=== PATIENT | female | born 1950 | race Caucasian/White ===

== ENCOUNTER 2019-01-08 18:51 | Inpatient (IN) | payer MEDICARE ==
[~2019-01-08] VITALS: Ht 170.2 cm; Wt 95.9 kg
--- NOTE | 2019-01-08 19:40 | NUR ---
800 ML OF CLEAR, YELLOW URINE DRAINED FROM WHITE CATH BAG
[2019-01-08 20:14] LABS: BASOPHILS 0.9 % (0-2); HEMATOCRIT 25.2 % (36.0-48.0); IMMATURE GRANULOCYTES 0.3 % (0-5); MCHC 31.7 g/dL (31.0-37.0); MCV 91.3 fL (80.0-100.0); MEAN PLATELET VOLUME 11.7 fL (7.4-10.4); MONOCYTES 7.9 % (2-11); NEUTROPHILS 63.9 % (40-80); PLATELET COUNT 187 10x3/uL (130-400); RBC 2.76 10x6/uL (4.00-5.40); RDW 15.2 % (11.5-14.5); WBC 7.7 10x3/uL (4.8-10.8)
[2019-01-08 20:35] LABS: ANION GAP 19.6 mmol/L (8-16); CALCIUM 7.3 mg/dL (8.5-10.1); CARBON DIOXIDE 18.1 mmol/L (21.0-32.0); POTASSIUM - SERUM 4.7 mmol/L (3.5-5.1)
[2019-01-08 20:41] LABS: ALBUMIN 2.9 g/dL (3.4-5.0); BILIRUBIN - TOTAL 0.25 mg/dL (0.2-1.3)
--- NOTE | 2019-01-08 21:00 | NUR ---
RECEIVED PT TO ROOM VIA STRETCHER. SPO2 89% ON RA. PT NOW ON 2L NC. NO FAMILY PRESENT AT THIS TIME. PT ANSWERS MOST QUESTIONS, HOWEVER, CHANGES HER STORY REGARDING HOME MEDICATION FOR PAIN. FALL PRECAUTIONS IN PLACE. SRX2, EDUCATED USE OF CALL LIGHT FOR ASSISTANCE. WILL MONITOR.
[2019-01-08] MEDS ORDERED: NEURONTIN 300300 MG PO (23:05)
[2019-01-08] MEDS ORDERED: NORVASC10 MG PO (23:06)
[2019-01-08] MEDS ORDERED: IBUPROFEN800 MG PO (23:06)
[2019-01-08] MEDS ORDERED: LEVOTHYROXINE50 MCG PO (23:06)
[2019-01-08] MEDS ORDERED: SHINGRIX (23:07)
[2019-01-08] MEDS ORDERED: INFLUENZA VACCINE (23:07)
[2019-01-08] MEDS ORDERED: DETROL LA4 MG PO (23:07)
[2019-01-08] MEDS ORDERED: [UNRECOGNIZED DRUG - OTHER] (23:07)
[2019-01-08] MEDS ORDERED: CATAPRES0.2 MG PO (23:07)
[2019-01-08] MEDS ORDERED: [UNRECOGNIZED DRUG - SUPPLY] (23:07)
[2019-01-08] MEDS ORDERED: FUROSEMIDE20 MG PO (23:08)
[2019-01-08] MEDS ORDERED: ZOLOFT100 MG PO (23:11)
[2019-01-09] VITALS (7 sets, daily range): BP systolic 122–225; BP diastolic 62–80; BMI 34.5; BMI 34.4
--- NOTE | 2019-01-09 03:03 | NUR ---
PT CALLS FOR ASSISTANCE TO USE THE RESTROOM. VERY CONFUSED AT THIS TIME AND DOES NOT REMEMBER TRANSFERRING TO THIS HOSPITAL. STATES "WHEN ARE THEY GOING TO TRANSFER ME" ATTEMPTED TO REDIRECT HER. X1 ASST TO BEDSIDE COMMODE. C/O BEING DIZZY WHEN STANDING. FALL PRECAUTIONS REMAIN IN PLACE. WILL CTM.
[2019-01-09 06:06] LABS: BASOPHILS 0.9 % (0-2); EOSINOPHILS 4.6 % (0-7); HEMATOCRIT 24.2 % (36.0-48.0); HEMOGLOBIN 7.7 g/dL (12-16); IMMATURE GRANULOCYTES 0.2 % (0-5); LYMPHOCYTES 16.5 % (15-50); MCH 28.8 pg (26.0-34.0); MCHC 31.8 g/dL (31.0-37.0); MCV 90.6 fL (80.0-100.0); MEAN PLATELET VOLUME 11.5 fL (7.4-10.4); MONOCYTES 9.6 % (2-11); NEUTROPHILS 68.2 % (40-80); PLATELET COUNT 189 10x3/uL (130-400); RBC 2.67 10x6/uL (4.00-5.40); RDW 15.3 % (11.5-14.5); WBC 8.5 10x3/uL (4.8-10.8)
[2019-01-09 06:32] LABS: ALBUMIN 2.7 g/dL (3.4-5.0); ANION GAP 20.4 mmol/L (8-16); BILIRUBIN - TOTAL 0.24 mg/dL (0.2-1.3); CALCIUM 7.3 mg/dL (8.5-10.1); CARBON DIOXIDE 16.2 mmol/L (21.0-32.0); CREATININE - SERUM 6.1 mg/dL (0.6-1.3); MAGNESIUM - SERUM 1.8 mg/dL (1.8-2.4); PHOSPHOROUS 7.3 mg/dL (2.5-4.9); POTASSIUM - SERUM 4.6 mmol/L (3.5-5.1); PROTEIN - SERUM 6.7 g/dL (6.4-8.2); THYROID STIMULATING HORMONE 4.53 uIU/mL (0.36-3.74)
--- NOTE | 2019-01-09 06:55 | NUR ---
REPORT RECEIVED. SHE HAS SOME CONFUSION IN SAYING I AM GOING HOME FOR A LITTLE WHILE TODAY AND THEN COMING BACK. REORIENT. BED IN LOWEST POSITION AND LOCKED AJLEN BED ALARM IS ON. RESP EVEN WITHOUT LABOR ORIENT ON HOW TO USE CL AGAIN AND SHE IS ENCOURAGED TO USE IT. RIGHT A/C WITH SALINE LOCK INTACT. F/C INTACT.
--- NOTE | 2019-01-09 09:30 | NUR ---
SPOKE WITH JUAN C DEAN ABOUT HER B/P RESULT OF AND REVIEW OF B/P HOME MEDS, ORDER TO RESTART NORVASC AND CLONIDINE
--- NOTE | 2019-01-09 10:57 | NUR ---
SHE GOT UP OUT OF CHAIR AND HAD SOME BOWEL MOVEMENT TO THE BSC. PERICARE WAS PROVIDED. SHE REMAINS CONFUSED THINKING SHE IS IN THE WRONG ROOM REORIENT OFTEN IS HERE AT THIS TIME AND STATES SHE HAS BEEN CONFUSED SINCE YESTERDAY LIKE THIS BUT IT IS NOT HER NORMAL
[2019-01-09 13:44] LABS: APTT 31.8 SECONDS (22.8-39.4); INR 1.23 (0.85-1.17)
[2019-01-09 14:01] LABS: % SATURATION 8 % (15-55); IRON 19 ug/dl (35-150); TOTAL IRON BIND CAPACITY 221 ug/dl (260-445); UNSAT IRON BIND CAPACITY 202 ug/dl (150-375)
[2019-01-09 16:23] LABS: COMPLEMENT C4 51.1 mg/dL (17.4-52.2)
--- NOTE | 2019-01-09 16:53 | MORECARE ---
CASE MANAGEMENT DISCHARGE SUMMARY PATIENT: JAMIE CORBIN UNIT: [id number] ADM DATE: 01/08/19 AGE: 68 : 50 SEX: F ROOM/BED: D.2311 AUTHOR: SCOUT,DOC PHYSICIAN: REFERRING PHYSICIAN: JAMISON TURPIN MD DATE OF SERVICE: 01/09/19 Discharge Plan Patient Name: JAMIE CORBIN Facility: [facility]:[place] : 1950 Planned Disposition: Home Anticipated Discharge Date: Discharge Date: Expected LOS: Initial Reviewer: [email or web address] Initial Review Date: 01/09/2019 Generated: 01/09/19 5:52 pm Comments DCP- Discharge Planning Updated by [email or web address]: Joseph Sanders on 01/09/19 3:[address] Patient Name: JAMIE CORBIN Admission Status: ER Accout number: [id number] Admission Date: 01-08-2019 : 1950 Admission Diagnosis: Attending: JAMISON TURPIN Current LOS: 1 Anticipated DC Date: Planned Disposition: Home Primary Insurance: [employer] CHOICE PPO MCR ADVANT Discharge Planning Comments: CM MET WITH PT IN ROOM TO DISCUSS DISCHARGE PLANNING AND NEEDS. PT REPORTS LIVING AT HOME INDEPENDENTLY AND ALONE. PT HAS A WALKER WITH NO MEDICAL EQUIPMENT PROVIDER PREFERENCE. PT HAS NO OUTSIDE SERVICES ASSISTING IN THE HOME. CM DISCUSSED AVAILABILITY OF HOME HEALTH, REHAB SERVICES AND MEDICAL EQUIPMENT. PT DENIES DISCHARGE NEEDS, REPORTS HER SPOUSE WILL PICK HER UP FOR DISCHARGE HOME. PT PLANS TO DISCHARGE HOME ALONE, SEPERATED SPOUSE TO ASSIST PT AT HOME IF NECESSARY. SEPERATED SPOUSE TO TRANSPORT HOME AT DISCHARGE. PT HAS NO ANTICIPATED DISCHARGE NEEDS AT THIS TIME. CM TO CONTINUE TO FOLLOW AND ASSIST NEEDED. Head Waiter: Joseph Sanders DCPIA - Discharge Planning Initial Assessment Updated by [email or web address]: Joseph Sanders on 01/09/19 4:49 pm * Is the patient Alert and Oriented? Yes * How many steps to enter\exit or inside your home? * PCP DR. BATRES IN [place] * Pharmacy [facility] IN [place] * Preadmission Environment Home with Family * ADLs Independent * Equipment Walker * Other Equipment NO MEDICAL EQUIPMENT PROVIDER PREFERENCE * List name and contact numbers for known caregivers / representatives who currently or will assist patient after discharge: SHAWN CORBIN, SEPERATED SPOUSE, * Verbal permission to speak to the caregivers and representatives has been obtained from the patient. Yes * Community resources currently utilized None * Please name any agencies selected above. NONE * Additional services required to return to the preadmission environment? No * Can the patient safely return to the preadmission environment? Yes * Has this patient been hospitalized within the prior 30 days at any hospital? No Patient Name: JAMIE CORBIN Page [id number] at 1653 All edits/amendments must be made on the electronic document DICTATION DATE: 01/09/191652 COLLECTIONS REP: ANIBAL 01/09/191652 RPT#: [id number] CT DATE: STATUS: ADM IN [facility] [address] [place] [address] END OF REPORT
[2019-01-09 17:18] LABS: ERYTHROCYTE SEDIMENTATION RATE 126 mm/hr (0-30)
--- NOTE | 2019-01-09 17:24 | NUR ---
IV SITE TO RIGHT A/C LEAKING, NEW ONE STARTED IN RIGHT HAND WITH 22 GUAGE X1 STICK
--- NOTE | 2019-01-09 19:07 | NUR ---
PT HAS PULLED OUT 2 IV'S THIS EVENING. SHE HAS PULLED ON HER F/C LINE ON AND OFF. SHE CONTINUES TO BE CONFUSED AND OFTEN WILL CALL OUT I NEED TO PEE, I KEEP REMINDING HER SHE HAS A F/C. NO CHANGE IN MENTAL STATUS TODAY. SHE IS UP IN HER CHAIR IN HER ROOM WITH ALARM ON
--- NOTE | 2019-01-09 19:27 | NUR ---
URINE SPECIMEN COLLECTED FROM F/C PORT AFTER CLEANING AND TOOK TO LAB
[2019-01-09 20:09] LABS: CREATININE - URINE 68.6 mg/dL (30-125)
[2019-01-09 20:14] LABS: PRO/CRE RATIO URINE 13.9 mg/g; PROTEIN - URINE 955.5 mg/dL (0.0-11.9)
[2019-01-09 20:33] LABS: APPEARANCE CLEAR (CLEAR); BILIRUBIN NEGATIVE (NEGATIVE); COLOR YELLOW (YELLOW); GLUCOSE 100 mg/dL (NEGATIVE); KETONE NEGATIVE (NEGATIVE); NITRITE NEGATIVE (NEGATIVE); PROTEIN 2+ mg/dL (NEGATIVE); SPECIFIC GRAVITY 1.015 (1.005-1.020); UROBILINOGEN NORMAL (NORMAL)
[2019-01-09 20:34] LABS: EPITHELIAL CELLS 0-5 /hpf (0-5); RED CELLS - URINE 0-5 /hpf (0-5)
[2019-01-09 20:35] LABS: BACTERIA FEW /hpf (NEGATIVE)
--- NOTE | 2019-01-09 22:10 | NUR ---
DR. SEQUEIRA CALLED AND ASKED ME TO GIVE PATIENT ABX ORDER. PLACED ORDER FOR HIM AND WILL FOLLOW HIS ORDER.
--- NOTE | 2019-01-09 23:39 | NUR ---
REPORT RECIEVED AND ROUNDING COMPLETE. SINGH SITTING UP IN HER CHAIR. PATIENT IS ON THE PHONE. DAY NURSE REPORTS SHE HAS NO PIV AT THIS TIME, REPORTS TO CORRINA HUTCHISON. PATIENT HAS NASAL CANULA ON WIHT 02 AT 2L. PATIENT HAS A WHITE WITH CLEAR YELLOW URINE IN WHITE BAG. PATIENT HAS NO NEEDS AT THIS TIME, PATIENT SHOWING NO S/SX OF DISTRESS AT THIS TIME. CALL LIGHT WITHIN REACH AND BED IN LOWEST LOCKED POSITION.
[2019-01-10 00:46] VITALS: BP 169/67
--- NOTE | 2019-01-10 02:57 | NUR ---
I have reviewed this patient and I concur with the Shift Assessment completed by the Licensed Practical Nurse today this shift.
[2019-01-10 04:23] VITALS: BP 185/74
[2019-01-10 06:12] LABS: INR 1.33 (0.85-1.17); PROTIME 15.9 SECONDS (11.6-15.0)
[2019-01-10 06:30] LABS: ALBUMIN 2.5 g/dL (3.4-5.0); ANION GAP 18.8 mmol/L (8-16); BILIRUBIN - TOTAL 0.27 mg/dL (0.2-1.3); CALCIUM 7.6 mg/dL (8.5-10.1); CARBON DIOXIDE 18.4 mmol/L (21.0-32.0); MAGNESIUM - SERUM 1.7 mg/dL (1.8-2.4); POTASSIUM - SERUM 4.2 mmol/L (3.5-5.1)
--- NOTE | 2019-01-10 06:58 | NUR ---
REPORT RECEIVED. SHE IS RESTING WITH EASE RESP EVEN WITHOUT LABOR. BED IN LOWEST POSITION AND LOCKED. CAREPLAN REVIEW DONE WITH SAFETY PRECAUTIONS IN PLACE. JALEN BED ALARM ON. O2 ON AT 2 L/M PER N/C. F/C PATENT WITH YELLOW URINE DRAINING. CL IN REACH
[2019-01-10 07:46] VITALS: BP 106/76
[2019-01-10 11:23] VITALS: BP 194/72
[2019-01-10 15:26] VITALS: BP 108/60
[2019-01-10 20:00] VITALS: BP 139/73
[2019-01-11] VITALS (7 sets, daily range): BP systolic 138–186; BP diastolic 55–77
[2019-01-11 05:17] LABS: ALBUMIN 2.1 g/dL (3.4-5.0); ANION GAP 17.4 mmol/L (8-16); BILIRUBIN - TOTAL 0.22 mg/dL (0.2-1.3); CALCIUM 7.2 mg/dL (8.5-10.1); CARBON DIOXIDE 19.2 mmol/L (21.0-32.0); MAGNESIUM - SERUM 1.6 mg/dL (1.8-2.4); POTASSIUM - SERUM 4.6 mmol/L (3.5-5.1); PROTEIN - SERUM 5.8 g/dL (6.4-8.2)
--- NOTE | 2019-01-11 06:58 | NUR ---
REPORT RECEIVED. SHE IS RESTING WITH EASE RESP EVEN WITHOUT LABOR. F/C PATENT WITH YELLOW URINE NOTED. CL IN REACH JALEN BED ALARM IS ON. BED IN LOWEST POSITION AND LOCKED. CAREPLAN REVIEW DONE WITH SAFETY PRECAUTIONS IN PLACE
[2019-01-11 07:24] LABS: INR 1.26 (0.85-1.17); PROTIME 15.3 SECONDS (11.6-15.0)
--- NOTE | 2019-01-11 08:13 | NUR ---
SHE LEFT FOR KIDNEY BIOPSY WITH IR AT THIS TIME. NO CHANGE IN CONDITION NOTED SHE IS AWAKE
--- NOTE | 2019-01-11 08:59 | NUR ---
RETURN FROM IR, THEY WERE UNABLE TO DO KIDNEY BIOPSY DUE TO BLOOD PRESSURE WAS TO HIGH, IT IS 177/76 CURRENTLY AND SHE HAS HAD HER AM MEDS. HR 68, RESP 20 O2 SAT ON R/A IS 98%. BED ALARM IS BACK ON AND CL IN REACH. SHE WILL REMAIN NPO UNTIL THEY CALL BACK IF THEY ARE ABLE TO FIT HER IN TODAY OR NOT.
[2019-01-11 10:10] LABS: ANA REFLEX - DIRECT Negative (Negative)
--- NOTE | 2019-01-11 11:17 | NUR ---
FSBS IS 152 BUT SHE IS NPO AT THIS TIME SO NO INSULIN IS GIVEN
--- NOTE | 2019-01-11 11:17 | EC ---
PATIENT:JAMIE CORBIN DATE OF SERVICE: 01/08/19 SEX: F MEDICAL RECORD: [id number] DATE OF : [birth year] LOCATION:D.M2 D.211 AGE OF PATIENT: 68 ADMISSION DATE: 01/08/19 REFERRING PHYSICIAN: INTERPRETING PHYSICIAN: RAMSEY VILLAVICENCIO MD ECHOCARDIOGRAM REPORT ECHO CHARGES 4 ECHO COMPLETE Date: 01/09/19 CLINICAL DIAGNOSIS: DYSPNEA ECHOCARDIOGRAPHIC MEASUREMENTS (adult normal given) AC root (d.<3.7cm) 2.8 cm LV Septum d (<1.2 cm> 1.2 cm Valve Excursion 1.7 cm LV Septum (systole) 1.8 cm Left Atria (s.<4.0cm> 4.2 cm LVPW d(<1.2cm) 1.4 cm RV (d.<2.3cm) 3.2 cm LVPW (sytole) 1.5 cm LV diastole(<5.6CM) 5.6 cm MV E-F(>70mm/sec) cm LV systole 4.0 cm LVOT Diameter 2.0 cm MV exc.(>10mm) cm Est.ejection fraction (50-75%) % DOPPLER: LVIT cm/sec A 110 cm/sec E 37.0 cm/sec LA cm/sec RVSP 50.5 mmHg LVOT 179 cm/sec AOP1/2T m/s Asc. Ao 235 cm/sec RVOT 109 cm/sec RA cm/sec PA 144 cm/sec AV Gradient Peak 22.1 mmHg AV Mean 12.8 mmHg AV Area 2.5 cm MV Gradient Peak 10.2 mmHg MV Mean 5.5 mmHg MV Area cm COMMENTS: Electronic Equipment Repairmen: Giss[facility] Force Dispatcher: 1 Dr. Villavicencio TAPE# PACS Pericardial Effusion N DATE OF SERVICE: FINDINGS: 1. Left ventricular chamber size is within normal limits. Left ventricular systolic function is normal. Overall ejection fraction estimated at 55% to 60%. 2. Left atrium is enlarged at 4.2 cm. Right atrium and right ventricular chamber sizes are as well mildly dilated. 3. Valvular structures have normal structure and motion. 4. Doppler interrogation reveals mild mitral regurgitation, mild tricuspid regurgitation, no other valvular insufficiency or stenosis. Pulmonary systolic ECHOCARDIOGRAM REPORT [id number] JAMIE CORBIN pressure is estimated at 50 mmHg. 5. No evidence of pericardial effusion or left ventricular thrombus. TRANSINT:[id number] Voice Confirmation ID: [id number] DOCUMENT ID: [id number] RAMSEY VILLAVICENCIO MD at 1117 CC: [id number] DICTATION DATE: 01/10/19 155 CANINE ENFORCEMENT OFFICER: 01/10/19 1855 ADM IN [facility] [address] [place] [address]
--- NOTE | 2019-01-11 11:30 | NUR ---
HER IS HERE FOR VISIT, I SPOKE WITH THEM CONCERNING A CENTRAL LINE FOR IV ACCESS AND THEY ARE REFUSING THAT AT THIS TIME BECAUSE SHE DOES HAVE SALINE LOCK.
--- NOTE | 2019-01-11 11:37 | NUR ---
B\P 177 SYSTOLIC. CALLED JUNE HARRY AND TOLD HER WILL DO WEDNESDAY B\P TOO HIGH.
--- NOTE | 2019-01-11 11:45 | NUR ---
BIOPSY OF KIDNEY WAS CANCELLED BY DR ALLRED DUE TO BLOOD PRESSURE IS TO HIGH, IT WAS 170/60 AT 10:30. THEY WILL TRY AGAIN ON WEDNESDAY IF BLOOD PRESSURE IS BETTER. STATED TO GO AHEAD AND FEED HER LUNCH.
--- NOTE | 2019-01-11 13:43 | NUR ---
Nutrition Follow-up: NPO this AM for renal biopsy, although they were unable to complete 2/2 BP. Otherwise, eating well. Diet: Renal ADA, Dental Soft PO intake: 50-100% Wt: 238# (220.02# on 01/09) Labs noted: Glu 124, GFR 7, Mg 1.6, Ca 7.2, Alb 2.1 Meds noted: MagOx, Humalog, Pepcid, KDur -Continue current diet as tolerated. -RD following.
--- NOTE | 2019-01-11 13:55 | NUR ---
24 HOUR URINE COLLECTION TOOK TO LAB AT THIS TIME AND THEY WERE NOTIFIED.
[2019-01-11 15:15] LABS: CREATININE - URINE 99.7 mg/dL (30-125)
[2019-01-11 15:28] LABS: PROTEIN - URINE 843.6 mg/dL (0.0-11.9)
--- NOTE | 2019-01-11 19:20 | NUR ---
PT SITTING UP IN BED RESTING. EYES CLOSED. RESP EVEN AND UNLABORED. NO DISTRESS NOTED. CL IN REACH. BED IN LOW SIDE RAILS X2. BED ALARM ON. WILL CONTINUE TO MONITOR.
[2019-01-11 20:07] LABS: SPE - A/G RATIO 0.9 (0.7-1.7); SPE - ALBUMIN 2.7 g/dL (2.9-4.4); SPE - ALBUMIN 2.8 g/dL (2.9-4.4); SPE - ALPHA-1 GLOBULIN 0.3 g/dL (0.0-0.4); SPE - ALPHA-2 GLOBULIN 1.2 g/dL (0.4-1.0); SPE - BETA GLOBULIN 0.8 g/dL (0.7-1.3); SPE - GAMMA GLOBULIN 0.6 g/dL (0.4-1.8); SPE - GAMMA GLOBULIN 0.7 g/dL (0.4-1.8); SPE - M-SPIKE Not Observed g/dL (Not Observed); SPE - TOTAL PROTEIN 5.6 g/dL (6.0-8.5); SPE - TOTAL PROTEIN 5.7 g/dL (6.0-8.5)
[2019-01-11 20:07] LABS: UPE RAND - ALBUMIN 59.9 % (()); UPE RAND - ALPHA 1 GLOBULIN 9.7 % (()); UPE RAND - ALPHA 2 GLOBULIN 7.6 % (()); UPE RAND - BETA GLOBULIN 12.7 % (())
[2019-01-12] VITALS (7 sets, daily range): BP systolic 123–190; BP diastolic 56–105
--- NOTE | 2019-01-12 02:17 | NUR ---
I have reviewed this patient and I concur with the Shift Assessment completed by the Licensed Practical Nurse today this shift.
[2019-01-12 05:37] LABS: ALBUMIN 2.2 g/dL (3.4-5.0); ANION GAP 16.5 mmol/L (8-16); BILIRUBIN - TOTAL 0.19 mg/dL (0.2-1.3); CALCIUM 7.5 mg/dL (8.5-10.1); CARBON DIOXIDE 20.7 mmol/L (21.0-32.0); CREATININE - SERUM 6.5 mg/dL (0.6-1.3); MAGNESIUM - SERUM 1.7 mg/dL (1.8-2.4); POTASSIUM - SERUM 5.2 mmol/L (3.5-5.1); PROTEIN - SERUM 6.2 g/dL (6.4-8.2)
--- NOTE | 2019-01-12 07:36 | NUR ---
PATIENT IS AWAKE AND ALERT AT THIS TIME. WHEN ASKED WHERE SHE IS SHE SAYS THAT SHE ,"IS IN [facility]." REORIENTS QUICKLY, SHE IS ABLE TO TALK ABOUT HER PETS AND FAMILY. SHE UNDERSTANDS THAT SHE HAS BEEN CONFUSED. RESTING QUIETLY AT THIS TIME, DENIES ANY NEEDS.
[2019-01-12 09:09] LABS: ANTI-GLOMERULAR BASMENT MEMBRN 2 units (0-20)
[2019-01-12 11:22] LABS: EOSINOPHILS 7.1 % (0-7); HEMATOCRIT 21.9 % (36.0-48.0); IMMATURE GRANULOCYTES 0.1 % (0-5); LYMPHOCYTES 28.8 % (15-50); MCH 28.4 pg (26.0-34.0); MCHC 30.6 g/dL (31.0-37.0); MCV 92.8 fL (80.0-100.0); MEAN PLATELET VOLUME 11.3 fL (7.4-10.4); MONOCYTES 8.9 % (2-11); NEUTROPHILS 54.1 % (40-80); PLATELET COUNT 202 10x3/uL (130-400); RBC 2.36 10x6/uL (4.00-5.40); RDW 15.1 % (11.5-14.5); WBC 7.1 10x3/uL (4.8-10.8)
[2019-01-12 11:28] LABS: HEMOGLOBIN 6.7 g/dL (12-16)
--- NOTE | 2019-01-12 11:48 | NUR ---
REPORTED CRITICAL LOW HEMAGLOBIN TO JUAN C KHALIL AND ORDERED ANOTHER CBC STAT.
--- NOTE | 2019-01-12 11:49 | NUR ---
REMOVED WHITE CATHETER. REMOVED 10ML STERILE WATER FROM THE BALLOON FIRST AND REMOVED THE WHITE. PATIENT TOLERATED. 200 ML CLEAR YELLOW URINE EMPTIED FROM THE WHITE AFTER REMOVAL.
[2019-01-12 12:20] LABS: BASOPHILS 1.5 % (0-2); EOSINOPHILS 6.4 % (0-7); HEMATOCRIT 23.3 % (36.0-48.0); IMMATURE GRANULOCYTES 0.5 % (0-5); LYMPHOCYTES 23.4 % (15-50); MCH 28.9 pg (26.0-34.0); MCHC 31.8 g/dL (31.0-37.0); MEAN PLATELET VOLUME 11.7 fL (7.4-10.4); MONOCYTES 7.4 % (2-11); NEUTROPHILS 60.8 % (40-80); RBC 2.56 10x6/uL (4.00-5.40); WBC 8.1 10x3/uL (4.8-10.8)
[2019-01-12 12:27] LABS: HEMOGLOBIN 7.4 g/dL (12-16); PLATELET COUNT 251 10x3/uL (130-400)
--- NOTE | 2019-01-12 16:44 | NUR ---
TRANSFUSING FIRST UNIT OF PRBC'S NOW.
--- NOTE | 2019-01-12 19:22 | NUR ---
RECEIVED REPORT, WILL ASSUME CARE OF PT, SULLY HARRY STARTING 2ND UNIT OF PRBC, PT DENIES ANY NEEDS AT THIS TIME, BED IS LOW, SRX2, CALL LIGHT IN REACH, WILL CONTINUE PLAN OF CARE
--- NOTE | 2019-01-12 19:27 | NUR ---
NEW IV START IN LEFT FOREFINGER, 22G. SECOND UNIT OF PRBC'S STARTED NOW. REMOVED IV FROM LEFT THUMB BECAUSE IT HAD BEEN DISLODGED. THE PATIENT IS STILL CONFUSED. SHE IS NOT ORIENTED TO TIME, PLACE OR SITUATION. SHE IS RESTING AT THIS TIME. LASIX IV GIVEN AFTER FINISHING THE FIRST UNIT OF PRBC'S ORDERED. CONTINUEING TO MONITOR CLOSELY.
[2019-01-13] VITALS (7 sets, daily range): BP systolic 146–185; BP diastolic 58–76; Ht 170.2 cm; Wt 95.9 kg
--- NOTE | 2019-01-13 02:43 | NUR ---
I have reviewed this patient and I concur with the Shift Assessment completed by the Licensed Practical Nurse today this shift.
[2019-01-13 04:30] LABS: HEMATOCRIT 27.5 % (36.0-48.0); HEMOGLOBIN 8.8 g/dL (12-16); IMMATURE GRANULOCYTES 0.3 % (0-5); LYMPHOCYTES 33.2 % (15-50); MCH 29.1 pg (26.0-34.0); MCV 91.1 fL (80.0-100.0); MEAN PLATELET VOLUME 11.2 fL (7.4-10.4); MONOCYTES 7.6 % (2-11); NEUTROPHILS 50.9 % (40-80); PLATELET COUNT 210 10x3/uL (130-400); RBC 3.02 10x6/uL (4.00-5.40); RDW 15.2 % (11.5-14.5); WBC 7.3 10x3/uL (4.8-10.8)
[2019-01-13 04:40] LABS: INR 1.19 (0.85-1.17); PROTIME 14.6 SECONDS (11.6-15.0)
[2019-01-13 04:45] LABS: ALBUMIN 2.5 g/dL (3.4-5.0); ANION GAP 15.9 mmol/L (8-16); BILIRUBIN - TOTAL 0.28 mg/dL (0.2-1.3); CALCIUM 7.8 mg/dL (8.5-10.1); CARBON DIOXIDE 22.2 mmol/L (21.0-32.0); CREATININE - SERUM 6.6 mg/dL (0.6-1.3); MAGNESIUM - SERUM 1.8 mg/dL (1.8-2.4); POTASSIUM - SERUM 5.1 mmol/L (3.5-5.1); PROTEIN - SERUM 6.7 g/dL (6.4-8.2)
--- NOTE | 2019-01-13 09:30 | NUR ---
DR. SEQUEIRA HERE AND ORDER RECEIVED FOR VASOTEC 2.5 MG IVP FOR B/P OF 181/75 ANG GIVEN AT 0945 BY Abimbola RAO RN.
--- NOTE | 2019-01-13 10:00 | NUR ---
B/P READING NOW 176/96. SHIRLEY NOTIFIED AND ORDERS RECEIVED FOR APRESOLINE 5 MG IVPAND GIVEN AT 1008 BY JIA HARRY.
--- NOTE | 2019-01-13 10:35 | NUR ---
B/P NOW 195/69 PULSE RATE 58. SHIRLEY NOTIFIED AND ORDERS RECEIVED FOR VASOTEC 5 MG IVP AND GIVEN BY JIA HARRY AT 1104.
--- NOTE | 2019-01-13 11:25 | NUR ---
DR. RIVERA HERE AND INSERTED TRIALYSIS CATH TO LEFT IJ. PT TOLERATED PROCEDURE WELL.
--- NOTE | 2019-01-13 12:04 | NUR ---
B/P NOW 185/73. SHIRLEY NOTIFIED AND ORDERS RECEIVED TO POSTPONE RENAL BX UNTIL WEDNESDAY. PT MAY HAVE DIET AND GIVE ALL B/P MEDS. ALL MEDS GIVEN AND PT TOLERATED WELL.
[2019-01-13 17:08] LABS: ANCA - ANTIMYELOPEROXIDASE <9.0 U/mL (0.0-9.0); ANCA - ANTIPROTEINASE 3 <3.5 U/mL (0.0-3.5); ANCA - ATYPICAL <1:20 titer (Neg:<1:20); ANCA - CYTOPLASMIC <1:20 titer (Neg:<1:20); ANCA - PERINUCLEAR <1:20 titer (Neg:<1:20)
--- NOTE | 2019-01-13 17:20 | NUR ---
B/P NOW 161/72. RESTING QUIETLY IN BED WATCHING TV. TRIALYISIS IJ PATENT.
--- NOTE | 2019-01-13 17:23 | NUR ---
I have reviewed this patient and I concur with the Shift Assessment completed by the Licensed Practical Nurse today this shift.
--- NOTE | 2019-01-13 19:33 | NUR ---
RECEIVED BEDSIDE REPORT. PATIENT IS RESTING COMFORTABLY IN BED. RESPIRATIONS ARE EVEN AND UNLABORED. NO S/S OF DISTRESS. NO C/O PAIN. CALL LIGHT WITHIN REACH. WILL CPOC.
[2019-01-14] VITALS: BP 169/64
--- NOTE | 2019-01-14 00:19 | NUR ---
PATIENT RESTING COMFORTABLY IN BED. RESPIRATIONS ARE EVEN AND UNLABORED. NO S/S OF DISTRESS. NO C/O PAIN. CALL LIGHT WITHIN REACH. WILL CPOC.
[2019-01-14 05:06] LABS: BASOPHILS 1.1 % (0-2); EOSINOPHILS 7.2 % (0-7); HEMATOCRIT 28.7 % (36.0-48.0); HEMOGLOBIN 9.1 g/dL (12-16); IMMATURE GRANULOCYTES 0.6 % (0-5); LYMPHOCYTES 19.1 % (15-50); MCHC 31.7 g/dL (31.0-37.0); MCV 91.4 fL (80.0-100.0); MEAN PLATELET VOLUME 10.8 fL (7.4-10.4); MONOCYTES 9.7 % (2-11); NEUTROPHILS 62.3 % (40-80); PLATELET COUNT 236 10x3/uL (130-400); RBC 3.14 10x6/uL (4.00-5.40); RDW 15.7 % (11.5-14.5); WBC 8.7 10x3/uL (4.8-10.8)
[2019-01-14 05:27] LABS: ALBUMIN 2.4 g/dL (3.4-5.0); ANION GAP 19.6 mmol/L (8-16); BILIRUBIN - TOTAL 0.17 mg/dL (0.2-1.3); CALCIUM 7.6 mg/dL (8.5-10.1); CARBON DIOXIDE 17.8 mmol/L (21.0-32.0); CREATININE - SERUM 6.8 mg/dL (0.6-1.3); POTASSIUM - SERUM 5.4 mmol/L (3.5-5.1); PROTEIN - SERUM 6.4 g/dL (6.4-8.2)
[2019-01-14 09:23] VITALS: BP 198/73
--- NOTE | 2019-01-14 15:12 | NUR ---
DRESSING TO LEFT IJ CHANGED. PT TOLERATED WELL WITH NO COMPLAINTS. WHEN I TOLD HER I HAD SOME PILLS FOR HER, SHE TOLD ME THAT JARED HAD JUST GIVEN THEM TO HER. WHEN I ASKED IF SHE KNEW WHERE SHE IS AT, SHE SAID NO SHE DIDN'T. WHEN I TOLD HER [facility], SHE ASKED WELL WHEN DID WE COME BACK HERE?
[2019-01-14 16:26] VITALS: BP 160/59
--- NOTE | 2019-01-14 19:15 | NUR ---
RECEIVED REPORT, WILL ASSUME CARE OF PT, SLEEPING, NO DISTRESS NOTICED AT THIS TIME, BED IS LOW, SRX3, CALL LIGHT IN REACH, WILL CONTINUE PLAN OF CARE, BED ALARM IS ON
[2019-01-14 20:00] VITALS: BP 180/64
[2019-01-14 22:00] VITALS: BP 114/72; BP 145/55
[2019-01-15 04:00] VITALS: BP 179/72
--- NOTE | 2019-01-15 04:28 | NUR ---
PT WOKE UP, VERY CONFUSED, THINKS SHE IN A DIFFERENT ROOM, EXPLAIN THIS IS THE ROOM SHE HAS BEEN IN
[2019-01-15 04:32] LABS: BASOPHILS 1.1 % (0-2); EOSINOPHILS 5.5 % (0-7); HEMATOCRIT 28.9 % (36.0-48.0); HEMOGLOBIN 9.1 g/dL (12-16); IMMATURE GRANULOCYTES 0.6 % (0-5); LYMPHOCYTES 18.5 % (15-50); MCHC 31.5 g/dL (31.0-37.0); MEAN PLATELET VOLUME 10.8 fL (7.4-10.4); NEUTROPHILS 67.3 % (40-80); PLATELET COUNT 254 10x3/uL (130-400); RBC 3.14 10x6/uL (4.00-5.40); RDW 15.7 % (11.5-14.5); WBC 8.9 10x3/uL (4.8-10.8)
[2019-01-15 05:13] LABS: ALBUMIN 2.5 g/dL (3.4-5.0); ANION GAP 18.7 mmol/L (8-16); BILIRUBIN - TOTAL 0.26 mg/dL (0.2-1.3); CALCIUM 7.9 mg/dL (8.5-10.1); CARBON DIOXIDE 17.4 mmol/L (21.0-32.0); CREATININE - SERUM 6.4 mg/dL (0.6-1.3); POTASSIUM - SERUM 5.1 mmol/L (3.5-5.1); PROTEIN - SERUM 6.6 g/dL (6.4-8.2)
--- NOTE | 2019-01-15 07:20 | NUR ---
RECIEVE REPORT. RESTING IN BED WITH EYES CLOSED. RESPIRATIONS NONLABORED. CONTINUE PLAN OF CARE AND SAFETY PRECAUTIONS.
[2019-01-15 08:29] VITALS: BP 189/72
[2019-01-15 12:07] VITALS: BP 163/69
[2019-01-15 16:21] VITALS: BP 184/75
--- NOTE | 2019-01-15 17:46 | NUR ---
RESTING IN BED WITH EYES CLOSED. RESPIRTATIONS EVEN AND REGULAR. OXYGEN AT 2L NC. REFUSE TO EAT DINNER. CONSENTS UNSIGNED ON CHART DUE TO REPEAT ORDERS AND NO PROCEDURE COMPLETE YET. CONTINUE PLAN OF CARE AND SAFETY PRECAUTIONS.
--- NOTE | 2019-01-15 19:34 | NUR ---
RECEIVED REPORT, WILL ASSUME CARE OF PT, SLEEPING, NO DISTRESS NOTICED AT THIS TIME, BED IS LOW, SRX3, BED ALARM IS ON, CALL IGHT IN REACH, WILL CONTINUE PLAN OF CARE
[2019-01-15 20:00] VITALS: BP 145/65
[2019-01-15 21:41] VITALS: BP 145/65
[2019-01-16] VITALS (13 sets, daily range): BP systolic 119–176; BP diastolic 47–67
--- NOTE | 2019-01-16 03:35 | NUR ---
I have reviewed this patient and I concur with the Shift Assessment completed by the Licensed Practical Nurse today this shift.
[2019-01-16 05:13] LABS: EOSINOPHILS 7.4 % (0-7); HEMATOCRIT 31.1 % (36.0-48.0); HEMOGLOBIN 9.7 g/dL (12-16); IMMATURE GRANULOCYTES 0.7 % (0-5); LYMPHOCYTES 20.7 % (15-50); MCH 29.3 pg (26.0-34.0); MCHC 31.2 g/dL (31.0-37.0); MEAN PLATELET VOLUME 11.3 fL (7.4-10.4); MONOCYTES 8.4 % (2-11); NEUTROPHILS 61.8 % (40-80); PLATELET COUNT 299 10x3/uL (130-400); RBC 3.31 10x6/uL (4.00-5.40); RDW 16.5 % (11.5-14.5); WBC 9.7 10x3/uL (4.8-10.8)
[2019-01-16 05:18] LABS: INR 1.22 (0.85-1.17); PROTIME 14.9 SECONDS (11.6-15.0)
[2019-01-16 05:19] LABS: APTT 49.9 SECONDS (22.8-39.4)
[2019-01-16 05:25] LABS: ALBUMIN 2.6 g/dL (3.4-5.0); ANION GAP 17.5 mmol/L (8-16); BILIRUBIN - TOTAL 0.24 mg/dL (0.2-1.3); CALCIUM 8.2 mg/dL (8.5-10.1); CARBON DIOXIDE 19.2 mmol/L (21.0-32.0); CREATININE - SERUM 6.6 mg/dL (0.6-1.3); POTASSIUM - SERUM 4.7 mmol/L (3.5-5.1); PROTEIN - SERUM 6.9 g/dL (6.4-8.2)
--- NOTE | 2019-01-16 07:20 | NUR ---
RECIEVE REPORT. RESTING IN BED WITH EYES CLOSED. NO SIGNS OF DISTRESS. CONTINUE PLAN OF CARE AND SAFETY PRECAUTIONS.
--- NOTE | 2019-01-16 10:24 | NUR ---
CONFUSED. LETHARGIC. AROUSES TO STIMULI. SPOUSE AT BEDSIDE. REASSESS BP. BP-130/47. NOTIFY KAMRYN SAMUEL WITH IR. CONSENTS FOR RENAL BIOPSY SIGNED ON CHART BY PATIENT AND SPOUSE. TAKEN TO IR VIA BED. CONTINUE PLAN OF CARE AND SAFETY PRECAUTIONS.
--- NOTE | 2019-01-16 11:14 | NUR ---
RETURN TO ROOM VIA BED FROM IR. SEDATED. AROUSES TO STIMULI. BP-121/50, HR-56. SPOUSE AT BEDSIDE. FREE FROM BLEEDING. CONTINUE PLAN OF CARE AND SAFETY PRECAUTIONS.
--- NOTE | 2019-01-16 18:06 | NUR ---
RESTING IN BED WITH EYES CLOSED. O2 @ 2L NC. NO SIGNS OF DISTRESS. CONTINUE PLAN OF CARE AND SAFETY PRECAUTIONS.
--- NOTE | 2019-01-16 19:31 | NUR ---
REPORT RECIEVED AND ROUNDING COMPLETE. PATIENT LAYING IN BED IN HIGH FOWLERS. PATIENT LETHARGIC BUT WAKES WITH LOUD TALKING. PATIENT STATES SHE IS JUST REALLY TIRED AT THIS TIME. PATIENT HAS NASAL CANNULA WIHT O2 AT 2L. PATIENT SHOWING NO S/SX OF DISTRESS AT THIS TIME. CALL LIGHT WITHIN REACH AND BED IN LOWEST LOCKED POSITION. PATIENT STATES NO NEEDS AT THIS TIME.
[2019-01-17] VITALS: BP 126/53
[2019-01-17 04:00] VITALS: BP 142/49
[2019-01-17 06:30] LABS: ALBUMIN 2.7 g/dL (3.4-5.0); ANION GAP 18.8 mmol/L (8-16); BILIRUBIN - TOTAL 0.25 mg/dL (0.2-1.3); CALCIUM 8.3 mg/dL (8.5-10.1); CARBON DIOXIDE 19.1 mmol/L (21.0-32.0); CREATININE - SERUM 6.9 mg/dL (0.6-1.3); POTASSIUM - SERUM 4.9 mmol/L (3.5-5.1)
[2019-01-17 07:10] LABS: BASOPHILS 1.1 % (0-2); EOSINOPHILS 4.8 % (0-7); HEMATOCRIT 32.4 % (36.0-48.0); HEMOGLOBIN 10.1 g/dL (12-16); IMMATURE GRANULOCYTES 0.5 % (0-5); LYMPHOCYTES 14.6 % (15-50); MCH 29.4 pg (26.0-34.0); MCHC 31.2 g/dL (31.0-37.0); MCV 94.2 fL (80.0-100.0); MEAN PLATELET VOLUME 11.4 fL (7.4-10.4); MONOCYTES 8.7 % (2-11); NEUTROPHILS 70.3 % (40-80); PLATELET COUNT 328 10x3/uL (130-400); RBC 3.44 10x6/uL (4.00-5.40); RDW 16.9 % (11.5-14.5); WBC 10.3 10x3/uL (4.8-10.8)
--- NOTE | 2019-01-17 07:20 | NUR ---
RECIEVE REPORT. CONFUSED X3. RESTING IN BED WATCHING TV. ATTEMPT REORIENT UNSUCCESSFUL. PLAN TO START DIALYSIS TODAY. CONTINUE PLAN OF CARE AND SAFETY PRECAUTIONS.
[2019-01-17 08:13] VITALS: BP 156/50
--- NOTE | 2019-01-17 10:15 | NUR ---
TAKEN TO DIALYSIS VIA BED.
[2019-01-17 12:09] LABS: HEPATITIS C ANTIBODY <0.1 S/CO RAT (0.0-0.9)
--- NOTE | 2019-01-17 13:23 | NUR ---
Nutrition Follow-up: Eating well; 100% of breakfast eaten this AM. Noted plans for dialysis today. Diet: Renal ADA PO intake: 50-100% Wt: 251# (238# on 01/11) Last BM: 01/12 per chart Labs noted: K+ 4.9, GFR 6, Glu 176, Ca 8.3, Alb 2.7, PTH 428 Meds reviewed -Continue current diet as tolerated. -RD following.
[2019-01-17 15:06] VITALS: BP 218/80
--- NOTE | 2019-01-17 18:32 | NUR ---
CONFUSED. LAYING IN BED WATCHING TV. SPOUSE LEAVES ROOM. BED ALARM ON. DENIES ANY NEEDS. NO SIGNS OF DISTRESS. CONTINUE PLAN OF CARE AND SAFETY PRECAUTIONS.
--- NOTE | 2019-01-17 19:45 | NUR ---
PT SITTING UP IN BED ALERT BUT CONFUSED X3. PT RR EVEN AND UNLABORED WITH 2L O2 NC. PT BED ALARM IN PLACE ATHIS TIME. NO S/S OF DISTRESS. VITALS STABLE . BED LOW CALL LIGHT WITHIN REACH. WILL CONTINUE TO MONITOR.
[2019-01-17 20:00] VITALS: BP 184/69
[2019-01-17 21:49] VITALS: BP 184/69
[2019-01-18] VITALS (8 sets, daily range): BP systolic 120–208; BP diastolic 57–81
--- NOTE | 2019-01-18 04:18 | NUR ---
PT RESTING IN BED WITH EYES CLOSED. RR EVEN AND UNLABORED. NO S/S OF DISTRESS AT THIS TIME. BED LOW JALEN ALARM IN PLACE CALL LIGHT WITHIN REACH. WILL CONTINUE TO MONITOR.
--- NOTE | 2019-01-18 04:40 | NUR ---
PRN HYDROLOZINE GIVEN FOR 177/ BP. WILL CONTINUE TO MONITOR.
[2019-01-18 05:57] LABS: ALBUMIN 2.4 g/dL (3.4-5.0); ANION GAP 14.1 mmol/L (8-16); BILIRUBIN - TOTAL 0.35 mg/dL (0.2-1.3); POTASSIUM - SERUM 4.2 mmol/L (3.5-5.1); PROTEIN - SERUM 6.4 g/dL (6.4-8.2)
[2019-01-18 05:58] LABS: BASOPHILS 1.1 % (0-2); EOSINOPHILS 6.5 % (0-7); HEMATOCRIT 30.4 % (36.0-48.0); HEMOGLOBIN 9.5 g/dL (12-16); IMMATURE GRANULOCYTES 0.3 % (0-5); LYMPHOCYTES 20.8 % (15-50); MCH 29.1 pg (26.0-34.0); MCHC 31.3 g/dL (31.0-37.0); MEAN PLATELET VOLUME 10.8 fL (7.4-10.4); MONOCYTES 11.5 % (2-11); NEUTROPHILS 59.8 % (40-80); RBC 3.27 10x6/uL (4.00-5.40); RDW 16.2 % (11.5-14.5); WBC 8.8 10x3/uL (4.8-10.8)
[2019-01-18 06:15] LABS: CARBON DIOXIDE 24.1 mmol/L (21.0-32.0)
[2019-01-18 06:42] LABS: PLATELET COUNT 243 10x3/uL (130-400)
--- NOTE | 2019-01-18 07:56 | NUR ---
PT RECEIVED LAYING IN BED FIXING TO EAT BREAKFAST. IV LASIX GIVEN. PT WITH STUDENT THIS MORNING.
--- NOTE | 2019-01-18 17:25 | MORECARE ---
CASE MANAGEMENT DISCHARGE SUMMARY PATIENT: JAMIE CORBIN UNIT: [id number] ADM DATE: 01/08/19 AGE: 68 : 50 SEX: F ROOM/BED: D.3166 AUTHOR: SCOUT,DOC PHYSICIAN: REFERRING PHYSICIAN: JAMISON TURPIN MD DATE OF SERVICE: 01/18/19 Discharge Plan Patient Name: JAMIE CORBIN [facility] [facility] 1950 Planned Disposition: Inpatient Rehab Anticipated Discharge Date: Discharge Date: Expected LOS: Initial Reviewer: [email or web address] Initial Review Date: 01/09/2019 Generated: 01/18/19 6:24 pm Comments DCP- Discharge Planning Updated by [email or web address]: Joseph Sanders on 01/18/19 4:[address] Patient Name: JAMIE CORBIN Encounter No: [id number] : 1950 Primary Insurance: [employer] CHOICE PPO MCR ADVANT Anticipated DC Date: Planned Disposition: Inpatient Rehab External Planned Provider: [facility] INPATIENT REHAB DCP follow-up note: CM MET WITH PT IN ROOM TO DISCUSS DISCHARGE NEEDS AND PLANNING. CM DISCUSSED AVAILABILITY OF HOME HEALTH, REHAB SERVICES AND MEDICAL EQUIPMENT. PT REPORTS SHE IS WEAK AND SHOULD PROBABLY GO TO REHAB. CM DISCUSSED REHAB OPTIONS, LOCATIONS AND PROVIDERS. PT WILL CONSIDER REHAB AT [place], PT WOULD LIKE CM TO SPEAK TO HER SPOUSE TO VERIFY THIS IS A PLAN HE WOULD AGREE WITH. CM CALLED SHAWN CORBIN, , THE LINE WAS BUSY, CM CALLED THREE TIMES. PT REPORTS SHE PLANS TO DRIVE HERSELF TO THE [facility] AND IF SHE NEEDS HELP WITH TRANSPORT, HER SPOUSE, SHAWN, WILL ASSIST. PT REPORTS SHAWN, HER SPOUSE, WILL PICK HER UP FOR DISCHARGE HOME. IMPORTANT MESSAGE FROM MEDICARE PROVIDED AND EXPLAINED. CM TO FOLLOW AND ASSIST NEEDED. PT WILL CONSIDER REHAB AT [facility]. CM TO CONTINUE TO ATTEMPT TO CONTACT PT'S SPOUSE, SHAWN, , TO DISCUSS DISCHARGE PLAN. CM TO ASK PHYSICIAN FOR INPATIENT REHAB PRESCREENING ORDER PT'S INSURANCE WILL REQUIRE PRIOR AUTHORIZATION. SHAHBAZ Odell DCP- Discharge Planning Updated by [id number]: Joseph Sanders on 01/09/19 3:[address] Patient Name: JAMIE CORBIN Admission Status: ER Accout number: [id number] Admission Date: 01-08-2019 : 1950 Admission Diagnosis: Attending: JAMISON TURPIN Current LOS: 1 Anticipated DC Date: Planned Disposition: Home Primary Insurance: [employer] CHOICE PPO MCR ADVANT Discharge Planning Comments: CM MET WITH PT IN ROOM TO DISCUSS DISCHARGE PLANNING AND NEEDS. PT REPORTS LIVING AT HOME INDEPENDENTLY AND ALONE. PT HAS A WALKER WITH NO MEDICAL EQUIPMENT PROVIDER PREFERENCE. PT HAS NO OUTSIDE SERVICES ASSISTING IN THE HOME. CM DISCUSSED AVAILABILITY OF HOME HEALTH, REHAB SERVICES AND MEDICAL EQUIPMENT. PT DENIES DISCHARGE NEEDS, REPORTS HER SPOUSE WILL PICK HER UP FOR DISCHARGE HOME. PT PLANS TO DISCHARGE HOME ALONE, SEPERATED SPOUSE TO ASSIST PT AT HOME IF NECESSARY. SEPERATED SPOUSE TO TRANSPORT HOME AT DISCHARGE. PT HAS NO ANTICIPATED DISCHARGE NEEDS AT THIS TIME. CM TO CONTINUE TO FOLLOW AND ASSIST NEEDED. Tiger Machine Operator: Joseph Sanders DCPIA - Discharge Planning Initial Assessment Updated by [id number]: Joseph Sanders on 01/09/19 4:49 pm * Is the patient Alert and Oriented? Yes * How many steps to enter\exit or inside your home? * PCP DR. BATRES IN [place] * Pharmacy [facility] IN [place] * Preadmission Environment Home with Family * ADLs Independent * Equipment Walker * Other Equipment NO MEDICAL EQUIPMENT PROVIDER PREFERENCE * List name and contact numbers for known caregivers / representatives who currently or will assist patient after discharge: SHAWN CORBIN, SEPERATED SPOUSE, * Verbal permission to speak to the caregivers and representatives has been obtained from the patient. Yes * Community resources currently utilized None * Please name any agencies selected above. NONE * Additional services required to return to the preadmission environment? No * Can the patient safely return to the preadmission environment? Yes * Has this patient been hospitalized within the prior 30 days at any hospital? No Coverage Notice Reviewer: [id number] - Joseph Sanders Notice Issued Date-Time: 01/18/2019 17:10 Notice Type: IM Discharge Notice Notice Delivered To: Patient Relationship to Patient: Electronic Die Maker Name: Delivery Method: HAND - Hand Delivered Ximena Days: Prior Verbal Notification: Recipient Understood Notice: Yes Recipient Signature: Yes Med Rec Note Co-signed by Attending: Coverage Notice Comment: Last DP export: 01/09/19 3:53 Patient Name: JAMIE CORBIN Page [id number] at 1725 All edits/amendments must be made on the electronic document DICTATION DATE: 01/18/191723 TEACHER EDUCATION DIRECTOR: ANIBAL 01/18/191723 RPT#: [id number] DC DATE: STATUS: ADM IN [facility] [address] [place] [address] END OF REPORT
--- NOTE | 2019-01-18 18:00 | NUR ---
PT WITH +HEP A PER INFECTION CONTROL, STATES SINCE SHE IS NOT HAVING DIARRHEA NO NEED FOR ISOLATION.
--- NOTE | 2019-01-18 19:10 | NUR ---
BEDSIDE REPORT RECEIVED FROM DAY SHIFT, PT CARE ASSUMED. INTRODUCED SELF AND WROTE NAME ON BOARD. PT SITTING UP IN BED, WATCHING TV, AAOX4. DENIES ANY NEEDS AT THIS TIME. BED IN LOWEST POSITION, SR X3, CALL LIGHT WITHIN REACH. WILL CONTINUE TO MONITOR.
[2019-01-19] VITALS: BP 141/52
[2019-01-19 04:00] VITALS: BP 171/71
[2019-01-19 06:21] LABS: ALBUMIN 2.5 g/dL (3.4-5.0); ANION GAP 14.1 mmol/L (8-16); BILIRUBIN - TOTAL 0.3 mg/dL (0.2-1.3); CALCIUM 7.7 mg/dL (8.5-10.1); CARBON DIOXIDE 25.1 mmol/L (21.0-32.0); CREATININE - SERUM 5.4 mg/dL (0.6-1.3); POTASSIUM - SERUM 4.2 mmol/L (3.5-5.1); PROTEIN - SERUM 6.2 g/dL (6.4-8.2)
[2019-01-19 06:35] LABS: HEMATOCRIT 28.5 % (36.0-48.0); HEMOGLOBIN 9.5 g/dL (12-16); LYMPHOCYTES 23.2 % (15-50); MCH 30.7 pg (26.0-34.0); MCHC 33.3 g/dL (31.0-37.0); MCV 92.2 fL (80.0-100.0); MEAN PLATELET VOLUME 10.2 fL (7.4-10.4); NEUTROPHILS 62.7 % (40-80); PLATELET COUNT 199 10x3/uL (130-400); RBC 3.09 10x6/uL (4.00-5.40); RDW 16.2 % (11.5-14.5); WBC 8.7 10x3/uL (4.8-10.8)
--- NOTE | 2019-01-19 07:26 | NUR ---
REPORT RECEIVED. WILL CONTINUE WITH POC. PT CURRENTLY LYING SUPINE. CALL LIGHT W/I REACH. PT IS ASLEEP WITH EYES CLOSED AT THIS TIME. RR EVEN AND UNLABORED ON 2L 02. L.IJ TRIALYSIS IS SALINE LOCKED. NO S/S OF DISTRESS NOTED. PT DENIES ANY NEEDS. WILL CTM.
[2019-01-19 09:49] VITALS: BP 180/98
--- NOTE | 2019-01-19 11:53 | NUR ---
Rehab Note- Acute Inpatient Rehab prescreen order received. The patient has [employer] insurance and will require a PreAuth. THe patient has a pending OT Eval at this time. Will need for the PreAuth process. Will follow at this time & begin the PreAuth process. Thank you for this referral! Darlin Frost RN Clinical Liaison, [facility] Rehab
--- NOTE | 2019-01-19 13:21 | NUR ---
ADMINISTERED ORDERED DOSE OF HYDRALIZINE IV FOR SYS BP OF 194. WILL RECHECK IN 30 MINUTES AND CONTINUE TO MONITOR. WILL CTM.
[2019-01-19 13:37] VITALS: BP 194/67
--- NOTE | 2019-01-19 14:45 | NUR ---
OT NOTE: PT COMPLETED HYGIENE TASKS WITH MIN A. PT COMPLETED BED MOB WITH SBA. THANK YOU, LORRAINE FONTANA
--- NOTE | 2019-01-19 16:54 | MORECARE ---
CASE MANAGEMENT DISCHARGE SUMMARY PATIENT: JAMIE CORBIN UNIT: [id number] ADM DATE: 01/08/19 AGE: 68 : 50 SEX: F ROOM/BED: D.6762 AUTHOR: SCOUTDOC PHYSICIAN: REFERRING PHYSICIAN: JAMISON TURPIN MD DATE OF SERVICE: 01/19/19 Discharge Plan Patient Name: JAMIE CORBIN [facility] : 1950 Planned Disposition: Inpatient Rehab Anticipated Discharge Date: 01/20/19 Discharge Date: Expected LOS: 12 Initial Reviewer: CURT Initial Review Date: 01/09/2019 Generated: 01/19/19 5:54 pm DCP- Discharge Planning Updated by [id number]: Joseph Sanders on 01/18/19 4:[address] Patient Name: JAMIE CORBIN Encounter No: [id number] : 1950 Primary Insurance: [employer] CHOICE PPO MCR ADVANT Anticipated DC Date: Planned Disposition: Inpatient Rehab External Planned Provider: INPATIENT REHAB DCP follow-up note: CM MET WITH PT IN ROOM TO DISCUSS DISCHARGE NEEDS AND PLANNING. CM DISCUSSED AVAILABILITY OF HOME HEALTH, REHAB SERVICES AND MEDICAL EQUIPMENT. PT REPORTS SHE IS WEAK AND SHOULD PROBABLY GO TO REHAB. CM DISCUSSED REHAB OPTIONS, LOCATIONS AND PROVIDERS. PT WILL CONSIDER REHAB AT [place], PT WOULD LIKE CM TO SPEAK TO HER SPOUSE TO VERIFY THIS IS A PLAN HE WOULD AGREE WITH. CM CALLED SHAWN CORBIN, , THE LINE WAS BUSY, CM CALLED THREE TIMES. PT REPORTS SHE PLANS TO DRIVE HERSELF TO THE [facility] AND IF SHE NEEDS HELP WITH TRANSPORT, HER SPOUSE, SHAWN, WILL ASSIST. PT REPORTS SHAWN, HER SPOUSE, WILL PICK HER UP FOR DISCHARGE HOME. IMPORTANT MESSAGE FROM MEDICARE PROVIDED AND EXPLAINED. CM TO FOLLOW AND ASSIST NEEDED. PT WILL CONSIDER REHAB AT . CM TO CONTINUE TO ATTEMPT TO CONTACT PT'S SPOUSE, SHAWN, , TO DISCUSS DISCHARGE PLAN. CM TO ASK PHYSICIAN FOR INPATIENT REHAB PRESCREENING ORDER PT'S INSURANCE WILL REQUIRE PRIOR AUTHORIZATION. SHAHBAZ Odell DCP- Discharge Planning Updated by [id number]: Joseph Sanders on 01/09/19 3:[address] Patient Name: JAMIE CORBIN Admission Status: ER Accout number: [id number] Admission Date: 01-08-2019 : 1950 Admission Diagnosis: Attending: JAMISON TURPIN Current LOS: 1 Anticipated DC Date: Planned Disposition: Home Primary Insurance: [employer] CHOICE PPO MCR ADVANT Discharge Planning Comments: CM MET WITH PT IN ROOM TO DISCUSS DISCHARGE PLANNING AND NEEDS. PT REPORTS LIVING AT HOME INDEPENDENTLY AND ALONE. PT HAS A WALKER WITH NO MEDICAL EQUIPMENT PROVIDER PREFERENCE. PT HAS NO OUTSIDE SERVICES ASSISTING IN THE HOME. CM DISCUSSED AVAILABILITY OF HOME HEALTH, REHAB SERVICES AND MEDICAL EQUIPMENT. PT DENIES DISCHARGE NEEDS, REPORTS HER SPOUSE WILL PICK HER UP FOR DISCHARGE HOME. PT PLANS TO DISCHARGE HOME ALONE, SEPERATED SPOUSE TO ASSIST PT AT HOME IF NECESSARY. SEPERATED SPOUSE TO TRANSPORT HOME AT DISCHARGE. PT HAS NO ANTICIPATED DISCHARGE NEEDS AT THIS TIME. CM TO CONTINUE TO FOLLOW AND ASSIST NEEDED. Composition Board Press Operator: Joseph Sanders DCPIA - Discharge Planning Initial Assessment Updated by [id number]: Joseph Sanders on 01/09/19 4:49 pm * Is the patient Alert and Oriented? Yes * How many steps to enter\exit or inside your home? * PCP DR. BATRES IN [place] * Pharm[facility] IN [place] * Preadmission Environment Home with Family * ADLs Independent * Equipment Walker * Other Equipment NO MEDICAL EQUIPMENT PROVIDER PREFERENCE * List name and contact numbers for known caregivers / representatives who currently or will assist patient after discharge: SHAWN CORBIN, SEPERATED SPOUSE, * Verbal permission to speak to the caregivers and representatives has been obtained from the patient. Yes * Community resources currently utilized None * Please name any agencies selected above. NONE * Additional services required to return to the preadmission environment? No * Can the patient safely return to the preadmission environment? Yes * Has this patient been hospitalized within the prior 30 days at any hospital? No Coverage Notice Reviewer: [id number] - Joseph Sanders Notice Issued Date-Time: 01/18/2019 17:10 Notice Type: IM Discharge Notice Notice Delivered To: Patient Relationship to Patient: Golf Cart Attendant Name: Delivery Method: HAND - Hand Delivered Ximena Days: Prior Verbal Notification: Recipient Understood Notice: Yes Recipient Signature: Yes Med Rec Note Co-signed by Attending: Coverage Notice Comment: Last DP export: 01/18/19 4:25 p Patient Name: JAMIE CORBIN Page 20800 at 1654 All edits/amendments must be made on the electronic document DICTATION DATE: 01/19/191652 RANGER AIDE: ANIBAL 01/19/191652 RPT#: [id number] DC DATE: STATUS: ADM [place] [address] [place] [address] END OF REPORT
--- NOTE | 2019-01-19 17:11 | MORECARE ---
CASE MANAGEMENT DISCHARGE SUMMARY PATIENT: JAMIE CORBIN UNIT: [id number] ADM DATE: 01/08/19 AGE: 68 : 50 SEX: F ROOM/BED: D.2612 AUTHOR: SCOUT,DOC PHYSICIAN: REFERRING PHYSICIAN: JAMISON TURPIN MD DATE OF SERVICE: 01/19/19 Discharge Plan Patient Name: JAMIE CORBIN Facility: [facility]:[place] : 1950 Planned Disposition: Inpatient Rehab Anticipated Discharge Date: 01/20/19 Discharge Date: Expected LOS: 12 Initial Reviewer: CURT Initial Review Date: 01/09/2019 Generated: 01/19/19 6:10 pm Comments DCP- Discharge Planning Updated by [id number]: Joseph Sanders on 01/19/19 4:[address] Patient Name: JAMIE CORBIN Encounter No: [id number] : 1950 Primary Insurance: [employer] CHOICE PPO MCR ADVANT Anticipated DC Date: 01-20-2019 Planned Disposition: Inpatient Rehab External Planned Provider: [facility] INPATIENT REHAB DCP follow-up note: CM SPOKE TO RN ANA M FRANZ WHO ADVISED CM THAT SEX WORKER OR ESCORT INFORMED HER THAT PT IS LONGTERM FACILITY APPROPRIATE AND NOT TO WASTE CM'S TIME SUBMITTING FOR INPATIENT REHAB. CM SPOKE TO PT AND SPOUSE IN ROOM. PT AND SPOUSE BOTH WOULD LIKE REHAB AT [place] IF POSSIBLE. CM DISCUSSED LONGTERM FACILITY FOR REHAB. THEY WANTED TO DISCUSS THIS WITHOUT CM THERE. CM LEFT. CM RETURNED IN ABOUT ONE HOUR. PT AND SPOUSE REPORT IF PT CANNOT GET INTO INPATIENT REHAB, THEY WOULD GO TO A LONGTERM FACILTY THAT COULD TRANSPORT PT TO AND FROM OUTPATIENT DIALYSIS IN [place]. [facility]. CM NOTIFIED NANO OF INPATIENT REHAB. CM NOTIFIED DR. TURPIN. CM REVIEWED CHART, OCCUPATIONAL THERAPY EVALUATION DOCUMENTED. CM WAITING INSURANCE AUTHORIZATION FROM PT'S INSURANCE COMPANY FOR INPATIENT REHAB AT [place]. SHAHBAZ Odell DCP- Discharge Planning Updated by [id number]: Joseph Sanders on 01/18/19 4:[address] Patient Name: JAMIE CORBIN Encounter No: [id number] : 1950 Primary Insurance: HUMANA CHOICE PPO [facility] ADVANT Anticipated DC Date: Planned Disposition: Inpatient Rehab External Planned Provider: [facility] INPATIENT REHAB DCP follow-up note: CM MET WITH PT IN ROOM TO DISCUSS DISCHARGE NEEDS AND PLANNING. CM DISCUSSED AVAILABILITY OF HOME HEALTH, REHAB SERVICES AND MEDICAL EQUIPMENT. PT REPORTS SHE IS WEAK AND SHOULD PROBABLY GO TO REHAB. CM DISCUSSED REHAB OPTIONS, LOCATIONS AND PROVIDERS. PT WILL CONSIDER REHAB AT [place], PT WOULD LIKE CM TO SPEAK TO HER SPOUSE TO VERIFY THIS IS A PLAN HE WOULD AGREE WITH. CM CALLED SHAWN CORBIN, , THE LINE WAS BUSY, CM CALLED THREE TIMES. PT REPORTS SHE PLANS TO DRIVE HERSELF TO THE [facility] AND IF SHE NEEDS HELP WITH TRANSPORT, HER SPOUSE, SHAWN, WILL ASSIST. PT REPORTS SHAWN, HER SPOUSE, WILL PICK HER UP FOR DISCHARGE HOME. IMPORTANT MESSAGE FROM MEDICARE PROVIDED AND EXPLAINED. CM TO FOLLOW AND ASSIST NEEDED. PT WILL CONSIDER REHAB AT [facility]. CM TO CONTINUE TO ATTEMPT TO CONTACT PT'S SPOUSE, SHAWN, , TO DISCUSS DISCHARGE PLAN. CM TO ASK PHYSICIAN FOR INPATIENT REHAB PRESCREENING ORDER PT'S INSURANCE WILL REQUIRE PRIOR AUTHORIZATION. Joseph Sanders, CASE MANAGEMENT DCP- Discharge Planning Updated by [id number]: Joseph Sanders on 01/09/19 3:[address] Patient Name: JAMIE CORBIN Admission Status: ER Accout number: [id number] Admission Date: 01-08-2019 : 1950 Admission Diagnosis: Attending: JAMISON TURPIN Current LOS: 1 Anticipated DC Date: Planned Disposition: Home Primary Insurance: [employer] CHOICE PPO MCR ADVANT Discharge Planning Comments: CM MET WITH PT IN ROOM TO DISCUSS DISCHARGE PLANNING AND NEEDS. PT REPORTS LIVING AT HOME INDEPENDENTLY AND ALONE. PT HAS A WALKER WITH NO MEDICAL EQUIPMENT PROVIDER PREFERENCE. PT HAS NO OUTSIDE SERVICES ASSISTING IN THE HOME. CM DISCUSSED AVAILABILITY OF HOME HEALTH, REHAB SERVICES AND MEDICAL EQUIPMENT. PT DENIES DISCHARGE NEEDS, REPORTS HER SPOUSE WILL PICK HER UP FOR DISCHARGE HOME. PT PLANS TO DISCHARGE HOME ALONE, SEPERATED SPOUSE TO ASSIST PT AT HOME IF NECESSARY. SEPERATED SPOUSE TO TRANSPORT HOME AT DISCHARGE. PT HAS NO ANTICIPATED DISCHARGE NEEDS AT THIS TIME. CM TO CONTINUE TO FOLLOW AND ASSIST NEEDED. Pharmacy Services Representative: Joseph Sanders DCPIA - Discharge Planning Initial Assessment Updated by [id number]: Joseph Sanders on 01/09/19 4:49 pm * Is the patient Alert and Oriented? Yes * How many steps to enter\exit or inside your home? * PCP DR. BATRES IN [place] * Pharmacy [facility] IN [place] * Preadmission Environment Home with Family * ADLs Independent * Equipment Walker * Other Equipment NO MEDICAL EQUIPMENT PROVIDER PREFERENCE * List name and contact numbers for known caregivers / representatives who currently or will assist patient after discharge: SHAWN CORBIN, SEPERATED SPOUSE, * Verbal permission to speak to the caregivers and representatives has been obtained from the patient. Yes * Community resources currently utilized None * Please name any agencies selected above. NONE * Additional services required to return to the preadmission environment? No * Can the patient safely return to the preadmission environment? Yes * Has this patient been hospitalized within the prior 30 days at any hospital? No Coverage Notice Reviewer: [id number] Darion Sanders Notice Issued Date-Time: 01/18/2019 17:10 Notice Type: IM Discharge Notice Notice Delivered To: Patient Relationship to Patient: Nursing Secretary Name: Delivery Method: HAND - Hand Delivered Ximena Days: Prior Verbal Notification: Recipient Understood Notice: Yes Recipient Signature: Yes Med Rec Note Co-signed by Attending: Coverage Notice Comment: Reviewer: [id number] Sanders Notice Issued Date-Time: 01/19/2019 15:04 Notice Type: Patient Choice Letter Notice Delivered To: Patient Relationship to Patient: Nursing Secretary Name: Delivery Method: HAND - Hand Delivered Ximena Days: Prior Verbal Notification: Recipient Understood Notice: Yes Recipient Signature: Yes Med Rec Note Co-signed by Attending: Coverage Notice Comment: [facility]. Last DP export: 01/19/19 3:54 p Patient Name: JAMIE CORBIN Page 12029 at 1711 All edits/amendments must be made on the electronic document DICTATION DATE: 01/19/191709 ROUGE PRESSER: ANIBAL 01/19/191709 RPT#: [id number] DC DATE: STATUS: ADM IN [facility] [address] [place] [address] END OF REPORT
[2019-01-19 17:16] VITALS: BP 179/91
--- NOTE | 2019-01-19 19:30 | NUR ---
RECIEVED UP IN BED WITH EYES OPEN. ALERT AND ORIETNTING. DIALYA=SIS HERE TO TAKE PT TO DIALYSIS.
[2019-01-20] VITALS: BP 197/79
--- NOTE | 2019-01-20 00:07 | NUR ---
RECEIVED REPORT FROM VIC HARRY IN DIALYSIS. REMOVED 1 1/2 LITERS. B/P 185/84,62,98.3, RESP. 16. STATED B/P HIGHER WHEN RECIEVED. AND NO ADVERSE EFFECTS OBSERVED FROM DIALYSIS. RECIEVED BACK TO ROOM AT 2252. ALERT AND ORIENTED. 2100 MEDICATIONS GIVEN AT THAT TIME. DENIES ANY NEEDS.
[2019-01-20 06:35] LABS: EOSINOPHILS 5.1 % (0-7); HEMATOCRIT 30.4 % (36.0-48.0); HEMOGLOBIN 9.4 g/dL (12-16); IMMATURE GRANULOCYTES 0.5 % (0-5); LYMPHOCYTES 20.8 % (15-50); MCH 29.1 pg (26.0-34.0); MCHC 30.9 g/dL (31.0-37.0); MCV 94.1 fL (80.0-100.0); MEAN PLATELET VOLUME 10.5 fL (7.4-10.4); MONOCYTES 8.7 % (2-11); NEUTROPHILS 63.9 % (40-80); PLATELET COUNT 211 10x3/uL (130-400); RBC 3.23 10x6/uL (4.00-5.40); RDW 16.6 % (11.5-14.5); WBC 8.8 10x3/uL (4.8-10.8)
[2019-01-20 06:47] LABS: ANION GAP 10.9 mmol/L (8-16); CARBON DIOXIDE 27.2 mmol/L (21.0-32.0); CREATININE - SERUM 4.5 mg/dL (0.6-1.3); PHOSPHOROUS 5.6 mg/dL (2.5-4.9); POTASSIUM - SERUM 4.1 mmol/L (3.5-5.1)
[2019-01-20 09:27] VITALS: BP 156/74
[2019-01-20 12:36] VITALS: BP 197/118
--- NOTE | 2019-01-20 13:11 | MORECARE ---
CASE MANAGEMENT DISCHARGE SUMMARY PATIENT: JAMIE CORBIN UNIT: [id number] ADM DATE: 01/08/19 AGE: 68 : 50 SEX: F ROOM/BED: D.3088 AUTHOR: SCOUT,DOC PHYSICIAN: REFERRING PHYSICIAN: JAMISON TURPIN MD DATE OF SERVICE: 01/20/19 Discharge Plan Patient Name: JAMIE CORBIN Facility: [facility]:[place] : 1950 Planned Disposition: Inpatient Rehab Anticipated Discharge Date: 01/20/19 Discharge Date: Expected LOS: 12 Initial Reviewer: [id number] Initial Review Date: 01/09/2019 Generated: 01/20/19 2:11 pm Comments DCP- Discharge Planning Updated by [id number]: Joseph Sanders on 01/20/19 12:[address] Patient Name: JAMIE CORBIN Encounter No: [id number] : 1950 Primary Insurance: [employer] CHOICE PPO MCR ADVANT Anticipated DC Date: 01-20-2019 Planned Disposition: Inpatient Rehab External Planned Provider: [facility] INPATIENT REHAB DCP follow-up note: CM RECEIVED CALL FROM MAICOL OF [facility], SHE HAS CHECKED AT [facility], THE ONLY DAYS THEY HAVE AVAILABLE FOR DIALYSIS ARE TTS, MIDSHIFT (10-1100 AM.) MAICOL IS NOT GOING FURTHER WITH PLACEMENT PROCESS UNTIL IT IS DETERMINED IF PT IS GOING TO INPATIENT REHAB OR HALF-WAY FACILITY. CM WAITING INSURANCE AUTHORIZATION FROM PT'S INSURANCE COMPANY FOR INPATIENT REHAB AT [facility]. SHAHBAZ Odell DCP- Discharge Planning Updated by [id number]: Joseph Sanders on 01/19/19 4:[address] Patient Name: JAMIE CORBIN Encounter No: [id number] : 1950 Primary Insurance: [employer] CHOICE PPO MCR ADVANT Anticipated DC Date: 01-20-2019 Planned Disposition: Inpatient Rehab External Planned Provider: [facility] INPATIENT REHAB DCP follow-up note: CM SPOKE TO KAMRYN FRANZ WHO ADVISED CM THAT MUSSEL FARMER INFORMED HER THAT PT IS HALF-WAY FACILITY APPROPRIATE AND NOT TO WASTE CM'S TIME SUBMITTING FOR INPATIENT REHAB. CM SPOKE TO PT AND SPOUSE IN ROOM. PT AND SPOUSE BOTH WOULD LIKE REHAB AT [facility] IF POSSIBLE. CM DISCUSSED HALF-WAY FACILITY FOR REHAB. THEY WANTED TO DISCUSS THIS WITHOUT CM THERE. CM LEFT. CM RETURNED IN ABOUT ONE HOUR. PT AND SPOUSE REPORT IF PT CANNOT GET INTO INPATIENT REHAB, THEY WOULD GO TO A HALF-WAY FACILTY THAT COULD TRANSPORT PT TO AND FROM OUTPATIENT DIALYSIS IN [place]. CHOICE SIGNED FOR [facility]. CM NOTIFIED [facility] AND [facility] OF INPATIENT REHAB. CM NOTIFIED DR. TURPIN. CM REVIEWED CHART, OCCUPATIONAL THERAPY EVALUATION DOCUMENTED. CM WAITING INSURANCE AUTHORIZATION FROM PT'S INSURANCE COMPANY FOR INPATIENT REHAB AT [facility]. SHAHBAZ Odell DCP- Discharge Planning Updated by [id number]: Joseph Sanders on 01/18/19 4:[address] Patient Name: JAMIE CORBIN Encounter No: [id number] : 1950 Primary Insurance: [employer] PPO MCR ADVANT Anticipated DC Date: Planned Disposition: Inpatient Rehab External Planned Provider: [facility] INPATIENT REHAB DCP follow-up note: CM MET WITH PT IN ROOM TO DISCUSS DISCHARGE NEEDS AND PLANNING. CM DISCUSSED AVAILABILITY OF HOME HEALTH, REHAB SERVICES AND MEDICAL EQUIPMENT. PT REPORTS SHE IS WEAK AND SHOULD PROBABLY GO TO REHAB. CM DISCUSSED REHAB OPTIONS, LOCATIONS AND PROVIDERS. PT WILL CONSIDER REHAB AT [facility], PT WOULD LIKE CM TO SPEAK TO HER SPOUSE TO VERIFY THIS IS A PLAN HE WOULD AGREE WITH. CM CALLED SHAWN CORBIN, , THE LINE WAS BUSY, CM CALLED THREE TIMES. PT REPORTS SHE PLANS TO DRIVE HERSELF TO THE [facility] AND IF SHE NEEDS HELP WITH TRANSPORT, HER SPOUSE, SHAWN, WILL ASSIST. PT REPORTS SHAWN, HER SPOUSE, WILL PICK HER UP FOR DISCHARGE HOME. IMPORTANT MESSAGE FROM MEDICARE PROVIDED AND EXPLAINED. CM TO FOLLOW AND ASSIST NEEDED. PT WILL CONSIDER REHAB AT [facility]. CM TO CONTINUE TO ATTEMPT TO CONTACT PT'S SPOUSE, SHAWN, , TO DISCUSS DISCHARGE PLAN. CM TO ASK PHYSICIAN FOR INPATIENT REHAB PRESCREENING ORDER PT'S INSURANCE WILL REQUIRE PRIOR AUTHORIZATION. SHAHBAZ Odell DCP- Discharge Planning Updated by [id number]: Joseph Sanders on 01/09/19 3:[address] Patient Name: JAMIE CORBIN Admission Status: ER Accout number: [id number] Admission Date: 01-08-2019 : 1950 Admission Diagnosis: Attending: JAMISON TURPIN Current LOS: 1 Anticipated DC Date: Planned Disposition: Home Primary Insurance: [employer] CHOICE PPO MCR ADVANT Discharge Planning Comments: CM MET WITH PT IN ROOM TO DISCUSS DISCHARGE PLANNING AND NEEDS. PT REPORTS LIVING AT HOME INDEPENDENTLY AND ALONE. PT HAS A WALKER WITH NO MEDICAL EQUIPMENT PROVIDER PREFERENCE. PT HAS NO OUTSIDE SERVICES ASSISTING IN THE HOME. CM DISCUSSED AVAILABILITY OF HOME HEALTH, REHAB SERVICES AND MEDICAL EQUIPMENT. PT DENIES DISCHARGE NEEDS, REPORTS HER SPOUSE WILL PICK HER UP FOR DISCHARGE HOME. PT PLANS TO DISCHARGE HOME ALONE, SEPERATED SPOUSE TO ASSIST PT AT HOME IF NECESSARY. SEPERATED SPOUSE TO TRANSPORT HOME AT DISCHARGE. PT HAS NO ANTICIPATED DISCHARGE NEEDS AT THIS TIME. CM TO CONTINUE TO FOLLOW AND ASSIST NEEDED. Career And Technology Education Teacher: Joseph Sandres DCPIA - Discharge Planning Initial Assessment Updated by [id number]: Joseph Sanders on 01/09/19 4:49 pm * Is the patient Alert and Oriented? Yes * How many steps to enter\exit or inside your home? * PCP DR. BATRES IN [place] * Pharmacy [facility] IN [place] * Preadmission Environment Home with Family * ADLs Independent * Equipment Walker * Other Equipment NO MEDICAL EQUIPMENT PROVIDER PREFERENCE * List name and contact numbers for known caregivers / representatives who currently or will assist patient after discharge: SHAWN CORBIN, SEPERATED SPOUSE, * Verbal permission to speak to the caregivers and representatives has been obtained from the patient. Yes * Community resources currently utilized None * Please name any agencies selected above. NONE * Additional services required to return to the preadmission environment? No * Can the patient safely return to the preadmission environment? Yes * Has this patient been hospitalized within the prior 30 days at any hospital? No Coverage Notice Reviewer: [id number] Darion Sanders Notice Issued Date-Time: 01/18/2019 17:10 Notice Type: IM Discharge Notice Notice Delivered To: Patient Relationship to Patient: Rn Lactation Consultant Name: Delivery Method: HAND - Hand Delivered Ximena Days: Prior Verbal Notification: Recipient Understood Notice: Yes Recipient Signature: Yes Med Rec Note Co-signed by Attending: Coverage Notice Comment: Reviewer: [id number] Sanders Notice Issued Date-Time: 01/19/2019 15:04 Notice Type: Patient Choice Letter Notice Delivered To: Patient Relationship to Patient: Rn Lactation Consultant Name: Delivery Method: HAND - Hand Delivered Ximena Days: Prior Verbal Notification: Recipient Understood Notice: Yes Recipient Signature: Yes Med Rec Note Co-signed by Attending: Coverage Notice Comment: [facility]. Last DP export: 01/19/19 4:11 p Patient Name: JAMIE CORBIN Page 85518 at 1311 All edits/amendments must be made on the electronic document DICTATION DATE: 01/20/19 1311 COAL EQUIPMENT OPERATOR: ANIBAL 01/20/19 1311 RPT#: [id number] DC DATE: STATUS: ADM IN [facility] [address] [place] [address] END OF REPORT
--- NOTE | 2019-01-20 13:34 | NUR ---
Nutrition Follow-up: NPO for hemosplit placement, as well as AVF vs AVG. Wt: 239.2# Last BM: 01/17 per chart Labs noted: K+ 4.1, Glu 184, PO4 5.6, Ca 8.0 Meds noted: Opal Uribe -Rec resume renal ADA following surgery as medically feasible. -MD may consider PO4 binder upon diet resumption 2/2 hyperphosphatemia. -RD following.
--- NOTE | 2019-01-20 15:24 | NUR ---
OT NOTE: PT COMPLETED SUPINE TO SIT WITH SPV. PT COMPLETED SIT TO STAND WITH CGA. PT COMPLETED ADL MOB WITH CGA. PT COMPLETED UB HYGIENE TASKS WITH LIVIER Aleman THANK YOU,LORRAINE FONTANA
--- NOTE | 2019-01-20 19:10 | NUR ---
REPORT RECEIVED. PT UP IN BED WATCHING TV. RR EVEN AND UNLABORED ON 2L NC. NO S/Sx OF DISTRESS NOTED AT THIS TIME. PT DENIES NEEDS. SRX2, CALL LIGHT IN REACH. WILL CTM.
[2019-01-20 20:00] VITALS: BP 169/77
[2019-01-21] VITALS: BP 203/73
[2019-01-21 04:00] VITALS: BP 198/77
[2019-01-21 05:50] LABS: BASOPHILS 1.6 % (0-2); EOSINOPHILS 5.8 % (0-7); HEMATOCRIT 29.3 % (36.0-48.0); HEMOGLOBIN 9.1 g/dL (12-16); IMMATURE GRANULOCYTES 0.3 % (0-5); LYMPHOCYTES 21.7 % (15-50); MCH 29.2 pg (26.0-34.0); MCHC 31.1 g/dL (31.0-37.0); MCV 93.9 fL (80.0-100.0); MEAN PLATELET VOLUME 10.3 fL (7.4-10.4); MONOCYTES 10.4 % (2-11); NEUTROPHILS 60.2 % (40-80); PLATELET COUNT 188 10x3/uL (130-400); RBC 3.12 10x6/uL (4.00-5.40); RDW 16.8 % (11.5-14.5)
[2019-01-21 06:04] LABS: ANION GAP 13.2 mmol/L (8-16); CALCIUM 7.9 mg/dL (8.5-10.1); CREATININE - SERUM 4.7 mg/dL (0.6-1.3); POTASSIUM - SERUM 4.2 mmol/L (3.5-5.1)
--- NOTE | 2019-01-21 07:00 | NUR ---
RECEIVED REPORT. ASSUMED CARE OF PATIENT. CALL LIGHT WITHIN REACH. PATIENT RESTING IN BED WITH EYES OPEN. DENIES NEEDS. PATIENT REPORTS SHE IS TO GET DIALYSIS TODAY. NO DISTRESS.
--- NOTE | 2019-01-21 12:17 | NUR ---
FSBS 242. 4 UNITS INSULIN ADMINISTERED PER SLIDING SCALE.
[2019-01-21 13:16] VITALS: BP 213/76
--- NOTE | 2019-01-21 14:15 | NUR ---
PATIENT LEFT UNIT VIA BED FOR DIALYSIS IN STABLE CONDITION. NO DISTRESS.
--- NOTE | 2019-01-21 15:54 | NUR ---
PATIENT REMAINS OFF UNIT IN DIALYSIS AT THIS TIME.
--- NOTE | 2019-01-21 18:02 | NUR ---
PATIENT STILL AT DIALYSIS AT THIS TIME. NO DISTRESS. FSBS 161, NO INSULIN ADMINISTERED SHE IS NPO WHILE STILL AT DIALYSIS
--- NOTE | 2019-01-21 19:20 | NUR ---
BED LOW AND LOCKED SWITCHED O2 TO WALL UNIT AND ASSISTED TO BATHROOM BED LOW AND LOCKED CALL LIGHTR IS WITH PT
[2019-01-21 20:00] VITALS: BP 161/62
[2019-01-22] VITALS: BP 141/72
--- NOTE | 2019-01-22 01:05 | NUR ---
I have reviewed this patient and I concur with the Shift Assessment completed by the Licensed Practical Nurse today this shift.
[2019-01-22 04:00] VITALS: BP 218/71
[2019-01-22 05:20] LABS: BASOPHILS 1.5 % (0-2); EOSINOPHILS 5.3 % (0-7); HEMATOCRIT 31.2 % (36.0-48.0); HEMOGLOBIN 9.9 g/dL (12-16); IMMATURE GRANULOCYTES 1.1 % (0-5); LYMPHOCYTES 19.5 % (15-50); MCH 29.6 pg (26.0-34.0); MCHC 31.7 g/dL (31.0-37.0); MCV 93.1 fL (80.0-100.0); MEAN PLATELET VOLUME 11.2 fL (7.4-10.4); MONOCYTES 10.2 % (2-11); NEUTROPHILS 62.4 % (40-80); PLATELET COUNT 185 10x3/uL (130-400); RBC 3.35 10x6/uL (4.00-5.40); RDW 16.9 % (11.5-14.5); WBC 7.2 10x3/uL (4.8-10.8)
[2019-01-22 05:21] LABS: ANION GAP 13.1 mmol/L (8-16); CALCIUM 7.9 mg/dL (8.5-10.1); CREATININE - SERUM 3.7 mg/dL (0.6-1.3); POTASSIUM - SERUM 4.1 mmol/L (3.5-5.1)
--- NOTE | 2019-01-22 07:20 | NUR ---
RECIEVE REPORT. SITTING UP IN BED. ALERT AND ORIENTED X4. NO SIGNS OF DISTRESS. DENIES ANY NEEDS AT THIS TIME. CONTINUE PLAN OF CARE AND SAFETY PRECAUTIONS.
[2019-01-22 08:55] VITALS: BP 150/99
[2019-01-22 11:51] VITALS: BP 150/89
--- NOTE | 2019-01-22 17:08 | NUR ---
ALERT AND ORIENTED X4. SITTING UP ON SIDE OF BED EATING. CONSENTS FOR PROCEDURE SIGNED ON CHART. DENIES ANY NEEDS. CONTINUE PLAN OF CARE AND SAFETY PRECAUTIONS.
--- NOTE | 2019-01-22 19:10 | NUR ---
RESTING WITH EYES CLOSED BED LOW AND LOCKED CALL LIGHT WITH PT
--- NOTE | 2019-01-22 19:26 | NUR ---
MD VISIT AT BEDSIDE AND HE REPORTED TO ME THAT PT IS CONFUSED
[2019-01-22 20:00] VITALS: BP 193/76
[2019-01-23 00:28] VITALS: BP 166/67
--- NOTE | 2019-01-23 03:29 | NUR ---
I have reviewed this patient and I concur with the Shift Assessment completed by the Licensed Practical Nurse today this shift.
[2019-01-23 04:27] LABS: ANION GAP 10.5 mmol/L (8-16); CALCIUM 8.4 mg/dL (8.5-10.1); CARBON DIOXIDE 28.3 mmol/L (21.0-32.0); CREATININE - SERUM 4.2 mg/dL (0.6-1.3); POTASSIUM - SERUM 3.8 mmol/L (3.5-5.1)
[2019-01-23 04:30] VITALS: BP 181/54
[2019-01-23 04:41] LABS: INR 1.17 (0.85-1.17); PROTIME 14.4 SECONDS (11.6-15.0)
[2019-01-23 04:52] LABS: BASOPHILS 1.6 % (0-2); EOSINOPHILS 6.6 % (0-7); HEMATOCRIT 30.1 % (36.0-48.0); HEMOGLOBIN 9.3 g/dL (12-16); IMMATURE GRANULOCYTES 0.3 % (0-5); MCH 28.7 pg (26.0-34.0); MCHC 30.9 g/dL (31.0-37.0); MCV 92.9 fL (80.0-100.0); MONOCYTES 11.3 % (2-11); NEUTROPHILS 58.2 % (40-80); PLATELET COUNT 179 10x3/uL (130-400); RBC 3.24 10x6/uL (4.00-5.40); WBC 6.4 10x3/uL (4.8-10.8)
--- NOTE | 2019-01-23 06:56 | NUR ---
BP 162/89 AT THIS TIME
--- NOTE | 2019-01-23 07:20 | NUR ---
RECIEVE REPORT. ALERT AND ORIENTED X4. PRE-OP COMPLETE. TAKEN TO PROCEDURE VIA BED. CONTINUE PLAN OF CARE AND SAFETY PRECAUTIONS.
--- NOTE | 2019-01-23 12:08 | NUR ---
HOB UP TO [address] PICHARDO
[2019-01-23 12:41] VITALS: BP 163/66
--- NOTE | 2019-01-23 12:50 | NUR ---
ARRIVE BACK TO ROOM VIA BED FROM PROCEDURE. SEDATED, AROUSES TO STIMULI. BP-168/66, HR-62, O2-97% WITH 2L NC. BRUIT AND THRILL RT ARM FISTULA PRESENT. RT CHEST HEMOSPLIT FREE FROM BLEEDING. LT IJ TRIALYSIS OUT SUTURES INTACT. CONTINUE PLAN OF CARE AND SAFETY PRECAUTIONS.
[2019-01-23 13:10] VITALS: BP 163/66
[2019-01-23 17:00] VITALS: BP 161/71
--- NOTE | 2019-01-23 19:25 | NUR ---
PT CO OF PAIN SHE STATES CARRIE WILL NOT DO I WILL NOTIFY BED LOW AND LOCKED DRSG DRY AND INTACT CALL LIGHT IS WITH PT
[2019-01-23 20:00] VITALS: BP 112/55
[2019-01-24] VITALS: BP 161/59
--- NOTE | 2019-01-24 02:08 | NUR ---
I have reviewed this patient and I concur with the Shift Assessment completed by the Licensed Practical Nurse today this shift.
[2019-01-24 04:00] VITALS: BP 180/53
--- NOTE | 2019-01-24 04:33 | NUR ---
STAARTED 22 GAUGE SALINE LOCK TO LEFT FOREARM TO HAVE ACCESS FOR PAIN MED
--- NOTE | 2019-01-24 04:35 | NUR ---
SOME BLEED THROUGH STARTING TP OCCUR ON THE RIGHT FA BANDAGE
[2019-01-24 06:32] LABS: BASOPHILS 0.4 % (0-2); EOSINOPHILS 1.3 % (0-7); HEMATOCRIT 30.2 % (36.0-48.0); HEMOGLOBIN 9.2 g/dL (12-16); IMMATURE GRANULOCYTES 0.1 % (0-5); LYMPHOCYTES 17.8 % (15-50); MCHC 30.5 g/dL (31.0-37.0); MEAN PLATELET VOLUME 10.8 fL (7.4-10.4); MONOCYTES 9.8 % (2-11); NEUTROPHILS 70.6 % (40-80); PLATELET COUNT 193 10x3/uL (130-400); RBC 3.17 10x6/uL (4.00-5.40); RDW 17.1 % (11.5-14.5); WBC 6.9 10x3/uL (4.8-10.8)
[2019-01-24 06:35] LABS: ANION GAP 13.4 mmol/L (8-16); CALCIUM 7.8 mg/dL (8.5-10.1); CARBON DIOXIDE 27.1 mmol/L (21.0-32.0)
[2019-01-24 06:36] LABS: CREATININE - SERUM 5.8 mg/dL (0.6-1.3); POTASSIUM - SERUM 4.5 mmol/L (3.5-5.1)
[2019-01-24 06:49] LABS: MCV 95.3 fL (80.0-100.0)
--- NOTE | 2019-01-24 07:20 | NUR ---
RECIEVE REPORT. RESTING IN BED BED WITH EYES CLOSED. RT ARM ELEVATED ON PILLOW. SCANT BLOOD ON DRESSING. RESPIRATIONS REGULAR. CONTINUE PLAN OF CARE AND SAFETY PRECAUTIONS.
--- NOTE | 2019-01-24 10:03 | NUR ---
Nutrition Follow-up: S/p AVG and hemosplit placement 01/23. Diet: Renal ADA PO intake: 75-100% Wt: 229# Last recorded BM: 01/17 Labs noted: K+ 4.5, Ca 7.8 Meds noted: Bumex, Humalog -Continue current diet as tolerated. -Rec may consider stool softener. -RD following.
[2019-01-24 10:57] VITALS: BP 160/62
[2019-01-24 12:00] VITALS: BP 144/45
--- NOTE | 2019-01-24 13:11 | MORECARE ---
CASE MANAGEMENT DISCHARGE SUMMARY PATIENT: JAMIE CORBIN UNIT: [id number] ADM DATE: 01/08/19 AGE: 68 : 50 SEX: F ROOM/BED: D.5397 AUTHOR: SCOUT,DOC PHYSICIAN: REFERRING PHYSICIAN: JAMISON UTRPIN MD DATE OF SERVICE: 01/24/19 Discharge Plan Patient Name: JAMIE CORBIN Facility: [facility]:[place] : 1950 Planned Disposition: Inpatient Rehab Anticipated Discharge Date: 01/20/19 Discharge Date: Expected LOS: 12 Initial Reviewer: [id number] Initial Review Date: 01/09/2019 Generated: 01/24/19 2:11 pm Comments DCP- Discharge Planning Updated by [id number]: Joseph Sanders on 01/20/19 12:[address] Patient Name: JAMIE CORBIN Encounter No: [id number] : 1950 Primary Insurance: [employer] CHOICE PPO MCR ADVANT Anticipated DC Date: 01-20-2019 Planned Disposition: Inpatient Rehab External Planned Provider: [facility] INPATIENT REHAB DCP follow-up note: CM RECEIVED CALL FROM MAICOL OF [facility], SHE HAS CHECKED AT [facility], THE ONLY DAYS THEY HAVE AVAILABLE FOR DIALYSIS ARE TTS, MIDSHIFT (10-1100 AM.) MAICOL IS NOT GOING FURTHER WITH PLACEMENT PROCESS UNTIL IT IS DETERMINED IF PT IS GOING TO INPATIENT REHAB OR [facility]. CM WAITING INSURANCE AUTHORIZATION FROM PT'S INSURANCE COMPANY FOR INPATIENT REHAB AT [place]. SHAHBAZ Odell DCP- Discharge Planning Updated by [id number]: Joseph Sanders on 01/19/19 4:[address] Patient Name: JAMIE CORBIN Encounter No: [id number] : 1950 Primary Insurance: [employer] CHOICE PPO MCR ADVANT Anticipated DC Date: 01-20-2019 Planned Disposition: Inpatient Rehab External Planned Provider: [facility] INPATIENT [facility] DCP follow-up note: CM SPOKE TO KAMRYN FRANZ WHO ADVISED CM THAT FRUIT GRADER OPERATOR INFORMED HER THAT PT IS [facility] FACILITY APPROPRIATE AND NOT TO WASTE CM'S TIME SUBMITTING FOR INPATIENT REHAB. CM SPOKE TO PT AND SPOUSE IN ROOM. PT AND SPOUSE BOTH WOULD LIKE REHAB AT [facility] IF POSSIBLE. CM DISCUSSED [facility] FOR REHAB. THEY WANTED TO DISCUSS THIS WITHOUT CM THERE. CM LEFT. CM RETURNED IN ABOUT ONE HOUR. PT AND SPOUSE REPORT IF PT CANNOT GET INTO INPATIENT REHAB, THEY WOULD GO TO A [facility] FACILTY THAT COULD TRANSPORT PT TO AND FROM OUTPATIENT DIALYSIS IN [place]. CHOICE SIGNED FOR [facility]. CM NOTIFIED [facility] AND [facility] OF INPATIENT REHAB. CM NOTIFIED DR. TURPIN. CM REVIEWED CHART, OCCUPATIONAL THERAPY EVALUATION DOCUMENTED. CM WAITING INSURANCE AUTHORIZATION FROM PT'S INSURANCE COMPANY FOR INPATIENT REHAB AT [facility] [place]. SHAHBAZ Odell DCP- Discharge Planning Updated by [id number]: Joseph Sanedrs on 01/18/19 4:[address] Patient Name: JAMIE CORBIN Encounter No: [id number] : 1950 Primary Insurance: [employer] PPO MCR ADVANT Anticipated DC Date: Planned Disposition: Inpatient Rehab External Planned Provider: [facility] INPATIENT [facility] DCP follow-up note: CM MET WITH PT IN ROOM TO DISCUSS DISCHARGE NEEDS AND PLANNING. CM DISCUSSED AVAILABILITY OF HOME HEALTH, REHAB SERVICES AND MEDICAL EQUIPMENT. PT REPORTS SHE IS WEAK AND SHOULD PROBABLY GO TO REHAB. CM DISCUSSED REHAB OPTIONS, LOCATIONS AND PROVIDERS. PT WILL CONSIDER REHAB AT [place] [facility], PT WOULD LIKE CM TO SPEAK TO HER SPOUSE TO VERIFY THIS IS A PLAN HE WOULD AGREE WITH. CM CALLED SHAWN CORBIN, , THE LINE WAS BUSY, CM CALLED THREE TIMES. PT REPORTS SHE PLANS TO DRIVE HERSELF TO THE [facility] AND IF SHE NEEDS HELP WITH TRANSPORT, HER SPOUSE, SHAWN, WILL ASSIST. PT REPORTS SHAWN, HER SPOUSE, WILL PICK HER UP FOR DISCHARGE HOME. IMPORTANT MESSAGE FROM MEDICARE PROVIDED AND EXPLAINED. CM TO FOLLOW AND ASSIST NEEDED. PT WILL CONSIDER REHAB AT [facility]. CM TO CONTINUE TO ATTEMPT TO CONTACT PT'S SPOUSE, SHAWN, , TO DISCUSS DISCHARGE PLAN. CM TO ASK PHYSICIAN FOR INPATIENT REHAB PRESCREENING ORDER PT'S INSURANCE WILL REQUIRE PRIOR AUTHORIZATION. SHAHBAZ Odell DCP- Discharge Planning Updated by [id number]: Joseph Sanders on 01/09/19 3:[address] Patient Name: JAMIE CORBIN Admission Status: ER Accout number: [id number] Admission Date: 01-08-2019 : 1950 Admission Diagnosis: Attending: JAMISON TURPIN Current LOS: 1 Anticipated DC Date: Planned Disposition: Home Primary Insurance: [employer] CHOICE PPO MCR ADVANT Discharge Planning Comments: CM MET WITH PT IN ROOM TO DISCUSS DISCHARGE PLANNING AND NEEDS. PT REPORTS LIVING AT HOME INDEPENDENTLY AND ALONE. PT HAS A WALKER WITH NO MEDICAL EQUIPMENT PROVIDER PREFERENCE. PT HAS NO OUTSIDE SERVICES ASSISTING IN THE HOME. CM DISCUSSED AVAILABILITY OF HOME HEALTH, REHAB SERVICES AND MEDICAL EQUIPMENT. PT DENIES DISCHARGE NEEDS, REPORTS HER SPOUSE WILL PICK HER UP FOR DISCHARGE HOME. PT PLANS TO DISCHARGE HOME ALONE, SEPERATED SPOUSE TO ASSIST PT AT HOME IF NECESSARY. SEPERATED SPOUSE TO TRANSPORT HOME AT DISCHARGE. PT HAS NO ANTICIPATED DISCHARGE NEEDS AT THIS TIME. CM TO CONTINUE TO FOLLOW AND ASSIST NEEDED. Assistant Therapy Aide: Joseph Sanders DCPIA - Discharge Planning Initial Assessment Updated by [id number]: Joseph Sanders on 01/09/19 4:49 pm * Is the patient Alert and Oriented? Yes * How many steps to enter\exit or inside your home? * PCP DR. BATRES IN [place] * [facility]acy [facility] IN [place] * Preadmission Environment Home with Family * ADLs Independent * Equipment Walker * Other Equipment NO MEDICAL EQUIPMENT PROVIDER PREFERENCE * List name and contact numbers for known caregivers / representatives who currently or will assist patient after discharge: SHAWN CORBIN, SEPERATED SPOUSE, * Verbal permission to speak to the caregivers and representatives has been obtained from the patient. Yes * Community resources currently utilized None * Please name any agencies selected above. NONE * Additional services required to return to the preadmission environment? No * Can the patient safely return to the preadmission environment? Yes * Has this patient been hospitalized within the prior 30 days at any hospital? No External Providers External Provider: [facility] Next Contact Date: 01/24/2019 Service Request Date: Service Type: Resolution: Reviewer: Comments: Coverage Notice Reviewer: [id number] - Joseph Sanders Notice Issued Date-Time: 01/18/2019 17:10 Notice Type: IM Discharge Notice Notice Delivered To: Patient Relationship to Patient: Lead Instructor/Flight Attendant Name: Delivery Method: HAND - Hand Delivered Ximena Days: Prior Verbal Notification: Recipient Understood Notice: Yes Recipient Signature: Yes Med Rec Note Co-signed by Attending: Coverage Notice Comment: Reviewer: [id number] - Joseph Sanders Notice Issued Date-Time: 01/19/2019 15:04 Notice Type: Patient Choice Letter Notice Delivered To: Patient Relationship to Patient: Lead Instructor/Flight Attendant Name: Delivery Method: HAND - Hand Delivered Ximena Days: Prior Verbal Notification: Recipient Understood Notice: Yes Recipient Signature: Yes Med Rec Note Co-signed by Attending: Coverage Notice Comment: [facility]. Last DP export: 01/20/19 12:11 p Patient Name: JAMIE CORBIN Page [phone] at 1311 All edits/amendments must be made on the electronic document DICTATION DATE: 01/24/19 1311 WARHEAD MAINTENANCE SPECIALIST: ANIBAL 01/24/19 1311 RPT#: [id number] DC DATE: STATUS: ADM IN [facility] [address] [place] [address] END OF REPORT
--- NOTE | 2019-01-24 13:29 | NUR ---
OT NOTE: PT REPORTING THAT SHE FEELS DIZZY. UP TO EOB WITH MIN ASSIST; SIMPLE GROOMING WITH SET UP; ABLE TO [place] GOWN WITH SET UP; ABLE TO AMB WITH WALKER X 150 FT WITH MIN ASSIST; REPORTED SIGNIFICANT FATIGUE UPON RETURN TO ROOM. SINK HYGIENE WITH MIN ASSIST. ALEIDA CABRERA, OTR/L
--- NOTE | 2019-01-24 14:36 | MORECARE ---
CASE MANAGEMENT DISCHARGE SUMMARY PATIENT: JAMIE CORBIN UNIT: [id number] ADM DATE: 01/08/19 AGE: 68 : 50 SEX: F ROOM/BED: D.1754 AUTHOR: SCOUT,DOC PHYSICIAN: REFERRING PHYSICIAN: JAMISON TURPIN MD DATE OF SERVICE: 01/24/19 Discharge Plan Patient Name: JAMIE CORBIN Facility: [facility]:[place] : 1950 Planned Disposition: Inpatient Rehab Anticipated Discharge Date: 01/20/19 Discharge Date: Expected LOS: 12 Initial Reviewer: CURT Initial Review Date: 01/09/2019 Generated: 01/24/19 3:35 pm Comments DCP- Discharge Planning Updated by [id number]: Joseph Sanders on 01/24/19 1:[address] Patient Name: JAMIE CORBIN Encounter No: [id number] : 1950 Primary Insurance: [employer] CHOICE PPO MCR ADVANT Anticipated DC Date: 01-20-2019 Planned Disposition: Inpatient Rehab External Planned Provider: [facility] INPATIENT REHAB DCP follow-up note: CM SPOKE TO PT REGARDING DISCHARGE PLANNING, INFORMED PT OF LIKELY DENIAL FROM HER INSURANCE FOR INPATIENT REHAB. PT WOULD LIKE REFERRAL TO [facility] FOR REHAB PREVIOUSLY DISCUSSED (CHOICE PREVIOUSLY SIGNED FOR [facility], [facility] AND [facility]). CM CALLED KATHY OF [facility], , INFORMED OF REFERRAL AND THAT DIALYSIS DAYS [facility] HAS AVAILABLE FOR DIALYSIS ARE TTS, MIDSHIFT (10-1100 AM. ) CM FAXED REFERRAL FOR REHAB SERVICES TO [facility] SAT [phone]. CM WAITING INSURANCE AUTHORIZATION FROM PT'S INSURANCE COMPANY FOR INPATIENT REHAB AT [place]. CM WAITING ADMISSION DETERMINATION FROM [facility] HALF-WAY FACILITY. SHAHBAZ Odell MANAGEMENT DCP- Discharge Planning Updated by [id number]: Joseph Sanders on 01/20/19 12:[address] Patient Name: JAMIE CORBIN Encounter No: [id number] : 1950 Primary Insurance: [employer] CHOICE PPO MCR ADVANT Anticipated DC Date: 01-20-2019 Planned Disposition: Inpatient Rehab External Planned Provider: [facility] INPAT[facility] REH[facility] DCP follow-up note: CM RECEIVED CALL FROM MAICOL OF [facility], SHE HAS CHECKED AT [facility], THE ONLY DAYS THEY HAVE AVAILABLE FOR DIALYSIS ARE TTS, MIDSHIFT (10-1100 AM.) MAICOL IS NOT GOING FURTHER WITH PLACEMENT PROCESS UNTIL IT IS DETERMINED IF PT IS GOING TO INPATIENT REHAB OR HALF-WAY FACILITY. CM WAITING INSURANCE AUTHORIZATION FROM PT'S INSURANCE COMPANY FOR INPATIENT REHAB AT [place]. SHAHBAZ Odell DCP- Discharge Planning Updated by [id number]: Joseph Sanders on 01/19/19 4:[address] Patient Name: JAMIE CORBIN Encounter No: [id number] : 1950 Primary Insurance: [employer] CHOICE PPO MCR ADVANT Anticipated DC Date: 01-20-2019 Planned Disposition: Inpatient Rehab External Planned Provider: [facility] INPATIENT [facility] DCP follow-up note: CM SPOKE TO KAMRYN FRANZ WHO ADVISED CM THAT NAPPING MACHINE OPERATOR INFORMED HER THAT PT IS HALF-WAY FACILITY APPROPRIATE AND NOT TO WASTE CM'S TIME SUBMITTING FOR INPATIENT REHAB. CM SPOKE TO PT AND SPOUSE IN ROOM. PT AND SPOUSE BOTH WOULD LIKE REHAB AT [place] IF POSSIBLE. CM DISCUSSED [facility]-WAY FACILITY FOR REHAB. THEY WANTED TO DISCUSS THIS WITHOUT CM THERE. CM LEFT. CM RETURNED IN ABOUT ONE HOUR. PT AND SPOUSE REPORT IF PT CANNOT GET INTO INPATIENT REHAB, THEY WOULD GO TO A [facility]F-WAY FACILTY THAT COULD TRANSPORT PT TO AND FROM OUTPATIENT DIALYSIS IN [place]. CHOICE SIGNED FOR [facility]. CM NOTIFIED NAN[facility] OF INPATIENT REHAB. CM NOTIFIED DR. TURPIN. CM REVIEWED CHART, OCCUPATIONAL THERAPY EVALUATION DOCUMENTED. CM WAITING INSURANCE AUTHORIZATION FROM PT'S INSURANCE COMPANY FOR INPATIENT REHAB AT [place]. SHAHBAZ Odell DCP- Discharge Planning Updated by [id number]: Joseph Sanders on 01/18/19 4:[address] Patient Name: JAMIE CORBIN Encounter No: [id number] : 1950 Primary Insurance: [employer] CHOICE PPO MCR ADVANT Anticipated DC Date: Planned Disposition: Inpatient Rehab External Planned Provider: [facility] INPAT[facility] DCP follow-up note: CM MET WITH PT IN ROOM TO DISCUSS DISCHARGE NEEDS AND PLANNING. CM DISCUSSED AVAILABILITY OF HOME HEALTH, REHAB SERVICES AND MEDICAL EQUIPMENT. PT REPORTS SHE IS WEAK AND SHOULD PROBABLY GO TO REHAB. CM DISCUSSED REHAB OPTIONS, LOCATIONS AND PROVIDERS. PT WILL CONSIDER REHAB AT [place], PT WOULD LIKE CM TO SPEAK TO HER SPOUSE TO VERIFY THIS IS A PLAN HE WOULD AGREE WITH. CM CALLED SHAWN CORBIN, , THE LINE WAS BUSY, CM CALLED THREE TIMES. PT REPORTS SHE PLANS TO DRIVE HERSELF TO [facility] AND IF SHE NEEDS HELP WITH TRANSPORT, HER SPOUSE, SHAWN, WILL ASSIST. PT REPORTS SHAWN, HER SPOUSE, WILL PICK HER UP FOR DISCHARGE HOME. IMPORTANT MESSAGE FROM MEDICARE PROVIDED AND EXPLAINED. CM TO FOLLOW AND ASSIST NEEDED. PT WILL CONSIDER REHAB AT [facility]. CM TO CONTINUE TO ATTEMPT TO CONTACT PT'S SPOUSE, SHAWN, , TO DISCUSS DISCHARGE PLAN. CM TO ASK PHYSICIAN FOR INPATIENT REHAB PRESCREENING ORDER PT'S INSURANCE WILL REQUIRE PRIOR AUTHORIZATION. Joseph Sanders, CASE MANAGEMENT DCP- Discharge Planning Updated by [id number]: Joseph Sanders on 01/09/19 3:[address] Patient Name: JAMIE CORBIN Admission Status: ER Accout number: [id number] Admission Date: 01-08-2019 : 1950 Admission Diagnosis: Attending: JAMISON TURPIN Current LOS: 1 Anticipated DC Date: Planned Disposition: Home Primary Insurance: [employer] CHOICE PPO MCR ADVANT Discharge Planning Comments: CM MET WITH PT IN ROOM TO DISCUSS DISCHARGE PLANNING AND NEEDS. PT REPORTS LIVING AT HOME INDEPENDENTLY AND ALONE. PT HAS A WALKER WITH NO MEDICAL EQUIPMENT PROVIDER PREFERENCE. PT HAS NO OUTSIDE SERVICES ASSISTING IN THE HOME. CM DISCUSSED AVAILABILITY OF HOME HEALTH, REHAB SERVICES AND MEDICAL EQUIPMENT. PT DENIES DISCHARGE NEEDS, REPORTS HER SPOUSE WILL PICK HER UP FOR DISCHARGE HOME. PT PLANS TO DISCHARGE HOME ALONE, SEPERATED SPOUSE TO ASSIST PT AT HOME IF NECESSARY. SEPERATED SPOUSE TO TRANSPORT HOME AT DISCHARGE. PT HAS NO ANTICIPATED DISCHARGE NEEDS AT THIS TIME. CM TO CONTINUE TO FOLLOW AND ASSIST NEEDED. Coal Sampler: Joseph Sanders DCPIA - Discharge Planning Initial Assessment Updated by [id number]: Joseph Sanders on 01/09/19 4:49 pm * Is the patient Alert and Oriented? Yes * How many steps to enter\exit or inside your home? * PCP DR. BATRES IN [place] * Pharmacy [facility] IN [place] * Preadmission Environment Home with Family * ADLs Independent * Equipment Walker * Other Equipment NO MEDICAL EQUIPMENT PROVIDER PREFERENCE * List name and contact numbers for known caregivers / representatives who currently or will assist patient after discharge: SHAWN CORBIN, SEPERATED SPOUSE, * Verbal permission to speak to the caregivers and representatives has been obtained from the patient. Yes * Community resources currently utilized None * Please name any agencies selected above. NONE * Additional services required to return to the preadmission environment? No * Can the patient safely return to the preadmission environment? Yes * Has this patient been hospitalized within the prior 30 days at any hospital? No Coverage Notice Reviewer: [id number] Sanders Notice Issued Date-Time: 01/18/2019 17:10 Notice Type: IM Discharge Notice Notice Delivered To: Patient Relationship to Patient: County Commissioner Name: Delivery Method: HAND - Hand Delivered Ximena Days: Prior Verbal Notification: Recipient Understood Notice: Yes Recipient Signature: Yes Med Rec Note Co-signed by Attending: Coverage Notice Comment: Reviewer: CURT Sanders Notice Issued Date-Time: 01/19/2019 15:04 Notice Type: Patient Choice Letter Notice Delivered To: Patient Relationship to Patient: County Commissioner Name: Delivery Method: HAND - Hand Delivered Ximena Days: Prior Verbal Notification: Recipient Understood Notice: Yes Recipient Signature: Yes Med Rec Note Co-signed by Attending: Coverage Notice Comment: [facility]. Last DP export: 01/24/19 12:11 Patient Name: JAMIE CORBIN Page [id number] at 1436 All edits/amendments must be made on the electronic document DICTATION DATE: 01/24/19 1435 SALVAGE WORKER: ANIBAL 01/24/19 1435 RPT#: [id number] DC DATE: STATUS: ADM IN [facility] [address] [place] [address] END OF REPORT
--- NOTE | 2019-01-24 15:14 | NUR ---
OT NOTE: PT COMPLETED BED MOB TASKS WITH MIN A. PT COMPLETED SIT TO STAND WITH MIN A. PT COMPLETED UB HYGIENE TASKS WITH WITH MIN A. THANK YOU,LORRAINE FONTANA
--- NOTE | 2019-01-24 19:20 | NUR ---
PT IS CONFUSEDE AT THIS TIME PT IS CONVINCED SHE IS GOING HOME AT THIS TIME AND THAT SHE IS THE ONLY PT IN OUR [facility] BED LOW AND SRX3 AND CALL LIGHT IS IN REACH I SPOKE WITH PT AND I BELIEVE SHE UNDERSTAND SITUATION NOW
[2019-01-24 20:00] VITALS: BP 183/65
--- NOTE | 2019-01-24 22:08 | NUR ---
PT REMAINS CONFUSED TO NIGHT SHE IS AWARE OF SITUATION NAME TIME AND PLACE BUT EXAMPLE WAS ASKING ME "TO NAME HER HEMOSPLIT SITE SO WHEN THE NEWS CALLS SHE CAN LOCTE IT FOR THEM" I REDRESSED SITE OF HEMSPLIT AT THIS TIME PT HAD REMOVED DRESSING I CLEANED ARE AND USED PROPER STERILE TECHNIQUE TO REPLACE DRSG PT SKIN WARM AND DRY AND LUNGS CLEAR DENIES NEEDS AT THIS TIME STATES NAUSEA HAS PACED
[2019-01-25 00:27] VITALS: BP 151/61
--- NOTE | 2019-01-25 04:19 | NUR ---
I have reviewed this patient and I concur with the Shift Assessment completed by the Licensed Practical Nurse today this shift.
[2019-01-25 04:30] VITALS: BP 139/50
[2019-01-25 05:31] LABS: BASOPHILS 0.9 % (0-2); EOSINOPHILS 5.2 % (0-7); HEMATOCRIT 32.3 % (36.0-48.0); HEMOGLOBIN 9.6 g/dL (12-16); IMMATURE GRANULOCYTES 0.2 % (0-5); LYMPHOCYTES 25.5 % (15-50); MCH 28.9 pg (26.0-34.0); MCHC 29.7 g/dL (31.0-37.0); MEAN PLATELET VOLUME 10.9 fL (7.4-10.4); MONOCYTES 10.6 % (2-11); NEUTROPHILS 57.6 % (40-80); PLATELET COUNT 183 10x3/uL (130-400); RBC 3.32 10x6/uL (4.00-5.40); RDW 17.2 % (11.5-14.5); WBC 5.7 10x3/uL (4.8-10.8)
[2019-01-25 06:17] LABS: ALBUMIN 2.7 g/dL (3.4-5.0); ANION GAP 10.9 mmol/L (8-16); BILIRUBIN - TOTAL 0.28 mg/dL (0.2-1.3); CALCIUM 7.8 mg/dL (8.5-10.1); CARBON DIOXIDE 30.9 mmol/L (21.0-32.0); PROTEIN - SERUM 6.3 g/dL (6.4-8.2)
[2019-01-25 06:21] LABS: CREATININE - SERUM 4.2 mg/dL (0.6-1.3)
[2019-01-25 06:22] LABS: POTASSIUM - SERUM 3.8 mmol/L (3.5-5.1)
[2019-01-25 06:27] LABS: MCV 97.3 fL (80.0-100.0)
--- NOTE | 2019-01-25 07:20 | NUR ---
PT LYING IN BED. EYES CLOSED. CHEST RISING AND FALLING. BED LOW. CL IN REACH.
[2019-01-25 08:32] VITALS: BP 170/49
--- NOTE | 2019-01-25 09:55 | MORECARE ---
CASE MANAGEMENT DISCHARGE SUMMARY PATIENT: JAMIE CORBIN UNIT: [id number] ADM DATE: 01/08/19 AGE: 68 : 50 SEX: F ROOM/BED: D.0504 AUTHOR: SCOUT,DOC PHYSICIAN: REFERRING PHYSICIAN: JAMISON TURPIN MD DATE OF SERVICE: 01/25/19 Discharge Plan Patient Name: JAMIE CORBIN Facility: [facility]:[place] : 1950 Planned Disposition: Inpatient Rehab Anticipated Discharge Date: 01/20/19 Discharge Date: Expected LOS: 12 Initial Reviewer: [id number] Initial Review Date: 01/09/2019 Generated: 01/25/19 10:54 am Comments DCP- Discharge Planning Updated by [email or web address]: Joseph Sanders on 01/25/19 8:[address] Patient Name: JAMIE CORBIN Encounter No: [id number] : 1950 Primary Insurance: [employer] CHOICE PPO MCR ADVANT Anticipated DC Date: 01-20-2019 Planned Disposition: Inpatient Rehab External Planned Provider: [facility] INPATIENT REHAB DCP follow-up note: CM SPOKE TO PT REGARDING DISCHARGE PLANNING, INFORMED OF REFERRAL PENDING AT [facility] FOR REHAB. PT AND SPOUSE IN AGREEMENT WITH PLAN IF DENIED INPATIENT REHAB BY INSURANCE. IMPORTANT MESSAGE FROM MEDICARE PROVIDED AND EXPLAINED. CM CALLED KATHY OF [facility], , VERIFIED HER RECEIPT OF REFERRAL AND THAT DIALYSIS DAYS [facility] HAS AVAILABLE FOR DIALYSIS ARE TTS, MIDSHIFT (10-1100 AM.) CM WAITING INSURANCE AUTHORIZATION FROM PT'S INSURANCE COMPANY FOR INPATIENT REHAB AT [place]. CM WAITING ADMISSION DETERMINATION FROM [facility] SENIOR CARE FACILITY. Joseph Sanders, CASE MANAGEMENT DCP- Discharge Planning Updated by [id number]: Joseph Sanders on 01/24/19 1:[address] Patient Name: JAMIE CORBIN Encounter No: [id number] : 1950 Primary Insurance: HU[employer] CHOICE PPO MCR ADVANT Anticipated DC Date: 01-20-2019 Planned Disposition: Inpatient Rehab External Planned Provider: [facility] INPATIENT REHAB DCP follow-up note: CM SPOKE TO PT REGARDING DISCHARGE PLANNING, INFORMED PT OF LIKELY DENIAL FROM HER INSURANCE FOR INPATIENT REHAB. PT WOULD LIKE REFERRAL TO [facility] FOR REHAB PREVIOUSLY DISCUSSED (CHOICE PREVIOUSLY SIGNED FOR [facility], [facility]). CM CALLED KATHY OF [facility], , INFORMED OF REFERRAL AND THAT DIALYSIS DAYS [facility] HAS AVAILABLE FOR DIALYSIS ARE TTS, MIDSHIFT (10-1100 AM. ) CM FAXED REFERRAL FOR REHAB SERVICES TO [facility] [phone]. CM WAITING INSURANCE AUTHORIZATION FROM PT'S INSURANCE COMPANY FOR INPATIENT REHAB AT [place]. CM WAITING ADMISSION DETERMINATION FROM [facility] SENIOR CARE FACILITY. Joseph Sanders CASE MANAGEMENT DCP- Discharge Planning Updated by [id number]: Joseph Sanders on 01/20/19 12:[address] Patient Name: JAMIE CORBIN Encounter No: [id number] : 1950 Primary Insurance: [employer] CHOICE PPO MCR ADVANT Anticipated DC Date: 01-20-2019 Planned Disposition: Inpatient Rehab External Planned Provider: [facility] INPATIENT REH[facility] DCP follow-up note: CM RECEIVED CALL FROM MAICOL OF [facility], SHE HAS CHECKED AT [facility], THE ONLY DAYS THEY HAVE AVAILABLE FOR DIALYSIS ARE TTS, MIDSHIFT (10-1100 AM.) MAICOL IS NOT GOING FURTHER WITH PLACEMENT PROCESS UNTIL IT IS DETERMINED IF PT IS GOING TO INPATIENT REHAB OR SENIOR CARE FACILITY. CM WAITING INSURANCE AUTHORIZATION FROM PT'S INSURANCE COMPANY FOR INPATIENT REHAB AT [place]. SHAHBAZ Odell DCP- Discharge Planning Updated by [id number]: Joseph Sanders on 01/19/19 4:[address] Patient Name: JAMIE CORBIN Encounter No: [id number] : 1950 Primary Insurance: [employer] CHOICE PPO MCR ADVANT Anticipated DC Date: 01-20-2019 Planned Disposition: Inpatient Rehab External Planned Provider: [facility] INPATIENT REHAB DCP follow-up note: CM SPOKE TO KAMRYN FRANZ WHO ADVISED CM THAT DESIZING MACHINE OFFBEARER INFORMED HER THAT PT IS SENIOR CARE FACILITY APPROPRIATE AND NOT TO WASTE CM'S TIME SUBMITTING FOR INPATIENT REHAB. CM SPOKE TO PT AND SPOUSE IN ROOM. PT AND SPOUSE BOTH WOULD LIKE REHAB AT [place] IF POSSIBLE. CM DISCUSSED SENIOR CARE FACILITY FOR REHAB. THEY WANTED TO DISCUSS THIS WITHOUT CM THERE. CM LEFT. CM RETURNED IN ABOUT ONE HOUR. PT AND SPOUSE REPORT IF PT CANNOT GET INTO INPATIENT REHAB, THEY WOULD GO TO A SENIOR CARE FACILTY THAT COULD TRANSPORT PT TO AND FROM OUTPATIENT DIALYSIS IN [place]. [email or web address]. CM NOTIFIED [facility] OF INPATIENT REHAB. CM NOTIFIED DR. TURPIN. CM REVIEWED CHART, OCCUPATIONAL THERAPY EVALUATION DOCUMENTED. CM WAITING INSURANCE AUTHORIZATION FROM PT'S INSURANCE COMPANY FOR INPATIENT REHAB AT [place]. SHAHBAZ Odell DCP- Discharge Planning Updated by [id number]: Joseph Sanders on 01/18/19 4:[address] Patient Name: JAMIE CORBIN Encounter No: [id number] : 1950 Primary Insurance: [employer] PPO MCR ADVANT Anticipated DC Date: Planned Disposition: Inpatient Rehab External Planned Provider: [facility] INPATIENT REHAB DCP follow-up note: CM MET WITH PT IN ROOM TO DISCUSS DISCHARGE NEEDS AND PLANNING. CM DISCUSSED AVAILABILITY OF HOME HEALTH, REHAB SERVICES AND MEDICAL EQUIPMENT. PT REPORTS SHE IS WEAK AND SHOULD PROBABLY GO TO REHAB. CM DISCUSSED REHAB OPTIONS, LOCATIONS AND PROVIDERS. PT WILL CONSIDER REHAB AT [place], PT WOULD LIKE CM TO SPEAK TO HER SPOUSE TO VERIFY THIS IS A PLAN HE WOULD AGREE WITH. CM CALLED SHAWN CORBIN, , THE LINE WAS BUSY, CM CALLED THREE TIMES. PT REPORTS SHE PLANS TO DRIVE HERSELF TO THE [place] [facility] AND IF SHE NEEDS HELP WITH TRANSPORT, HER SPOUSE, SHAWN, WILL ASSIST. PT REPORTS SHAWN, HER SPOUSE, WILL PICK HER UP FOR DISCHARGE HOME. IMPORTANT MESSAGE FROM MEDICARE PROVIDED AND EXPLAINED. CM TO FOLLOW AND ASSIST NEEDED. PT WILL CONSIDER REHAB AT [facility]. CM TO CONTINUE TO ATTEMPT TO CONTACT PT'S SPOUSE, SHAWN, , TO DISCUSS DISCHARGE PLAN. CM TO ASK PHYSICIAN FOR INPATIENT REHAB PRESCREENING ORDER PT'S INSURANCE WILL REQUIRE PRIOR AUTHORIZATION. SHAHBAZ Odell DCP- Discharge Planning Updated by [id number]: Joseph Sanders on 01/09/19 3:[address] Patient Name: JAMIE CORBIN Admission Status: ER Accout number: [id number] Admission Date: 01-08-2019 : 1950 Admission Diagnosis: Attending: JAMISON TURPIN Current LOS: 1 Anticipated DC Date: Planned Disposition: Home Primary Insurance: HU[employer] CHOICE PPO MCR ADVANT Discharge Planning Comments: CM MET WITH PT IN ROOM TO DISCUSS DISCHARGE PLANNING AND NEEDS. PT REPORTS LIVING AT HOME INDEPENDENTLY AND ALONE. PT HAS A WALKER WITH NO MEDICAL EQUIPMENT PROVIDER PREFERENCE. PT HAS NO OUTSIDE SERVICES ASSISTING IN THE HOME. CM DISCUSSED AVAILABILITY OF HOME HEALTH, REHAB SERVICES AND MEDICAL EQUIPMENT. PT DENIES DISCHARGE NEEDS, REPORTS HER SPOUSE WILL PICK HER UP FOR DISCHARGE HOME. PT PLANS TO DISCHARGE HOME ALONE, SEPERATED SPOUSE TO ASSIST PT AT HOME IF NECESSARY. SEPERATED SPOUSE TO TRANSPORT HOME AT DISCHARGE. PT HAS NO ANTICIPATED DISCHARGE NEEDS AT THIS TIME. CM TO CONTINUE TO FOLLOW AND ASSIST NEEDED. Photography Instructor: Joseph Sanders DCPIA - Discharge Planning Initial Assessment Updated by [id number]: Joseph Sanders on 01/09/19 4:49 pm * Is the patient Alert and Oriented? Yes * How many steps to enter\exit or inside your home? * PCP DR. BATRES IN [place] * Pharmacy [facility] IN [place] * Preadmission Environment Home with Family * ADLs Independent * Equipment Walker * Other Equipment NO MEDICAL EQUIPMENT PROVIDER PREFERENCE * List name and contact numbers for known caregivers / representatives who currently or will assist patient after discharge: SHAWN CORBIN, SEPERATED SPOUSE, * Verbal permission to speak to the caregivers and representatives has been obtained from the patient. Yes * Community resources currently utilized None * Please name any agencies selected above. NONE * Additional services required to return to the preadmission environment? No * Can the patient safely return to the preadmission environment? Yes * Has this patient been hospitalized within the prior 30 days at any hospital? No Coverage Notice Reviewer: [id number] Darion Sanders Notice Issued Date-Time: 01/18/2019 17:10 Notice Type: IM Discharge Notice Notice Delivered To: Patient Relationship to Patient: Marine Photographer Name: Delivery Method: HAND - Hand Delivered Ximena Days: Prior Verbal Notification: Recipient Understood Notice: Yes Recipient Signature: Yes Med Rec Note Co-signed by Attending: Coverage Notice Comment: Reviewer: [id number] Sanders Notice Issued Date-Time: 01/19/2019 15:04 Notice Type: Patient Choice Letter Notice Delivered To: Patient Relationship to Patient: Marine Photographer Name: Delivery Method: HAND - Hand Delivered Ximena Days: Prior Verbal Notification: Recipient Understood Notice: Yes Recipient Signature: Yes Med Rec Note Co-signed by Attending: Coverage Notice Comment: [facility]. Reviewer: [id number] - Joseph Sanders Notice Issued Date-Time: 01/25/2019 9:25 Notice Type: IM Discharge Notice Notice Delivered To: Patient Relationship to Patient: Marine Photographer Name: Delivery Method: HAND - Hand Delivered Ximena Days: Prior Verbal Notification: Recipient Understood Notice: Yes Recipient Signature: Yes Med Rec Note Co-signed by Attending: Coverage Notice Comment: Last DP export: 01/24/19 1:36 Patient Name: JAMIE CORBIN Page [id number] at 0955 All edits/amendments must be made on the electronic document DICTATION DATE: 01/25/19953 NURSING HOME AIDE: ANIBAL 01/25/19953 RPT#: [id number] DC DATE: STATUS: ADM IN [facility] [address] [place] [address] END OF REPORT
--- NOTE | 2019-01-25 11:48 | MORECARE ---
CASE MANAGEMENT DISCHARGE SUMMARY PATIENT: JAMIE CORBIN UNIT: [id number] ADM DATE: 01/08/19 AGE: 68 : 50 SEX: F ROOM/BED: D.0864 AUTHOR: SCOUT,DOC PHYSICIAN: REFERRING PHYSICIAN: JAMISON TURPIN MD DATE OF SERVICE: 01/25/19 Discharge Plan Patient Name: JAMIE CORBIN Facility: [facility]:[place] : 1950 Planned Disposition: Group Home Facility Anticipated Discharge Date: 01/26/19 Discharge Date: Expected LOS: 18 Initial Reviewer: [id number] Initial Review Date: 01/09/2019 Generated: 01/25/19 12:47 pm DCP- Discharge Planning Updated by [id number]: Joseph Sanders on 01/25/19 8:[address] Patient Name: JAMIE CORBIN Encounter No: [id number] : 1950 Primary Insurance: [employer] CHOICE PPO MCR ADVANT Anticipated DC Date: 01-20-2019 Planned Disposition: Inpatient Rehab External Planned Provider: [facility] INPATIENT REH[facility] DCP follow-up note: CM SPOKE TO PT REGARDING DISCHARGE PLANNING, INFORMED OF REFERRAL PENDING AT [facility] FOR REH[facility]. PT AND SPOUSE IN AGREEMENT WITH PLAN IF DENIED INPATIENT REHAB BY INSURANCE. IMPORTANT MESSAGE FROM MEDICARE PROVIDED AND EXPLAINED. CM CALLED KATHY OF [facility], , VERIFIED HER RECEIPT OF REFERRAL AND THAT DIALYSIS DAYS [facility] HAS AVAILABLE FOR DIALYSIS ARE TTS, MIDSHIFT (10-1100 AM.) CM WAITING INSURANCE AUTHORIZATION FROM PT'S INSURANCE COMPANY FOR INPATIENT REHAB AT [place]. CM WAITING ADMISSION DETERMINATION FROM [facility]. Joseph Sanders, CASE KEELEY DCP- Discharge Planning Updated by [id number]: Joseph Sanders on 01/24/19 1:[address] Patient Name: JAMIE CORBIN Encounter No: [id number] : 1950 Primary Insurance: [employer] CHOICE PPO MCR ADVANT Anticipated DC Date: 01-20-2019 Planned Disposition: Inpatient Rehab External Planned Provider: [facility] DCP follow-up note: CM SPOKE TO PT REGARDING DISCHARGE PLANNING, INFORMED PT OF LIKELY DENIAL FROM HER INSURANCE FOR INPATIENT REHAB. PT WOULD LIKE REFERRAL TO [facility] FOR REHAB PREVIOUSLY DISCUSSED (CHOICE PREVIOUSLY SIGNED FOR [facility], [facility]). CM CALLED KATHY OF [facility], , INFORMED OF REFERRAL AND THAT DIALYSIS DAYS [facility] HAS AVAILABLE FOR DIALYSIS ARE TTS, MIDSHIFT (10-1100 AM. ) CM FAXED REFERRAL FOR REHAB SERVICES TO [facility] [phone]. CM WAITING INSURANCE AUTHORIZATION FROM PT'S INSURANCE COMPANY FOR INPATIENT REHAB AT [place]. CM WAITING ADMISSION DETERMINATION FROM [facility] LONG TERM FACILITY. Joseph Sanders CASE MANAGEMENT DCP- Discharge Planning Updated by [id number]: Joseph Sanders on 01/20/19 12:[address] Patient Name: JAMIE CORBIN Encounter No: [id number] : 1950 Primary Insurance: [employer] CHOICE PPO MCR ADVANT Anticipated DC Date: 01-20-2019 Planned Disposition: Inpatient Rehab External Planned Provider: [facility] DCP follow-up note: CM RECEIVED CALL FROM MAICOL OF [facility], SHE HAS CHECKED AT [facility], THE ONLY DAYS THEY HAVE AVAILABLE FOR DIALYSIS ARE TTS, MIDSHIFT (10-1100 AM.) MAICOL IS NOT GOING FURTHER WITH PLACEMENT PROCESS UNTIL IT IS DETERMINED IF PT IS GOING TO INPATIENT REHAB OR LONG TERM FACILITY. CM WAITING INSURANCE AUTHORIZATION FROM PT'S INSURANCE COMPANY FOR INPATIENT REHAB AT [place]. SHAHBAZ Odell DCP- Discharge Planning Updated by [id number]: Joseph Sanders on 01/19/19 4:[address] Patient Name: JAMIE CORBIN Encounter No: [id number] : 1950 Primary Insurance: [employer] CHOICE PPO MCR ADVANT Anticipated DC Date: 01-20-2019 Planned Disposition: Inpatient Rehab External Planned Provider: [facility] DCP follow-up note: CM SPOKE TO RN ANA M FRANZ WHO ADVISED CM THAT ORCHID TRANSPLANTER INFORMED HER THAT PT IS LONG TERM FACILITY APPROPRIATE AND NOT TO WASTE CM'S TIME SUBMITTING FOR INPATIENT REHAB. CM SPOKE TO PT AND SPOUSE IN ROOM. PT AND SPOUSE BOTH WOULD LIKE REHAB AT [place] IF POSSIBLE. CM DISCUSSED LONG TERM FACILITY FOR REHAB. THEY WANTED TO DISCUSS THIS WITHOUT CM THERE. CM LEFT. CM RETURNED IN ABOUT ONE HOUR. PT AND SPOUSE REPORT IF PT CANNOT GET INTO INPATIENT REHAB, THEY WOULD GO TO A LONG TERM FACILTY THAT COULD TRANSPORT PT TO AND FROM OUTPATIENT DIALYSIS IN [place]. [facility]. CM NOTIFIED [facility] OF INPATIENT REHAB. CM NOTIFIED DR. TURPIN. CM REVIEWED CHART, OCCUPATIONAL THERAPY EVALUATION DOCUMENTED. CM WAITING INSURANCE AUTHORIZATION FROM PT'S INSURANCE COMPANY FOR INPATIENT REHAB AT [place]. SHAHBAZ Odell DCP- Discharge Planning Updated by [id number]: Joseph Sanders on 01/18/19 4:[address] Patient Name: JAMIE CORBIN Encounter No: [id number] : 1950 Primary Insurance: [employer] [place] PPO MCR ADVANT Anticipated DC Date: Planned Disposition: Inpatient Rehab External Planned Provider: [facility] DCP follow-up note: CM MET WITH PT IN ROOM TO DISCUSS DISCHARGE NEEDS AND PLANNING. CM DISCUSSED AVAILABILITY OF HOME HEALTH, REHAB SERVICES AND MEDICAL EQUIPMENT. PT REPORTS SHE IS WEAK AND SHOULD PROBABLY GO TO REHAB. CM DISCUSSED REHAB OPTIONS, LOCATIONS AND PROVIDERS. PT WILL CONSIDER REHAB AT [place], PT WOULD LIKE CM TO SPEAK TO HER SPOUSE TO VERIFY THIS IS A PLAN HE WOULD AGREE WITH. CM CALLED SHAWN CORBIN, , THE LINE WAS BUSY, CM CALLED THREE TIMES. PT REPORTS SHE PLANS TO DRIVE HERSELF TO THE [place] [facility] AND IF SHE NEEDS HELP WITH TRANSPORT, HER SPOUSE, SHAWN, WILL ASSIST. PT REPORTS SHAWN, HER SPOUSE, WILL PICK HER UP FOR DISCHARGE HOME. IMPORTANT MESSAGE FROM MEDICARE PROVIDED AND EXPLAINED. CM TO FOLLOW AND ASSIST NEEDED. PT WILL CONSIDER REHAB AT [facility]. CM TO CONTINUE TO ATTEMPT TO CONTACT PT'S SPOUSE, SHAWN, , TO DISCUSS DISCHARGE PLAN. CM TO ASK PHYSICIAN FOR INPATIENT REHAB PRESCREENING ORDER PT'S INSURANCE WILL REQUIRE PRIOR AUTHORIZATION. SHAHBAZ Odell DCP- Discharge Planning Updated by [id number]: Joseph Sanders on 01/09/19 3:[address] Patient Name: JAMIE CORBIN Admission Status: ER Accout number: [id number] Admission Date: 01-08-2019 : 06-18-1951 Admission Diagnosis: Attending: JAMISON TURPIN Current LOS: 1 Anticipated DC Date: Planned Disposition: Home Primary Insurance: [employer] CHOICE PPO MCR ADVANT Discharge Planning Comments: CM MET WITH PT IN ROOM TO DISCUSS DISCHARGE PLANNING AND NEEDS. PT REPORTS LIVING AT HOME INDEPENDENTLY AND ALONE. PT HAS A WALKER WITH NO MEDICAL EQUIPMENT PROVIDER PREFERENCE. PT HAS NO OUTSIDE SERVICES ASSISTING IN THE HOME. CM DISCUSSED AVAILABILITY OF HOME HEALTH, REHAB SERVICES AND MEDICAL EQUIPMENT. PT DENIES DISCHARGE NEEDS, REPORTS HER SPOUSE WILL PICK HER UP FOR DISCHARGE HOME. PT PLANS TO DISCHARGE HOME ALONE, SEPERATED SPOUSE TO ASSIST PT AT HOME IF NECESSARY. SEPERATED SPOUSE TO TRANSPORT HOME AT DISCHARGE. PT HAS NO ANTICIPATED DISCHARGE NEEDS AT THIS TIME. CM TO CONTINUE TO FOLLOW AND ASSIST NEEDED. Flight Engineer Instructor: Joseph Sanders DCPIA - Discharge Planning Initial Assessment Updated by [id number]: Joseph Sanders on 01/09/19 4:49 pm * Is the patient Alert and Oriented? Yes * How many steps to enter\exit or inside your home? * PCP DR. BATRES IN [place] * Pharmacy [facility] IN [place] * Preadmission Environment Home with Family * ADLs Independent * Equipment Walker * Other Equipment NO MEDICAL EQUIPMENT PROVIDER PREFERENCE * List name and contact numbers for known caregivers / representatives who currently or will assist patient after discharge: SHAWN CORBIN, SEPERATED SPOUSE, * Verbal permission to speak to the caregivers and representatives has been obtained from the patient. Yes * Community resources currently utilized None * Please name any agencies selected above. NONE * Additional services required to return to the preadmission environment? No * Can the patient safely return to the preadmission environment? Yes * Has this patient been hospitalized within the prior 30 days at any hospital? No Coverage Notice Reviewer: [id number] Darion Sanders Notice Issued Date-Time: 01/18/2019 17:10 Notice Type: IM Discharge Notice Notice Delivered To: Patient Relationship to Patient: Rigging Up Worker Name: Delivery Method: HAND - Hand Delivered Ximena Days: Prior Verbal Notification: Recipient Understood Notice: Yes Recipient Signature: Yes Med Rec Note Co-signed by Attending: Coverage Notice Comment: Reviewer: [id number] Darion Sanders Notice Issued Date-Time: 01/19/2019 15:04 Notice Type: Patient Choice Letter Notice Delivered To: Patient Relationship to Patient: Rigging Up Worker Name: Delivery Method: HAND - Hand Delivered Ximena Days: Prior Verbal Notification: Recipient Understood Notice: Yes Recipient Signature: Yes Med Rec Note Co-signed by Attending: Coverage Notice Comment: [facility]. Reviewer: [id number] - Joseph Sanders Notice Issued Date-Time: 01/25/2019 9:25 Notice Type: IM Discharge Notice Notice Delivered To: Patient Relationship to Patient: Rigging Up Worker Name: Delivery Method: HAND - Hand Delivered Ximena Days: Prior Verbal Notification: Recipient Understood Notice: Yes Recipient Signature: Yes Med Rec Note Co-signed by Attending: Coverage Notice Comment: Last DP export: 01/25/19 8:55 Patient Name: JAMIE CORBIN Page [id number] at 1148 All edits/amendments must be made on the electronic document DICTATION DATE: 01/25/191146 INFORMATION ASSISTANT: ANIBAL 01/25/19 114 RPT#: [id number] DC DATE: STATUS: ADM IN [facility] [address] [place] [address] END OF REPORT
[2019-01-25 11:51] VITALS: BP 135/46
--- NOTE | 2019-01-25 12:05 | MORECARE ---
CASE MANAGEMENT DISCHARGE SUMMARY PATIENT: JAMIE CORBIN UNIT: [id number] ADM DATE: 01/08/19 AGE: 68 : 50 SEX: F ROOM/BED: D.2115 AUTHOR: SCOUT,DOC PHYSICIAN: REFERRING PHYSICIAN: JAMISON TURPIN MD DATE OF SERVICE: 01/25/19 Discharge Plan Patient Name: JAMIE CORBIN Facility: [facility]:[place] : 1950 Planned Disposition: Jail Facility Anticipated Discharge Date: 01/26/19 Discharge Date: Expected LOS: 18 Initial Reviewer: [id number] Initial Review Date: 01/09/2019 Generated: 01/25/19 1:04 pm DCP- Discharge Planning Updated by [id number]: Joseph Sanders on 01/25/19 8:[address] Patient Name: JAMIE CORBIN Encounter No: [id number] : 1950 Primary Insurance: HUMANA CHOICE PPO MCR ADVANT Anticipated DC Date: 01-20-2019 Planned Disposition: Inpatient Rehab External Planned Provider: [facility] INPATIENT [facility] DCP follow-up note: CM SPOKE TO PT REGARDING DISCHARGE PLANNING, INFORMED OF REFERRAL PENDING AT [facility] FOR REHAB. PT AND SPOUSE IN AGREEMENT WITH PLAN IF DENIED INPATIENT REHAB BY INSURANCE. IMPORTANT MESSAGE FROM MEDICARE PROVIDED AND EXPLAINED. CM CALLED KATHY OF [facility], , VERIFIED HER RECEIPT OF REFERRAL AND THAT DIALYSIS DAYS [facility] HAS AVAILABLE FOR DIALYSIS ARE TTS, MIDSHIFT (10-1100 AM.) CM WAITING INSURANCE AUTHORIZATION FROM PT'S INSURANCE COMPANY FOR INPATIENT REHAB AT [place]. CM WAITING ADMISSION DETERMINATION FROM [facility]. Joseph Sanders, CASE KEELEY DCP- Discharge Planning Updated by [id number]: Joseph Sanders on 01/24/19 1:[address] Patient Name: JAMIE CORBIN Encounter No: [id number] : 1950 Primary Insurance: HUMANA CHOICE PPO MCR ADVANT Anticipated DC Date: 01-20-2019 Planned Disposition: Inpatient Rehab External Planned Provider: [facility] INPATIENT [facility] DCP follow-up note: CM SPOKE TO PT REGARDING DISCHARGE PLANNING, INFORMED PT OF LIKELY DENIAL FROM HER INSURANCE FOR INPATIENT REHAB. PT WOULD LIKE REFERRAL TO [facility] FOR REHAB PREVIOUSLY DISCUSSED (CHOICE PREVIOUSLY SIGNED FOR [facility], [facility]). CM CALLED KATHY OF [facility], , INFORMED OF REFERRAL AND THAT DIALYSIS DAYS [facility] HAS AVAILABLE FOR DIALYSIS ARE TTS, MIDSHIFT (10-1100 AM. ) CM FAXED REFERRAL FOR REHAB SERVICES TO [facility] SAT [phone]. CM WAITING INSURANCE AUTHORIZATION FROM PT'S INSURANCE COMPANY FOR INPATIENT REHAB AT [place]. CM WAITING ADMISSION DETERMINATION FROM [facility]. Joseph Sanders CASE MANAGEMENT DCP- Discharge Planning Updated by [id number]: Joseph Sanders on 01/20/19 12:[address] Patient Name: JAMIE CORBIN Encounter No: [id number] : 1950 Primary Insurance: HUMANA CHOICE PPO MCR ADVANT Anticipated DC Date: 01-20-2019 Planned Disposition: Inpatient Rehab External Planned Provider: [facility] INPATIENT REH[facility] DCP follow-up note: CM RECEIVED CALL FROM MAICOL OF [facility], SHE HAS CHECKED AT [facility], THE ONLY DAYS THEY HAVE AVAILABLE FOR DIALYSIS ARE TTS, MIDSHIFT (10-1100 AM.) MAICOL IS NOT GOING FURTHER WITH PLACEMENT PROCESS UNTIL IT IS DETERMINED IF PT IS GOING TO INPATIENT REHAB OR [facility]. CM WAITING INSURANCE AUTHORIZATION FROM PT'S INSURANCE COMPANY FOR INPATIENT REHAB AT [place]. SHAHBAZ Odell DCP- Discharge Planning Updated by [id number]: Joseph Sanders on 01/19/19 4:[address] Patient Name: JAMIE CORBIN Encounter No: [id number] : 1950 Primary Insurance: HUMANA CHOICE PPO MCR ADVANT Anticipated DC Date: 01-20-2019 Planned Disposition: Inpatient Rehab External Planned Provider: [facility] INPAT[facility] DCP follow-up note: CM SPOKE TO RN ANA M FRANZ WHO ADVISED CM THAT HYPERION DEVELOPER INFORMED HER THAT PT IS [facility]ILITY APPROPRIATE AND NOT TO WASTE CM'S TIME SUBMITTING FOR INPATIENT REHAB. CM SPOKE TO PT AND SPOUSE IN ROOM. PT AND SPOUSE BOTH WOULD LIKE REHAB AT [facility] IF POSSIBLE. CM DISCUSSED [facility] FOR REH[facility]. THEY WANTED TO DISCUSS THIS WITHOUT CM THERE. CM LEFT. CM RETURNED IN ABOUT ONE HOUR. PT AND SPOUSE REPORT IF PT CANNOT GET INTO INPATIENT REHAB, THEY WOULD GO TO A [facility] FACILTY THAT COULD TRANSPORT PT TO AND FROM OUTPATIENT DIALYSIS IN [place]. CHOICE SIGNED [facility]. CM NOTIFIED KOURTNEY AND [facility] OF INPATIENT REHAB. CM NOTIFIED DR. TURPIN. CM REVIEWED CHART, OCCUPATIONAL THERAPY EVALUATION DOCUMENTED. CM WAITING INSURANCE AUTHORIZATION FROM PT'S INSURANCE COMPANY FOR INPATIENT REHAB AT [place]. SHAHBAZ Odell DCP- Discharge Planning Updated by [id number]: Joseph Sanders on 01/18/19 4:[address] Patient Name: JAMIE CORBIN Encounter No: [id number] : 1950 Primary Insurance: HUMANA Finjan PPO MCR ADVANT Anticipated DC Date: Planned Disposition: Inpatient Rehab External Planned Provider: [facility] INPATIENT REH[facility] DCP follow-up note: CM MET WITH PT IN ROOM TO DISCUSS DISCHARGE NEEDS AND PLANNING. CM DISCUSSED AVAILABILITY OF HOME HEALTH, REHAB SERVICES AND MEDICAL EQUIPMENT. PT REPORTS SHE IS WEAK AND SHOULD PROBABLY GO TO REHAB. CM DISCUSSED REHAB OPTIONS, LOCATIONS AND PROVIDERS. PT WILL CONSIDER REHAB AT [facility], PT WOULD LIKE CM TO SPEAK TO HER SPOUSE TO VERIFY THIS IS A PLAN HE WOULD AGREE WITH. CM CALLED SHAWN CORBIN, , THE LINE WAS BUSY, CM CALLED THREE TIMES. PT REPORTS SHE PLANS TO DRIVE HERSELF TO THE [facility] AND IF SHE NEEDS HELP WITH TRANSPORT, HER SPOUSE, SHAWN, WILL ASSIST. PT REPORTS SHAWN, HER SPOUSE, WILL PICK HER UP FOR DISCHARGE HOME. IMPORTANT MESSAGE FROM MEDICARE PROVIDED AND EXPLAINED. CM TO FOLLOW AND ASSIST NEEDED. PT WILL CONSIDER REHAB AT [facility]. CM TO CONTINUE TO ATTEMPT TO CONTACT PT'S SPOUSE, SHAWN, , TO DISCUSS DISCHARGE PLAN. CM TO ASK PHYSICIAN FOR INPATIENT REHAB PRESCREENING ORDER PT'S INSURANCE WILL REQUIRE PRIOR AUTHORIZATION. SHAHBAZ Odell DCP- Discharge Planning Updated by [id number]: Joseph Sanders on 01/09/19 3:[address] Patient Name: JAMIE CORBIN Admission Status: ER Accout number: [id number] Admission Date: 01-08-2019 : 06-18-1951 Admission Diagnosis: Attending: JAMISON TURPIN Current LOS: 1 Anticipated DC Date: Planned Disposition: Home Primary Insurance: HUMANA CHOICE PPO MCR ADVANT Discharge Planning Comments: CM MET WITH PT IN ROOM TO DISCUSS DISCHARGE PLANNING AND NEEDS. PT REPORTS LIVING AT HOME INDEPENDENTLY AND ALONE. PT HAS A WALKER WITH NO MEDICAL EQUIPMENT PROVIDER PREFERENCE. PT HAS NO OUTSIDE SERVICES ASSISTING IN THE HOME. CM DISCUSSED AVAILABILITY OF HOME HEALTH, REHAB SERVICES AND MEDICAL EQUIPMENT. PT DENIES DISCHARGE NEEDS, REPORTS HER SPOUSE WILL PICK HER UP FOR DISCHARGE HOME. PT PLANS TO DISCHARGE HOME ALONE, SEPERATED SPOUSE TO ASSIST PT AT HOME IF NECESSARY. SEPERATED SPOUSE TO TRANSPORT HOME AT DISCHARGE. PT HAS NO ANTICIPATED DISCHARGE NEEDS AT THIS TIME. CM TO CONTINUE TO FOLLOW AND ASSIST NEEDED. Speech Therapy Teacher: Joseph Sanders DCPIA - Discharge Planning Initial Assessment Updated by [id number]: Joseph Sanders on 01/09/19 4:49 pm * Is the patient Alert and Oriented? Yes * How many steps to enter\exit or inside your home? * PCP DR. BATRES IN [place] * Pharmacy [facility] IN [place] * Preadmission Environment Home with Family * ADLs Independent * Equipment Walker * Other Equipment NO MEDICAL EQUIPMENT PROVIDER PREFERENCE * List name and contact numbers for known caregivers / representatives who currently or will assist patient after discharge: SHAWN CORBIN, SEPERATED SPOUSE, * Verbal permission to speak to the caregivers and representatives has been obtained from the patient. Yes * Community resources currently utilized None * Please name any agencies selected above. NONE * Additional services required to return to the preadmission environment? No * Can the patient safely return to the preadmission environment? Yes * Has this patient been hospitalized within the prior 30 days at any hospital? No External Providers External Provider: [facility] Next Contact Date: 01/24/2019 Service Request Date: Service Type: Resolution: Reviewer: Comments: Coverage Notice Reviewer: [id number] Darion Sanders Notice Issued Date-Time: 01/25/2019 9:25 Notice Type: IM Discharge Notice Notice Delivered To: Patient Relationship to Patient: [employer] Name: Delivery Method: HAND - Hand Delivered Ximena Days: Prior Verbal Notification: Recipient Understood Notice: Yes Recipient Signature: Yes Med Rec Note Co-signed by Attending: Coverage Notice Comment: Reviewer: [id number] Darion Sanders Notice Issued Date-Time: 01/18/2019 17:10 Notice Type: IM Discharge Notice Notice Delivered To: Patient Relationship to Patient: [employer] Name: Delivery Method: HAND - Hand Delivered Ximena Days: Prior Verbal Notification: Recipient Understood Notice: Yes Recipient Signature: Yes Med Rec Note Co-signed by Attending: Coverage Notice Comment: Reviewer: [id number] Darion Sanders Notice Issued Date-Time: 01/19/2019 15:04 Notice Type: Patient Choice Letter Notice Delivered To: Patient Relationship to Patient: [employer] Name: Delivery Method: HAND - Hand Delivered Ximena Days: Prior Verbal Notification: Recipient Understood Notice: Yes Recipient Signature: Yes Med Rec Note Co-signed by Attending: Coverage Notice Comment: [facility], [facility], [facility]. Last DP export: 01/25/19 10:48 Patient Name: JAMIE CORBIN Page [phone] at 1205 All edits/amendments must be made on the electronic document DICTATION DATE: 01/25/19 120 JOINT FINISHER: ANIBAL 01/25/19 1204 RPT#: [id number] DC DATE: STATUS: ADM IN [facility] [address] [place] [address] END OF REPORT
--- NOTE | 2019-01-25 12:43 | NUR ---
OT NOTE: PT DOING WELL TODAY; AMB WITH MIN/CGA DOWN HALLWAY FOE ENDURANCE TRAINING. ABLE TO STAND AT SINK AND WASH FACE, HANDS, UPPER BODY, AND ISADORA CLEAN GOWN WITH CGA FOR BALANCE. MIN ASSIST TO ISADORA SOCKS. FUNCTIONAL TRANSFERS WITH MIN/CGA. ALEIDA CABRERA, OTR/L
[2019-01-25 16:10] VITALS: BP 110/53
--- NOTE | 2019-01-25 16:27 | NUR ---
I have reviewed this patient and I concur with the Shift Assessment completed by the Licensed Practical Nurse today this shift.
--- NOTE | 2019-01-25 16:40 | NUR ---
OT NOTE: PT COMPLETED BED MOB TASKS WITH CGA. PT COMPLETED SIT TO STAND WITH CGA/SBA. PT COMPLETED ADL MOB WITH CGA. PT COMPLETED SIMPLE GROOMING TASKS WITH SET UP. THANK YOU,LORRAINE FONTANA
--- NOTE | 2019-01-25 17:20 | NUR ---
RT CHEST HEMSPLIT DRESSING CHANGED USING STERILE TECHNIQUE. PT TOLERATED WELL.
--- NOTE | 2019-01-25 17:22 | NUR ---
PT'S PAIN LEVEL NOT BEING CONTROLLED BY BUPRENEX AND TYLENOL. CALLED AND LEFT MESSAGE FOR [place] DEAN.
--- NOTE | 2019-01-25 17:29 | NUR ---
SPOKE WITH [place] DEAN ABOUT PT'S PAIN NOT RELIEVED BY BUPRENEX AND TYLENOL. SHE STATES TO ORDER TRAMADOL 50MG Q6HP AND IF THAT DOES NOT HELP RELIEVE PAIN IN AN HOUR OR SO DC TRAMADOL AND ORDER NORCO 5 Q6HP. I REPEATED ORDERS BACK AND SHE AGREED THAT WAS RIGHT.
--- NOTE | 2019-01-25 18:47 | NUR ---
PT STATES HER PAIN LEVEL IS NOW 3 OUT OF 10 AND THE TRAMADOL IS WORKING FOR PAIN CONTROL.
[2019-01-25 20:00] VITALS: BP 136/53
--- NOTE | 2019-01-25 21:00 | NUR ---
NIGHTIME MEDS GIVEN TO PT. BUPRENEX GIVEN ORDERED FOR PAIN. SHE DENIES NEEDS AT THIS TIME. WILL CONTINUE TO MONITOR. HER BED IS LOW AND CALL LIGHT IS WITHIN REACH.
[2019-01-26] VITALS: BP 128/50
[2019-01-26 05:53] LABS: HEMATOCRIT 30.6 % (36.0-48.0); HEMOGLOBIN 9.2 g/dL (12-16); IMMATURE GRANULOCYTES 0.2 % (0-5); LYMPHOCYTES 30.8 % (15-50); MCH 28.9 pg (26.0-34.0); MCHC 30.1 g/dL (31.0-37.0); MCV 96.2 fL (80.0-100.0); MEAN PLATELET VOLUME 11.1 fL (7.4-10.4); MONOCYTES 12.5 % (2-11); NEUTROPHILS 49.5 % (40-80); PLATELET COUNT 178 10x3/uL (130-400); RBC 3.18 10x6/uL (4.00-5.40); RDW 16.8 % (11.5-14.5)
[2019-01-26 06:27] LABS: ALBUMIN 2.6 g/dL (3.4-5.0); BILIRUBIN - TOTAL 0.27 mg/dL (0.2-1.3); CALCIUM 7.6 mg/dL (8.5-10.1); CARBON DIOXIDE 27.9 mmol/L (21.0-32.0); POTASSIUM - SERUM 3.9 mmol/L (3.5-5.1); PROTEIN - SERUM 6.1 g/dL (6.4-8.2)
[2019-01-26 06:28] LABS: CREATININE - SERUM 5.7 mg/dL (0.6-1.3)
--- NOTE | 2019-01-26 07:20 | NUR ---
RECIEVE REPORT. ALERT AND ORIENTED X 4. SITTING UP IN BED WATCHING TV. DENIES SOB. DENIES ANY NEEDS AT THIS TIME. CONTINUE PLAN OF CARE AND SAFETY PRECAUTIONS.
[2019-01-26 08:19] VITALS: BP 117/32
--- NOTE | 2019-01-26 09:57 | MORECARE ---
CASE MANAGEMENT DISCHARGE SUMMARY PATIENT: JAMIE CORBIN UNIT: [id number] ADM DATE: 01/08/19 AGE: 68 : 50 SEX: F ROOM/BED: D.1554 AUTHOR: SCOUT,DOC PHYSICIAN: REFERRING PHYSICIAN: JAMISON TURPIN MD DATE OF SERVICE: 01/26/19 Discharge Plan Patient Name: JAMIE CORBIN Facility: [facility]:[place] : 1950 Planned Disposition: Snf Facility Anticipated Discharge Date: 01/26/19 Discharge Date: Expected LOS: 18 Initial Reviewer: [id number] Initial Review Date: 01/09/2019 Generated: 01/26/19 10:56 am Comments DCP- Discharge Planning Updated by [id number]: Joseph Sanders on 01/25/19 11:[address] Patient Name: JAMIE CORBIN Encounter No: [id number] : 1950 Primary Insurance: HUMANA CHOICE PPO MCR ADVANT Anticipated DC Date: 01-26-2019 Planned Disposition: Snf Facility External Planned Provider: [facility], MEDICARE REHAB BED DCP follow-up note: ANA M SPOKE TO MAC OF INPATIENT REHAB AT [facility] TEAM MEETING WHO ADVISED THAT SHE CALLED PT'S INSURANCE COMPANY AND WAS ADVISED REHAB WAS DECLINED BY INSURANCE AND PEER TO PEER INFORMATION WAS SENT TO LULÚ OF CASE MANAGEMENT YESTERDAY. SIMRAN IRIZARRY ASKED THAT RENAL NURSE PRACTITIONER BE ASKED IF SHE WILL DO THE PEER TO PEER. ANA M SPOKE TO RISHABH OF RENAL WHO ADVISED THAT PEER TO PEER WILL NOT BE DONE, PT CAN GO TO LONG-TERM REHAB. CM NOTIFIED PT IN ROOM. CM RECEIVED MESSAGE FROM KATHY OF [facility] WHO ADVISED THAT THEY WILL ACCEPT PENDING INSURANCE AUTHORATION. CM FAXED UPDATE TO [facility] AT [phone]. CM NOTIFIED CLARA OF [facility] FOR WELCOME LETTER DELIVERY TO PT FOR OUTPATIENT DIALYSIS CLINIC. CM NOTIFIED PT WHO IS IN AGREEMENT WITH DISCHARGE PLAN. ANA M WAITING INSURANCE DETERMINATION FOR REHAB AT [facility]. SHAHBAZ Odell DCP- Discharge Planning Updated by [id number]: Joseph Sanders on 01/25/19 8:[address] Patient Name: JAMIE CORBIN Encounter No: [id number] : 1950 Primary Insurance: HUMANA CHOICE PPO MCR ADVANT Anticipated DC Date: 01-20-2019 Planned Disposition: Inpatient Rehab External Planned Provider: [facility] INPATIENT REH[facility] DCP follow-up note: CM SPOKE TO PT REGARDING DISCHARGE PLANNING, INFORMED OF REFERRAL PENDING AT [facility] FOR REHAB. PT AND SPOUSE IN AGREEMENT WITH PLAN IF DENIED INPATIENT REHAB BY INSURANCE. IMPORTANT MESSAGE FROM MEDICARE PROVIDED AND EXPLAINED. CM CALLED KATHY BRITO [facility], , VERIFIED HER RECEIPT OF REFERRAL AND THAT DIALYSIS DAYS [facility] HAS AVAILABLE FOR DIALYSIS ARE TTS, MIDSHIFT (10-1100 AM.) CM WAITING INSURANCE AUTHORIZATION FROM PT'S INSURANCE COMPANY FOR INPATIENT REHAB AT [place]. CM WAITING ADMISSION DETERMINATION FROM [facility] LONG-TERM [facility]. SHAHBAZ Odell DCP- Discharge Planning Updated by [id number]: Joseph Sanders on 01/24/19 1:[address] Patient Name: JAMIE CORBIN Encounter No: [id number] : 1950 Primary Insurance: HUMANA CHOICE PPO MCR ADVANT Anticipated DC Date: 01-20-2019 Planned Disposition: Inpatient Rehab External Planned Provider: [facility] INPATIENT [facility] DCP follow-up note: CM SPOKE TO PT REGARDING DISCHARGE PLANNING, INFORMED PT OF LIKELY DENIAL FROM HER INSURANCE FOR INPATIENT REHAB. PT WOULD LIKE REFERRAL TO [facility] FOR REHAB PREVIOUSLY DISCUSSED (CHOICE PREVIOUSLY SIGNED FOR [facility], [facility]). CM CALLED KATHY BRITO [facility], , INFORMED OF REFERRAL AND THAT DIALYSIS DAYS [facility] HAS AVAILABLE FOR DIALYSIS ARE TTS, MIDSHIFT (10-1100 AM. ) CM FAXED REFERRAL FOR REHAB SERVICES TO [facility] [phone]. CM WAITING INSURANCE AUTHORIZATION FROM PT'S INSURANCE COMPANY FOR INPATIENT REHAB AT [place]. CM WAITING ADMISSION DETERMINATION FROM [facility] LONG-TERM [facility]. SHAHBAZ Odell MANAGEMENT DCP- Discharge Planning Updated by [id number]: Joseph Sanders on 01/20/19 12:[address] Patient Name: JAMIE CORBIN Encounter No: [id number] : 1950 Primary Insurance: HUMANA CHOICE PPO MCR ADVANT Anticipated DC Date: 01-20-2019 Planned Disposition: Inpatient Rehab External Planned Provider: [facility] INPATIENT [facility] DCP follow-up note: CM RECEIVED CALL FROM MAICOL OF [facility], SHE HAS CHECKED AT [facility], THE ONLY DAYS THEY HAVE AVAILABLE FOR DIALYSIS ARE TTS, MIDSHIFT (10-1100 AM.) MAICOL IS NOT GOING FURTHER WITH PLACEMENT PROCESS UNTIL IT IS DETERMINED IF PT IS GOING TO INPATIENT REHAB OR LONG-TERM FACILITY. CM WAITING INSURANCE AUTHORIZATION FROM PT'S INSURANCE COMPANY FOR INPATIENT REHAB AT [place]. SHAHBAZ Odell MANAGEMENT DCP- Discharge Planning Updated by [id number]: Joseph Sanders on 01/19/19 4:[address] Patient Name: JAMIE CORBIN Encounter No: [id number] : 1950 Primary Insurance: HUMANA CHOICE PPO MCR ADVANT Anticipated DC Date: 01-20-2019 Planned Disposition: Inpatient Rehab External Planned Provider: [facility] INPATIENT [facility] DCP follow-up note: CM SPOKE TO RN ANA M FRANZ WHO ADVISED CM THAT WINDOW COVERING SALES CONSULTANT INFORMED HER THAT PT IS LONG-TERM FACILITY APPROPRIATE AND NOT TO WASTE CM'S TIME SUBMITTING FOR INPATIENT REHAB. CM SPOKE TO PT AND SPOUSE IN ROOM. PT AND SPOUSE BOTH WOULD LIKE REHAB AT [facility] IF POSSIBLE. CM DISCUSSED LONG-TERM FACILITY FOR REHAB. THEY WANTED TO DISCUSS THIS WITHOUT CM THERE. CM LEFT. CM RETURNED IN ABOUT ONE HOUR. PT AND SPOUSE REPORT IF PT CANNOT GET INTO INPATIENT REHAB, THEY WOULD GO TO A LONG-TERM FACILTY THAT COULD TRANSPORT PT TO AND FROM OUTPATIENT DIALYSIS IN [place]. CHOICE SIGNED FOR [facility]. CM NOTIFIED NANO OF INPATIENT REHAB. CM NOTIFIED DR. TURPIN. CM REVIEWED CHART, OCCUPATIONAL THERAPY EVALUATION DOCUMENTED. CM WAITING INSURANCE AUTHORIZATION FROM PT'S INSURANCE COMPANY FOR INPATIENT REHAB AT [place]. SHAHBAZ Odell DCP- Discharge Planning Updated by [id number]: Joseph Sanders on 01/18/19 4:[address] Patient Name: JAMIE CORBIN Encounter No: [id number] : 1950 Primary Insurance: HUMANA CHOICE PPO MCR ADVANT Anticipated DC Date: Planned Disposition: Inpatient Rehab External Planned Provider: [facility] INPATIENT REHAB DCP follow-up note: CM MET WITH PT IN ROOM TO DISCUSS DISCHARGE NEEDS AND PLANNING. CM DISCUSSED AVAILABILITY OF HOME HEALTH, REHAB SERVICES AND MEDICAL EQUIPMENT. PT REPORTS SHE IS WEAK AND SHOULD PROBABLY GO TO REHAB. CM DISCUSSED REHAB OPTIONS, LOCATIONS AND PROVIDERS. PT WILL CONSIDER REHAB AT [facility], PT WOULD LIKE CM TO SPEAK TO HER SPOUSE TO VERIFY THIS IS A PLAN HE WOULD AGREE WITH. CM CALLED SHAWN CORBIN, , THE LINE WAS BUSY, CM CALLED THREE TIMES. PT REPORTS SHE PLANS TO DRIVE HERSELF TO THE [facility] AND IF SHE NEEDS HELP WITH TRANSPORT, HER SPOUSE, SHAWN, WILL ASSIST. PT REPORTS SHAWN, HER SPOUSE, WILL PICK HER UP FOR DISCHARGE HOME. IMPORTANT MESSAGE FROM MEDICARE PROVIDED AND EXPLAINED. CM TO FOLLOW AND ASSIST NEEDED. PT WILL CONSIDER REHAB AT [facility]. CM TO CONTINUE TO ATTEMPT TO CONTACT PT'S SPOUSE, SHAWN, , TO DISCUSS DISCHARGE PLAN. CM TO ASK PHYSICIAN FOR INPATIENT REHAB PRESCREENING ORDER PT'S INSURANCE WILL REQUIRE PRIOR AUTHORIZATION. Joseph Sanders, CASE MANAGEMENT DCP- Discharge Planning Updated by [id number]: Joseph Sanders on 01/09/19 3:[address] Patient Name: JAMIE CORBIN Admission Status: ER Accout number: [id number] Admission Date: 01-08-2019 : 1950 Admission Diagnosis: Attending: JAMISON TURPIN Current LOS: 1 Anticipated DC Date: Planned Disposition: Home Primary Insurance: HUMANA CHOICE PPO MCR ADVANT Discharge Planning Comments: CM MET WITH PT IN ROOM TO DISCUSS DISCHARGE PLANNING AND NEEDS. PT REPORTS LIVING AT HOME INDEPENDENTLY AND ALONE. PT HAS A WALKER WITH NO MEDICAL EQUIPMENT PROVIDER PREFERENCE. PT HAS NO OUTSIDE SERVICES ASSISTING IN THE HOME. CM DISCUSSED AVAILABILITY OF HOME HEALTH, REHAB SERVICES AND MEDICAL EQUIPMENT. PT DENIES DISCHARGE NEEDS, REPORTS HER SPOUSE WILL PICK HER UP FOR DISCHARGE HOME. PT PLANS TO DISCHARGE HOME ALONE, SEPERATED SPOUSE TO ASSIST PT AT HOME IF NECESSARY. SEPERATED SPOUSE TO TRANSPORT HOME AT DISCHARGE. PT HAS NO ANTICIPATED DISCHARGE NEEDS AT THIS TIME. CM TO CONTINUE TO FOLLOW AND ASSIST NEEDED. Embedded Nurse: Joseph Sanders DCPIA - Discharge Planning Initial Assessment Updated by [id number]: Joseph Sanders on 01/09/19 4:49 pm * Is the patient Alert and Oriented? Yes * How many steps to enter\exit or inside your home? * PCP DR. BATRES IN [place] * Pharmacy [facility] IN [place] * Preadmission Environment Home with Family * ADLs Independent * Equipment Walker * Other Equipment NO MEDICAL EQUIPMENT PROVIDER PREFERENCE * List name and contact numbers for known caregivers / representatives who currently or will assist patient after discharge: SHAWN CORBIN, GUZMAN SPOUSE, * Verbal permission to speak to the caregivers and representatives has been obtained from the patient. Yes * Community resources currently utilized None * Please name any agencies selected above. NONE * Additional services required to return to the preadmission environment? No * Can the patient safely return to the preadmission environment? Yes * Has this patient been hospitalized within the prior 30 days at any hospital? No External Providers External Provider: [facility] Next Contact Date: 01/24/2019 Service Request Date: Service Type: Resolution: Reviewer: Comments: Coverage Notice Reviewer: [id number] Sanders Notice Issued Date-Time: 01/18/2019 17:10 Notice Type: IM Discharge Notice Notice Delivered To: Patient Relationship to Patient: Research And Development Tester Name: Delivery Method: HAND - Hand Delivered Ximena Days: Prior Verbal Notification: Recipient Understood Notice: Yes Recipient Signature: Yes Med Rec Note Co-signed by Attending: Coverage Notice Comment: Reviewer: CURT Sanders Notice Issued Date-Time: 01/19/2019 15:04 Notice Type: Patient Choice Letter Notice Delivered To: Patient Relationship to Patient: Research And Development Tester Name: Delivery Method: HAND - Hand Delivered Ximena Days: Prior Verbal Notification: Recipient Understood Notice: Yes Recipient Signature: Yes Med Rec Note Co-signed by Attending: Coverage Notice Comment: [facility]. Reviewer: [id number] Sanders Notice Issued Date-Time: 01/25/2019 9:25 Notice Type: IM Discharge Notice Notice Delivered To: Patient Relationship to Patient: Research And Development Tester Name: Delivery Method: HAND - Hand Delivered Ximena Days: Prior Verbal Notification: Recipient Understood Notice: Yes Recipient Signature: Yes Med Rec Note Co-signed by Attending: Coverage Notice Comment: Last DP export: 01/25/19 11:05 Patient Name: JAMIE CORBIN Page [id number] at 0957 All edits/amendments must be made on the electronic document DICTATION DATE: 01/26/19955 LOG BUYER: ANIBAL 01/26/19955 RPT#: [id number] DC DATE: STATUS: ADM IN [facility] [address] [place] [address] END OF REPORT
--- NOTE | 2019-01-26 10:04 | MORECARE ---
CASE MANAGEMENT DISCHARGE SUMMARY PATIENT: JAMIE CORBIN UNIT: [id number] ADM DATE: 01/08/19 AGE: 68 : 50 SEX: F ROOM/BED: D. AUTHOR: SCOUT,DOC PHYSICIAN: REFERRING PHYSICIAN: JAMISON TURPIN MD DATE OF SERVICE: 01/26/19 Discharge Plan Patient Name: JAMIE CORBIN Facility: [facility]:[place] : 1950 Planned Disposition: Correction Facility Anticipated Discharge Date: 01/26/19 Discharge Date: Expected LOS: 18 Initial Reviewer: [id number] Initial Review Date: 01/09/2019 Generated: 01/26/19 11:04 am Comments DCP- Discharge Planning Updated by [id number]: Joseph Sanders on 01/26/19 8:[address] Patient Name: JAMIE CORBIN Encounter No: [id number] : 1950 Primary Insurance: [employer] CHOICE PPO MCR ADVANT Anticipated DC Date: 01-26-2019 Planned Disposition: Correction Facility External Planned Provider: [facility], MEDICARE REHAB BED DCP follow-up note: ANA M SPOKE TO [facility] WHO MET WITH PT IN ROOM YESTERDAY, THEY WILL ACCEPT PENDING INSURANCE AUTHORATION. CM FAXED UPDATE TO [facility] AT [phone]. ANA M WAITING INSURANCE DETERMINATION FOR REHAB AT [facility]. SHAHBAZ Odell DCP- Discharge Planning Updated by [id number]: Joseph Sanders on 01/25/19 11:[address] Patient Name: JAMIE CORBIN Encounter No: [id number] : 1950 Primary Insurance: HU[employer] CHOICE PPO MCR ADVANT Anticipated DC Date: 01-26-2019 Planned Disposition: Correction Facility External Planned Provider: [facility], MEDICARE REHAB BED DCP follow-up note: ANA M SPOKE TO MAC OF INPATIENT REHAB AT [facility] TEAM MEETING WHO ADVISED THAT SHE CALLED PT'S INSURANCE COMPANY AND WAS ADVISED REHAB WAS DECLINED BY INSURANCE AND PEER TO PEER INFORMATION WAS SENT TO LULÚ OF CASE MANAGEMENT YESTERDAY. SIMRAN IRIZARRY ASKED THAT RENAL NURSE PRACTITIONER BE ASKED IF SHE WILL DO THE PEER TO PEER. CM SPOKE TO RISHABH BRITO RENAL WHO ADVISED THAT PEER TO PEER WILL NOT BE DONE, PT CAN GO TO PRISON REHAB. CM NOTIFIED PT IN ROOM. CM RECEIVED MESSAGE FROM [facility] WHO ADVISED THAT THEY WILL ACCEPT PENDING INSURANCE AUTHORATION. CM FAXED UPDATE TO [facility] AT [phone]. CM NOTIFIED CLARA OF [facility] FOR WELCOME LETTER DELIVERY TO PT FOR OUTPATIENT DIALYSIS CLINIC. CM NOTIFIED PT WHO IS IN AGREEMENT WITH DISCHARGE PLAN. CM WAITING INSURANCE DETERMINATION FOR REHAB AT [facility]. Joseph Sanders CASE MANAGEMENT DCP- Discharge Planning Updated by [id number]: Joseph Sanders on 01/25/19 8:[address] Patient Name: JAMIE CORBIN Encounter No: [id number] : 1950 Primary Insurance: [employer] CHOICE PPO MCR ADVANT Anticipated DC Date: 01-20-2019 Planned Disposition: Inpatient Rehab External Planned Provider: [facility] INPATIENT REHAB DCP follow-up note: CM SPOKE TO PT REGARDING DISCHARGE PLANNING, INFORMED OF REFERRAL PENDING AT [facility] FOR REHAB. PT AND SPOUSE IN AGREEMENT WITH PLAN IF DENIED INPATIENT REHAB BY INSURANCE. IMPORTANT MESSAGE FROM MEDICARE PROVIDED AND EXPLAINED. CM CALLED KATHY BRITO [facility], , VERIFIED HER RECEIPT OF REFERRAL AND THAT DIALYSIS DAYS [facility] HAS AVAILABLE FOR DIALYSIS ARE TTS, MIDSHIFT (10-1100 AM.) CM WAITING INSURANCE AUTHORIZATION FROM PT'S INSURANCE COMPANY FOR INPATIENT REHAB AT [facility]. CM WAITING ADMISSION DETERMINATION FROM [facility]. SHAHBAZ Odell DCP- Discharge Planning Updated by [id number]: Joseph Sanders on 01/24/19 1:[address] Patient Name: JAMIE CORBIN Encounter No: [id number] : 1950 Primary Insurance: [employer] CHOICE PPO MCR ADVANT Anticipated DC Date: 01-20-2019 Planned Disposition: Inpatient Rehab External Planned Provider: [facility] INPATIENT REHAB DCP follow-up note: CM SPOKE TO PT REGARDING DISCHARGE PLANNING, INFORMED PT OF LIKELY DENIAL FROM HER INSURANCE FOR INPATIENT REHAB. PT WOULD LIKE REFERRAL TO [facility] FOR REHAB PREVIOUSLY DISCUSSED (CHOICE PREVIOUSLY SIGNED FOR [facility]). CM CALLED KATHY BRITO [facility], , INFORMED OF REFERRAL AND THAT DIALYSIS DAYS [facility] HAS AVAILABLE FOR DIALYSIS ARE TTS, MIDSHIFT (10-1100 AM. ) CM FAXED REFERRAL FOR REHAB SERVICES TO [facility] [phone]. CM WAITING INSURANCE AUTHORIZATION FROM PT'S INSURANCE COMPANY FOR INPATIENT REHAB AT [facility]. CM WAITING ADMISSION DETERMINATION FROM [facility]ISON [facility]. Joseph Sanders CASE MANAGEMENT DCP- Discharge Planning Updated by [id number]: Joseph Sanders on 01/20/19 12:[address] Patient Name: JMAIE CORBIN Encounter No: [id number] : 1950 Primary Insurance: [employer] CHOICE PPO MCR ADVANT Anticipated DC Date: 01-20-2019 Planned Disposition: Inpatient Rehab External Planned Provider: [facility] INPATIENT REHAB DCP follow-up note: CM RECEIVED CALL FROM MAICOL OF [facility], SHE HAS CHECKED AT [facility], THE ONLY DAYS THEY HAVE AVAILABLE FOR DIALYSIS ARE TTS, MIDSHIFT (10-1100 AM.) MAICOL IS NOT GOING FURTHER WITH PLACEMENT PROCESS UNTIL IT IS DETERMINED IF PT IS GOING TO INPATIENT REHAB OR PRISON FACILITY. CM WAITING INSURANCE AUTHORIZATION FROM PT'S INSURANCE COMPANY FOR INPATIENT REHAB AT [facility]. Joseph Sanders CASE KEELEY DCP- Discharge Planning Updated by [id number]: Joseph Sanders on 01/19/19 4:[address] Patient Name: JAMIE CORBIN Encounter No: [id number] : 1950 Primary Insurance: [employer] CHOICE PPO MCR ADVANT Anticipated DC Date: 01-20-2019 Planned Disposition: Inpatient Rehab External Planned Provider: [facility] INPATIENT REHAB DCP follow-up note: CM SPOKE TO RN ANA M FRANZ WHO ADVISED CM THAT NEW GRAD RN INFORMED HER THAT PT IS PRISON FACILITY APPROPRIATE AND NOT TO WASTE CM'S TIME SUBMITTING FOR INPATIENT REHAB. CM SPOKE TO PT AND SPOUSE IN ROOM. PT AND SPOUSE BOTH WOULD LIKE REHAB AT [facility] IF POSSIBLE. CM DISCUSSED PRISON FACILITY FOR REHAB. THEY WANTED TO DISCUSS THIS WITHOUT CM THERE. CM LEFT. CM RETURNED IN ABOUT ONE HOUR. PT AND SPOUSE REPORT IF PT CANNOT GET INTO INPATIENT REHAB, THEY WOULD GO TO A PRISON FACILTY THAT COULD TRANSPORT PT TO AND FROM OUTPATIENT DIALYSIS IN [place]. CHOICE SIGNED FOR [facility]. CM NOTIFIED [facility] AND [facility] OF INPATIENT REHAB. CM NOTIFIED DR. TURPIN. CM REVIEWED CHART, OCCUPATIONAL THERAPY EVALUATION DOCUMENTED. CM WAITING INSURANCE AUTHORIZATION FROM PT'S INSURANCE COMPANY FOR INPATIENT REHAB AT [facility]. SHAHBAZ Odell DCP- Discharge Planning Updated by [id number]: Joseph Sanders on 01/18/19 4:[address] Patient Name: JAMIE CORBIN Encounter No: [id number] : 1950 Primary Insurance: HU[employer] CHOICE PPO MCR ADVANT Anticipated DC Date: Planned Disposition: Inpatient Rehab External Planned Provider: [facility] INPATIENT REHAB DCP follow-up note: CM MET WITH PT IN ROOM TO DISCUSS DISCHARGE NEEDS AND PLANNING. CM DISCUSSED AVAILABILITY OF HOME HEALTH, REHAB SERVICES AND MEDICAL EQUIPMENT. PT REPORTS SHE IS WEAK AND SHOULD PROBABLY GO TO REHAB. CM DISCUSSED REHAB OPTIONS, LOCATIONS AND PROVIDERS. PT WILL CONSIDER REHAB AT [facility], PT WOULD LIKE CM TO SPEAK TO HER SPOUSE TO VERIFY THIS IS A PLAN HE WOULD AGREE WITH. CM CALLED SHAWN CORBIN, , THE LINE WAS BUSY, CM CALLED THREE TIMES. PT REPORTS SHE PLANS TO DRIVE HERSELF TO THE [facility] AND IF SHE NEEDS HELP WITH TRANSPORT, HER SPOUSE, SHAWN, WILL ASSIST. PT REPORTS SHAWN, HER SPOUSE, WILL PICK HER UP FOR DISCHARGE HOME. IMPORTANT MESSAGE FROM MEDICARE PROVIDED AND EXPLAINED. CM TO FOLLOW AND ASSIST NEEDED. PT WILL CONSIDER REHAB AT [facility]. CM TO CONTINUE TO ATTEMPT TO CONTACT PT'S SPOUSE, SHAWN, , TO DISCUSS DISCHARGE PLAN. CM TO ASK PHYSICIAN FOR INPATIENT REHAB PRESCREENING ORDER PT'S INSURANCE WILL REQUIRE PRIOR AUTHORIZATION. SHAHBAZ Odell DCP- Discharge Planning Updated by [id number]: Joseph Sanders on 01/09/19 3:[address] Patient Name: JAMIE CORBIN Admission Status: ER Accout number: [id number] Admission Date: 01-08-2019 : 1950 Admission Diagnosis: Attending: JAMISON TURPIN Current LOS: 1 Anticipated DC Date: Planned Disposition: Home Primary Insurance: HU[employer] CHOICE PPO MCR ADVANT Discharge Planning Comments: CM MET WITH PT IN ROOM TO DISCUSS DISCHARGE PLANNING AND NEEDS. PT REPORTS LIVING AT HOME INDEPENDENTLY AND ALONE. PT HAS A WALKER WITH NO MEDICAL EQUIPMENT PROVIDER PREFERENCE. PT HAS NO OUTSIDE SERVICES ASSISTING IN THE HOME. CM DISCUSSED AVAILABILITY OF HOME HEALTH, REHAB SERVICES AND MEDICAL EQUIPMENT. PT DENIES DISCHARGE NEEDS, REPORTS HER SPOUSE WILL PICK HER UP FOR DISCHARGE HOME. PT PLANS TO DISCHARGE HOME ALONE, SEPERATED SPOUSE TO ASSIST PT AT HOME IF NECESSARY. SEPERATED SPOUSE TO TRANSPORT HOME AT DISCHARGE. PT HAS NO ANTICIPATED DISCHARGE NEEDS AT THIS TIME. CM TO CONTINUE TO FOLLOW AND ASSIST NEEDED. Mortgage Or Loan Underwriter: Joseph Sanders DCPIA - Discharge Planning Initial Assessment Updated by [id number]: Joseph Sandres on 01/09/19 4:49 pm * Is the patient Alert and Oriented? Yes * How many steps to enter\exit or inside your home? * PCP DR. BATRES IN [place] * Pharmacy [facility] IN [place] * Preadmission Environment Home with Family * ADLs Independent * Equipment Walker * Other Equipment NO MEDICAL EQUIPMENT PROVIDER PREFERENCE * List name and contact numbers for known caregivers / representatives who currently or will assist patient after discharge: SHAWN CORBIN, SEPERATED SPOUSE, * Verbal permission to speak to the caregivers and representatives has been obtained from the patient. Yes * Community resources currently utilized None * Please name any agencies selected above. NONE * Additional services required to return to the preadmission environment? No * Can the patient safely return to the preadmission environment? Yes * Has this patient been hospitalized within the prior 30 days at any hospital? No Coverage Notice Reviewer: [id number] Sanders Notice Issued Date-Time: 01/25/2019 9:25 Notice Type: IM Discharge Notice Notice Delivered To: Patient Relationship to Patient: Milker Machine Name: Delivery Method: HAND - Hand Delivered Ximena Days: Prior Verbal Notification: Recipient Understood Notice: Yes Recipient Signature: Yes Med Rec Note Co-signed by Attending: Coverage Notice Comment: Reviewer: [id number] Sanders Notice Issued Date-Time: 01/18/2019 17:10 Notice Type: IM Discharge Notice Notice Delivered To: Patient Relationship to Patient: Milker Machine Name: Delivery Method: HAND - Hand Delivered Ximena Days: Prior Verbal Notification: Recipient Understood Notice: Yes Recipient Signature: Yes Med Rec Note Co-signed by Attending: Coverage Notice Comment: Reviewer: [id number] Sanders Notice Issued Date-Time: 01/19/2019 15:04 Notice Type: Patient Choice Letter Notice Delivered To: Patient Relationship to Patient: Milker Machine Name: Delivery Method: HAND - Hand Delivered Ximena Days: Prior Verbal Notification: Recipient Understood Notice: Yes Recipient Signature: Yes Med Rec Note Co-signed by Attending: Coverage Notice Comment: EVA LOZADA, ELLIE [facility]. Last DP export: 01/26/19 8:57 Patient Name: JAMIE CORBIN Page [phone] at 1004 All edits/amendments must be made on the electronic document DICTATION DATE: 01/26/19 1004 [facility] OFFICIAL: ANIBAL 01/26/19 1004 RPT#: [id number] DC DATE: STATUS: ADM IN [facility] [address] [place] [address] END OF REPORT
--- NOTE | 2019-01-26 12:27 | NUR ---
TAKEN TO DIALYSIS VIA WHEELCHAIR. REMAINS FREE FROM INJURY.
[2019-01-26 12:30] VITALS: BP 123/80
--- NOTE | 2019-01-26 13:47 | NUR ---
OT NOTE: PT PERFORMED WELL TODAY. PERFORMED GROOMING AND SINK HYGIENE WITH CGA FOR BALANCE; MIN ASSIST TO ISADORA SOCKS TODAY; MIN ASSIST FOR GOWN. AMB WITH WALKER AND MIN ASSIST; BALANCE DURING AMB WAS WORSE TODAY. VERY UNSTEADY MAZIN WITH MANEUVERING WALKER IN THE ROOM. ALEIDA CABRERA, OTR/L
--- NOTE | 2019-01-26 15:30 | NUR ---
ASSUMED CARE OF THIS PT FROM PREVIOUS RN. PT IS NOT ON UNIT. STABLE IN DIALYSIS. NO CURRENT NEEDS.
--- NOTE | 2019-01-26 16:55 | NUR ---
PT BACK FROM DIALYSIS AND SITTING UP IN BEDSIDE CHAIR RESTING QUIETLY. PT C/O THROBBING SHARP ARM PAIN. PROVIDED PT WITH PRN PAIN MEDICATION. PT VOICED THANKS. FSBS 157 PT REFUSED HER INSULIN AND STATES SHE ONLY TREATS HER SUGAR IF ABOVE 200, WILL OBEY HER RIGHT TO REFUSE. DINNER NOW HERE ASSISTED PT WITH SETUP. NO FURTHER NEEDS AT THIS TIME. WILL CTM.
[2019-01-26 20:00] VITALS: BP 160/54
--- NOTE | 2019-01-26 21:00 | NUR ---
PT ALERT, ORIENTED TO SELF AND SITUATION,. REORIENTED TO PLACE AND TIME. PT REPORTS PAIN OF 5/10 TO RIGHT ARM. BRUISING AND SWELLING NOTED. WILL CONTINUE TO MONITOR.
[2019-01-26 23:00] VITALS: BP 177/70
[2019-01-27] VITALS (7 sets, daily range): BP systolic 125–197; BP diastolic 48–84
--- NOTE | 2019-01-27 02:36 | NUR ---
I have reviewed this patient and I concur with the Shift Assessment completed by the Licensed Practical Nurse today this shift.
[2019-01-27 05:08] LABS: BASOPHILS 1.1 % (0-2); EOSINOPHILS 6.3 % (0-7); HEMATOCRIT 33.6 % (36.0-48.0); HEMOGLOBIN 10.4 g/dL (12-16); IMMATURE GRANULOCYTES 0.3 % (0-5); LYMPHOCYTES 22.4 % (15-50); MCH 29.1 pg (26.0-34.0); MEAN PLATELET VOLUME 11.1 fL (7.4-10.4); NEUTROPHILS 56.9 % (40-80); PLATELET COUNT 199 10x3/uL (130-400); RBC 3.57 10x6/uL (4.00-5.40); RDW 16.6 % (11.5-14.5); WBC 7.1 10x3/uL (4.8-10.8)
[2019-01-27 05:17] LABS: MCV 94.1 fL (80.0-100.0)
[2019-01-27 05:40] LABS: ANION GAP 12.3 mmol/L (8-16); CALCIUM 8.3 mg/dL (8.5-10.1); CARBON DIOXIDE 29.8 mmol/L (21.0-32.0); MAGNESIUM - SERUM 1.9 mg/dL (1.8-2.4); POTASSIUM - SERUM 4.1 mmol/L (3.5-5.1)
[2019-01-27 05:42] LABS: CREATININE - SERUM 4.2 mg/dL (0.6-1.3)
--- NOTE | 2019-01-27 13:10 | NUR ---
Nutrition Follow-up: Eating well. Reports last BM was at the end of last week. Awaiting placement. Diet: Renal ADA PO intake: 75-100% Wt: 150# (wt on 01/22 was 229; need reweigh) Labs noted: K+ 4.1, Glu 160, Ca 8.3 Meds noted: Bumex, Humalog -Continue current diet as tolerated. -Need reweigh. -RD following.
--- NOTE | 2019-01-27 13:27 | MORECARE ---
CASE MANAGEMENT DISCHARGE SUMMARY PATIENT: JAMIE CORBIN UNIT: [id number] ADM DATE: 01/08/19 AGE: 68 : 50 SEX: F ROOM/BED: D. AUTHOR: SCOUT,DOC PHYSICIAN: REFERRING PHYSICIAN: JAMISON TURPIN MD DATE OF SERVICE: 01/27/19 Discharge Plan Patient Name: JAMIE CORBIN Facility: [facility]:[place] : 1950 Planned Disposition: Alf Facility Anticipated Discharge Date: 01/27/19 Discharge Date: Expected LOS: 19 Initial Reviewer: [id number] Initial Review Date: 01/09/2019 Generated: 01/27/19 2:26 pm Comments DCP- Discharge Planning Updated by [id number]: Joseph Sanders on 01/26/19 8:[address] Patient Name: JAMIE CORBIN Encounter No: [id number] : 1950 Primary Insurance: [employer] CHOICE PPO MCR ADVANT Anticipated DC Date: 01-26-2019 Planned Disposition: Alf Facility External Planned Provider: [facility], MEDICARE REHAB BED DCP follow-up note: ANA M SPOKE TO [facility] WHO MET WITH PT IN ROOM YESTERDAY, THEY WILL ACCEPT PENDING INSURANCE AUTHORATION. CM FAXED UPDATE TO [facility] AT [phone]. ANA M WAITING INSURANCE DETERMINATION FOR REHAB AT [facility]. SHAHBAZ Odell DCP- Discharge Planning Updated by [id number]: Joseph Sanders on 01/25/19 11:[address] Patient Name: JAMIE CORBIN Encounter No: [id number] : 1950 Primary Insurance: [employer] CHOICE PPO MCR ADVANT Anticipated DC Date: 01-26-2019 Planned Disposition: Alf Facility External Planned Provider: [facility], MEDICARE REHAB BED DCP follow-up note: ANA M SPOKE TO MAC OF INPATIENT REHAB AT [facility] TEAM MEETING WHO ADVISED THAT SHE CALLED PT'S INSURANCE COMPANY AND WAS ADVISED REHAB WAS DECLINED BY INSURANCE AND PEER TO PEER INFORMATION WAS SENT TO LULÚ OF CASE MANAGEMENT YESTERDAY. SIMRAN IRIZARRY ASKED THAT RENAL NURSE PRACTITIONER BE ASKED IF SHE WILL DO THE PEER TO PEER. CM SPOKE TO RISHABH BRITO RENAL WHO ADVISED THAT PEER TO PEER WILL NOT BE DONE, PT CAN GO TO [facility]. CM NOTIFIED PT IN ROOM. CM RECEIVED MESSAGE FROM [facility] WHO ADVISED THAT THEY WILL ACCEPT PENDING INSURANCE AUTHORATION. CM FAXED UPDATE TO [facility] AT [phone]. CM NOTIFIED CLARA OF [facility] FOR WELCOME LETTER DELIVERY TO PT FOR OUTPATIENT DIALYSIS CLINIC. CM NOTIFIED PT WHO IS IN AGREEMENT WITH DISCHARGE PLAN. CM WAITING INSURANCE DETERMINATION FOR REHAB AT [facility]. Joseph Sanders CASE MANAGEMENT DCP- Discharge Planning Updated by [id number]: Joseph Sanders on 01/25/19 8:[address] Patient Name: JAMIE CORBIN Encounter No: [id number] : 1950 Primary Insurance: [employer] CHOICE PPO MCR ADVANT Anticipated DC Date: 01-20-2019 Planned Disposition: Inpatient Rehab External Planned Provider: [facility] INPATIENT [facility] DCP follow-up note: CM SPOKE TO PT REGARDING DISCHARGE PLANNING, INFORMED OF REFERRAL PENDING AT [facility] FOR REHAB. PT AND SPOUSE IN AGREEMENT WITH PLAN IF DENIED INPATIENT REHAB BY INSURANCE. IMPORTANT MESSAGE FROM MEDICARE PROVIDED AND EXPLAINED. CM CALLED KATHY BRITO [facility], , VERIFIED HER RECEIPT OF REFERRAL AND THAT DIALYSIS DAYS [facility] HAS AVAILABLE FOR DIALYSIS ARE TTS, MIDSHIFT (10-1100 AM.) CM WAITING INSURANCE AUTHORIZATION FROM PT'S INSURANCE COMPANY FOR INPATIENT REHAB AT [facility]. CM WAITING ADMISSION DETERMINATION FROM [facility]. SHAHBAZ Odell DCP- Discharge Planning Updated by [id number]: Joseph Sanders on 01/24/19 1:[address] Patient Name: JAMIE CORBIN Encounter No: [id number] : 1950 Primary Insurance: [employer] CHOICE PPO MCR ADVANT Anticipated DC Date: 01-20-2019 Planned Disposition: Inpatient Rehab External Planned Provider: [facility] DCP follow-up note: CM SPOKE TO PT REGARDING DISCHARGE PLANNING, INFORMED PT OF LIKELY DENIAL FROM HER INSURANCE FOR INPATIENT REHAB. PT WOULD LIKE REFERRAL TO [facility] FOR REHAB PREVIOUSLY DISCUSSED (CHOICE PREVIOUSLY SIGNED FOR [facility]). CM CALLED KATHY BRITO [facility], , INFORMED OF REFERRAL AND THAT DIALYSIS DAYS [facility] HAS AVAILABLE FOR DIALYSIS ARE TTS, MIDSHIFT (10-1100 AM. ) CM FAXED REFERRAL FOR REHAB SERVICES TO [facility] [phone]. CM WAITING INSURANCE AUTHORIZATION FROM PT'S INSURANCE COMPANY FOR INPATIENT REHAB AT [facility]. CM WAITING ADMISSION DETERMINATION FROM [facility]. Joseph Sanders CASE MANAGEMENT DCP- Discharge Planning Updated by [id number]: Joseph Sanders on 01/20/19 12:[address] Patient Name: JAMIE CORBIN Encounter No: [id number] : 1950 Primary Insurance: [employer] CHOICE PPO MCR ADVANT Anticipated DC Date: 01-20-2019 Planned Disposition: Inpatient Rehab External Planned Provider: [facility] DCP follow-up note: CM RECEIVED CALL FROM MAICOL OF [facility], SHE HAS CHECKED AT [facility], THE ONLY DAYS THEY HAVE AVAILABLE FOR DIALYSIS ARE TTS, MIDSHIFT (10-1100 AM.) MAICOL IS NOT GOING FURTHER WITH PLACEMENT PROCESS UNTIL IT IS DETERMINED IF PT IS GOING TO INPATIENT REHAB OR [facility]. CM WAITING INSURANCE AUTHORIZATION FROM PT'S INSURANCE COMPANY FOR INPATIENT REHAB AT [facility]. Joseph Sanders CASE KEELEY DCP- Discharge Planning Updated by [id number]: Joseph Sanders on 01/19/19 4:[address] Patient Name: JAMIE CORBIN Encounter No: [id number] : 1950 Primary Insurance: [employer] CHOICE PPO MCR ADVANT Anticipated DC Date: 01-20-2019 Planned Disposition: Inpatient Rehab External Planned Provider: [facility] DCP follow-up note: CM SPOKE TO RN ANA M FRANZ WHO ADVISED CM THAT SHOE REPAIR COBBLER INFORMED HER THAT PT IS [facility] APPROPRIATE AND NOT TO WASTE CM'S TIME SUBMITTING FOR INPATIENT REHAB. CM SPOKE TO PT AND SPOUSE IN ROOM. PT AND SPOUSE BOTH WOULD LIKE REHAB AT [facility] IF POSSIBLE. CM DISCUSSED [facility] FOR [facility]. THEY WANTED TO DISCUSS THIS WITHOUT CM THERE. CM LEFT. CM RETURNED IN ABOUT ONE HOUR. PT AND SPOUSE REPORT IF PT CANNOT GET INTO INPATIENT REHAB, THEY WOULD GO TO A [facility]TY THAT COULD TRANSPORT PT TO AND FROM OUTPATIENT DIALYSIS IN [place]. CHOICE SIGNED FOR [facility]. CM NOTIFIED KOURTNEY AND [facility] OF INPATIENT REHAB. CM NOTIFIED DR. TURPIN. CM REVIEWED CHART, OCCUPATIONAL THERAPY EVALUATION DOCUMENTED. CM WAITING INSURANCE AUTHORIZATION FROM PT'S INSURANCE COMPANY FOR INPATIENT REHAB AT [facility]. SHAHBAZ Odell DCP- Discharge Planning Updated by [id number]: Joseph Sanders on 01/18/19 4:[address] Patient Name: JAMIE CORBIN Encounter No: [id number] : 1950 Primary Insurance: [employer] CHOICE PPO MCR ADVANT Anticipated DC Date: Planned Disposition: Inpatient Rehab External Planned Provider: [facility] DCP follow-up note: CM MET WITH PT IN ROOM TO DISCUSS DISCHARGE NEEDS AND PLANNING. CM DISCUSSED AVAILABILITY OF HOME HEALTH, REHAB SERVICES AND MEDICAL EQUIPMENT. PT REPORTS SHE IS WEAK AND SHOULD PROBABLY GO TO REHAB. CM DISCUSSED REHAB OPTIONS, LOCATIONS AND PROVIDERS. PT WILL CONSIDER REHAB AT [facility], PT WOULD LIKE CM TO SPEAK TO HER SPOUSE TO VERIFY THIS IS A PLAN HE WOULD AGREE WITH. CM CALLED SHAWN CORBIN, , THE LINE WAS BUSY, CM CALLED THREE TIMES. PT REPORTS SHE PLANS TO DRIVE HERSELF TO THE [facility] AND IF SHE NEEDS HELP WITH TRANSPORT, HER SPOUSE, SHAWN, WILL ASSIST. PT REPORTS SHAWN, HER SPOUSE, WILL PICK HER UP FOR DISCHARGE HOME. IMPORTANT MESSAGE FROM MEDICARE PROVIDED AND EXPLAINED. CM TO FOLLOW AND ASSIST NEEDED. PT WILL CONSIDER REHAB AT [facility]. CM TO CONTINUE TO ATTEMPT TO CONTACT PT'S SPOUSE, SHAWN, , TO DISCUSS DISCHARGE PLAN. CM TO ASK PHYSICIAN FOR INPATIENT REHAB PRESCREENING ORDER PT'S INSURANCE WILL REQUIRE PRIOR AUTHORIZATION. SHAHBAZ Odell DCP- Discharge Planning Updated by [id number]: Joseph Sanders on 01/09/19 3:[address] Patient Name: JAMIE CORBIN Admission Status: ER Accout number: [id number] Admission Date: 01-08-2019 : 1950 Admission Diagnosis: Attending: JAMISON TURPIN Current LOS: 1 Anticipated DC Date: Planned Disposition: Home Primary Insurance: [employer] CHOICE PPO MCR ADVANT Discharge Planning Comments: CM MET WITH PT IN ROOM TO DISCUSS DISCHARGE PLANNING AND NEEDS. PT REPORTS LIVING AT HOME INDEPENDENTLY AND ALONE. PT HAS A WALKER WITH NO MEDICAL EQUIPMENT PROVIDER PREFERENCE. PT HAS NO OUTSIDE SERVICES ASSISTING IN THE HOME. CM DISCUSSED AVAILABILITY OF HOME HEALTH, REHAB SERVICES AND MEDICAL EQUIPMENT. PT DENIES DISCHARGE NEEDS, REPORTS HER SPOUSE WILL PICK HER UP FOR DISCHARGE HOME. PT PLANS TO DISCHARGE HOME ALONE, SEPERATED SPOUSE TO ASSIST PT AT HOME IF NECESSARY. SEPERATED SPOUSE TO TRANSPORT HOME AT DISCHARGE. PT HAS NO ANTICIPATED DISCHARGE NEEDS AT THIS TIME. CM TO CONTINUE TO FOLLOW AND ASSIST NEEDED. Technical Artist: Joseph Sanders DCPIA - Discharge Planning Initial Assessment Updated by [id number]: Joseph Sanders on 01/09/19 4:49 pm * Is the patient Alert and Oriented? Yes * How many steps to enter\exit or inside your home? * PCP DR. BATRES IN [place] * [facility] IN [place] * Preadmission Environment Home with Family * ADLs Independent * Equipment Walker * Other Equipment NO MEDICAL EQUIPMENT PROVIDER PREFERENCE * List name and contact numbers for known caregivers / representatives who currently or will assist patient after discharge: SHAWN CORBIN, SEPERATED SPOUSE, * Verbal permission to speak to the caregivers and representatives has been obtained from the patient. Yes * Community resources currently utilized None * Please name any agencies selected above. NONE * Additional services required to return to the preadmission environment? No * Can the patient safely return to the preadmission environment? Yes * Has this patient been hospitalized within the prior 30 days at any hospital? No Coverage Notice Reviewer: CURT Sanders Notice Issued Date-Time: 01/18/2019 17:10 Notice Type: IM Discharge Notice Notice Delivered To: Patient Relationship to Patient: Contact Lens Manufacturer Name: Delivery Method: HAND - Hand Delivered Ximena Days: Prior Verbal Notification: Recipient Understood Notice: Yes Recipient Signature: Yes Med Rec Note Co-signed by Attending: Coverage Notice Comment: Reviewer: CURT Sanders Notice Issued Date-Time: 01/19/2019 15:04 Notice Type: Patient Choice Letter Notice Delivered To: Patient Relationship to Patient: Contact Lens Manufacturer Name: Delivery Method: HAND - Hand Delivered Ximena Days: Prior Verbal Notification: Recipient Understood Notice: Yes Recipient Signature: Yes Med Rec Note Co-signed by Attending: Coverage Notice Comment: [facility], [place], [facility]. Reviewer: CURT Sanders Notice Issued Date-Time: 01/25/2019 9:25 Notice Type: IM Discharge Notice Notice Delivered To: Patient Relationship to Patient: Contact Lens Manufacturer Name: Delivery Method: HAND - Hand Delivered Ximena Days: Prior Verbal Notification: Recipient Understood Notice: Yes Recipient Signature: Yes Med Rec Note Co-signed by Attending: Coverage Notice Comment: Last DP export: 01/26/19 9:04 Patient Name: JAMIE CORBIN Page [phone] at 1327 All edits/amendments must be made on the electronic document DICTATION DATE: 01/27/19 1326 ELECTRICAL ENGINEERING TECHNICIAN: ANIBAL 01/27/19 1326 RPT#: [id number] DC DATE: STATUS: ADM IN [facility] [address] [place] [address] END OF REPORT
--- NOTE | 2019-01-27 14:02 | MORECARE ---
CASE MANAGEMENT DISCHARGE SUMMARY PATIENT: JAMIE CORBIN UNIT: [id number] ADM DATE: 01/08/19 AGE: 68 : 50 SEX: F ROOM/BED: D.6403 AUTHOR: SCOUT,DOC PHYSICIAN: REFERRING PHYSICIAN: JAMISON TURPIN MD DATE OF SERVICE: 01/27/19 Discharge Plan Patient Name: JAMIE CORBIN Facility: [facility]:[place] : 1950 Planned Disposition: Senior Care Facility Anticipated Discharge Date: 01/27/19 Discharge Date: Expected LOS: 19 Initial Reviewer: [id number] Initial Review Date: 01/09/2019 Generated: 01/27/19 3:02 pm Comments DCP- Discharge Planning Updated by [id number]: Joseph Sanders on 01/27/19 12:[address] Patient Name: JAMIE CORBIN Admission Status: ER Accout number: [id number] Admission Date: 01-08-2019 : 1950 Admission Diagnosis: Attending: JAMISON TURPIN Current LOS: 19 Anticipated DC Date: 01-27-2019 Planned Disposition: Senior Care Facility Primary Insurance: HUMANA CHOICE PPO MCR ADVANT PLANNED EXTERAL PROVIDER: EVA LOZADA MEDICARE REHAB BED DCP follow-up note: CM SPOKE TO ERICKSON OF [employer], THEY HAVE NOT YET RECEIVED INSURANCE AUTHORIZATION, [facility] DOES NOT THINK THEY WILL HAVE STAFF TO DO WEEKEND ADMISSION. IF THEY RECEIVE AUTH OVER WEEKEND, IT WILL BE WEDNESDAY TO ACCEPT TO REHAB. WILL ACCEPT PENDING INSURANCE AUTHORATION. CM FAXED UPDATE TO [employer] AT [phone]. CM RECEIVED CALL FROM ERICKSON OF [employer], SHE INFORMED CM THAT PT'S INSURANCE CALLED AND INFORMED HER THAT PT HAS HMO, NOT PPO, [employer] NOT IN NETWORK. THE INSURANCE COMPANY WOULD NOT PROVIDE LIST OF IN NETWORK FACILITIES AND REPORTED IT TO BE ON LINE IF NEEDED. ANA M CALLED [employer] , SPOKE TO RAÚL WHO INFORMED CM THAT DIALYSIS ON TTS IS NOT A PROBLEM AND SHE WILL CHECK TO SEE IF IN NETWORK; SHE WILL SCREEN FOR ADMISSION. CM NOTIFIED PT WHO IS IN AGREEMENT WITH PLAN. [facility] AT [phone]. CM WAITING ADMISSION DETERMINATION FROM [facility] IN [place] FOR REHAB WELL INSURANCE AUTHORIZATION FROM PT'S INSURANCE COMPANY. SHAHBAZ Odell MANAGEMENT DCP- Discharge Planning Updated by [id number]: Joseph Sanders on 01/26/19 8:[address] Patient Name: JAMIE CORBIN Encounter No: [id number] : 1950 Primary Insurance: HUMANA CHOICE PPO MCR ADVANT Anticipated DC Date: 01-26-2019 Planned Disposition: Senior Care Facility External Planned Provider[facility] B[facility] DCP follow-up note: CM SPOKE TO [facility] WHO MET WITH PT IN ROOM YESTERDAY, THEY WILL ACCEPT PENDING INSURANCE AUTHORATION. CM FAXED UPDATE TO [facility] AT [phone]. CM WAITING INSURANCE DETERMINATION FOR REHAB AT [facility]. SHAHBAZ Odell DCP- Discharge Planning Updated by [id number]: Joseph Sanders on 01/25/19 11:[address] Patient Name: JAMIE CORBIN Encounter No: [id number] : 1950 Primary Insurance: HUMANA CHOICE PPO MCR ADVANT Anticipated DC Date: 01-26-2019 Planned Disposition: Senior Care Facility External Planned Provider: [facility], [facility] REHAB BED DCP follow-up note: ANA M SPOKE TO MAC OF [facility]PATIENT REHAB [facility] TEAM MEETING WHO ADVISED THAT SHE CALLED PT'S INSURANCE COMPANY AND WAS ADVISED REHAB WAS DECLINED BY INSURANCE AND PEER TO PEER INFORMATION WAS SENT TO LULÚ OF CASE MANAGEMENT YESTERDAY. SIMRAN IRIZARRY ASKED THAT RENAL NURSE PRACTITIONER BE ASKED IF SHE WILL DO THE PEER TO PEER. ANA M SPOKE TO RISHABH BRITO RENAL WHO ADVISED THAT PEER TO PEER WILL NOT BE DONE, PT CAN GO TO [facility]. CM NOTIFIED PT IN ROOM. CM RECEIVED MESSAGE FROM KATHY BRITO [facility] WHO ADVISED THAT THEY WILL ACCEPT PENDING INSURANCE AUTHORATION. CM FAXED UPDATE TO [facility] AT [phone]. CM NOTIFIED CLAAR OF [facility] FOR WELCOME LETTER DELIVERY TO PT FOR OUTPATIENT DIALYSIS CLINIC. CM NOTIFIED PT WHO IS IN AGREEMENT WITH DISCHARGE PLAN. CM WAITING INSURANCE DETERMINATION FOR REHAB AT [facility]. Joseph Tommy, CASE MANAGEMENT DCP- Discharge Planning Updated by [id number]: Joseph Sanders on 01/25/19 8:[address] Patient Name: JAMIE CORBIN Encounter No: [id number] : 1950 Primary Insurance: HUMANA CHOICE PPO MCR ADVANT Anticipated DC Date: 01-20-2019 Planned Disposition: Inpatient Rehab External Planned Provider: [facility] INPATIENT REHAB DCP follow-up note: CM SPOKE TO PT REGARDING DISCHARGE PLANNING, INFORMED OF REFERRAL PENDING AT [facility] FOR REHAB. PT AND SPOUSE IN AGREEMENT WITH PLAN IF DENIED INPATIENT REHAB BY INSURANCE. IMPORTANT MESSAGE FROM MEDICARE PROVIDED AND EXPLAINED. CM CALLED KATHY BRITO [employer], , VERIFIED HER RECEIPT OF REFERRAL AND THAT DIALYSIS DAYS [facility] HAS AVAILABLE FOR DIALYSIS ARE TTS, MIDSHIFT (10-1100 AM.) CM WAITING INSURANCE AUTHORIZATION FROM PT'S INSURANCE COMPANY FOR INPATIENT REHAB AT [place]. CM WAITING ADMISSION DETERMINATION FROM [facility]. SHAHBAZ Odell DCP- Discharge Planning Updated by [id number]: Joseph Sanders on 01/24/19 1:[address] Patient Name: JAMIE CORBIN Encounter No: [id number] : 1950 Primary Insurance: HUMANA CHOICE PPO MCR ADVANT Anticipated DC Date: 01-20-2019 Planned Disposition: Inpatient Rehab External Planned Provider: [facility] INPATIENT REHAB DCP follow-up note: CM SPOKE TO PT REGARDING DISCHARGE PLANNING, INFORMED PT OF LIKELY DENIAL FROM HER INSURANCE FOR INPATIENT REHAB. PT WOULD LIKE REFERRAL TO [facility] FOR REHAB PREVIOUSLY DISCUSSED (CHOICE PREVIOUSLY SIGNED FOR [facility], [facility]). CM CALLED KATHY BRITO [facility], , INFORMED OF REFERRAL AND THAT DIALYSIS DAYS [facility] HAS AVAILABLE FOR DIALYSIS ARE TTS, MIDSHIFT (10-1100 AM. ) CM FAXED REFERRAL FOR REHAB SERVICES TO [facility] [phone]. CM WAITING INSURANCE AUTHORIZATION FROM PT'S INSURANCE COMPANY FOR INPATIENT REHAB AT [place]. CM WAITING ADMISSION DETERMINATION FROM [facility]. Joseph Sanders CASE MANAGEMENT DCP- Discharge Planning Updated by [id number]: Joseph Sanders on 01/20/19 12:[address] Patient Name: JAMIE CORBIN Encounter No: [id number] : 1950 Primary Insurance: HUMANA CHOICE PPO MCR ADVANT Anticipated DC Date: 01-20-2019 Planned Disposition: Inpatient Rehab External Planned Provider: [facility] INPATIENT RE[facility] DCP follow-up note: CM RECEIVED CALL FROM MAICOL OF [facility], SHE HAS CHECKED AT [facility], THE ONLY DAYS THEY HAVE AVAILABLE FOR DIALYSIS ARE TTS, MIDSHIFT (10-1100 AM.) MAICOL IS NOT GOING FURTHER WITH PLACEMENT PROCESS UNTIL IT IS DETERMINED IF PT IS GOING TO INPATIENT REHAB OR [facility]. CM WAITING INSURANCE AUTHORIZATION FROM PT'S INSURANCE COMPANY FOR INPATIENT REHAB AT [place]. Joseph Sanders, CASE MANAGEMENT DCP- Discharge Planning Updated by [id number]: Joseph Sanders on 01/19/19 4:[address] Patient Name: JAMIE CORBIN Encounter No: [id number] : 1950 Primary Insurance: HUMANA CHOICE PPO MCR ADVANT Anticipated DC Date: 01-20-2019 Planned Disposition: Inpatient Rehab External Planned Provider: [facility] INPATIENT REH[facility] DCP follow-up note: CM SPOKE TO RN ANA M FRANZ WHO ADVISED CM THAT CONSTRUCTION FRAMER INFORMED HER THAT PT IS [facility] APPROPRIATE AND NOT TO WASTE CM'S TIME SUBMITTING FOR INPATIENT REHAB. CM SPOKE TO PT AND SPOUSE IN ROOM. PT AND SPOUSE BOTH WOULD LIKE REHAB AT [place] IF POSSIBLE. CM DISCUSSED [facility] FOR REHAB. THEY WANTED TO DISCUSS THIS WITHOUT CM THERE. CM LEFT. CM RETURNED IN ABOUT ONE HOUR. PT AND SPOUSE REPORT IF PT CANNOT GET INTO INPATIENT REHAB, THEY WOULD GO TO A [facility]ACILTY THAT COULD TRANSPORT PT TO AND FROM OUTPATIENT DIALYSIS IN [place]. CHOICE SIGNED FOR [facility]. CM NOTIFIED NANO OF INPATIENT REHAB. CM NOTIFIED DR. TURPIN. CM REVIEWED CHART, OCCUPATIONAL THERAPY EVALUATION DOCUMENTED. CM WAITING INSURANCE AUTHORIZATION FROM PT'S INSURANCE COMPANY FOR INPATIENT REHAB AT [place]. Joseph Sanders, CASE MANAGEMENT DCP- Discharge Planning Updated by [id number]: Joseph Sanders on 01/18/19 4:[address] Patient Name: JAMIE CORBIN Encounter No: [id number] : 1950 Primary Insurance: HUMANA CHOICE PPO MCR ADVANT Anticipated DC Date: Planned Disposition: Inpatient Rehab External Planned Provider: [facility] INPATIENT REH[facility] DCP follow-up note: CM MET WITH PT IN ROOM TO DISCUSS DISCHARGE NEEDS AND PLANNING. CM DISCUSSED AVAILABILITY OF HOME HEALTH, REHAB SERVICES AND MEDICAL EQUIPMENT. PT REPORTS SHE IS WEAK AND SHOULD PROBABLY GO TO REHAB. CM DISCUSSED REHAB OPTIONS, LOCATIONS AND PROVIDERS. PT WILL CONSIDER REHAB AT [place], PT WOULD LIKE CM TO SPEAK TO HER SPOUSE TO VERIFY THIS IS A PLAN HE WOULD AGREE WITH. CM CALLED SHAWN CORBIN, , THE LINE WAS BUSY, CM CALLED THREE TIMES. PT REPORTS SHE PLANS TO DRIVE HERSELF TO [facility] AND IF SHE NEEDS HELP WITH TRANSPORT, HER SPOUSE, SHAWN, WILL ASSIST. PT REPORTS SHAWN, HER SPOUSE, WILL PICK HER UP FOR DISCHARGE HOME. IMPORTANT MESSAGE FROM MEDICARE PROVIDED AND EXPLAINED. CM TO FOLLOW AND ASSIST NEEDED. PT WILL CONSIDER REHAB AT [facility]. CM TO CONTINUE TO ATTEMPT TO CONTACT PT'S SPOUSE, SHAWN, , TO DISCUSS DISCHARGE PLAN. CM TO ASK PHYSICIAN FOR INPATIENT REHAB PRESCREENING ORDER PT'S INSURANCE WILL REQUIRE PRIOR AUTHORIZATION. Joseph Sanders, CASE MANAGEMENT DCP- Discharge Planning Updated by [id number]: Joseph Sanders on 01/09/19 3:[address] Patient Name: JAMIE CORBIN Admission Status: ER Accout number: [id number] Admission Date: 01-08-2019 : 1950 Admission Diagnosis: Attending: JAMISON TURPIN Current LOS: 1 Anticipated DC Date: Planned Disposition: Home Primary Insurance: HUMANA Arthena PPO [facility] ADVANT Discharge Planning Comments: CM MET WITH PT IN ROOM TO DISCUSS DISCHARGE PLANNING AND NEEDS. PT REPORTS LIVING AT HOME INDEPENDENTLY AND ALONE. PT HAS A WALKER WITH NO MEDICAL EQUIPMENT PROVIDER PREFERENCE. PT HAS NO OUTSIDE SERVICES ASSISTING IN THE HOME. CM DISCUSSED AVAILABILITY OF HOME HEALTH, REHAB SERVICES AND MEDICAL EQUIPMENT. PT DENIES DISCHARGE NEEDS, REPORTS HER SPOUSE WILL PICK HER UP FOR DISCHARGE HOME. PT PLANS TO DISCHARGE HOME ALONE, SEPERATED SPOUSE TO ASSIST PT AT HOME IF NECESSARY. SEPERATED SPOUSE TO TRANSPORT HOME AT DISCHARGE. PT HAS NO ANTICIPATED DISCHARGE NEEDS AT THIS TIME. CM TO CONTINUE TO FOLLOW AND ASSIST NEEDED. Prosthetic Assistant: Joseph Sanders DCPIA - Discharge Planning Initial Assessment Updated by [id number]: Joseph Sanders on 01/09/19 4:49 pm * Is the patient Alert and Oriented? Yes * How many steps to enter\exit or inside your home? * PCP DR. BATRES IN [place] * Pharmacy [facility] IN [place] * Preadmission Environment Home with Family * ADLs Independent * Equipment Walker * Other Equipment NO MEDICAL EQUIPMENT PROVIDER PREFERENCE * List name and contact numbers for known caregivers / representatives who currently or will assist patient after discharge: SHAWN CORBIN, SEPERATED SPOUSE, * Verbal permission to speak to the caregivers and representatives has been obtained from the patient. Yes * Community resources currently utilized None * Please name any agencies selected above. NONE * Additional services required to return to the preadmission environment? No * Can the patient safely return to the preadmission environment? Yes * Has this patient been hospitalized within the prior 30 days at any hospital? No External Providers External Provider: [facility] and [facility] Next Contact Date: 01/27/2019 Service Request Date: Service Type: Resolution: Reviewer: Comments: Coverage Notice Reviewer: [id number] Darion Sanders Notice Issued Date-Time: 01/18/2019 17:10 Notice Type: IM Discharge Notice Notice Delivered To: Patient Relationship to Patient: Mold Breaker Name: Delivery Method: HAND - Hand Delivered Ximena Days: Prior Verbal Notification: Recipient Understood Notice: Yes Recipient Signature: Yes Med Rec Note Co-signed by Attending: Coverage Notice Comment: Reviewer: CURT Sanders Notice Issued Date-Time: 01/19/2019 15:04 Notice Type: Patient Choice Letter Notice Delivered To: Patient Relationship to Patient: Mold Breaker Name: Delivery Method: HAND - Hand Delivered Ximena Days: Prior Verbal Notification: Recipient Understood Notice: Yes Recipient Signature: Yes Med Rec Note Co-signed by Attending: Coverage Notice Comment: [facility]. Reviewer: [email or web address] Darion Sanders Notice Issued Date-Time: 01/25/2019 9:25 Notice Type: IM Discharge Notice Notice Delivered To: Patient Relationship to Patient: Mold Breaker Name: Delivery Method: HAND - Hand Delivered Ximena Days: Prior Verbal Notification: Recipient Understood Notice: Yes Recipient Signature: Yes Med Rec Note Co-signed by Attending: Coverage Notice Comment: Last DP export: 01/27/19 12:26 Patient Name: JAMIE CORBIN Page [id number] at 1402 All edits/amendments must be made on the electronic document DICTATION DATE: 01/27/191401 SUPERVISOR HY[employer]CH[employer] AREA: ANIBAL 01/27/191401 RPT#: [id number] DC DATE: STATUS: ADM IN [facility] [address] [place] [address] END OF REPORT
--- NOTE | 2019-01-27 19:14 | NUR ---
OT NOTE: PT COMPLETED ADL MOB WITH CGA. PT COMPLETED STANDING BALANCE WITH CGA. PT COMPLETED TOILETING AND HYGIENE TASKS WITH SBA. THANK YOU,LORRAINE FONTANA
--- NOTE | 2019-01-27 19:23 | NUR ---
UP IN BED WITH FAMILY AT BEDSIDE. COMPLAINS OF PAIN TO RIGHT ARM, ULTRAM GIVEN PER ORDERS. BED ALARM ENGAGED. SHOWS NO S/SX OF ANY ACUTE DISTRESS.
[2019-01-28 00:30] VITALS: BP 140/56
--- NOTE | 2019-01-28 04:10 | NUR ---
I have reviewed this patient and I concur with the Shift Assessment completed by the Licensed Practical Nurse today this shift.
--- NOTE | 2019-01-28 04:10 | NUR ---
DURING 2100 MED PASS, BP WAS 132/60, KELLY WAS NOTIFIED WITH VERBAL INSTRUCTION TO HOLD CATAPRES 0.3 ONLY. MIDNIGHT BP WAS 140/56. WILL NOTE ANY CHANGE.
[2019-01-28 04:16] LABS: BASOPHILS 1.4 % (0-2); EOSINOPHILS 6.2 % (0-7); HEMATOCRIT 30.6 % (36.0-48.0); HEMOGLOBIN 9.3 g/dL (12-16); IMMATURE GRANULOCYTES 0.2 % (0-5); MCH 28.4 pg (26.0-34.0); MCHC 30.4 g/dL (31.0-37.0); MCV 93.6 fL (80.0-100.0); MEAN PLATELET VOLUME 10.8 fL (7.4-10.4); MONOCYTES 12.9 % (2-11); NEUTROPHILS 44.3 % (40-80); PLATELET COUNT 197 10x3/uL (130-400); RBC 3.27 10x6/uL (4.00-5.40); RDW 16.2 % (11.5-14.5); WBC 5.7 10x3/uL (4.8-10.8)
[2019-01-28 04:31] LABS: ANION GAP 13.3 mmol/L (8-16); CALCIUM 8.1 mg/dL (8.5-10.1); CARBON DIOXIDE 26.5 mmol/L (21.0-32.0); CREATININE - SERUM 5.2 mg/dL (0.6-1.3); MAGNESIUM - SERUM 1.9 mg/dL (1.8-2.4); POTASSIUM - SERUM 3.8 mmol/L (3.5-5.1)
--- NOTE | 2019-01-28 07:45 | NUR ---
RECIEVED REPORT. PATIENT IS RESTING QUIETLY AT THIS TIME. RIGHT ARM WAS STILL BOTHERING HER LAST NIGHT. SHE DENIES ANY NEEDS AT THIS TIME. WILL CONTINUE TO MONITOR CLOSELY.
[2019-01-28 09:02] VITALS: BP 166/55
--- NOTE | 2019-01-28 12:32 | NUR ---
IV FROM LEFT FOREARM REMOVED BECAUSE IT WAS DISLODGED. NEW 22 G PIV PLACED IN LEFT HAND , ONE STICK. THE IV THAT WAS REMOVED HAD CATHETER INTACT. PATIENT TOLERATED. VANC INFUSING ORDERED.
[2019-01-28 13:17] VITALS: BP 149/49
--- NOTE | 2019-01-28 17:43 | NUR ---
PATIENT RETURNED FROM DIALYSIS. SHE IS ALERT AND AWAKE. DENIES ANY NEEDS NOW. FAMILY AT BEDSIDE.
--- NOTE | 2019-01-28 19:41 | NUR ---
REPORT FROM ONCOMING SHIFT AND BEDSIDE ROUNDS COMPLETED. PT RESTING WITH NO DISTRESS.
[2019-01-28 20:00] VITALS: BP 157/48
[2019-01-28 23:30] VITALS: BP 176/72
--- NOTE | 2019-01-29 01:58 | NUR ---
RESTING IN BED. AWAKE, CROCHETING. DRESSING TO RIGHT CHEST WALL HEMISPLIT CHANGED. NO DISTRESS. MONITOR AND CPOC. CALL LIGHT IN REACH.
[2019-01-29 04:00] VITALS: BP 122/66
[2019-01-29 05:54] LABS: BASOPHILS 1.3 % (0-2); EOSINOPHILS 6.2 % (0-7); HEMATOCRIT 31.7 % (36.0-48.0); HEMOGLOBIN 9.8 g/dL (12-16); IMMATURE GRANULOCYTES 0.2 % (0-5); LYMPHOCYTES 31.5 % (15-50); MCH 28.8 pg (26.0-34.0); MCHC 30.9 g/dL (31.0-37.0); MCV 93.2 fL (80.0-100.0); MEAN PLATELET VOLUME 10.9 fL (7.4-10.4); MONOCYTES 12.8 % (2-11); PLATELET COUNT 212 10x3/uL (130-400); RDW 16.1 % (11.5-14.5); WBC 4.7 10x3/uL (4.8-10.8)
[2019-01-29 06:10] LABS: ANION GAP 11.7 mmol/L (8-16); CALCIUM 8.3 mg/dL (8.5-10.1); CARBON DIOXIDE 29.1 mmol/L (21.0-32.0); CREATININE - SERUM 4.4 mg/dL (0.6-1.3); MAGNESIUM - SERUM 1.9 mg/dL (1.8-2.4); POTASSIUM - SERUM 3.8 mmol/L (3.5-5.1); VANCOMYCIN - RANDOM 7.1 ug/mL (10.0-20.0)
--- NOTE | 2019-01-29 07:39 | NUR ---
RECIEVED REPORT. PATIENT IS RESTING QUIETLY AT THIS TIME. DENIES ANY NEEDS AT THIS TIME.
[2019-01-29 09:00] VITALS: BP 155/67
--- NOTE | 2019-01-29 12:01 | NUR ---
DRESSING CHANGED ON RIGHT CHEST HEMOSPLIT. PATIENT TOLERATED.
[2019-01-29 13:04] VITALS: BP 129/48
--- NOTE | 2019-01-29 17:20 | NUR ---
PATIENT IS SITTING UP IN BED WATCHING TV AND EATTING DINNER. SHE DENIES ANY NEEDS AT THIS TIME. SHE DID GET UP WITH ASSISTANCE AND USE THE BEDSIDE COMMODE. SHE HAD A LARGE B/M AND URINATED ONE TIME. BLOOD PRESSURE IS STABLE AND HER MEDICATIONS GIVEN ORDERED.
[2019-01-29 17:42] VITALS: BP 146/50
--- NOTE | 2019-01-29 19:30 | NUR ---
REPORT COMPLETED. INITIAL ROUNDS COMPLETED. PT RESTING IN BED. NO DISTRESS. CALL LIGHT IN REACH.
[2019-01-29 20:46] VITALS: BP 144/62
--- NOTE | 2019-01-29 22:20 | NUR ---
BEDTIME MEDS GIVEN. FSBS 224, SLIDING SCALE INSULIN GIVEN. PT ALERT WITH SOME FORGETFULNESS. CALL LIGHT IN REACH. CPOC.
--- NOTE | 2019-01-30 00:51 | NUR ---
EYES CLOSED. RESPS EVEN/NONLABORED. NO DISTRESS. CPOC.
--- NOTE | 2019-01-30 04:17 | NUR ---
AWAKE FOR V/S. C/O GENERALIZED DISCOMFORT. TRAMMADOL GIVEN. PT NOW BACK TO RESTING.
[2019-01-30 04:30] VITALS: BP 156/58
[2019-01-30 05:30] LABS: BASOPHILS 0.8 % (0-2); EOSINOPHILS 5.8 % (0-7); HEMATOCRIT 32.3 % (36.0-48.0); HEMOGLOBIN 10.1 g/dL (12-16); IMMATURE GRANULOCYTES 0.2 % (0-5); LYMPHOCYTES 22.1 % (15-50); MCHC 31.3 g/dL (31.0-37.0); MCV 92.8 fL (80.0-100.0); MEAN PLATELET VOLUME 10.3 fL (7.4-10.4); MONOCYTES 12.1 % (2-11); PLATELET COUNT 212 10x3/uL (130-400); RBC 3.48 10x6/uL (4.00-5.40)
[2019-01-30 05:34] LABS: WBC 6.4 10x3/uL (4.8-10.8)
[2019-01-30 05:57] LABS: ANION GAP 14.2 mmol/L (8-16); CALCIUM 8.3 mg/dL (8.5-10.1); CARBON DIOXIDE 26.7 mmol/L (21.0-32.0); CREATININE - SERUM 5.2 mg/dL (0.6-1.3); MAGNESIUM - SERUM 1.8 mg/dL (1.8-2.4); POTASSIUM - SERUM 3.9 mmol/L (3.5-5.1); VANCOMYCIN - RANDOM 16.8 ug/mL (10.0-20.0)
[2019-01-30 08:02] VITALS: BP 166/70
--- NOTE | 2019-01-30 08:37 | MORECARE ---
CASE MANAGEMENT DISCHARGE SUMMARY PATIENT: JAMIE CORBIN UNIT: [id number] ADM DATE: 01/08/19 AGE: 68 : 50 SEX: F ROOM/BED: D.8338 AUTHOR: SCOUT,DOC PHYSICIAN: REFERRING PHYSICIAN: JAMISON TURPIN MD DATE OF SERVICE: 01/30/19 Discharge Plan Patient Name: JAMIE CORBIN Facility: [facility]:[place] : 1950 Planned Disposition: Assisted Facility Anticipated Discharge Date: 01/27/19 Discharge Date: Expected LOS: 19 Initial Reviewer: [id number] Initial Review Date: 01/09/2019 Generated: 01/30/19 9:37 am DCP- Discharge Planning Updated by [id number]: Joseph Sanders on 01/27/19 12:[address] Patient Name: JAMIE CORBIN Admission Status: ER Accout number: [id number] Admission Date: 01-08-2019 : 1950 Admission Diagnosis: Attending: JAMISON TURPIN Current LOS: 19 Anticipated DC Date: 01-27-2019 Planned Disposition: Assisted Facility Primary Insurance: HUMANA CHOICE PPO MCR ADVANT PLANNED EXTERAL PROVIDER: EVA [facility] MEDICARE REHAB BED DCP follow-up note: ANA M SPOKE TO ERICKSON OF [employer], THEY HAVE NOT YET RECEIVED INSURANCE AUTHORIZATION, [facility] DOES NOT THINK THEY WILL HAVE STAFF TO DO WEEKEND ADMISSION. IF THEY RECEIVE AUTH OVER WEEKEND, IT WILL BE WEDNESDAY TO ACCEPT TO REHAB. WILL ACCEPT PENDING INSURANCE AUTHORATION. ANA M FAXED UPDATE TO [employer] AT [phone]. CM RECEIVED CALL FROM ERICKSON OF [employer], SHE INFORMED CM THAT PT'S INSURANCE CALLED AND INFORMED HER THAT PT HAS HMO, NOT PPO, [facility] NOT IN NETWORK. THE INSURANCE COMPANY WOULD NOT PROVIDE LIST OF IN NETWORK FACILITIES AND REPORTED IT TO BE ON LINE IF NEEDED. ANA M CALLED [employer] , SPOKE TO RAÚL WHO INFORMED CM THAT DIALYSIS ON TTS IS NOT A PROBLEM AND SHE WILL CHECK TO SEE IF IN NETWORK; SHE WILL SCREEN FOR ADMISSION. CM NOTIFIED PT WHO IS IN AGREEMENT WITH PLAN. [facility] [phone]. CM WAITING ADMISSION DETERMINATION FROM [facility] IN [place] FOR REHAB WELL INSURANCE AUTHORIZATION FROM PT'S INSURANCE COMPANY. Joseph Sanders CASE MANAGEMENT DCP- Discharge Planning Updated by [id number]: Joseph Sanders on 01/26/19 8:[address] Patient Name: JAMIE CORBIN Encounter No: [id number] : 1950 Primary Insurance: HUMANA CHOICE PPO MCR ADVANT Anticipated DC Date: 01-26-2019 Planned Disposition: Assisted Facility External Planned Provider[facility] DCP follow-up note: CM SPOKE TO KATHY [facility] WHO MET WITH PT IN ROOM YESTERDAY, THEY WILL ACCEPT PENDING INSURANCE AUTHORATION. ANA M FAXED UPDATE TO [facility] AT [phone]. CM WAITING INSURANCE DETERMINATION FOR REHAB AT [facility]. SHAHBAZ Odell DCP- Discharge Planning Updated by [id number]: Joseph Sanders on 01/25/19 11:[address] Patient Name: JAMIE CORBIN Encounter No: [id number] : 1950 Primary Insurance: HUMANA CHOICE PPO MCR ADVANT Anticipated DC Date: 01-26-2019 Planned Disposition: Assisted Facility External Planned Provider: [facility] BED DCP follow-up note: ANA M SPOKE TO MAC OF [facility]PATIENT REHAB [facility] TEAM MEETING WHO ADVISED THAT SHE CALLED PT'S INSURANCE COMPANY AND WAS ADVISED REHAB WAS DECLINED BY INSURANCE AND PEER TO PEER INFORMATION WAS SENT TO LULÚ OF CASE MANAGEMENT YESTERDAY. SIMRAN IRIZARRY ASKED THAT RENAL NURSE PRACTITIONER BE ASKED IF SHE WILL DO THE PEER TO PEER. ANA M SPOKE TO RISHABH BRITO RENAL WHO ADVISED THAT PEER TO PEER WILL NOT BE DONE, PT CAN GO TO [facility]. CM NOTIFIED PT IN ROOM. CM RECEIVED MESSAGE FROM KATHY BRITO [facility] WHO ADVISED THAT THEY WILL ACCEPT PENDING INSURANCE AUTHORATION. CM FAXED UPDATE TO [facility] AT [phone]. CM NOTIFIED CLARA OF [facility] FOR WELCOME LETTER DELIVERY TO PT FOR OUTPATIENT DIALYSIS CLINIC. CM NOTIFIED PT WHO IS IN AGREEMENT WITH DISCHARGE PLAN. CM WAITING INSURANCE DETERMINATION FOR REHAB AT [facility]. Joseph Pilgrim, CASE MANAGEMENT DCP- Discharge Planning Updated by [id number]: Joseph Sanders on 01/25/19 8:[address] Patient Name: JAMIE CORBIN Encounter No: [id number] : 1950 Primary Insurance: HUMANA CHOICE PPO MCR ADVANT Anticipated DC Date: 01-20-2019 Planned Disposition: Inpatient Rehab External Planned Provider: [facility] INPATIENT REHAB DCP follow-up note: CM SPOKE TO PT REGARDING DISCHARGE PLANNING, INFORMED OF REFERRAL PENDING AT [facility] FOR REHAB. PT AND SPOUSE IN AGREEMENT WITH PLAN IF DENIED INPATIENT REHAB BY INSURANCE. IMPORTANT MESSAGE FROM MEDICARE PROVIDED AND EXPLAINED. CM CALLED KATHY BRITO [facility], , VERIFIED HER RECEIPT OF REFERRAL AND THAT DIALYSIS DAYS [facility] HAS AVAILABLE FOR DIALYSIS ARE TTS, MIDSHIFT (10-1100 AM.) CM WAITING INSURANCE AUTHORIZATION FROM PT'S INSURANCE COMPANY FOR INPATIENT REHAB AT [place]. CM WAITING ADMISSION DETERMINATION FROM [facility]. Joseph Sanders CASE KEELEY DCP- Discharge Planning Updated by [id number]: Joseph Sanders on 01/24/19 1:[address] Patient Name: JAMIE CORBIN Encounter No: [id number] : 1950 Primary Insurance: HUMANA CHOICE PPO MCR ADVANT Anticipated DC Date: 01-20-2019 Planned Disposition: Inpatient Rehab External Planned Provider: [facility] INPATIENT REHAB DCP follow-up note: CM SPOKE TO PT REGARDING DISCHARGE PLANNING, INFORMED PT OF LIKELY DENIAL FROM HER INSURANCE FOR INPATIENT REHAB. PT WOULD LIKE REFERRAL TO [facility] FOR REHAB PREVIOUSLY DISCUSSED (CHOICE PREVIOUSLY SIGNED FOR [facility], [facility]). CM CALLED KATHY BRITO [facility] [employer], , INFORMED OF REFERRAL AND THAT DIALYSIS DAYS [facility] HAS AVAILABLE FOR DIALYSIS ARE TTS, MIDSHIFT (10-1100 AM. ) CM FAXED REFERRAL FOR REHAB SERVICES TO [facility] [phone]. CM WAITING INSURANCE AUTHORIZATION FROM PT'S INSURANCE COMPANY FOR INPATIENT REHAB AT [facility]. CM WAITING ADMISSION DETERMINATION FROM [facility]. Joseph Sanders CASE MANAGEMENT DCP- Discharge Planning Updated by [id number]: Joseph Sanders on 01/20/19 12:[address] Patient Name: JAMIE CORBIN Encounter No: [id number] : 1950 Primary Insurance: HUMANA CHOICE PPO MCR ADVANT Anticipated DC Date: 01-20-2019 Planned Disposition: Inpatient Rehab External Planned Provider: [facility] INPATIENT REHAB DCP follow-up note: CM RECEIVED CALL FROM MAICOL OF [facility], SHE HAS CHECKED AT [facility], THE ONLY DAYS THEY HAVE AVAILABLE FOR DIALYSIS ARE TTS, MIDSHIFT (10-1100 AM.) MAICOL IS NOT GOING FURTHER WITH PLACEMENT PROCESS UNTIL IT IS DETERMINED IF PT IS GOING TO INPATIENT REHAB OR [facility]. CM WAITING INSURANCE AUTHORIZATION FROM PT'S INSURANCE COMPANY FOR INPATIENT REHAB AT [facility]. Joseph Sanders, CASE MANAGEMENT DCP- Discharge Planning Updated by [id number]: Joseph Sanders on 01/19/19 4:[address] Patient Name: JAMIE CORBIN Encounter No: [id number] : 1950 Primary Insurance: HUMANA CHOICE PPO MCR ADVANT Anticipated DC Date: 01-20-2019 Planned Disposition: Inpatient Rehab External Planned Provider: [facility] INPATIENT REH[facility] DCP follow-up note: CM SPOKE TO RN ANA M FRANZ WHO ADVISED CM THAT FARM LABORER INFORMED HER THAT PT IS [facility] APPROPRIATE AND NOT TO WASTE CM'S TIME SUBMITTING FOR INPATIENT REHAB. CM SPOKE TO PT AND SPOUSE IN ROOM. PT AND SPOUSE BOTH WOULD LIKE REHAB AT [facility] IF POSSIBLE. CM DISCUSSED [facility] FOR REHAB. THEY WANTED TO DISCUSS THIS WITHOUT CM THERE. CM LEFT. CM RETURNED IN ABOUT ONE HOUR. PT AND SPOUSE REPORT IF PT CANNOT GET INTO INPATIENT REHAB, THEY WOULD GO TO A [facility] FACILTY THAT COULD TRANSPORT PT TO AND FROM OUTPATIENT DIALYSIS IN [place]. CHOICE SIGNED FOR [facility]. CM NOTIFIED NANO OF INPATIENT REHAB. CM NOTIFIED DR. TURPIN. CM REVIEWED CHART, OCCUPATIONAL THERAPY EVALUATION DOCUMENTED. CM WAITING INSURANCE AUTHORIZATION FROM PT'S INSURANCE COMPANY FOR INPATIENT REHAB AT [facility]. Joseph Sanders, CASE MANAGEMENT DCP- Discharge Planning Updated by [id number]: Joseph Sanders on 01/18/19 4:[address] Patient Name: JAMIE CORBIN Encounter No: [id number] : 1950 Primary Insurance: HUMANA CHOICE PPO MCR ADVANT Anticipated DC Date: Planned Disposition: Inpatient Rehab External Planned Provider: [facility] INPATIENT REHAB DCP follow-up note: CM MET WITH PT IN ROOM TO DISCUSS DISCHARGE NEEDS AND PLANNING. CM DISCUSSED AVAILABILITY OF HOME HEALTH, REHAB SERVICES AND MEDICAL EQUIPMENT. PT REPORTS SHE IS WEAK AND SHOULD PROBABLY GO TO REHAB. CM DISCUSSED REHAB OPTIONS, LOCATIONS AND PROVIDERS. PT WILL CONSIDER REHAB AT [facility], PT WOULD LIKE CM TO SPEAK TO HER SPOUSE TO VERIFY THIS IS A PLAN HE WOULD AGREE WITH. CM CALLED SHAWN CORBIN, , THE LINE WAS BUSY, CM CALLED THREE TIMES. PT REPORTS SHE PLANS TO DRIVE HERSELF TO THE [facility] AND IF SHE NEEDS HELP WITH TRANSPORT, HER SPOUSE, SHAWN, WILL ASSIST. PT REPORTS SHAWN, HER SPOUSE, WILL PICK HER UP FOR DISCHARGE HOME. IMPORTANT MESSAGE FROM MEDICARE PROVIDED AND EXPLAINED. CM TO FOLLOW AND ASSIST NEEDED. PT WILL CONSIDER REHAB AT [facility]. CM TO CONTINUE TO ATTEMPT TO CONTACT PT'S SPOUSE, SHAWN [phone], TO DISCUSS DISCHARGE PLAN. CM TO ASK PHYSICIAN FOR INPATIENT REHAB PRESCREENING ORDER PT'S INSURANCE WILL REQUIRE PRIOR AUTHORIZATION. Joseph Sanders, CASE MANAGEMENT DCP- Discharge Planning Updated by [id number]: Joseph Sanders on 01/09/19 3:[address] Patient Name: JAMIE CORBIN Admission Status: ER Accout number: [id number] Admission Date: 01-08-2019 : 1950 Admission Diagnosis: Attending: JAMISON TURPIN Current LOS: 1 Anticipated DC Date: Planned Disposition: Home Primary Insurance: HUMANA CHOICE PPO MCR ADVANT Discharge Planning Comments: CM MET WITH PT IN ROOM TO DISCUSS DISCHARGE PLANNING AND NEEDS. PT REPORTS LIVING AT HOME INDEPENDENTLY AND ALONE. PT HAS A WALKER WITH NO MEDICAL EQUIPMENT PROVIDER PREFERENCE. PT HAS NO OUTSIDE SERVICES ASSISTING IN THE HOME. CM DISCUSSED AVAILABILITY OF HOME HEALTH, REHAB SERVICES AND MEDICAL EQUIPMENT. PT DENIES DISCHARGE NEEDS, REPORTS HER SPOUSE WILL PICK HER UP FOR DISCHARGE HOME. PT PLANS TO DISCHARGE HOME ALONE, SEPERATED SPOUSE TO ASSIST PT AT HOME IF NECESSARY. SEPERATED SPOUSE TO TRANSPORT HOME AT DISCHARGE. PT HAS NO ANTICIPATED DISCHARGE NEEDS AT THIS TIME. CM TO CONTINUE TO FOLLOW AND ASSIST NEEDED. Returned Goods Inspector: Joseph Sanders DCPIA - Discharge Planning Initial Assessment Updated by [id number]: Joseph Sanders on 01/09/19 4:49 pm * Is the patient Alert and Oriented? Yes * How many steps to enter\exit or inside your home? * PCP DR. BATRES IN [place] * [facility]acy [facility] IN [place] * Preadmission Environment Home with Family * ADLs Independent * Equipment Walker * Other Equipment NO MEDICAL EQUIPMENT PROVIDER PREFERENCE * List name and contact numbers for known caregivers / representatives who currently or will assist patient after discharge: SHAWN CORBIN, SEPERATED SPOUSE, * Verbal permission to speak to the caregivers and representatives has been obtained from the patient. Yes * Community resources currently utilized None * Please name any agencies selected above. NONE * Additional services required to return to the preadmission environment? No * Can the patient safely return to the preadmission environment? Yes * Has this patient been hospitalized within the prior 30 days at any hospital? No External Providers External Provider: [facility] and [facility] Next Contact Date: 01/30/2019 Service Request Date: Service Type: Resolution: Reviewer: Comments: Coverage Notice Reviewer: [id number] Sanders Notice Issued Date-Time: 01/18/2019 17:10 Notice Type: IM Discharge Notice Notice Delivered To: Patient Relationship to Patient: Behavior Management Specialist Name: Delivery Method: HAND - Hand Delivered Ximena Days: Prior Verbal Notification: Recipient Understood Notice: Yes Recipient Signature: Yes Med Rec Note Co-signed by Attending: Coverage Notice Comment: Reviewer: CURT Sanders Notice Issued Date-Time: 01/19/2019 15:04 Notice Type: Patient Choice Letter Notice Delivered To: Patient Relationship to Patient: Behavior Management Specialist Name: Delivery Method: HAND - Hand Delivered Ximena Days: Prior Verbal Notification: Recipient Understood Notice: Yes Recipient Signature: Yes Med Rec Note Co-signed by Attending: Coverage Notice Comment: [facility]. Reviewer: [id number] Darion Sanders Notice Issued Date-Time: 01/25/2019 9:25 Notice Type: IM Discharge Notice Notice Delivered To: Patient Relationship to Patient: Behavior Management Specialist Name: Delivery Method: HAND - Hand Delivered Ximena Days: Prior Verbal Notification: Recipient Understood Notice: Yes Recipient Signature: Yes Med Rec Note Co-signed by Attending: Coverage Notice Comment: Last DP export: 01/27/19 1:02 Patient Name: JAMIE CORBIN Page [id number] at 0837 All edits/amendments must be made on the electronic document DICTATION DATE: 01/30/19836 WATER MAINTENANCE SUPERVISOR: ANIBAL 01/30/19836 RPT#: [id number] DC DATE: STATUS: ADM IN [facility] [address] [place] [address] END OF REPORT
--- NOTE | 2019-01-30 08:38 | NUR ---
AM MEDS GIVEN AT THIS TIME. PT IN BED, EATING BREAKFAST. A/OX 4 RESP EVEN AND NONLABORED ON RA. LT HAND IV SL. PT DENIES ANY NEEDS AT THIS TIME, CALL LIGHT IN REACH, NAD NOTED, WILL CONTINUE TO MONITOR.
--- NOTE | 2019-01-30 08:44 | MORECARE ---
CASE MANAGEMENT DISCHARGE SUMMARY PATIENT: JAMIE CORBIN UNIT: [id number] ADM DATE: 01/08/19 AGE: 68 : 50 SEX: F ROOM/BED: D.2111 AUTHOR: SCOUTDOC PHYSICIAN: REFERRING PHYSICIAN: JAMISON TURPIN MD DATE OF SERVICE: 01/30/19 Discharge Plan Patient Name: JAMIE CORBIN Facility: [facility]:[place] : 1950 Planned Disposition: Long-Term Facility Anticipated Discharge Date: 01/27/19 Discharge Date: Expected LOS: 19 Initial Reviewer: [id number] Initial Review Date: 01/09/2019 Generated: 01/30/19 9:44 am Comments DCP- Discharge Planning Updated by [id number]: Joseph Sanders on 01/30/19 7:[address] Patient Name: JAMIE CORBIN Encounter No: [id number] : 1950 Primary Insurance: HUMANA CHOICE PPO MCR ADVANT Anticipated DC Date: 01-27-2019 Planned Disposition: Long-Term Facility External Planned Provider: ELLIE ANTHONY, MEDICARE REHAB BED DCP follow-up note: CM FAXED REFERRAL UPDATE TO [facility] AT [phone]. CM [facility] AT [phone], CHOICE PREVIOUSLY SIGNED BY PT. CM WAITING ADMISSION DETERMINATION FROM [facility] IN [place] FOR REHAB, ADMISSION DETERMINATION FROM [facility] AND [facility] IN [place] FOR REHAB WELL INSURANCE AUTHORIZATION FROM PT'S INSURANCE COMPANY. Joseph Sanders, CASE MANAGEMENT DCP- Discharge Planning Updated by [id number]: Joseph Sanders on 01/27/19 12:[address] Patient Name: JAMIE CORBIN Admission Status: ER Accout number: [id number] Admission Date: 01-08-2019 : 1950 Admission Diagnosis: Attending: JAMISON TURPIN Current LOS: 19 Anticipated DC Date: 01-27-2019 Planned Disposition: Long-Term Facility Primary Insurance: HUMANA CHOICE PPO MCR ADVANT PLANNED EXTERAL PROVIDER: [employer], MEDICARE REHAB BED DCP follow-up note: CM SPOKE TO [facility], THEY HAVE NOT YET RECEIVED INSURANCE AUTHORIZATION, [facility] DOES NOT THINK THEY WILL HAVE STAFF TO DO WEEKEND ADMISSION. IF THEY RECEIVE AUTH OVER WEEKEND, IT WILL BE WEDNESDAY TO ACCEPT TO REHAB. WILL ACCEPT PENDING INSURANCE AUTHORATION. CM FAXED UPDATE TO [facility] AT [phone]. CM RECEIVED CALL FROM [facility], SHE INFORMED CM THAT PT'S INSURANCE CALLED AND INFORMED HER THAT PT HAS HMO, NOT PPO, [facility] NOT IN NETWORK. THE INSURANCE COMPANY WOULD NOT PROVIDE LIST OF IN NETWORK FACILITIES AND REPORTED IT TO BE ON LINE IF NEEDED. CM CALLED [facility]., , SPOKE TO RAÚL WHO INFORMED CM THAT DIALYSIS ON TTS IS NOT A PROBLEM AND SHE WILL CHECK TO SEE IF IN NETWORK; SHE WILL SCREEN FOR ADMISSION. CM NOTIFIED PT WHO IS IN AGREEMENT WITH PLAN. CM FAXED REFERRAL TO [facility] AT [phone]. CM WAITING ADMISSION DETERMINATION FROM [facility] IN [place] FOR REHAB WELL INSURANCE AUTHORIZATION FROM PT'S INSURANCE COMPANY. Joseph Sanders, CASE MANAGEMENT DCP- Discharge Planning Updated by [id number]: Joseph Sanders on 01/26/19 8:[address] Patient Name: JAMIE CORBIN Encounter No: [id number] : 1950 Primary Insurance: HUMANA CHOICE PPO MCR ADVANT Anticipated DC Date: 01-26-2019 Planned Disposition: Long-Term Facility External Planned Provider: [facility], MEDICARE REHAB BED DCP follow-up note: CM SPOKE TO [facility] WHO MET WITH PT IN ROOM YESTERDAY, THEY WILL ACCEPT PENDING INSURANCE AUTHORATION. CM FAXED UPDATE TO [facility] AT [phone]. CM WAITING INSURANCE DETERMINATION FOR REHAB AT [facility] FACILITY. Joseph Sanders CASE MANAGEMENT DCP- Discharge Planning Updated by [id number]: Joseph Sanders on 01/25/19 11:[address] Patient Name: JAMIE CORBIN Encounter No: [id number] : 1950 Primary Insurance: HUMANA CHOICE PPO MCR ADVANT Anticipated DC Date: 01-26-2019 Planned Disposition: Long-Term Facility External Planned Provider: [facility], MEDICARE REHAB BED DCP follow-up note: CM SPOKE TO MAC OF INPATIENT REHAB AT [facility] TEAM MEETING WHO ADVISED THAT SHE CALLED PT'S INSURANCE COMPANY AND WAS ADVISED REHAB WAS DECLINED BY INSURANCE AND PEER TO PEER INFORMATION WAS SENT TO LULÚ OF CASE MANAGEMENT YESTERDAY. SIMRAN IRIZARRY ASKED THAT RENAL NURSE PRACTITIONER BE ASKED IF SHE WILL DO THE PEER TO PEER. CM SPOKE TO RISHABH OF RENAL WHO ADVISED THAT PEER TO PEER WILL NOT BE DONE, PT CAN GO TO [facility] REHAB. CM NOTIFIED PT IN ROOM. CM RECEIVED MESSAGE FROM KATHY OF [facility] WHO ADVISED THAT THEY WILL ACCEPT PENDING INSURANCE AUTHORATION. CM FAXED UPDATE TO [facility] AT [phone]. CM NOTIFIED CLARA OF [facility] FOR WELCOME LETTER DELIVERY TO PT FOR OUTPATIENT DIALYSIS CLINIC. CM NOTIFIED PT WHO IS IN AGREEMENT WITH DISCHARGE PLAN. CM WAITING INSURANCE DETERMINATION FOR REHAB AT [facility]. SHAHBAZ Odell DCP- Discharge Planning Updated by [id number]: Joseph Sanders on 01/25/19 8:[address] Patient Name: JAMIE CORBIN Encounter No: [id number] : 1950 Primary Insurance: HUMANA CHOICE PPO MCR ADVANT Anticipated DC Date: 01-20-2019 Planned Disposition: Inpatient Rehab External Planned Provider: [facility] INPATIENT REH[facility] DCP follow-up note: CM SPOKE TO PT REGARDING DISCHARGE PLANNING, INFORMED OF REFERRAL PENDING AT [facility] FOR REHAB. PT AND SPOUSE IN AGREEMENT WITH PLAN IF DENIED INPATIENT REHAB BY INSURANCE. IMPORTANT MESSAGE FROM MEDICARE PROVIDED AND EXPLAINED. CM CALLED KATHY OF [facility], , VERIFIED HER RECEIPT OF REFERRAL AND THAT DIALYSIS DAYS [facility] HAS AVAILABLE FOR DIALYSIS ARE TTS, MIDSHIFT (10-1100 AM.) CM WAITING INSURANCE AUTHORIZATION FROM PT'S INSURANCE COMPANY FOR INPATIENT REHAB AT [facility]. CM WAITING ADMISSION DETERMINATION [facility] Joseph Sanders CASE KEELEY DCP- Discharge Planning Updated by [id number]: Joseph Sanders on 01/24/19 1:[address] Patient Name: JAMIE CORBIN Encounter No: [id number] : 1950 Primary Insurance: HUMANA CHOICE PPO MCR ADVANT Anticipated DC Date: 01-20-2019 Planned Disposition: Inpatient Rehab External Planned Provider: [facility] INPATIENT [facility] DCP follow-up note: CM SPOKE TO PT REGARDING DISCHARGE PLANNING, INFORMED PT OF LIKELY DENIAL FROM HER INSURANCE FOR INPATIENT REHAB. PT WOULD LIKE REFERRAL TO [facility] FOR REHAB PREVIOUSLY DISCUSSED (CHOICE PREVIOUSLY SIGNED FOR [facility], [facility]). CM CALLED KATHY OF [facility], , INFORMED OF REFERRAL AND THAT DIALYSIS DAYS [facility] HAS AVAILABLE FOR DIALYSIS ARE TTS, MIDSHIFT (10-1100 AM. ) CM FAXED REFERRAL FOR REHAB SERVICES TO [facility] [phone]. CM WAITING INSURANCE AUTHORIZATION FROM PT'S INSURANCE COMPANY FOR INPATIENT REHAB AT [facility]. CM WAITING ADMISSION DETERMINATION FROM [facility] F[facility]. Joseph Sanders CASE MANAGEMENT DCP- Discharge Planning Updated by [id number]: Joseph Sanders on 01/20/19 12:[address] Patient Name: JAMIE CORBIN Encounter No: [id number] : 1950 Primary Insurance: HUMANA CHOICE PPO MCR ADVANT Anticipated DC Date: 01-20-2019 Planned Disposition: Inpatient Rehab External Planned Provider: [facility] INPATIENT REH[facility] DCP follow-up note: CM RECEIVED CALL FROM MAICOL OF [facility], SHE HAS CHECKED AT [facility], THE ONLY DAYS THEY HAVE AVAILABLE FOR DIALYSIS ARE TTS, MIDSHIFT (10-1100 AM.) MAICOL IS NOT GOING FURTHER WITH PLACEMENT PROCESS UNTIL IT IS DETERMINED IF PT IS GOING TO INPATIENT REHAB OR [facility] FACILITY. CM WAITING INSURANCE AUTHORIZATION FROM PT'S INSURANCE COMPANY FOR INPATIENT REHAB AT [facility]. SHAHBAZ Odell DCP- Discharge Planning Updated by [id number]: Joseph Sanders on 01/19/19 4:[address] Patient Name: JAMIE CORBIN Encounter No: [id number] : 1950 Primary Insurance: HUMANA CHOICE PPO MCR ADVANT Anticipated DC Date: 01-20-2019 Planned Disposition: Inpatient Rehab External Planned Provider: [facility] INPATIENT RE[facility] DCP follow-up note: CM SPOKE TO RN ANA M FRANZ WHO ADVISED CM THAT LOAN SERVICES PROFESSIONAL INFORMED HER THAT PT IS [facility] FACILITY APPROPRIATE AND NOT TO WASTE CM'S TIME SUBMITTING FOR INPATIENT REHAB. CM SPOKE TO PT AND SPOUSE IN ROOM. PT AND SPOUSE BOTH WOULD LIKE REHAB AT [facility] IF POSSIBLE. CM DISCUSSED [facility] FACILITY FOR REHAB. THEY WANTED TO DISCUSS THIS WITHOUT CM THERE. CM LEFT. CM RETURNED IN ABOUT ONE HOUR. PT AND SPOUSE REPORT IF PT CANNOT GET INTO INPATIENT REHAB, THEY WOULD GO TO A [facility] FACILTY THAT COULD TRANSPORT PT TO AND FROM OUTPATIENT DIALYSIS IN [place]. CHOICE SIGNED FOR [facility] AND REHAB. CM NOTIFIED KOURTNEY AND [facility] OF INPATIENT REHAB. CM NOTIFIED DR. TURPIN. CM REVIEWED CHART, OCCUPATIONAL THERAPY EVALUATION DOCUMENTED. CM WAITING INSURANCE AUTHORIZATION FROM PT'S INSURANCE COMPANY FOR INPATIENT REHAB AT [facility]. SHAHBAZ Odell DCP- Discharge Planning Updated by [id number]: Joseph Sanders on 01/18/19 4:[address] Patient Name: JAMIE CORBIN Encounter No: [id number] : 1950 Primary Insurance: HUMANA CHOICE PPO MCR ADVANT Anticipated DC Date: Planned Disposition: Inpatient Rehab External Planned Provider: [facility] INPATIENT REH[facility] DCP follow-up note: CM MET WITH PT IN ROOM TO DISCUSS DISCHARGE NEEDS AND PLANNING. CM DISCUSSED AVAILABILITY OF HOME HEALTH, REHAB SERVICES AND MEDICAL EQUIPMENT. PT REPORTS SHE IS WEAK AND SHOULD PROBABLY GO TO REHAB. CM DISCUSSED REHAB OPTIONS, LOCATIONS AND PROVIDERS. PT WILL CONSIDER REHAB AT [facility], PT WOULD LIKE CM TO SPEAK TO HER SPOUSE TO VERIFY THIS IS A PLAN HE WOULD AGREE WITH. CM CALLED SHAWN CORBIN, , THE LINE WAS BUSY, CM CALLED THREE TIMES. PT REPORTS SHE PLANS TO DRIVE HERSELF TO [facility] AND IF SHE NEEDS HELP WITH TRANSPORT, HER SPOUSE, SHAWN, WILL ASSIST. PT REPORTS SHAWN, HER SPOUSE, WILL PICK HER UP FOR DISCHARGE HOME. IMPORTANT MESSAGE FROM MEDICARE PROVIDED AND EXPLAINED. CM TO FOLLOW AND ASSIST NEEDED. PT WILL CONSIDER REHAB AT [facility]. CM TO CONTINUE TO ATTEMPT TO CONTACT PT'S SPOUSE, SHAWN, , TO DISCUSS DISCHARGE PLAN. CM TO ASK PHYSICIAN FOR INPATIENT REHAB PRESCREENING ORDER PT'S INSURANCE WILL REQUIRE PRIOR AUTHORIZATION. SHAHBAZ Odell DCP- Discharge Planning Updated by [id number]: Joseph Sanders on 01/09/19 3:[address] Patient Name: JAMIE CORBIN Admission Status: ER Accout number: [id number] Admission Date: 01-08-2019 : 1950 Admission Diagnosis: Attending: JAMISON TURPIN Current LOS: 1 Anticipated DC Date: Planned Disposition: Home Primary Insurance: HUMANA CHOICE PPO [facility] ADVANT Discharge Planning Comments: CM MET WITH PT IN ROOM TO DISCUSS DISCHARGE PLANNING AND NEEDS. PT REPORTS LIVING AT HOME INDEPENDENTLY AND ALONE. PT HAS A WALKER WITH NO MEDICAL EQUIPMENT PROVIDER PREFERENCE. PT HAS NO OUTSIDE SERVICES ASSISTING IN THE HOME. CM DISCUSSED AVAILABILITY OF HOME HEALTH, REHAB SERVICES AND MEDICAL EQUIPMENT. PT DENIES DISCHARGE NEEDS, REPORTS HER SPOUSE WILL PICK HER UP FOR DISCHARGE HOME. PT PLANS TO DISCHARGE HOME ALONE, SEPERATED SPOUSE TO ASSIST PT AT HOME IF NECESSARY. SEPERATED SPOUSE TO TRANSPORT HOME AT DISCHARGE. PT HAS NO ANTICIPATED DISCHARGE NEEDS AT THIS TIME. CM TO CONTINUE TO FOLLOW AND ASSIST NEEDED. Chief Mechanical Officer: Joseph Sanders DCPIA - Discharge Planning Initial Assessment Updated by [id number]: Joseph Sanders on 01/09/19 4:49 pm * Is the patient Alert and Oriented? Yes * How many steps to enter\exit or inside your home? * PCP DR. BATRES IN [place] * [facility] [place] * Preadmission Environment Home with Family * ADLs Independent * Equipment Walker * Other Equipment NO MEDICAL EQUIPMENT PROVIDER PREFERENCE * List name and contact numbers for known caregivers / representatives who currently or will assist patient after discharge: SHAWN CORBIN, SEPERATED SPOUSE, * Verbal permission to speak to the caregivers and representatives has been obtained from the patient. Yes * Community resources currently utilized None * Please name any agencies selected above. NONE * Additional services required to return to the preadmission environment? No * Can the patient safely return to the preadmission environment? Yes * Has this patient been hospitalized within the prior 30 days at any hospital? No Coverage Notice Reviewer: [id number] Darion Sanders Notice Issued Date-Time: 01/25/2019 9:25 Notice Type: IM Discharge Notice Notice Delivered To: Patient Relationship to Patient: Hand Knitter Name: Delivery Method: HAND - Hand Delivered Ximena Days: Prior Verbal Notification: Recipient Understood Notice: Yes Recipient Signature: Yes Med Rec Note Co-signed by Attending: Coverage Notice Comment: Reviewer: [id number] Darion Sanders Notice Issued Date-Time: 01/18/2019 17:10 Notice Type: IM Discharge Notice Notice Delivered To: Patient Relationship to Patient: Hand Knitter Name: Delivery Method: HAND - Hand Delivered Ximena Days: Prior Verbal Notification: Recipient Understood Notice: Yes Recipient Signature: Yes Med Rec Note Co-signed by Attending: Coverage Notice Comment: Reviewer: [email or web address] Darion Sanders Notice Issued Date-Time: 01/19/2019 15:04 Notice Type: Patient Choice Letter Notice Delivered To: Patient Relationship to Patient: Hand Knitter Name: Delivery Method: HAND - Hand Delivered Ximena Days: Prior Verbal Notification: Recipient Understood Notice: Yes Recipient Signature: Yes Med Rec Note Co-signed by Attending: Coverage Notice Comment: [facility], [facility]. Last DP export: 01/30/19 7:37 Patient Name: JAMIE CORBIN Page [phone] at 0844 All edits/amendments must be made on the electronic document DICTATION DATE: 01/30/19843 PERFORATOR OPERATOR OIL WELL: ANIBAL 01/30/1944 RPT#: [id number] DC DATE: STATUS: ADM IN [facility] [address] [place] [address] END OF REPORT
--- NOTE | 2019-01-30 11:17 | NUR ---
BLOOD SUGAR OF 349, 8UNITS OF INSULIN GIVEN PER S/S. LT HAND IV INFILTRATED, D/C IV WITH CATHETER TIP INTACT. PT DENIES ANY NEEDS AT THIS TIME. CALL LIGHT IN REACH,NAD NOTED,W ILL CONTINUE TO MONITOR.
[2019-01-30 11:56] VITALS: BP 126/52
--- NOTE | 2019-01-30 15:36 | MORECARE ---
CASE MANAGEMENT DISCHARGE SUMMARY PATIENT: JAMIE CORBIN UNIT: [id number] ADM DATE: 01/08/19 AGE: 68 : 50 SEX: F ROOM/BED: D.2111 AUTHOR: SCOUT,DOC PHYSICIAN: REFERRING PHYSICIAN: JAMISON TURPIN MD DATE OF SERVICE: 01/30/19 Discharge Plan Patient Name: JAMIE CORBIN Facility: [facility]:[place] : 1950 Planned Disposition: Alf Facility Anticipated Discharge Date: 01/31/19 Discharge Date: Expected LOS: 23 Initial Reviewer: [id number] Initial Review Date: 01/09/2019 Generated: 01/30/19 4:35 pm DCP- Discharge Planning Updated by [id number]: Joseph Sanders on 01/30/19 7:[address] Patient Name: JAMIE CORBIN Encounter No: [id number] : 1950 Primary Insurance: HU[employer]NA CHOICE PPO MCR ADVANT Anticipated DC Date: 01-27-2019 Planned Disposition: Alf Facility External Planned Provider: ELLIE ANTHONY, MEDICARE REHAB BED DCP follow-up note: CM FAXED REFERRAL UPDATE TO [facility] AT [phone]. CM [facility] AT [phone], CHOICE PREVIOUSLY SIGNED BY PT. CM WAITING ADMISSION DETERMINATION FROM [facility] IN [place] FOR REHAB, ADMISSION DETERMINATION FROM [facility] IN [place] FOR REHAB WELL INSURANCE AUTHORIZATION FROM PT'S INSURANCE COMPANY. Joseph Sanders, CASE MANAGEMENT DCP- Discharge Planning Updated by [id number]: Joseph Sanders on 01/27/19 12:[address] Patient Name: JAMIE CORBIN Admission Status: ER Accout number: [id number] Admission Date: 01-08-2019 : 1950 Admission Diagnosis: Attending: JAMISON TURPIN Current LOS: 19 Anticipated DC Date: 01-27-2019 Planned Disposition: Alf Facility Primary Insurance: HUMANA CHOICE PPO MCR ADVANT PLANNED EXTERAL PROVIDER: EVA LOZADA, MEDICARE REHAB BED DCP follow-up note: CM SPOKE TO [facility], THEY HAVE NOT YET RECEIVED INSURANCE AUTHORIZATION, [facility] [place] DOES NOT THINK THEY WILL HAVE STAFF TO DO WEEKEND ADMISSION. IF THEY RECEIVE AUTH OVER WEEKEND, IT WILL BE WEDNESDAY TO ACCEPT TO REHAB. WILL ACCEPT PENDING INSURANCE AUTHORATION. CM FAXED UPDATE TO [facility] AT [phone]. CM RECEIVED CALL FROM [facility], SHE INFORMED CM THAT PT'S INSURANCE CALLED AND INFORMED HER THAT PT HAS HMO, NOT PPO, [facility] NOT IN NETWORK. THE INSURANCE COMPANY WOULD NOT PROVIDE LIST OF IN NETWORK FACILITIES AND REPORTED IT TO BE ON LINE IF NEEDED. CM CALLED [facility]., , SPOKE TO RAÚL WHO INFORMED CM THAT DIALYSIS ON TTS IS NOT A PROBLEM AND SHE WILL CHECK TO SEE IF IN NETWORK; SHE WILL SCREEN FOR ADMISSION. CM NOTIFIED PT WHO IS IN AGREEMENT WITH PLAN. CM FAXED REFERRAL TO [facility] AT [phone]. CM WAITING ADMISSION DETERMINATION FROM [facility] IN [place] FOR REHAB WELL INSURANCE AUTHORIZATION FROM PT'S INSURANCE COMPANY. Joseph Sanders, CASE MANAGEMENT DCP- Discharge Planning Updated by [id number]: Joseph Sanders on 01/26/19 8:[address] Patient Name: JAMIE CORBIN Encounter No: [id number] : 1950 Primary Insurance: HUMANA CHOICE PPO MCR ADVANT Anticipated DC Date: 01-26-2019 Planned Disposition: Alf Facility External Planned Provider: [facility], MEDICARE REHAB BED DCP follow-up note: CM SPOKE TO [facility] WHO MET WITH PT IN ROOM YESTERDAY, THEY WILL ACCEPT PENDING INSURANCE AUTHORATION. CM FAXED UPDATE TO [facility] AT [phone]. CM WAITING INSURANCE DETERMINATION FOR REHAB AT [facility]. Joseph Sanders CASE KEELEY DCP- Discharge Planning Updated by [id number]: Joseph Sanders on 01/25/19 11:[address] Patient Name: JAMIE CORBIN Encounter No: [id number] : 1950 Primary Insurance: HUMANA CHOICE PPO MCR ADVANT Anticipated DC Date: 01-26-2019 Planned Disposition: Alf Facility External Planned Provider: [facility], MEDICARE REHAB BED DCP follow-up note: CM SPOKE TO MAC OF INPATIENT REHAB AT [facility] TEAM MEETING WHO ADVISED THAT SHE CALLED PT'S INSURANCE COMPANY AND WAS ADVISED REHAB WAS DECLINED BY INSURANCE AND PEER TO PEER INFORMATION WAS SENT TO LULÚ OF CASE MANAGEMENT YESTERDAY. SIMRAN IRIZARRY ASKED THAT RENAL NURSE PRACTITIONER BE ASKED IF SHE WILL DO THE PEER TO PEER. CM SPOKE TO RISHABH OF RENAL WHO ADVISED THAT PEER TO PEER WILL NOT BE DONE, PT CAN GO TO NURSING HOME REHAB. CM NOTIFIED PT IN ROOM. CM RECEIVED MESSAGE FROM KATHY OF [facility] WHO ADVISED THAT THEY WILL ACCEPT PENDING INSURANCE AUTHORATION. CM FAXED UPDATE TO [facility] AT [phone]. CM NOTIFIED CLARA OF [facility] FOR WELCOME LETTER DELIVERY TO PT FOR OUTPATIENT DIALYSIS CLINIC. CM NOTIFIED PT WHO IS IN AGREEMENT WITH DISCHARGE PLAN. CM WAITING INSURANCE DETERMINATION FOR REHAB AT [facility]. SHAHBAZ Odell DCP- Discharge Planning Updated by [id number]: Joseph Sanders on 01/25/19 8:[address] Patient Name: JAMIE CORBIN Encounter No: [id number] : 1950 Primary Insurance: HUMANA CHOICE PPO MCR ADVANT Anticipated DC Date: 01-20-2019 Planned Disposition: Inpatient Rehab External Planned Provider: [facility] INPATIENT REHAB DCP follow-up note: CM SPOKE TO PT REGARDING DISCHARGE PLANNING, INFORMED OF REFERRAL PENDING AT [facility] FOR REHAB. PT AND SPOUSE IN AGREEMENT WITH PLAN IF DENIED INPATIENT REHAB BY INSURANCE. IMPORTANT MESSAGE FROM MEDICARE PROVIDED AND EXPLAINED. CM CALLED KATHY OF [facility], , VERIFIED HER RECEIPT OF REFERRAL AND THAT DIALYSIS DAYS [facility] HAS AVAILABLE FOR DIALYSIS ARE TTS, MIDSHIFT (10-1100 AM.) CM WAITING INSURANCE AUTHORIZATION FROM PT'S INSURANCE COMPANY FOR INPATIENT REHAB AT [place]. CM WAITING ADMISSION DETERMINATION FROM [facility]. SHAHBAZ Odell DCP- Discharge Planning Updated by [id number]: Joseph Sanders on 01/24/19 1:[address] Patient Name: JAMIE CORBIN Encounter No: [id number] : 1950 Primary Insurance: HUMANA CHOICE PPO MCR ADVANT Anticipated DC Date: 01-20-2019 Planned Disposition: Inpatient Rehab External Planned Provider: [facility] INPATIENT REHAB DCP follow-up note: CM SPOKE TO PT REGARDING DISCHARGE PLANNING, INFORMED PT OF LIKELY DENIAL FROM HER INSURANCE FOR INPATIENT REHAB. PT WOULD LIKE REFERRAL TO [facility] FOR REHAB PREVIOUSLY DISCUSSED (CHOICE PREVIOUSLY SIGNED FOR [facility], [facility]). CM CALLED KATHY OF [facility], , INFORMED OF REFERRAL AND THAT DIALYSIS DAYS [facility] HAS AVAILABLE FOR DIALYSIS ARE TTS, MIDSHIFT (10-1100 AM. ) CM FAXED REFERRAL FOR REHAB SERVICES TO [facility] [phone]. CM WAITING INSURANCE AUTHORIZATION FROM PT'S INSURANCE COMPANY FOR INPATIENT REHAB AT [place]. CM WAITING ADMISSION DETERMINATION FROM [facility]SING HOME [facility]. Joseph Sanders CASE MANAGEMENT DCP- Discharge Planning Updated by [id number]: Joseph Sanders on 01/20/19 12:[address] Patient Name: JAMIE CORBIN Encounter No: [id number] : 1950 Primary Insurance: HUMANA CHOICE PPO MCR ADVANT Anticipated DC Date: 01-20-2019 Planned Disposition: Inpatient Rehab External Planned Provider: [facility] INPATIENT REHAB DCP follow-up note: CM RECEIVED CALL FROM MAICOL OF [facility], SHE HAS CHECKED AT [facility], THE ONLY DAYS THEY HAVE AVAILABLE FOR DIALYSIS ARE TTS, MIDSHIFT (10-1100 AM.) MAICOL IS NOT GOING FURTHER WITH PLACEMENT PROCESS UNTIL IT IS DETERMINED IF PT IS GOING TO INPATIENT REHAB OR NURSING HOME FACILITY. CM WAITING INSURANCE AUTHORIZATION FROM PT'S INSURANCE COMPANY FOR INPATIENT REHAB AT [place]. SHAHBAZ Odell DCP- Discharge Planning Updated by [id number]: Joseph Sanders on 01/19/19 4:[address] Patient Name: JAMIE CORBIN Encounter No: [id number] : 1950 Primary Insurance: HUMANA CHOICE PPO MCR ADVANT Anticipated DC Date: 01-20-2019 Planned Disposition: Inpatient Rehab External Planned Provider: [facility] INPATIENT REHAB DCP follow-up note: CM SPOKE TO RN ANA M FRANZ WHO ADVISED CM THAT INTERNATIONAL FLIGHT ATTENDANT INFORMED HER THAT PT IS NURSING HOME FACILITY APPROPRIATE AND NOT TO WASTE CM'S TIME SUBMITTING FOR INPATIENT REHAB. CM SPOKE TO PT AND SPOUSE IN ROOM. PT AND SPOUSE BOTH WOULD LIKE REHAB AT [place] IF POSSIBLE. CM DISCUSSED NURSING HOME FACILITY FOR REHAB. THEY WANTED TO DISCUSS THIS WITHOUT CM THERE. CM LEFT. CM RETURNED IN ABOUT ONE HOUR. PT AND SPOUSE REPORT IF PT CANNOT GET INTO INPATIENT REHAB, THEY WOULD GO TO A NURSING HOME FACILTY THAT COULD TRANSPORT PT TO AND FROM OUTPATIENT DIALYSIS IN [place]. CHOICE SIGNED FOR [facility] AND REHAB. CM NOTIFIED KOURTNEY AND [facility] OF INPATIENT REHAB. CM NOTIFIED DR. TURPIN. CM REVIEWED CHART, OCCUPATIONAL THERAPY EVALUATION DOCUMENTED. CM WAITING INSURANCE AUTHORIZATION FROM PT'S INSURANCE COMPANY FOR INPATIENT REHAB AT [place]. SHAHBAZ Odell DCP- Discharge Planning Updated by [id number]: Joseph Sanders on 01/18/19 4:[address] Patient Name: JAMIE CORBIN Encounter No: [id number] : 1950 Primary Insurance: HUMANA CHOICE PPO MCR ADVANT Anticipated DC Date: Planned Disposition: Inpatient Rehab External Planned Provider: [facility] INPATIENT REHAB DCP follow-up note: CM MET WITH PT IN ROOM TO DISCUSS DISCHARGE NEEDS AND PLANNING. CM DISCUSSED AVAILABILITY OF HOME HEALTH, REHAB SERVICES AND MEDICAL EQUIPMENT. PT REPORTS SHE IS WEAK AND SHOULD PROBABLY GO TO REHAB. CM DISCUSSED REHAB OPTIONS, LOCATIONS AND PROVIDERS. PT WILL CONSIDER REHAB AT [place], PT WOULD LIKE CM TO SPEAK TO HER SPOUSE TO VERIFY THIS IS A PLAN HE WOULD AGREE WITH. CM CALLED SHAWN CORBIN, , THE LINE WAS BUSY, CM CALLED THREE TIMES. PT REPORTS SHE PLANS TO DRIVE HERSELF TO [facility] [facility] AND IF SHE NEEDS HELP WITH TRANSPORT, HER SPOUSE, SHAWN, WILL ASSIST. PT REPORTS SHAWN, HER SPOUSE, WILL PICK HER UP FOR DISCHARGE HOME. IMPORTANT MESSAGE FROM MEDICARE PROVIDED AND EXPLAINED. CM TO FOLLOW AND ASSIST NEEDED. PT WILL CONSIDER REHAB AT [facility]. CM TO CONTINUE TO ATTEMPT TO CONTACT PT'S SPOUSE, SHAWN, , TO DISCUSS DISCHARGE PLAN. CM TO ASK PHYSICIAN FOR INPATIENT REHAB PRESCREENING ORDER PT'S INSURANCE WILL REQUIRE PRIOR AUTHORIZATION. SHAHBAZ Odell DCP- Discharge Planning Updated by [id number]: Joseph Sanders on 01/09/19 3:[address] Patient Name: JAMIE CORBIN Admission Status: ER Accout number: [id number] Admission Date: 01-08-2019 : 1950 Admission Diagnosis: Attending: JAMISON TURPIN Current LOS: 1 Anticipated DC Date: Planned Disposition: Home Primary Insurance: HUMANA CHOICE PPO MCR ADVANT Discharge Planning Comments: CM MET WITH PT IN ROOM TO DISCUSS DISCHARGE PLANNING AND NEEDS. PT REPORTS LIVING AT HOME INDEPENDENTLY AND ALONE. PT HAS A WALKER WITH NO MEDICAL EQUIPMENT PROVIDER PREFERENCE. PT HAS NO OUTSIDE SERVICES ASSISTING IN THE HOME. CM DISCUSSED AVAILABILITY OF HOME HEALTH, REHAB SERVICES AND MEDICAL EQUIPMENT. PT DENIES DISCHARGE NEEDS, REPORTS HER SPOUSE WILL PICK HER UP FOR DISCHARGE HOME. PT PLANS TO DISCHARGE HOME ALONE, SEPERATED SPOUSE TO ASSIST PT AT HOME IF NECESSARY. SEPERATED SPOUSE TO TRANSPORT HOME AT DISCHARGE. PT HAS NO ANTICIPATED DISCHARGE NEEDS AT THIS TIME. CM TO CONTINUE TO FOLLOW AND ASSIST NEEDED. Plastics Plater: Joseph Sanders DCPIA - Discharge Planning Initial Assessment Updated by [id number]: Joseph Sanders on 01/09/19 4:49 pm * Is the patient Alert and Oriented? Yes * How many steps to enter\exit or inside your home? * PCP DR. BATRES IN [place] * [facility] [place] * Preadmission Environment Home with Family * ADLs Independent * Equipment Walker * Other Equipment NO MEDICAL EQUIPMENT PROVIDER PREFERENCE * List name and contact numbers for known caregivers / representatives who currently or will assist patient after discharge: SHAWN CORBIN, SEPERATED SPOUSE, * Verbal permission to speak to the caregivers and representatives has been obtained from the patient. Yes * Community resources currently utilized None * Please name any agencies selected above. NONE * Additional services required to return to the preadmission environment? No * Can the patient safely return to the preadmission environment? Yes * Has this patient been hospitalized within the prior 30 days at any hospital? No Coverage Notice Reviewer: [id number] Darion Sanders Notice Issued Date-Time: 01/18/2019 17:10 Notice Type: IM Discharge Notice Notice Delivered To: Patient Relationship to Patient: Catalogue And Special Products Manager Name: Delivery Method: HAND - Hand Delivered Ximena Days: Prior Verbal Notification: Recipient Understood Notice: Yes Recipient Signature: Yes Med Rec Note Co-signed by Attending: Coverage Notice Comment: Reviewer: [id number] Darion Sanders Notice Issued Date-Time: 01/19/2019 15:04 Notice Type: Patient Choice Letter Notice Delivered To: Patient Relationship to Patient: Catalogue And Special Products Manager Name: Delivery Method: HAND - Hand Delivered Ximena Days: Prior Verbal Notification: Recipient Understood Notice: Yes Recipient Signature: Yes Med Rec Note Co-signed by Attending: Coverage Notice Comment: EVA LOZADA, [facility]LL[facility]. Reviewer: [id number] Darion Sanders Notice Issued Date-Time: 01/25/2019 9:25 Notice Type: IM Discharge Notice Notice Delivered To: Patient Relationship to Patient: Catalogue And Special Products Manager Name: Delivery Method: HAND - Hand Delivered Ximena Days: Prior Verbal Notification: Recipient Understood Notice: Yes Recipient Signature: Yes Med Rec Note Co-signed by Attending: Coverage Notice Comment: Last DP export: 01/30/19 7:44 Patient Name: JAMIE CORBIN Page [id number] at 1536 All edits/amendments must be made on the electronic document DICTATION DATE: 01/30/191534 MELTER OPERATOR: ANIBAL 01/30/191534 RPT#: [id number] DC DATE: STATUS: ADM IN [facility] [address] [place] [address] END OF REPORT
--- NOTE | 2019-01-30 15:59 | MORECARE ---
CASE MANAGEMENT DISCHARGE SUMMARY PATIENT: JAMIE CORBIN UNIT: [id number] ADM DATE: 01/08/19 AGE: 68 : 50 SEX: F ROOM/BED: D. AUTHOR: SCOUT,DOC PHYSICIAN: REFERRING PHYSICIAN: JAMISON TURPIN MD DATE OF SERVICE: 01/30/19 Discharge Plan Patient Name: JAMIE CORBIN Facility: [facility]:[place] : 1950 Planned Disposition: [facility] Facility Anticipated Discharge Date: 01/31/19 Discharge Date: Expected LOS: 23 Initial Reviewer: [id number] Initial Review Date: 01/09/2019 Generated: 01/30/19 4:58 pm Comments DCP- Discharge Planning Updated by [id number]: Joseph Sanders on 01/30/19 2:[address] Patient Name: JAMIE CORBIN Encounter No: [id number] : 1950 Primary Insurance: HU[employer]NA CHOICE PPO MCR ADVANT Anticipated DC Date: 01-31-2019 Planned Disposition: [facility] Facility External Planned Provider: [facility], MEDICARE REHAB BED DCP follow-up note: CM RECEIVED CALL FROM FAWAD BRITO [facility] WHO STATES THAT SHE AND THE FACILITY WERE MISTAKEN, THEY ARE OUT OF NETWORK AND CAN APPLY FOR EXEMPTION ONLY IF DECLINED BY IN NETWORK FACILITIES IN HER AREA, [facility] IN [place], [facility] IN [place] AND [facility] IN [place]. CM RECEIVED CALL FROM [facility] WHO REPORTS RECEIVING REFERRAL, BEING IN NETWORK AND IS LOOKING AT PT FOR ADMISSION. CM WAITING ADMISSION DETERMINATION FROM [facility] IN [place] FOR REHAB WELL INSURANCE AUTHORIZATION FROM PT'S INSURANCE COMPANY. Joseph Sanders, CASE MANAGEMENT DCP- Discharge Planning Updated by [id number]: Joseph Sanders on 01/30/19 7:[address] Patient Name: JAMIE CORBIN Encounter No: [id number] : 1950 Primary Insurance: HUMANA CHOICE PPO MCR ADVANT Anticipated DC Date: 01-27-2019 Planned Disposition: [facility] Facility External Planned Provider: [facility], MEDICARE REHAB BED DCP follow-up note: CM FAXED REFERRAL UPDATE TO [facility] AT [phone]. CM FAXED REFERRAL TO [facility] AT [phone], CHOICE PREVIOUSLY SIGNED BY PT. CM WAITING ADMISSION DETERMINATION FROM [facility] FOR REHAB, ADMISSION DETERMINATION FROM [facility] [place] FOR REHAB WELL INSURANCE AUTHORIZATION FROM PT'S INSURANCE COMPANY. SHAHBAZ Odell MANAGEMENT DCP- Discharge Planning Updated by [id number]: Joseph Sanders on 01/27/19 12:[address] Patient Name: JAMIE CORBIN Admission Status: ER Accout number: [id number] Admission Date: 01-08-2019 : 1950 Admission Diagnosis: Attending: JAMISON TURPIN Current LOS: 19 Anticipated DC Date: 01-27-2019 Planned Disposition: [facility] Facility Primary Insurance: [employer] PPO MCR ADVANT PLANNED EXTERAL PROVIDER: [facility] MEDICARE REHAB BED DCP follow-up note: CM SPOKE TO [facility], THEY HAVE NOT YET RECEIVED INSURANCE AUTHORIZATION, [facility] DOES NOT THINK THEY WILL HAVE STAFF TO DO WEEKEND ADMISSION. IF THEY RECEIVE AUTH OVER WEEKEND, IT WILL BE WEDNESDAY TO ACCEPT TO REHAB. WILL ACCEPT PENDING INSURANCE AUTHORATION. CM FAXED UPDATE TO [facility] AT [phone]. CM RECEIVED CALL FROM ERICKSON OF [facility], SHE INFORMED CM THAT PT'S INSURANCE CALLED AND INFORMED HER THAT PT HAS HMO, NOT PPO, [facility] NOT IN NETWORK. THE INSURANCE COMPANY WOULD NOT PROVIDE LIST OF IN NETWORK FACILITIES AND REPORTED IT TO BE ON LINE IF NEEDED. CM CALLED [facility]., , SPOKE TO RAÚL WHO INFORMED CM THAT DIALYSIS ON TTS IS NOT A PROBLEM AND SHE WILL CHECK TO SEE IF IN NETWORK; SHE WILL SCREEN FOR ADMISSION. CM NOTIFIED PT WHO IS IN AGREEMENT WITH PLAN. CM FAXED REFERRAL TO [facility] AT [phone]. CM WAITING ADMISSION DETERMINATION FROM [facility] FOR REHAB WELL INSURANCE AUTHORIZATION FROM PT'S INSURANCE COMPANY. SHAHBAZ Odell DCP- Discharge Planning Updated by [id number]: Joseph Sanders on 01/26/19 8:[address] Patient Name: JAMIE CORBIN Encounter No: [id number] : 1950 Primary Insurance: [employer] CHOICE PPO MCR ADVANT Anticipated DC Date: 01-26-2019 Planned Disposition: [facility] Facility External Planned Provider: [facility], MEDICARE REHAB BED DCP follow-up note: CM SPOKE TO [facility] WHO MET WITH PT IN ROOM YESTERDAY, THEY WILL ACCEPT PENDING INSURANCE AUTHORATION. CM FAXED UPDATE TO [facility] AT [phone]. CM WAITING INSURANCE DETERMINATION FOR REHAB AT [facility]. SHAHBAZ Odell DCP- Discharge Planning Updated by [id number]: Joseph Sanders on 01/25/19 11:[address] Patient Name: JAMIE CORBIN Encounter No: [id number] : 1950 Primary Insurance: HU[employer] CHOICE PPO MCR ADVANT Anticipated DC Date: 01-26-2019 Planned Disposition: [facility] Facility External Planned Provider: [facility], MEDICARE REHAB BED DCP follow-up note: CM SPOKE TO MAC OF INPATIENT REHAB AT [facility] TEAM MEETING WHO ADVISED THAT SHE CALLED PT'S INSURANCE COMPANY AND WAS ADVISED REHAB WAS DECLINED BY INSURANCE AND PEER TO PEER INFORMATION WAS SENT TO LULÚ OF CASE MANAGEMENT YESTERDAY. SIMRAN IRIZARRY ASKED THAT RENAL NURSE PRACTITIONER BE ASKED IF SHE WILL DO THE PEER TO PEER. CM SPOKE TO RISHABH OF [facility]NAL WHO ADVISED THAT PEER TO PEER WILL NOT BE DONE, PT CAN GO TO PENITENTIARY REHAB. CM NOTIFIED PT IN ROOM. CM RECEIVED MESSAGE FROM [facility] WHO ADVISED THAT THEY WILL ACCEPT PENDING INSURANCE AUTHORATION. CM FAXED UPDATE TO [facility] AT [phone]. CM NOTIFIED CLARA OF [facility] FOR WELCOME LETTER DELIVERY TO PT FOR OUTPATIENT DIALYSIS CLINIC. CM NOTIFIED PT WHO IS IN AGREEMENT WITH DISCHARGE PLAN. CM WAITING INSURANCE DETERMINATION FOR REHAB AT [facility]. SHAHBAZ Odell DCP- Discharge Planning Updated by [id number]: Joseph Sanders on 01/25/19 8:[address] Patient Name: JAMIE CORBIN Encounter No: [id number] : 1950 Primary Insurance: HU[employer] CHOICE PPO MCR ADVANT Anticipated DC Date: 01-20-2019 Planned Disposition: Inpatient Rehab External Planned Provider: [facility] INPATIENT REHAB DCP follow-up note: CM SPOKE TO PT REGARDING DISCHARGE PLANNING, INFORMED OF REFERRAL PENDING AT [facility] FOR REHAB. PT AND SPOUSE IN AGREEMENT WITH PLAN IF DENIED INPATIENT REHAB BY INSURANCE. IMPORTANT MESSAGE FROM MEDICARE PROVIDED AND EXPLAINED. CM CALLED KATHY BRITO [facility], , VERIFIED HER RECEIPT OF REFERRAL AND THAT DIALYSIS DAYS [facility] HAS AVAILABLE FOR DIALYSIS ARE TTS, MIDSHIFT (10-1100 AM.) CM WAITING INSURANCE AUTHORIZATION FROM PT'S INSURANCE COMPANY FOR INPATIENT REHAB AT [place]. CM WAITING ADMISSION DETERMINATION FROM [facility]. SHAHBAZ Odell DCP- Discharge Planning Updated by [id number]: Joseph Sanders on 01/24/19 1:[address] Patient Name: JAMIE CORBIN Encounter No: [id number] : 1950 Primary Insurance: HU[employer] CHOICE PPO MCR ADVANT Anticipated DC Date: 01-20-2019 Planned Disposition: Inpatient Rehab External Planned Provider: [facility] INPATIENT REHAB DCP follow-up note: CM SPOKE TO PT REGARDING DISCHARGE PLANNING, INFORMED PT OF LIKELY DENIAL FROM HER INSURANCE FOR INPATIENT REHAB. PT WOULD LIKE REFERRAL TO [facility] FOR REHAB PREVIOUSLY DISCUSSED (CHOICE PREVIOUSLY SIGNED FOR [facility]). CM CALLED KATHY BRITO [facility], , INFORMED OF REFERRAL AND THAT DIALYSIS DAYS [facility] HAS AVAILABLE FOR DIALYSIS ARE TTS, MIDSHIFT (10-1100 AM. ) CM FAXED REFERRAL FOR REHAB SERVICES TO [facility] [phone]. CM WAITING INSURANCE AUTHORIZATION FROM PT'S INSURANCE COMPANY FOR INPATIENT REHAB AT [place]. CM WAITING ADMISSION DETERMINATION FROM [facility]. SHAHBAZ Odell DCP- Discharge Planning Updated by [id number]: Joseph Sanders on 01/20/19 12:[address] Patient Name: JAMIE CORBIN Encounter No: [id number] : 1950 Primary Insurance: HU[employer] CHOICE PPO MCR ADVANT Anticipated DC Date: 01-20-2019 Planned Disposition: Inpatient Rehab External Planned Provider: [facility] INPATIENT REHAB DCP follow-up note: CM RECEIVED CALL FROM MAICOL OF [facility], SHE HAS CHECKED AT [facility], THE ONLY DAYS THEY HAVE AVAILABLE FOR DIALYSIS ARE TTS, MIDSHIFT (10-1100 AM.) MAICOL IS NOT GOING FURTHER WITH PLACEMENT PROCESS UNTIL IT IS DETERMINED IF PT IS GOING TO INPATIENT REHAB OR PENITENTIARY FACILITY. CM WAITING INSURANCE AUTHORIZATION FROM PT'S INSURANCE COMPANY FOR INPATIENT REHAB AT [place]. Joseph Sanders CASE MANAGEMENT DCP- Discharge Planning Updated by [id number]: Joseph Sanders on 01/19/19 4:[address] Patient Name: JAMIE CORBIN Encounter No: [id number] : 1950 Primary Insurance: HU[employer] CHOICE PPO MCR ADVANT Anticipated DC Date: 01-20-2019 Planned Disposition: Inpatient Rehab External Planned Provider: [facility] INPATIENT REHAB DCP follow-up note: CM SPOKE TO RN ANA M FRANZ WHO ADVISED CM THAT OFFSET PLATE PREPARATION SUPERVISOR INFORMED HER THAT PT IS PENITENTIARY FACILITY APPROPRIATE AND NOT TO WASTE CM'S TIME SUBMITTING FOR INPATIENT REHAB. CM SPOKE TO PT AND SPOUSE IN ROOM. PT AND SPOUSE BOTH WOULD LIKE REHAB AT [place] IF POSSIBLE. CM DISCUSSED PENITENTIARY FACILITY FOR REHAB. THEY WANTED TO DISCUSS THIS WITHOUT CM THERE. CM LEFT. CM RETURNED IN ABOUT ONE HOUR. PT AND SPOUSE REPORT IF PT CANNOT GET INTO INPATIENT REHAB, THEY WOULD GO TO A PENITENTIARY FACILTY THAT COULD TRANSPORT PT TO AND FROM OUTPATIENT DIALYSIS IN [place]. CHOICE SIGNED FOR [facility] RE[facility]. CM NOTIFIED NANO OF INPATIENT REHAB. CM NOTIFIED DR. TURPIN. CM REVIEWED CHART, OCCUPATIONAL THERAPY EVALUATION DOCUMENTED. CM WAITING INSURANCE AUTHORIZATION FROM PT'S INSURANCE COMPANY FOR INPATIENT REHAB AT [place]. SHAHBAZ Odell MANAGEMENT DCP- Discharge Planning Updated by [id number]: Joseph Sanders on 01/18/19 4:[address] Patient Name: JAMIE CORBIN Encounter No: [id number] : 1950 Primary Insurance: HU[employer] CHOICE PPO MCR ADVANT Anticipated DC Date: Planned Disposition: Inpatient Rehab External Planned Provider: [facility] INPATIENT REHAB DCP follow-up note: CM MET WITH PT IN ROOM TO DISCUSS DISCHARGE NEEDS AND PLANNING. CM DISCUSSED AVAILABILITY OF HOME HEALTH, REHAB SERVICES AND MEDICAL EQUIPMENT. PT REPORTS SHE IS WEAK AND SHOULD PROBABLY GO TO REHAB. CM DISCUSSED REHAB OPTIONS, LOCATIONS AND PROVIDERS. PT WILL CONSIDER REHAB AT [place], PT WOULD LIKE CM TO SPEAK TO HER SPOUSE TO VERIFY THIS IS A PLAN HE WOULD AGREE WITH. CM CALLED SHAWN CORBIN, , THE LINE WAS BUSY, CM CALLED THREE TIMES. PT REPORTS SHE PLANS TO DRIVE HERSELF TO [facility] AND IF SHE NEEDS HELP WITH TRANSPORT, HER SPOUSE, SHAWN, WILL ASSIST. PT REPORTS SHAWN, HER SPOUSE, WILL PICK HER UP FOR DISCHARGE HOME. IMPORTANT MESSAGE FROM MEDICARE PROVIDED AND EXPLAINED. CM TO FOLLOW AND ASSIST NEEDED. PT WILL CONSIDER REHAB AT [facility]. CM TO CONTINUE TO ATTEMPT TO CONTACT PT'S SPOUSE, SHAWN, , TO DISCUSS DISCHARGE PLAN. CM TO ASK PHYSICIAN FOR INPATIENT REHAB PRESCREENING ORDER PT'S INSURANCE WILL REQUIRE PRIOR AUTHORIZATION. Joseph Sanders, CASE MANAGEMENT DCP- Discharge Planning Updated by [id number]: Joseph Sanders on 01/09/19 3:[address] Patient Name: JAMIE CORBIN Admission Status: ER Accout number: [id number] Admission Date: 01-08-2019 : 1950 Admission Diagnosis: Attending: JAMISON TURPIN Current LOS: 1 Anticipated DC Date: Planned Disposition: Home Primary Insurance: HUMANA CHOICE PPO [facility] Discharge Planning Comments: CM MET WITH PT IN ROOM TO DISCUSS DISCHARGE PLANNING AND NEEDS. PT REPORTS LIVING AT HOME INDEPENDENTLY AND ALONE. PT HAS A WALKER WITH NO MEDICAL EQUIPMENT PROVIDER PREFERENCE. PT HAS NO OUTSIDE SERVICES ASSISTING IN THE HOME. CM DISCUSSED AVAILABILITY OF HOME HEALTH, REHAB SERVICES AND MEDICAL EQUIPMENT. PT DENIES DISCHARGE NEEDS, REPORTS HER SPOUSE WILL PICK HER UP FOR DISCHARGE HOME. PT PLANS TO DISCHARGE HOME ALONE, SEPERATED SPOUSE TO ASSIST PT AT HOME IF NECESSARY. SEPERATED SPOUSE TO TRANSPORT HOME AT DISCHARGE. PT HAS NO ANTICIPATED DISCHARGE NEEDS AT THIS TIME. CM TO CONTINUE TO FOLLOW AND ASSIST NEEDED. Supervisor [employer] Unit: Joseph Sanders DCPIA - Discharge Planning Initial Assessment Updated by [id number]: Joseph Sanders on 01/09/19 4:49 pm * Is the patient Alert and Oriented? Yes * How many steps to enter\exit or inside your home? * PCP DR. BATRES IN [place] * [facility]acy [facility] IN [place] * Preadmission Environment Home with Family * ADLs Independent * Equipment Walker * Other Equipment NO MEDICAL EQUIPMENT PROVIDER PREFERENCE * List name and contact numbers for known caregivers / representatives who currently or will assist patient after discharge: SHAWN CORBIN, SEPERATED SPOUSE, * Verbal permission to speak to the caregivers and representatives has been obtained from the patient. Yes * Community resources currently utilized None * Please name any agencies selected above. NONE * Additional services required to return to the preadmission environment? No * Can the patient safely return to the preadmission environment? Yes * Has this patient been hospitalized within the prior 30 days at any hospital? No Coverage Notice Reviewer: CURT Sanders Notice Issued Date-Time: 01/18/2019 17:10 Notice Type: IM Discharge Notice Notice Delivered To: Patient Relationship to Patient: Fill Technician Name: Delivery Method: HAND - Hand Delivered Ximena Days: Prior Verbal Notification: Recipient Understood Notice: Yes Recipient Signature: Yes Med Rec Note Co-signed by Attending: Coverage Notice Comment: Reviewer: CURT Sanders Notice Issued Date-Time: 01/19/2019 15:04 Notice Type: Patient Choice Letter Notice Delivered To: Patient Relationship to Patient: Fill Technician Name: Delivery Method: HAND - Hand Delivered Ximena Days: Prior Verbal Notification: Recipient Understood Notice: Yes Recipient Signature: Yes Med Rec Note Co-signed by Attending: Coverage Notice Comment: [facility]. Reviewer: CURT Sanders Notice Issued Date-Time: 01/25/2019 9:25 Notice Type: IM Discharge Notice Notice Delivered To: Patient Relationship to Patient: Fill Technician Name: Delivery Method: HAND - Hand Delivered Ximena Days: Prior Verbal Notification: Recipient Understood Notice: Yes Recipient Signature: Yes Med Rec Note Co-signed by Attending: Coverage Notice Comment: Last DP export: 01/30/19 2:36 Patient Name: JAMIE CORBIN Page [id number] at 1559 All edits/amendments must be made on the electronic document DICTATION DATE: 01/30/191557 PATTERNMAKER HAND: ANIBAL 01/30/191557 RPT#: [id number] DC DATE: STATUS: ADM IN [facility] [address] [place] [address] END OF REPORT
[2019-01-30 17:20] VITALS: BP 137/48
[2019-01-30 20:30] VITALS: BP 145/58
--- NOTE | 2019-01-30 23:18 | NUR ---
PT REQUEST MEDICATION FOR HEADACHE. WILL CONTINUE TO MONITOR.
--- NOTE | 2019-01-31 02:47 | NUR ---
I have reviewed this patient and I concur with the Shift Assessment completed by the Licensed Practical Nurse today this shift.
[2019-01-31 04:30] VITALS: BP 150/62
[2019-01-31 04:47] LABS: BASOPHILS 0.7 % (0-2); EOSINOPHILS 6.3 % (0-7); HEMATOCRIT 31.9 % (36.0-48.0); HEMOGLOBIN 9.9 g/dL (12-16); LYMPHOCYTES 26.6 % (15-50); MCH 28.7 pg (26.0-34.0); MCV 92.5 fL (80.0-100.0); MEAN PLATELET VOLUME 10.9 fL (7.4-10.4); MONOCYTES 11.4 % (2-11); PLATELET COUNT 226 10x3/uL (130-400); RBC 3.45 10x6/uL (4.00-5.40); RDW 15.6 % (11.5-14.5); WBC 5.7 10x3/uL (4.8-10.8)
[2019-01-31 05:19] LABS: ANION GAP 15.4 mmol/L (8-16); CALCIUM 7.9 mg/dL (8.5-10.1); CARBON DIOXIDE 25.7 mmol/L (21.0-32.0); CREATININE - SERUM 6.1 mg/dL (0.6-1.3); MAGNESIUM - SERUM 1.8 mg/dL (1.8-2.4); POTASSIUM - SERUM 4.1 mmol/L (3.5-5.1); VANCOMYCIN - RANDOM 24.3 ug/mL (10.0-20.0)
--- NOTE | 2019-01-31 07:00 | NUR ---
RECEIVED REPORT. ASSUMED CARE OF PATIENT. CALL LIGHT WITHIN REACH. PATIENT RESTING WITH EYES CLOSED. RESP EVEN AND UNLABORED. NO DISTRESS. NO FAMILY AT BEDSIDE.
--- NOTE | 2019-01-31 08:54 | MORECARE ---
CASE MANAGEMENT DISCHARGE SUMMARY PATIENT: JAMIE CORBIN UNIT: [id number] ADM DATE: 01/08/19 AGE: 68 : 50 SEX: F ROOM/BED: D.0034 AUTHOR: SCOUT,DOC PHYSICIAN: REFERRING PHYSICIAN: JAMISON TURPIN MD DATE OF SERVICE: 01/31/19 Discharge Plan Patient Name: JAMIE CORBIN Facility: [facility]:[place] : 1950 Planned Disposition: Mcfp Facility Anticipated Discharge Date: 01/31/19 Discharge Date: Expected LOS: 23 Initial Reviewer: [id number] Initial Review Date: 01/09/2019 Generated: 01/31/19 9:53 am Comments DCP- Discharge Planning Updated by [id number]: Joseph Sanders on 01/31/19 7:[address] Patient Name: JAMIE CORBIN Encounter No: [id number] : 1950 Primary Insurance: HUMANA CHOICE PPO MCR ADVANT Anticipated DC Date: 01-31-2019 Planned Disposition: Mcfp Facility External Planned Provider: [facility], MEDICARE REHAB BED DCP follow-up note: CM FAXED REFERRAL UPDATE TO LEENA OF [facility], . CM WAITING ADMISSION DETERMINATION FROM [facility] AND [facility] IN [place] FOR REHAB WELL INSURANCE AUTHORIZATION FROM 'S INSURANCE COMPANY. Joseph Sanders, CASE MANAGEMENT DCP- Discharge Planning Updated by [id number]: Joseph Sanders on 01/30/19 2:[address] Patient Name: JAMIE CORBIN Encounter No: [id number] : 1950 Primary Insurance: HUMANA CHOICE PPO MCR ADVANT Anticipated DC Date: 01-31-2019 Planned Disposition: Mcfp Facility External Planned Provider: [facility], MEDICARE REHAB BED DCP follow-up note: CM RECEIVED CALL FROM FAWAD OF [facility] WHO STATES THAT SHE AND THE FACILITY WERE MISTAKEN, THEY ARE OUT OF NETWORK AND CAN APPLY FOR EXEMPTION ONLY IF DECLINED BY IN NETWORK FACILITIES IN HER AREA, [facility] IN [place], [facility] IN [place] AND [facility] IN [place]. CM RECEIVED CALL FROM [facility]NA [facility] WHO REPORTS RECEIVING REFERRAL, BEING IN NETWORK AND IS LOOKING AT PT FOR ADMISSION. CM WAITING ADMISSION DETERMINATION FROM [facility] IN [place] FOR REHAB WELL INSURANCE AUTHORIZATION FROM PT'S INSURANCE COMPANY. Joseph Sanders CASE MANAGEMENT DCP- Discharge Planning Updated by [id number]: Joseph Sanders on 01/30/19 7:[address] Patient Name: JAMIE CORBIN Encounter No: [id number] : 1950 Primary Insurance: HUMANA CHOICE PPO MCR ADVANT Anticipated DC Date: 01-27-2019 Planned Disposition: Mcfp Facility External Planned Provider: [facility] MEDICARE REHAB BED DCP follow-up note: CM FAXED REFERRAL UPDATE TO [facility] AT [phone]. CM FAXED REFERRAL TO [facility] AT [phone], CHOICE PREVIOUSLY SIGNED BY PT. CM WAITING ADMISSION DETERMINATION FROM [facility] IN [place] FOR REHAB, ADMISSION DETERMINATION FROM [facility] IN [place] FOR REHAB WELL INSURANCE AUTHORIZATION FROM PT'S INSURANCE COMPANY. Joseph Sanders CASE MANAGEMENT DCP- Discharge Planning Updated by [id number]: Joseph Sanders on 01/27/19 12:[address] Patient Name: JAMIE CORBIN Admission Status: ER Accout number: [id number] Admission Date: 01-08-2019 : 1950 Admission Diagnosis: Attending: JAMISON TURPIN Current LOS: 19 Anticipated DC Date: 01-27-2019 Planned Disposition: Mcfp Facility Primary Insurance: HUMANA CHOICE PPO MCR ADVANT PLANNED EXTERAL PROVIDER: [facility] MEDICARE REHAB BED DCP follow-up note: CM SPOKE TO ERICKSON OF [employer] THEY HAVE NOT YET RECEIVED INSURANCE AUTHORIZATION, [facility] DOES NOT THINK THEY WILL HAVE STAFF TO DO WEEKEND ADMISSION. IF THEY RECEIVE AUTH OVER WEEKEND, IT WILL BE WEDNESDAY TO ACCEPT TO REHAB. WILL ACCEPT PENDING INSURANCE AUTHORATION. CM FAXED UPDATE TO [employer] AT [phone]. CM RECEIVED CALL FROM ERICKSON [facility] [employer] SHE INFORMED CM THAT PT'S INSURANCE CALLED AND INFORMED HER THAT PT HAS HMO, NOT PPO, [facility] NOT IN NETWORK. THE INSURANCE COMPANY WOULD NOT PROVIDE LIST OF IN NETWORK FACILITIES AND REPORTED IT TO BE ON LINE IF NEEDED. CM CALLED [facility] [employer] , SPOKE TO RAÚL WHO INFORMED CM THAT DIALYSIS ON TTS IS NOT A PROBLEM AND SHE WILL CHECK TO SEE IF IN NETWORK; SHE WILL SCREEN FOR ADMISSION. CM NOTIFIED PT WHO IS IN AGREEMENT WITH PLAN. CM FAXED REFERRAL TO [facility] AT [phone]. CM WAITING ADMISSION DETERMINATION FROM [facility] IN [place] FOR REHAB WELL INSURANCE AUTHORIZATION FROM PT'S INSURANCE COMPANY. SHAHBAZ Odell MANAGEMENT DCP- Discharge Planning Updated by [id number]: Joseph Sanders on 01/26/19 8:[address] Patient Name: JAMIE CORBIN Encounter No: [id number] : 1950 Primary Insurance: HUMANA CHOICE PPO MCR ADVANT Anticipated DC Date: 01-26-2019 Planned Disposition: Mcfp Facility External Planned Provider: [facility] REH[facility] B[facility] DCP follow-up note: CM SPOKE TO [facility] WHO MET WITH PT IN ROOM YESTERDAY, THEY WILL ACCEPT PENDING INSURANCE AUTHORATION. CM FAXED UPDATE TO [facility] AT [phone]. CM WAITING INSURANCE DETERMINATION FOR REHAB AT [facility]. SHAHBAZ Odell DCP- Discharge Planning Updated by [id number]: Joseph Sanders on 01/25/19 11:[address] Patient Name: JAMIE CORBIN Encounter No: [id number] : 1950 Primary Insurance: HUMANA CHOICE PPO MCR ADVANT Anticipated DC Date: 01-26-2019 Planned Disposition: Mcfp Facility External Planned Provider: [facility], MEDICARE REHAB BED DCP follow-up note: CM SPOKE TO MAC OF [facility]PATIENT REHAB AT [facility] TEAM MEETING WHO ADVISED THAT SHE CALLED PT'S INSURANCE COMPANY AND WAS ADVISED REHAB WAS DECLINED BY INSURANCE AND PEER TO PEER INFORMATION WAS SENT TO LULÚ OF CASE MANAGEMENT YESTERDAY. SIMRAN IRIZARRY ASKED THAT RENAL NURSE PRACTITIONER BE ASKED IF SHE WILL DO THE PEER TO PEER. CM SPOKE TO RISHABH OF RENAL WHO ADVISED THAT PEER TO PEER WILL NOT BE DONE, PT CAN GO TO LONG TERM REHAB. CM NOTIFIED PT IN ROOM. CM RECEIVED MESSAGE FROM KATHY OF [facility] WHO ADVISED THAT THEY WILL ACCEPT PENDING INSURANCE AUTHORATION. CM FAXED UPDATE TO [facility] AT [phone]. CM NOTIFIED CLARA OF [facility] FOR WELCOME LETTER DELIVERY TO PT FOR OUTPATIENT DIALYSIS CLINIC. CM NOTIFIED PT WHO IS IN AGREEMENT WITH DISCHARGE PLAN. CM WAITING INSURANCE DETERMINATION FOR REHAB AT [facility]. SHAHBAZ Odell DCP- Discharge Planning Updated by [id number]: Joseph Sanders on 01/25/19 8:[address] Patient Name: JAMIE CORBIN Encounter No: [id number] : 1950 Primary Insurance: HUMANA CHOICE PPO MCR ADVANT Anticipated DC Date: 01-20-2019 Planned Disposition: Inpatient Rehab External Planned Provider: [facility]IENT [facility]HAB DCP follow-up note: CM SPOKE TO PT REGARDING DISCHARGE PLANNING, INFORMED OF REFERRAL PENDING AT [facility] FOR RE[facility]. PT AND SPOUSE IN AGREEMENT WITH PLAN IF DENIED INPATIENT REHAB BY INSURANCE. IMPORTANT MESSAGE FROM MEDICARE PROVIDED AND EXPLAINED. CM CALLED KATHY OF [facility], , VERIFIED HER RECEIPT OF REFERRAL AND THAT DIALYSIS DAYS [facility] HAS AVAILABLE FOR DIALYSIS ARE TTS, MIDSHIFT (10-1100 AM.) CM WAITING INSURANCE AUTHORIZATION FROM PT'S INSURANCE COMPANY FOR INPATIENT REHAB AT [place]. CM WAITING ADMISSION DETERMINATION FROM [facility]. SHAHBAZ Odell DCP- Discharge Planning Updated by [id number]: Joseph Sanders on 01/24/19 1:[address] Patient Name: JAMIE CORBIN Encounter No: [id number] : 1950 Primary Insurance: HUMANA CHOICE PPO MCR ADVANT Anticipated DC Date: 01-20-2019 Planned Disposition: Inpatient Rehab External Planned Provider: [facility]IENT [facility] DCP follow-up note: CM SPOKE TO PT REGARDING DISCHARGE PLANNING, INFORMED PT OF LIKELY DENIAL FROM HER INSURANCE FOR INPATIENT REHAB. PT WOULD LIKE REFERRAL TO [facility] FOR REHAB PREVIOUSLY DISCUSSED (CHOICE PREVIOUSLY SIGNED FOR [facility]). CM CALLED KATHY BRITO [facility], , INFORMED OF REFERRAL AND THAT DIALYSIS DAYS [facility] HAS AVAILABLE FOR DIALYSIS ARE TTS, MIDSHIFT (10-1100 AM. ) CM FAXED REFERRAL FOR REHAB SERVICES TO [facility] [place] [phone]. CM WAITING INSURANCE AUTHORIZATION FROM PT'S INSURANCE COMPANY FOR INPATIENT REHAB AT [place]. CM WAITING ADMISSION DETERMINATION FROM [facility] LONG TERM FACILITY. Joseph Sanders CASE MANAGEMENT DCP- Discharge Planning Updated by [id number]: Joseph Sanders on 01/20/19 12:[address] Patient Name: JAMIE CORBIN Encounter No: [id number] : 1950 Primary Insurance: HUMANA CHOICE PPO MCR ADVANT Anticipated DC Date: 01-20-2019 Planned Disposition: Inpatient Rehab External Planned Provider: [facility] INPATIENT REHAB DCP follow-up note: CM RECEIVED CALL FROM MAICOL OF [facility], SHE HAS CHECKED AT [facility], THE ONLY DAYS THEY HAVE AVAILABLE FOR DIALYSIS ARE TTS, MIDSHIFT (10-1100 AM.) MAICOL IS NOT GOING FURTHER WITH PLACEMENT PROCESS UNTIL IT IS DETERMINED IF PT IS GOING TO INPATIENT REHAB OR LONG TERM FACILITY. ANA M WAITING INSURANCE AUTHORIZATION FROM PT'S INSURANCE COMPANY FOR INPATIENT REHAB AT [place]. Joseph Sanders CASE MANAGEMENT DCP- Discharge Planning Updated by [id number]: Joseph Sanders on 01/19/19 4:[address] Patient Name: JAMIE CORBIN Encounter No: [id number] : 1950 Primary Insurance: HUMANA CHOICE PPO MCR ADVANT Anticipated DC Date: 01-20-2019 Planned Disposition: Inpatient Rehab External Planned Provider: [facility] INPATIENT [facility] DCP follow-up note: CM SPOKE TO RN ANA M FRANZ WHO ADVISED CM THAT CANTEEN MANAGER INFORMED HER THAT PT IS LONG TERM FACILITY APPROPRIATE AND NOT TO WASTE CM'S TIME SUBMITTING FOR INPATIENT REHAB. CM SPOKE TO PT AND SPOUSE IN ROOM. PT AND SPOUSE BOTH WOULD LIKE REHAB AT [facility] [place] IF POSSIBLE. CM DISCUSSED LONG TERM FACILITY FOR REHAB. THEY WANTED TO DISCUSS THIS WITHOUT CM THERE. CM LEFT. CM RETURNED IN ABOUT ONE HOUR. PT AND SPOUSE REPORT IF PT CANNOT GET INTO INPATIENT REHAB, THEY WOULD GO TO A LONG TERM FACILTY THAT COULD TRANSPORT PT TO AND FROM OUTPATIENT DIALYSIS IN [place]. CHOICE SIGNED FOR [facility]. CM NOTIFIED NANO OF INPATIENT REHAB. CM NOTIFIED DR. TURPIN. CM REVIEWED CHART, OCCUPATIONAL THERAPY EVALUATION DOCUMENTED. CM WAITING INSURANCE AUTHORIZATION FROM PT'S INSURANCE COMPANY FOR INPATIENT REHAB AT [place]. SHAHBAZ Odell DCP- Discharge Planning Updated by [id number]: Joseph Sanders on 01/18/19 4:[address] Patient Name: JAMIE CORBIN Encounter No: [id number] : 1950 Primary Insurance: HUMANA CHOICE PPO MCR ADVANT Anticipated DC Date: Planned Disposition: Inpatient Rehab External Planned Provider: [facility] INPATIENT [facility] DCP follow-up note: CM MET WITH PT IN ROOM TO DISCUSS DISCHARGE NEEDS AND PLANNING. CM DISCUSSED AVAILABILITY OF HOME HEALTH, REHAB SERVICES AND MEDICAL EQUIPMENT. PT REPORTS SHE IS WEAK AND SHOULD PROBABLY GO TO REHAB. CM DISCUSSED REHAB OPTIONS, LOCATIONS AND PROVIDERS. PT WILL CONSIDER REHAB AT [place] [place], PT WOULD LIKE CM TO SPEAK TO HER SPOUSE TO VERIFY THIS IS A PLAN HE WOULD AGREE WITH. CM CALLED SHAWN CORBIN, , THE LINE WAS BUSY, CM CALLED THREE TIMES. PT REPORTS SHE PLANS TO DRIVE HERSELF TO THE [facility] AND IF SHE NEEDS HELP WITH TRANSPORT, HER SPOUSE, SHAWN, WILL ASSIST. PT REPORTS SHAWN, HER SPOUSE, WILL PICK HER UP FOR DISCHARGE HOME. IMPORTANT MESSAGE FROM MEDICARE PROVIDED AND EXPLAINED. CM TO FOLLOW AND ASSIST NEEDED. PT WILL CONSIDER REHAB AT [facility]. CM TO CONTINUE TO ATTEMPT TO CONTACT PT'S SPOUSE, SHAWN, , TO DISCUSS DISCHARGE PLAN. CM TO ASK PHYSICIAN FOR INPATIENT REHAB PRESCREENING ORDER PT'S INSURANCE WILL REQUIRE PRIOR AUTHORIZATION. SHAHBAZ Odell DCP- Discharge Planning Updated by [id number]: Joseph Sanders on 01/09/19 3:[address] Patient Name: JAMIE CORBIN Admission Status: ER Accout number: [id number] Admission Date: 01-08-2019 : 1950 Admission Diagnosis: Attending: JAMISON TURPIN Current LOS: 1 Anticipated DC Date: Planned Disposition: Home Primary Insurance: HUMANA CHOICE PPO MCR ADVANT Discharge Planning Comments: CM MET WITH PT IN ROOM TO DISCUSS DISCHARGE PLANNING AND NEEDS. PT REPORTS LIVING AT HOME INDEPENDENTLY AND ALONE. PT HAS A WALKER WITH NO MEDICAL EQUIPMENT PROVIDER PREFERENCE. PT HAS NO OUTSIDE SERVICES ASSISTING IN THE HOME. CM DISCUSSED AVAILABILITY OF HOME HEALTH, REHAB SERVICES AND MEDICAL EQUIPMENT. PT DENIES DISCHARGE NEEDS, REPORTS HER SPOUSE WILL PICK HER UP FOR DISCHARGE HOME. PT PLANS TO DISCHARGE HOME ALONE, SEPERATED SPOUSE TO ASSIST PT AT HOME IF NECESSARY. SEPERATED SPOUSE TO TRANSPORT HOME AT DISCHARGE. PT HAS NO ANTICIPATED DISCHARGE NEEDS AT THIS TIME. CM TO CONTINUE TO FOLLOW AND ASSIST NEEDED. Twister Frame Tender: Joseph Sanders DCPIA - Discharge Planning Initial Assessment Updated by CURT: Joseph Sanders on 01/09/19 4:49 pm * Is the patient Alert and Oriented? Yes * How many steps to enter\exit or inside your home? * PCP DR. BATRES IN [place] * Pharmacy [facility] IN [place] * Preadmission Environment Home with Family * ADLs Independent * Equipment Walker * Other Equipment NO MEDICAL EQUIPMENT PROVIDER PREFERENCE * List name and contact numbers for known caregivers / representatives who currently or will assist patient after discharge: SHAWN CORBIN, SEPERATED SPOUSE, * Verbal permission to speak to the caregivers and representatives has been obtained from the patient. Yes * Community resources currently utilized None * Please name any agencies selected above. NONE * Additional services required to return to the preadmission environment? No * Can the patient safely return to the preadmission environment? Yes * Has this patient been hospitalized within the prior 30 days at any hospital? No Coverage Notice Reviewer: CURT Sanders Notice Issued Date-Time: 01/18/2019 17:10 Notice Type: IM Discharge Notice Notice Delivered To: Patient Relationship to Patient: Kiln Firer Name: Delivery Method: HAND - Hand Delivered Ximena Days: Prior Verbal Notification: Recipient Understood Notice: Yes Recipient Signature: Yes Med Rec Note Co-signed by Attending: Coverage Notice Comment: Reviewer: CURT Sanders Notice Issued Date-Time: 01/19/2019 15:04 Notice Type: Patient Choice Letter Notice Delivered To: Patient Relationship to Patient: Kiln Firer Name: Delivery Method: HAND - Hand Delivered Ximena Days: Prior Verbal Notification: Recipient Understood Notice: Yes Recipient Signature: Yes Med Rec Note Co-signed by Attending: Coverage Notice Comment: [facility], [facility], [facility]. Reviewer: CUTR Sanders Notice Issued Date-Time: 01/25/2019 9:25 Notice Type: IM Discharge Notice Notice Delivered To: Patient Relationship to Patient: Kiln Firer Name: Delivery Method: HAND - Hand Delivered Ximena Days: Prior Verbal Notification: Recipient Understood Notice: Yes Recipient Signature: Yes Med Rec Note Co-signed by Attending: Coverage Notice Comment: Last DP export: 01/30/19 2:59 Patient Name: JAMIE CORBIN Page [id number] at 0854 All edits/amendments must be made on the electronic document DICTATION DATE: 01/31/19852 BOMB LOADER: ANIBAL 01/31/19852 RPT#: [id number] DC DATE: STATUS: ADM IN [facility] [address] [place] [address] END OF REPORT
[2019-01-31 10:09] VITALS: BP 138/54
--- NOTE | 2019-01-31 10:30 | NUR ---
PATIENT LEFT UNIT VIA BED AT THIS TIME FOR DIALYSIS. NO DISTRESS UPON LEAVING UNIT.
--- NOTE | 2019-01-31 11:24 | NUR ---
fsbs 222. patient insulin held due to she is in dialysis and unable to consume lunch at this time.
--- NOTE | 2019-01-31 11:24 | NUR ---
medicated for pain at this time.
--- NOTE | 2019-01-31 12:25 | MORECARE ---
CASE MANAGEMENT DISCHARGE SUMMARY PATIENT: JAMIE CORBIN UNIT: [id number] ADM DATE: 01/08/19 AGE: 68 : 50 SEX: F ROOM/BED: D.6051 AUTHOR: SCOUT,DOC PHYSICIAN: REFERRING PHYSICIAN: JAMISON TURPIN MD DATE OF SERVICE: 01/31/19 Discharge Plan Patient Name: JAMIE CORBIN Facility: [facility]:[place] : 1950 Planned Disposition: [facility] Facility Anticipated Discharge Date: 01/31/19 Discharge Date: Expected LOS: 23 Initial Reviewer: CURT Initial Review Date: 01/09/2019 Generated: 01/31/19 1:24 pm Comments DCP- Discharge Planning Updated by [id number]: Joseph Sanders on 01/31/19 11:[address] Patient Name: JAMIE CORBIN Encounter No: [id number] : 1950 Primary Insurance: HUMANA CHOICE PPO MCR ADVANT Anticipated DC Date: 01-31-2019 Planned Disposition: [facility] Facility External Planned Provider: [facility], MEDICARE REHAB BED DCP follow-up note: CM FAXED REFERRAL UPDATE TO LEENA OF [facility], . CM WAITING ADMISSION DETERMINATION FROM [facility] IN [place] FOR REHAB WELL INSURANCE AUTHORIZATION FROM PT'S INSURANCE COMPANY. Joseph Sanders, CASE MANAGEMENT Appended by Joseph Sanders on 01/31/2019 12:18 ROTOR PLATE WASHER: CM RECEIVED CALL FROM [facility] AT ABOUT 1034 HOURS, THEY ARE LOOKING AT PT FOR REHAB ADMISSION AND WILL CALL SOON DECISION IS MADE. CM WAITING ADMISSION DETERMINATION FROM [facility] IN [place] FOR REHAB WELL INSURANCE AUTHORIZATION FROM PT'S INSURANCE COMPANY. SHAHBAZ Odell DCP- Discharge Planning Updated by [id number]: Joseph Sanders on 01/30/19 2:[address] Patient Name: JAMIE CORBIN Encounter No: [id number] : 1950 Primary Insurance: HUMANA CHOICE PPO MCR ADVANT Anticipated DC Date: 01-31-2019 Planned Disposition: [facility] Facility External Planned Provider: [facility], MEDICARE REHAB BED DCP follow-up note: CM RECEIVED CALL FROM FAWAD OF [facility] WHO STATES THAT SHE AND THE FACILITY WERE MISTAKEN, THEY ARE OUT OF NETWORK AND CAN APPLY FOR EXEMPTION ONLY IF DECLINED BY IN NETWORK FACILITIES IN HER AREA, [facility] IN [place], [facility] IN [place] AND [facility] IN [place]. CM RECEIVED CALL FROM LEENA [facility] WHO REPORTS RECEIVING REFERRAL, BEING IN NETWORK AND IS LOOKING AT PT FOR ADMISSION. CM WAITING ADMISSION DETERMINATION FROM [facility] IN [place] FOR REHAB WELL INSURANCE AUTHORIZATION FROM PT'S INSURANCE COMPANY. Joseph Sanders, CASE MANAGEMENT DCP- Discharge Planning Updated by [id number]: Joseph Sanders on 01/30/19 7:[address] Patient Name: JAMIE CORBIN Encounter No: [id number] : 1950 Primary Insurance: HUMANA CHOICE PPO MCR ADVANT Anticipated DC Date: 01-27-2019 Planned Disposition: [facility] Facility External Planned Provider: [facility] MED[facility]ARE REHAB BED DCP follow-up note: CM FAXED REFERRAL UPDATE TO [facility] AT [phone]. CM FAXED REFERRAL TO [facility] AT [phone], CHOICE PREVIOUSLY SIGNED BY PT. CM WAITING ADMISSION DETERMINATION FROM [facility] IN [place] FOR REHAB, ADMISSION DETERMINATION FROM [facility] IN [place] FOR REHAB WELL INSURANCE AUTHORIZATION FROM PT'S INSURANCE COMPANY. Joseph Sanders CASE MANAGEMENT DCP- Discharge Planning Updated by [id number]: Joseph Sanders on 01/27/19 12:[address] Patient Name: JAMIE CORBIN Admission Status: ER Accout number: [id number] Admission Date: 01-08-2019 : 1950 Admission Diagnosis: Attending: JAMISON TURPIN Current LOS: 19 Anticipated DC Date: 01-27-2019 Planned Disposition: [facility] Facility Primary Insurance: HUMANA CHOICE PPO MCR ADVANT PLANNED EXTERAL PROVIDER: [facility] MED[facility] REHAB BED DCP follow-up note: CM SPOKE TO ERICKSON OF [employer] [facility], THEY HAVE NOT YET RECEIVED INSURANCE AUTHORIZATION, ERICKSON DOES NOT THINK THEY WILL HAVE STAFF TO DO WEEKEND ADMISSION. IF THEY RECEIVE AUTH OVER WEEKEND, IT WILL BE WEDNESDAY TO ACCEPT TO REHAB. WILL ACCEPT PENDING INSURANCE AUTHORATION. CM FAXED UPDATE TO [facility] AT [phone]. CM RECEIVED CALL FROM ERICKSON OF [facility], SHE INFORMED CM THAT PT'S INSURANCE CALLED AND INFORMED HER THAT PT HAS HMO, NOT PPO, [facility] NOT IN NETWORK. THE INSURANCE COMPANY WOULD NOT PROVIDE LIST OF IN NETWORK FACILITIES AND REPORTED IT TO BE ON LINE IF NEEDED. [facility] , SPOKE TO RAÚL WHO INFORMED CM THAT DIALYSIS ON TTS IS NOT A PROBLEM AND SHE WILL CHECK TO SEE IF IN NETWORK; SHE WILL SCREEN FOR ADMISSION. CM NOTIFIED PT WHO IS IN AGREEMENT WITH PLAN. CM FAXED REFERRAL TO [facility] AT [phone]. CM WAITING ADMISSION DETERMINATION FROM [facility] IN [place] FOR REHAB WELL INSURANCE AUTHORIZATION FROM PT'S INSURANCE COMPANY. Joseph Sanders CASE MANAGEMENT DCP- Discharge Planning Updated by [id number]: Joseph Sanders on 01/26/19 8:[address] Patient Name: JAMIE CORBIN Encounter No: [id number] : 1950 Primary Insurance: HUMANA CHOICE PPO MCR ADVANT Anticipated DC Date: 01-26-2019 Planned Disposition: Chcf Facility External Planned Provider: [facility], MEDICARE REHAB BED DCP follow-up note: CM SPOKE TO K[facility] WHO MET WITH PT IN ROOM YESTERDAY, THEY WILL ACCEPT PENDING INSURANCE AUTHORATION. CM FAXED UPDATE TO [facility] AT [phone]. CM WAITING INSURANCE DETERMINATION FOR REHAB AT [facility]. Joseph Sanders CASE MANAGEMENT DCP- Discharge Planning Updated by [id number]: Joseph Sanders on 01/25/19 11:[address] Patient Name: JAMIE CORBIN Encounter No: [id number] : 1950 Primary Insurance: HUMANA CHOICE PPO MCR ADVANT Anticipated DC Date: 01-26-2019 Planned Disposition: [facility] Facility External Planned Provider: [facility], MEDICARE REHAB BED DCP follow-up note: CM SPOKE TO MAC OF [facility]PATIENT REHAB AT [facility] TEAM MEETING WHO ADVISED THAT SHE CALLED PT'S INSURANCE COMPANY AND WAS ADVISED REHAB WAS DECLINED BY INSURANCE AND PEER TO PEER INFORMATION WAS SENT TO LULÚ OF CASE MANAGEMENT YESTERDAY. SIMRAN IRIZARRY ASKED THAT RENAL NURSE PRACTITIONER BE ASKED IF SHE WILL DO THE PEER TO PEER. CM SPOKE TO RISHABH OF [facility] WHO ADVISED THAT PEER TO PEER WILL NOT BE DONE, PT CAN GO TO LONGTERM REHAB. CM NOTIFIED PT IN ROOM. CM RECEIVED MESSAGE FROM KATHY OF [facility] WHO ADVISED THAT THEY WILL ACCEPT PENDING INSURANCE AUTHORATION. CM FAXED UPDATE TO [facility] AT [phone]. CM NOTIFIED CLARA OF [facility] FOR WELCOME LETTER DELIVERY TO PT FOR OUTPATIENT DIALYSIS CLINIC. CM NOTIFIED PT WHO IS IN AGREEMENT WITH DISCHARGE PLAN. CM WAITING INSURANCE DETERMINATION FOR REHAB AT [facility]. SHAHBAZ Odell DCP- Discharge Planning Updated by [id number]: Joseph Sanders on 01/25/19 8:[address] Patient Name: JAMIE CORBIN Encounter No: [id number] : 1950 Primary Insurance: HUMANA CHOICE PPO MCR ADVANT Anticipated DC Date: 01-20-2019 Planned Disposition: Inpatient Rehab External Planned Provider: [facility] INPATIENT REHAB DCP follow-up note: CM SPOKE TO PT REGARDING DISCHARGE PLANNING, INFORMED OF REFERRAL PENDING AT [facility] FOR REHAB. PT AND SPOUSE IN AGREEMENT WITH PLAN IF DENIED INPATIENT REHAB BY INSURANCE. IMPORTANT MESSAGE FROM MEDICARE PROVIDED AND EXPLAINED. CM CALLED KATHY OF [facility], , VERIFIED HER RECEIPT OF REFERRAL AND THAT DIALYSIS DAYS [facility] HAS AVAILABLE FOR DIALYSIS ARE TTS, MIDSHIFT (10-1100 AM.) CM WAITING INSURANCE AUTHORIZATION FROM PT'S INSURANCE COMPANY FOR INPATIENT REHAB AT [place]. CM WAITING ADMISSION DETERMINATION FROM [facility]. Joseph Sanders CASE KEELEY DCP- Discharge Planning Updated by [id number]: Joseph Sanders on 01/24/19 1:[address] Patient Name: JAMIE CORBIN Encounter No: [id number] : 1950 Primary Insurance: HUMANA CHOICE PPO MCR ADVANT Anticipated DC Date: 01-20-2019 Planned Disposition: Inpatient Rehab External Planned Provider: [facility] INPATIENT REHAB DCP follow-up note: CM SPOKE TO PT REGARDING DISCHARGE PLANNING, INFORMED PT OF LIKELY DENIAL FROM HER INSURANCE FOR INPATIENT REHAB. PT WOULD LIKE REFERRAL TO [facility] FOR REHAB PREVIOUSLY DISCUSSED (CHOICE PREVIOUSLY SIGNED FOR [facility]). CM CALLED KATHY OF [facility], , INFORMED OF REFERRAL AND THAT DIALYSIS DAYS [facility] HAS AVAILABLE FOR DIALYSIS ARE TTS, MIDSHIFT (10-1100 AM. ) CM FAXED REFERRAL FOR REHAB SERVICES TO [facility] [phone]. CM WAITING INSURANCE AUTHORIZATION FROM PT'S INSURANCE COMPANY FOR INPATIENT REHAB AT [facility]. CM WAITING ADMISSION DETERMINATION FROM [facility] LONGTERM FACILITY. SHAHBAZ Odell DCP- Discharge Planning Updated by [id number]: Joseph Sanders on 01/20/19 12:[address] Patient Name: JAMIE CORBIN Encounter No: [id number] : 1950 Primary Insurance: HUMANA CHOICE PPO MCR ADVANT Anticipated DC Date: 01-20-2019 Planned Disposition: Inpatient Rehab External Planned Provider: [facility] INPATIENT REHAB DCP follow-up note: CM RECEIVED CALL FROM MAICOL OF [facility], SHE HAS CHECKED AT [facility], THE ONLY DAYS THEY HAVE AVAILABLE FOR DIALYSIS ARE TTS, MIDSHIFT (10-1100 AM.) MAICOL IS NOT GOING FURTHER WITH PLACEMENT PROCESS UNTIL IT IS DETERMINED IF PT IS GOING TO INPATIENT REHAB OR LONGTERM FACILITY. CM WAITING INSURANCE AUTHORIZATION FROM PT'S INSURANCE COMPANY FOR INPATIENT REHAB AT [facility]. SHAHBAZ Odell DCP- Discharge Planning Updated by [id number]: Joseph Sanders on 01/19/19 4:[address] Patient Name: JAMIE CORBIN Encounter No: [id number] : 1950 Primary Insurance: HUMANA CHOICE PPO MCR ADVANT Anticipated DC Date: 01-20-2019 Planned Disposition: Inpatient Rehab External Planned Provider: [facility] INPATIENT REHAB DCP follow-up note: CM SPOKE TO RN ANA M FRANZ WHO ADVISED CM THAT HEALTH PHYSICS TECHNICIAN INFORMED HER THAT PT IS LONGTERM FACILITY APPROPRIATE AND NOT TO WASTE CM'S TIME SUBMITTING FOR INPATIENT REHAB. CM SPOKE TO PT AND SPOUSE IN ROOM. PT AND SPOUSE BOTH WOULD LIKE REHAB AT [facility] IF POSSIBLE. CM DISCUSSED LONGTERM FACILITY FOR REHAB. THEY WANTED TO DISCUSS THIS WITHOUT CM THERE. CM LEFT. CM RETURNED IN ABOUT ONE HOUR. PT AND SPOUSE REPORT IF PT CANNOT GET INTO INPATIENT REHAB, THEY WOULD GO TO A LONGTERM FACILTY THAT COULD TRANSPORT PT TO AND FROM OUTPATIENT DIALYSIS IN [place]. CHOICE SIGNED FOR [employer] AND [facility]. CM NOTIFIED KOURTNEY AND [facility] OF INPATIENT REHAB. CM NOTIFIED DR. TURPIN. CM REVIEWED CHART, OCCUPATIONAL THERAPY EVALUATION DOCUMENTED. CM WAITING INSURANCE AUTHORIZATION FROM PT'S INSURANCE COMPANY FOR INPATIENT REHAB AT [facility]. SHAHBAZ Odell DCP- Discharge Planning Updated by [id number]: Joseph Sanders on 01/18/19 4:[address] Patient Name: JAMIE CORBIN Encounter No: [id number] : 1950 Primary Insurance: [employer] PPO MCR ADVANT Anticipated DC Date: Planned Disposition: Inpatient Rehab External Planned Provider: [facility] INPATIENT REHAB DCP follow-up note: CM MET WITH PT IN ROOM TO DISCUSS DISCHARGE NEEDS AND PLANNING. CM DISCUSSED AVAILABILITY OF HOME HEALTH, REHAB SERVICES AND MEDICAL EQUIPMENT. PT REPORTS SHE IS WEAK AND SHOULD PROBABLY GO TO REHAB. CM DISCUSSED REHAB OPTIONS, LOCATIONS AND PROVIDERS. PT WILL CONSIDER REHAB AT [facility], PT WOULD LIKE CM TO SPEAK TO HER SPOUSE TO VERIFY THIS IS A PLAN HE WOULD AGREE WITH. CM CALLED SHAWN CORBIN, , THE LINE WAS BUSY, CM CALLED THREE TIMES. PT REPORTS SHE PLANS TO DRIVE HERSELF TO [facility] AND IF SHE NEEDS HELP WITH TRANSPORT, HER SPOUSE, SHAWN, WILL ASSIST. PT REPORTS SHAWN, HER SPOUSE, WILL PICK HER UP FOR DISCHARGE HOME. IMPORTANT MESSAGE FROM MEDICARE PROVIDED AND EXPLAINED. CM TO FOLLOW AND ASSIST NEEDED. PT WILL CONSIDER REHAB AT [facility]. CM TO CONTINUE TO ATTEMPT TO CONTACT PT'S SPOUSE, SHAWN, , TO DISCUSS DISCHARGE PLAN. CM TO ASK PHYSICIAN FOR INPATIENT REHAB PRESCREENING ORDER PT'S INSURANCE WILL REQUIRE PRIOR AUTHORIZATION. SHAHBAZ Odell DCP- Discharge Planning Updated by [id number]: Joseph Sanders on 01/09/19 3:[address] Patient Name: JAMIE CORBIN Admission Status: ER Accout number: [id number] Admission Date: 01-08-2019 : 1950 Admission Diagnosis: Attending: JAMISON TURPIN Current LOS: 1 Anticipated DC Date: Planned Disposition: Home Primary Insurance: HUMANA CHOICE PPO [facility] Discharge Planning Comments: CM MET WITH PT IN ROOM TO DISCUSS DISCHARGE PLANNING AND NEEDS. PT REPORTS LIVING AT HOME INDEPENDENTLY AND ALONE. PT HAS A WALKER WITH NO MEDICAL EQUIPMENT PROVIDER PREFERENCE. PT HAS NO OUTSIDE SERVICES ASSISTING IN THE HOME. CM DISCUSSED AVAILABILITY OF HOME HEALTH, REHAB SERVICES AND MEDICAL EQUIPMENT. PT DENIES DISCHARGE NEEDS, REPORTS HER SPOUSE WILL PICK HER UP FOR DISCHARGE HOME. PT PLANS TO DISCHARGE HOME ALONE, SEPERATED SPOUSE TO ASSIST PT AT HOME IF NECESSARY. SEPERATED SPOUSE TO TRANSPORT HOME AT DISCHARGE. PT HAS NO ANTICIPATED DISCHARGE NEEDS AT THIS TIME. CM TO CONTINUE TO FOLLOW AND ASSIST NEEDED. Orderlies Teacher: Joseph Sanders DCPIA - Discharge Planning Initial Assessment Updated by [id number]: Joseph Sanders on 01/09/19 4:49 pm * Is the patient Alert and Oriented? Yes * How many steps to enter\exit or inside your home? * PCP DR. BATRES IN [place] * Pharmacy [facility] IN [place] * Preadmission Environment Home with Family * ADLs Independent * Equipment Walker * Other Equipment NO MEDICAL EQUIPMENT PROVIDER PREFERENCE * List name and contact numbers for known caregivers / representatives who currently or will assist patient after discharge: SHAWN CORBIN, SEPERATED SPOUSE, * Verbal permission to speak to the caregivers and representatives has been obtained from the patient. Yes * Community resources currently utilized None * Please name any agencies selected above. NONE * Additional services required to return to the preadmission environment? No * Can the patient safely return to the preadmission environment? Yes * Has this patient been hospitalized within the prior 30 days at any hospital? No Coverage Notice Reviewer: [id number] Darion Sanders Notice Issued Date-Time: 01/18/2019 17:10 Notice Type: IM Discharge Notice Notice Delivered To: Patient Relationship to Patient: Brand Designer Name: Delivery Method: HAND - Hand Delivered Ximena Days: Prior Verbal Notification: Recipient Understood Notice: Yes Recipient Signature: Yes Med Rec Note Co-signed by Attending: Coverage Notice Comment: Reviewer: [id number] Darion Sanders Notice Issued Date-Time: 01/19/2019 15:04 Notice Type: Patient Choice Letter Notice Delivered To: Patient Relationship to Patient: Brand Designer Name: Delivery Method: HAND - Hand Delivered Ximena Days: Prior Verbal Notification: Recipient Understood Notice: Yes Recipient Signature: Yes Med Rec Note Co-signed by Attending: Coverage Notice Comment: ELLIE GIRARD, [facility]. Reviewer: [id number] - Joseph Sanders Notice Issued Date-Time: 01/25/2019 9:25 Notice Type: IM Discharge Notice Notice Delivered To: Patient Relationship to Patient: Brand Designer Name: Delivery Method: HAND - Hand Delivered Ximena Days: Prior Verbal Notification: Recipient Understood Notice: Yes Recipient Signature: Yes Med Rec Note Co-signed by Attending: Coverage Notice Comment: Last DP export: 01/31/19 7:54 Patient Name: JAMIE CORBIN Page [id number] at 1225 All edits/amendments must be made on the electronic document DICTATION DATE: 01/31/19 1224 YARD SPECIALIST: ANIBAL 01/31/19 1224 RPT#: [id number] [place] DATE: STATUS: ADM IN [facility] [address] [place] [address] END OF REPORT
--- NOTE | 2019-01-31 14:46 | NUR ---
PATIENT RETURNED FROM DIALYSIS AT THIS TIME. NO DISTRESS. TOLERATED TREATMENT WELL TODAY. NO FAMILY AT BEDSIDE.
--- NOTE | 2019-01-31 15:46 | MORECARE ---
CASE MANAGEMENT DISCHARGE SUMMARY PATIENT: JAMIE CORBIN UNIT: [id number] ADM DATE: 01/08/19 AGE: 68 : 50 SEX: F ROOM/BED: D.6609 AUTHOR: SCOUT,DOC PHYSICIAN: REFERRING PHYSICIAN: JAMISON TURPIN MD DATE OF SERVICE: 01/31/19 Discharge Plan Patient Name: JAMIE CORBIN Facility: [facility]:[place] : 1950 Planned Disposition: Shelter Facility Anticipated Discharge Date: 01/31/19 Discharge Date: Expected LOS: 23 Initial Reviewer: CURT Initial Review Date: 01/09/2019 Generated: 01/31/19 4:45 pm Comments DCP- Discharge Planning Updated by [id number]: Joseph Sanders on 01/31/19 11:[address] Patient Name: JAMIE CORBIN Encounter No: [id number] : 1950 Primary Insurance: HU[employer]NA CHOICE PPO MCR ADVANT Anticipated DC Date: 01-31-2019 Planned Disposition: Shelter Facility External Planned Provider: [facility], MEDICARE REHAB BED DCP follow-up note: CM FAXED REFERRAL UPDATE TO LEENA OF [facility], . CM WAITING ADMISSION DETERMINATION FROM [facility] AND [facility] IN [place] FOR REHAB WELL INSURANCE AUTHORIZATION FROM PT'S INSURANCE COMPANY. Joseph Sanders, CASE MANAGEMENT Appended by Joseph Sanders on 01/31/2019 12:18 HEAD CHARGER: CM RECEIVED CALL FROM [facility] AT ABOUT 1034 HOURS, THEY ARE LOOKING AT PT FOR REHAB ADMISSION AND WILL CALL SOON DECISION IS MADE. CM WAITING ADMISSION DETERMINATION FROM [facility] AND [facility] IN [place] FOR REHAB WELL INSURANCE AUTHORIZATION FROM PT'S INSURANCE COMPANY. SHAHBAZ Odell DCP- Discharge Planning Updated by [id number]: Joseph Sanders on 01/30/19 2:[address] Patient Name: JAMIE COBRIN Encounter No: [id number] : 1950 Primary Insurance: HUMANA CHOICE PPO MCR ADVANT Anticipated DC Date: 01-31-2019 Planned Disposition: Shelter Facility External Planned Provider: [facility], MEDICARE REHAB BED DCP follow-up note: CM RECEIVED CALL FROM FAWAD OF [facility] WHO STATES THAT SHE AND THE FACILITY WERE MISTAKEN, THEY ARE OUT OF NETWORK AND CAN APPLY FOR EXEMPTION ONLY IF DECLINED BY IN NETWORK FACILITIES IN HER AREA, MINNIE MCINTYRE IN [place], TIFFANY DENVER IN [place] AND [facility] IN [place]. CM RECEIVED CALL FROM [facility] WHO REPORTS RECEIVING REFERRAL, BEING IN NETWORK AND IS LOOKING AT PT FOR ADMISSION. CM WAITING ADMISSION DETERMINATION FROM [facility] AND [facility]HAB IN [place] FOR REHAB WELL INSURANCE AUTHORIZATION FROM PT'S INSURANCE COMPANY. Joseph Sanders, CASE MANAGEMENT DCP- Discharge Planning Updated by [id number]: Joseph Sanders on 01/30/19 7:[address] Patient Name: JAMIE CORBIN Encounter No: [id number] : 1950 Primary Insurance: HU[employer]NA CHOICE PPO MCR ADVANT Anticipated DC Date: 01-27-2019 Planned Disposition: Shelter Facility External Planned Provider: [facility] MEDICARE REHAB BED DCP follow-up note: CM FAXED REFERRAL UPDATE TO [facility] AT [phone]. CM FAXED REFERRAL TO [facility] AT [phone], CHOICE PREVIOUSLY SIGNED BY PT. CM WAITING ADMISSION DETERMINATION FROM [facility] IN [place] FOR REHAB, ADMISSION DETERMINATION FROM [facility] AND [facility] IN [place] FOR REHAB WELL INSURANCE AUTHORIZATION FROM PT'S INSURANCE COMPANY. Joseph Sanders CASE MANAGEMENT DCP- Discharge Planning Updated by [id number]: Joseph Sanders on 01/27/19 12:[address] Patient Name: JAMIE CORBIN Admission Status: ER Accout number: [id number] Admission Date: 01-08-2019 : 1950 Admission Diagnosis: Attending: JAMISON TURPIN Current LOS: 19 Anticipated DC Date: 01-27-2019 Planned Disposition: Shelter Facility Primary Insurance: HUMANA CHOICE PPO MCR ADVANT PLANNED EXTERAL PROVIDER: [facility] MEDICARE REHAB BED DCP follow-up note: CM SPOKE TO ERICKSON OF [employer] [facility], THEY HAVE NOT YET RECEIVED INSURANCE AUTHORIZATION, ERICKSON DOES NOT THINK THEY WILL HAVE STAFF TO DO WEEKEND ADMISSION. IF THEY RECEIVE AUTH OVER WEEKEND, IT WILL BE WEDNESDAY TO ACCEPT TO REHAB. WILL ACCEPT PENDING INSURANCE AUTHORATION. CM FAXED UPDATE TO [facility] AT [phone]. CM RECEIVED CALL FROM ERICKSON OF [facility], SHE INFORMED CM THAT PT'S INSURANCE CALLED AND INFORMED HER THAT PT HAS HMO, NOT PPO, [facility] NOT IN NETWORK. THE INSURANCE COMPANY WOULD NOT PROVIDE LIST OF IN NETWORK FACILITIES AND REPORTED IT TO BE ON LINE IF NEEDED. CM CALLED [facility] [employer] , SPOKE TO RAÚL WHO INFORMED CM THAT DIALYSIS ON TTS IS NOT A PROBLEM AND SHE WILL CHECK TO SEE IF IN NETWORK; SHE WILL SCREEN FOR ADMISSION. CM NOTIFIED PT WHO IS IN AGREEMENT WITH PLAN. CM FAXED REFERRAL TO [facility] AT [phone]. CM WAITING ADMISSION DETERMINATION FROM [facility] IN [place] FOR REHAB WELL INSURANCE AUTHORIZATION FROM PT'S INSURANCE COMPANY. Joseph Sanedrs CASE MANAGEMENT DCP- Discharge Planning Updated by [id number]: Joseph Sanders on 01/26/19 8:[address] Patient Name: JAMIE CORBIN Encounter No: [id number] : 1950 Primary Insurance: HUMANA CHOICE PPO MCR ADVANT Anticipated DC Date: 01-26-2019 Planned Disposition: Shelter Facility External Planned Provider: [facility], MEDICARE REHAB BED DCP follow-up note: CM SPOKE TO KATHY [facility] WHO MET WITH PT IN ROOM YESTERDAY, THEY WILL ACCEPT PENDING INSURANCE AUTHORATION. CM FAXED UPDATE TO [facility] AT [phone]. CM WAITING INSURANCE DETERMINATION FOR REHAB AT [facility]. Joseph Sanders CASE MANAGEMENT DCP- Discharge Planning Updated by [id number]: Joseph Sanders on 01/25/19 11:[address] Patient Name: JAMIE CORBIN Encounter No: [id number] : 1950 Primary Insurance: HUMANA CHOICE PPO MCR ADVANT Anticipated DC Date: 01-26-2019 Planned Disposition: Shelter Facility External Planned Provider: [facility], MEDICARE REHAB BED DCP follow-up note: CM SPOKE TO MAC OF [facility]PATIENT REHAB [facility] TEAM MEETING WHO ADVISED THAT SHE CALLED PT'S INSURANCE COMPANY AND WAS ADVISED REHAB WAS DECLINED BY INSURANCE AND PEER TO PEER INFORMATION WAS SENT TO LULÚ OF CASE MANAGEMENT YESTERDAY. SIMRAN IRIZARRY ASKED THAT RENAL NURSE PRACTITIONER BE ASKED IF SHE WILL DO THE PEER TO PEER. CM SPOKE TO RISHABH OF [facility] WHO ADVISED THAT PEER TO PEER WILL NOT BE DONE, PT CAN GO TO [facility] REHAB. CM NOTIFIED PT IN ROOM. CM RECEIVED MESSAGE FROM KATHY OF [facility] WHO ADVISED THAT THEY WILL ACCEPT PENDING INSURANCE AUTHORATION. CM FAXED UPDATE TO [facility] AT [phone]. CM NOTIFIED CLARA OF [facility] FOR WELCOME LETTER DELIVERY TO PT FOR OUTPATIENT DIALYSIS CLINIC. CM NOTIFIED PT WHO IS IN AGREEMENT WITH DISCHARGE PLAN. CM WAITING INSURANCE DETERMINATION FOR REHAB AT [facility]. SHAHBAZ Odell DCP- Discharge Planning Updated by [id number]: Joseph Sanders on 01/25/19 8:[address] Patient Name: JAMIE CORBIN Encounter No: [id number] : 1950 Primary Insurance: HUMANA CHOICE PPO MCR ADVANT Anticipated DC Date: 01-20-2019 Planned Disposition: Inpatient Rehab External Planned Provider: [facility] INPATIENT REHAB DCP follow-up note: CM SPOKE TO PT REGARDING DISCHARGE PLANNING, INFORMED OF REFERRAL PENDING AT [facility] FOR REHAB. PT AND SPOUSE IN AGREEMENT WITH PLAN IF DENIED INPATIENT REHAB BY INSURANCE. IMPORTANT MESSAGE FROM MEDICARE PROVIDED AND EXPLAINED. CM CALLED KATHY OF [facility], , VERIFIED HER RECEIPT OF REFERRAL AND THAT DIALYSIS DAYS [facility] HAS AVAILABLE FOR DIALYSIS ARE TTS, MIDSHIFT (10-1100 AM.) CM WAITING INSURANCE AUTHORIZATION FROM PT'S INSURANCE COMPANY FOR INPATIENT REHAB AT [place]. CM WAITING ADMISSION DETERMINATION FROM [facility]. Joseph Sanders CASE KEELEY DCP- Discharge Planning Updated by [id number]: Joseph Sanders on 01/24/19 1:[address] Patient Name: JAMIE CORBIN Encounter No: [id number] : 1950 Primary Insurance: HUMANA CHOICE PPO MCR ADVANT Anticipated DC Date: 01-20-2019 Planned Disposition: Inpatient Rehab External Planned Provider: [facility] INPATIENT REHAB DCP follow-up note: CM SPOKE TO PT REGARDING DISCHARGE PLANNING, INFORMED PT OF LIKELY DENIAL FROM HER INSURANCE FOR INPATIENT REHAB. PT WOULD LIKE REFERRAL TO [facility] FOR REHAB PREVIOUSLY DISCUSSED (CHOICE PREVIOUSLY SIGNED FOR [facility], [facility]). CM CALLED KATHY OF [facility], , INFORMED OF REFERRAL AND THAT DIALYSIS DAYS [facility] HAS AVAILABLE FOR DIALYSIS ARE TTS, MIDSHIFT (10-1100 AM. ) CM FAXED REFERRAL FOR REHAB SERVICES TO [facility] [phone]. CM WAITING INSURANCE AUTHORIZATION FROM PT'S INSURANCE COMPANY FOR INPATIENT REHAB AT [place]. CM WAITING ADMISSION DETERMINATION FROM [facility]. SHAHBAZ Odell DCP- Discharge Planning Updated by [id number]: Joseph Sanders on 01/20/19 12:[address] Patient Name: JAMIE CORBIN Encounter No: [id number] : 1950 Primary Insurance: HUMANA CHOICE PPO MCR ADVANT Anticipated DC Date: 01-20-2019 Planned Disposition: Inpatient Rehab External Planned Provider: [facility] INPATIENT REH[facility] DCP follow-up note: CM RECEIVED CALL FROM MAICOL OF [facility], SHE HAS CHECKED AT [facility], THE ONLY DAYS THEY HAVE AVAILABLE FOR DIALYSIS ARE TTS, MIDSHIFT (10-1100 AM.) MAICOL IS NOT GOING FURTHER WITH PLACEMENT PROCESS UNTIL IT IS DETERMINED IF PT IS GOING TO INPATIENT REHAB OR SENIOR LIVING FACILITY. CM WAITING INSURANCE AUTHORIZATION FROM PT'S INSURANCE COMPANY FOR INPATIENT REHAB AT [place]. SHAHBAZ Odell DCP- Discharge Planning Updated by [id number]: Joseph Sanders on 01/19/19 4:[address] Patient Name: JAMIE CORBIN Encounter No: [id number] : 1950 Primary Insurance: HUMANA CHOICE PPO MCR ADVANT Anticipated DC Date: 01-20-2019 Planned Disposition: Inpatient Rehab External Planned Provider: [facility] INPATIENT REH[facility] DCP follow-up note: CM SPOKE TO RN ANA M FRANZ WHO ADVISED CM THAT SIDER INFORMED HER THAT PT IS SENIOR LIVING FACILITY APPROPRIATE AND NOT TO WASTE CM'S TIME SUBMITTING FOR INPATIENT REHAB. CM SPOKE TO PT AND SPOUSE IN ROOM. PT AND SPOUSE BOTH WOULD LIKE REHAB AT [place] IF POSSIBLE. CM DISCUSSED [facility] FACILITY FOR REHAB. THEY WANTED TO DISCUSS THIS WITHOUT CM THERE. CM LEFT. CM RETURNED IN ABOUT ONE HOUR. PT AND SPOUSE REPORT IF PT CANNOT GET INTO INPATIENT REHAB, THEY WOULD GO TO A SENIOR LIVING FACILTY THAT COULD TRANSPORT PT TO AND FROM OUTPATIENT DIALYSIS IN [place]. CHOICE SIGNED FOR [facility] AND [facility] AND REHAB. CM NOTIFIED [facility]OU[facility] AND [facility] OF INPATIENT REHAB. CM NOTIFIED DR. TURPIN. CM REVIEWED CHART, OCCUPATIONAL THERAPY EVALUATION DOCUMENTED. CM WAITING INSURANCE AUTHORIZATION FROM PT'S INSURANCE COMPANY FOR INPATIENT REHAB AT [place]. SHAHBAZ Odell DCP- Discharge Planning Updated by [id number]: Joseph Sanders on 01/18/19 4:[address] Patient Name: JAMIE CORBIN Encounter No: [id number] : 1950 Primary Insurance: [place] PPO MCR ADVANT Anticipated DC Date: Planned Disposition: Inpatient Rehab External Planned Provider: [facility] INPATIENT REHAB DCP follow-up note: CM MET WITH PT IN ROOM TO DISCUSS DISCHARGE NEEDS AND PLANNING. CM DISCUSSED AVAILABILITY OF HOME HEALTH, REHAB SERVICES AND MEDICAL EQUIPMENT. PT REPORTS SHE IS WEAK AND SHOULD PROBABLY GO TO REHAB. CM DISCUSSED REHAB OPTIONS, LOCATIONS AND PROVIDERS. PT WILL CONSIDER REHAB AT [place], PT WOULD LIKE CM TO SPEAK TO HER SPOUSE TO VERIFY THIS IS A PLAN HE WOULD AGREE WITH. CM CALLED SHAWN CORBIN, , THE LINE WAS BUSY, CM CALLED THREE TIMES. PT REPORTS SHE PLANS TO DRIVE HERSELF TO [facility] [place] [facility] AND IF SHE NEEDS HELP WITH TRANSPORT, HER SPOUSE, SHAWN, WILL ASSIST. PT REPORTS SHAWN, HER SPOUSE, WILL PICK HER UP FOR DISCHARGE HOME. IMPORTANT MESSAGE FROM MEDICARE PROVIDED AND EXPLAINED. CM TO FOLLOW AND ASSIST NEEDED. PT WILL CONSIDER REHAB AT [facility]. CM TO CONTINUE TO ATTEMPT TO CONTACT PT'S SPOUSE, SHAWN, , TO DISCUSS DISCHARGE PLAN. CM TO ASK PHYSICIAN FOR INPATIENT REHAB PRESCREENING ORDER PT'S INSURANCE WILL REQUIRE PRIOR AUTHORIZATION. SHAHBAZ Odell DCP- Discharge Planning Updated by [id number]: Joseph Sanders on 01/09/19 3:[address] Patient Name: JAMIE CORBIN Admission Status: ER Accout number: [id number] Admission Date: 01-08-2019 : 1950 Admission Diagnosis: Attending: JAMISON TURPIN Current LOS: 1 Anticipated DC Date: Planned Disposition: Home Primary Insurance: HUMANA CHOICE PPO MCR ADVANT Discharge Planning Comments: CM MET WITH PT IN ROOM TO DISCUSS DISCHARGE PLANNING AND NEEDS. PT REPORTS LIVING AT HOME INDEPENDENTLY AND ALONE. PT HAS A WALKER WITH NO MEDICAL EQUIPMENT PROVIDER PREFERENCE. PT HAS NO OUTSIDE SERVICES ASSISTING IN THE HOME. CM DISCUSSED AVAILABILITY OF HOME HEALTH, REHAB SERVICES AND MEDICAL EQUIPMENT. PT DENIES DISCHARGE NEEDS, REPORTS HER SPOUSE WILL PICK HER UP FOR DISCHARGE HOME. PT PLANS TO DISCHARGE HOME ALONE, SEPERATED SPOUSE TO ASSIST PT AT HOME IF NECESSARY. SEPERATED SPOUSE TO TRANSPORT HOME AT DISCHARGE. PT HAS NO ANTICIPATED DISCHARGE NEEDS AT THIS TIME. CM TO CONTINUE TO FOLLOW AND ASSIST NEEDED. Field Mechanic/Site Lead: Joseph Sanders DCPIA - Discharge Planning Initial Assessment Updated by [id number]: Joseph Sanders on 01/09/19 4:49 pm * Is the patient Alert and Oriented? Yes * How many steps to enter\exit or inside your home? * PCP DR. BATRES IN [place] * Pharmacy [facility] IN [place] * Preadmission Environment Home with Family * ADLs Independent * Equipment Walker * Other Equipment NO MEDICAL EQUIPMENT PROVIDER PREFERENCE * List name and contact numbers for known caregivers / representatives who currently or will assist patient after discharge: SHAWN CORBIN, SEPERATED SPOUSE, * Verbal permission to speak to the caregivers and representatives has been obtained from the patient. Yes * Community resources currently utilized None * Please name any agencies selected above. NONE * Additional services required to return to the preadmission environment? No * Can the patient safely return to the preadmission environment? Yes * Has this patient been hospitalized within the prior 30 days at any hospital? No External Providers External Provider: OTHER-OTHER Next Contact Date: 01/31/2019 Service Request Date: Service Type: Resolution: Reviewer: Comments: Coverage Notice Reviewer: [id number] Darion Sanders Notice Issued Date-Time: 01/18/2019 17:10 Notice Type: IM Discharge Notice Notice Delivered To: Patient Relationship to Patient: Mold Making Supervisor Name: Delivery Method: HAND - Hand Delivered Ximena Days: Prior Verbal Notification: Recipient Understood Notice: Yes Recipient Signature: Yes Med Rec Note Co-signed by Attending: Coverage Notice Comment: Reviewer: [id number] Sanders Notice Issued Date-Time: 01/19/2019 15:04 Notice Type: Patient Choice Letter Notice Delivered To: Patient Relationship to Patient: Mold Making Supervisor Name: Delivery Method: HAND - Hand Delivered Ximena Days: Prior Verbal Notification: Recipient Understood Notice: Yes Recipient Signature: Yes Med Rec Note Co-signed by Attending: Coverage Notice Comment: EVA LOZADA, [facility], [facility]. Reviewer: [id number] - Joseph Sanders Notice Issued Date-Time: 01/25/2019 9:25 Notice Type: IM Discharge Notice Notice Delivered To: Patient Relationship to Patient: Mold Making Supervisor Name: Delivery Method: HAND - Hand Delivered Ximena Days: Prior Verbal Notification: Recipient Understood Notice: Yes Recipient Signature: Yes Med Rec Note Co-signed by Attending: Coverage Notice Comment: Last DP export: 01/31/19 11:25 Patient Name: JAMIE CORBIN Page [id number] at 1546 All edits/amendments must be made on the electronic document DICTATION DATE: 01/31/191544 JAVA WEB DEVELOPER: ANIBAL 01/31/191544 RPT#: [id number] DC DATE: STATUS: ADM IN [facility] [address] [place] [address] END OF REPORT
--- NOTE | 2019-01-31 16:05 | MORECARE ---
CASE MANAGEMENT DISCHARGE SUMMARY PATIENT: JAMIE CORBIN UNIT: [id number] ADM DATE: 01/08/19 AGE: 68 : 50 SEX: F ROOM/BED: D.5631 AUTHOR: SCOUT,DOC PHYSICIAN: REFERRING PHYSICIAN: JAMISON TURPIN MD DATE OF SERVICE: 01/31/19 Discharge Plan Patient Name: JAMIE CORBIN Facility: [facility]:[place] : 1950 Planned Disposition: Half-Way Facility Anticipated Discharge Date: 01/31/19 Discharge Date: Expected LOS: 23 Initial Reviewer: [id number] Initial Review Date: 01/09/2019 Generated: 01/31/19 5:04 pm Comments DCP- Discharge Planning Updated by [id number]: Joseph Sanders on 01/31/19 3:[address] Patient Name: JAMIE CORBIN Encounter No: [id number] : 1950 Primary Insurance: HUMANA CHOICE PPO MCR ADVANT Anticipated DC Date: 01-31-2019 Planned Disposition: Half-Way Facility External Planned Provider: [facility], MEDICARE REHAB BED DCP follow-up note: CM RECEIVED CALL FROM FAWAD WITH THE [facility] WHO ASKED IF PT WILL CONSIDER THE [facility], THEY WOULD NEED NEW DIALYSIS UNIT IN [place]. CM RECEIVED CALL FROM KE[facility] WHO REPORTS THEY CANNOT TRANSPORT ON TTS DIALYSIS SCHEDULE AND COULD IF PT HAS MWF SCHEDULE. CM SPOKE TO CLARA OF [facility] WHO INFORMED CM THAT [facility] DOES NOT HAVE A MWF CHAIR AVAILABLE. CM SPOKE TO PT IN ROOM, PROVIDED LISTING OF IN NETWORK NURSING FACILITIES PROVIDED BY PT'S INSURANCE PROVIDER; EXPLAINED ISSUES WITH GETTING MWF SHEDULE AT [facility], OFFERED TO LOOK ELSEWHERE FOR SKILLED REHAB WHICH WILL NECCESSITATE CHANGE IN OUTPATIENT DIALYSIS UNIT. PT CALLED HER SPOUSE VIA PHONE AND DISCUSSED ISSUE. PT GOT OFF PHONE AND INFORMED CM THAT SHE WILL TRY [facility] [place] WITH A [facility] AND THEY WILL "HAVE TO DO WHAEVER THEY HAVE TO". CHOICE SIGNED FOR [facility]. IMPORTANT MESSAGE FROM MEDICARE PROVIDED AND EXPLAINED. CM NOTIFIED CLARA OF [facility]. CM CALLED [facility], , SPOKE TO RAISSA WHO COULD NOT TELL CM IF THEY WILL TRANSPORT TO DIALYSIS IN [place] AND INFORMED CM THAT CM WILL NEED TO FAX REFERRAL FOR REVIEW. CM FAXED REFERRAL TO JOSE R GIPSON OF [facility] AT [phone]. CM WAITING ON ADMISSION DETERMINATION FROM [facility] IN [place]; IF THEY ACCEPT, CM WILL HAVE OUTPATIENT DIALYSIS UNIT CHANGE TO [place]. Joseph Sanders CASE MANAGEMENT DCP- Discharge Planning Updated by [id number]: Joseph Sanders on 01/31/19 11:[address] Patient Name: JAMIE CORBIN Encounter No: [id number] : 1950 Primary Insurance: [employer] PPO [facility] ADVANT Anticipated DC Date: 01-31-2019 Planned Disposition: Half-Way Facility External Planned Provider: [facility], MEDICARE REHAB BED DCP follow-up note: CM FAXED REFERRAL UPDATE TO LEENA [facility], . CM WAITING ADMISSION DETERMINATION FROM [facility] IN [place] FOR REHAB WELL INSURANCE AUTHORIZATION FROM PT'S INSURANCE COMPANY. Joseph Sanders, CASE MANAGEMENT Appended by Joseph Sanders on 01/31/2019 12:18 ENERGY AUDITOR: CM RECEIVED CALL FROM [facility] AT ABOUT 1034 HOURS, THEY ARE LOOKING AT PT FOR REHAB ADMISSION AND WILL CALL SOON DECISION IS MADE. CM WAITING ADMISSION DETERMINATION FROM [facility] IN [place] FOR REHAB WELL INSURANCE AUTHORIZATION FROM PT'S INSURANCE COMPANY. Joseph Sanders CASE MANAGEMENT DCP- Discharge Planning Updated by [id number]: Joseph Sanders on 01/30/19 2:[address] Patient Name: JAMIE CORBIN Encounter No: [id number] : 1950 Primary Insurance: [employer] PPO [facility] ADVANT Anticipated DC Date: 01-31-2019 Planned Disposition: Half-Way Facility External Planned Provider: [facility], MEDICARE REHAB BED DCP follow-up note: CM RECEIVED CALL FROM FAWAD OF [facility] WHO STATES THAT SHE AND THE FACILITY WERE MISTAKEN, THEY ARE OUT OF NETWORK AND CAN APPLY FOR EXEMPTION ONLY IF DECLINED BY IN NETWORK FACILITIES IN HER AREA, [facility] IN [place], [facility] IN [place] AND [facility] IN [place]. CM RECEIVED CALL FROM [facility] WHO REPORTS RECEIVING REFERRAL, BEING IN NETWORK AND IS LOOKING AT PT FOR ADMISSION. CM WAITING ADMISSION DETERMINATION FROM [facility] IN [place] FOR REHAB WELL INSURANCE AUTHORIZATION FROM PT'S INSURANCE COMPANY. Joseph Sanders CASE MANAGEMENT DCP- Discharge Planning Updated by [id number]: Joseph Sanders on 01/30/19 7:[address] Patient Name: JAMIE CORBIN Encounter No: [id number] : 1950 Primary Insurance: HUMANA CHOICE PPO MCR ADVANT Anticipated DC Date: 01-27-2019 Planned Disposition: Half-Way Facility External Planned Provider: [facility] MEDICARE REHAB BED DCP follow-up note: CM FAXED REFERRAL UPDATE TO [facility] AT [phone]. CM FAXED REFERRAL TO [facility] AT [phone], CHOICE PREVIOUSLY SIGNED BY PT. CM WAITING ADMISSION DETERMINATION FROM [facility] FOR REHAB, ADMISSION DETERMINATION FROM [facility] IN [place] FOR REHAB WELL INSURANCE AUTHORIZATION FROM PT'S INSURANCE COMPANY. Joseph Sanders CASE MANAGEMENT DCP- Discharge Planning Updated by [id number]: Joseph Sanders on 01/27/19 12:[address] Patient Name: JAMIE CORBIN Admission Status: ER Accout number: [id number] Admission Date: 01-08-2019 : 1950 Admission Diagnosis: Attending: JAMISON TURPIN Current LOS: 19 Anticipated DC Date: 01-27-2019 Planned Disposition: Half-Way Facility Primary Insurance: HUMANA CHOICE PPO MCR ADVANT PLANNED EXTERAL PROVIDER: EVA LOZADA MEDICARE REHAB BED DCP follow-up note: CM SPOKE TO ERICKSON OF [facility], THEY HAVE NOT YET RECEIVED INSURANCE AUTHORIZATION, ERICKSON DOES NOT THINK THEY WILL HAVE STAFF TO DO WEEKEND ADMISSION. IF THEY RECEIVE AUTH OVER WEEKEND, IT WILL BE WEDNESDAY TO ACCEPT TO REHAB. WILL ACCEPT PENDING INSURANCE AUTHORATION. CM FAXED UPDATE TO [facility] AT [phone]. CM RECEIVED CALL FROM ERICKSON BRITO [facility], SHE INFORMED CM THAT PT'S INSURANCE CALLED AND INFORMED HER THAT PT HAS HMO, NOT PPO, [facility] NOT IN NETWORK. THE INSURANCE COMPANY WOULD NOT PROVIDE LIST OF IN NETWORK FACILITIES AND REPORTED IT TO BE ON LINE IF NEEDED. CM CALLED [facility] , SPOKE TO RAÚL WHO INFORMED CM THAT DIALYSIS ON TTS IS NOT A PROBLEM AND SHE WILL CHECK TO SEE IF IN NETWORK; SHE WILL SCREEN FOR ADMISSION. CM NOTIFIED PT WHO IS IN AGREEMENT WITH PLAN. CM FAXED REFERRAL TO [facility] AT [phone]. CM WAITING ADMISSION DETERMINATION FROM [facility] IN [place] FOR REHAB WELL INSURANCE AUTHORIZATION FROM PT'S INSURANCE COMPANY. Joseph Sanders CASE MANAGEMENT DCP- Discharge Planning Updated by [id number]: Joseph Sanders on 01/26/19 8:[address] Patient Name: JAMIE CORBIN Encounter No: [id number] : 1950 Primary Insurance: HUMANA CHOICE PPO MCR ADVANT Anticipated DC Date: 01-26-2019 Planned Disposition: Half-Way Facility External Planned Provider: [facility] [place] AND [facility], MEDICARE REHAB BED DCP follow-up note: CM SPOKE TO KATHY OF [facility] WHO MET WITH PT IN ROOM YESTERDAY, THEY WILL ACCEPT PENDING INSURANCE AUTHORATION. CM FAXED UPDATE TO [facility] AT [phone]. CM WAITING INSURANCE DETERMINATION FOR REHAB AT [facility]. SHAHBAZ Odell DCP- Discharge Planning Updated by [id number]: Joseph Sanders on 01/25/19 11:[address] Patient Name: JAMIE CORBIN Encounter No: [id number] : 1950 Primary Insurance: HUMANA CHOICE PPO MCR ADVANT Anticipated DC Date: 01-26-2019 Planned Disposition: Half-Way Facility External Planned Provider: [facility] [place] AND REHAB, MEDICARE REHAB BED DCP follow-up note: CM SPOKE TO MAC OF [facility]PATIENT REHAB AT [facility] TEAM MEETING WHO ADVISED THAT SHE CALLED PT'S INSURANCE COMPANY AND WAS ADVISED REHAB WAS DECLINED BY INSURANCE AND PEER TO PEER INFORMATION WAS SENT TO LULÚ OF CASE MANAGEMENT YESTERDAY. SIMRAN IRIZARRY ASKED THAT [facility] NURSE PRACTITIONER BE ASKED IF SHE WILL DO THE PEER TO PEER. CM SPOKE TO RISHABH OF [facility] WHO ADVISED THAT PEER TO PEER WILL NOT BE DONE, PT CAN GO TO [facility]. CM NOTIFIED PT IN ROOM. CM RECEIVED MESSAGE FROM KATHY OF [facility] WHO ADVISED THAT THEY WILL ACCEPT PENDING INSURANCE AUTHORATION. CM FAXED UPDATE TO [facility] AT [phone]. CM NOTIFIED CLARA OF [facility] FOR WELCOME LETTER DELIVERY TO PT FOR OUTPATIENT DIALYSIS CLINIC. CM NOTIFIED PT WHO IS IN AGREEMENT WITH DISCHARGE PLAN. CM WAITING INSURANCE DETERMINATION FOR REHAB AT [facility]. SHAHBAZ Odell DCP- Discharge Planning Updated by [id number]: Joseph Sanders on 01/25/19 8:[address] Patient Name: JAMIE CORBIN Encounter No: [id number] : 1950 Primary Insurance: HUMANA CHOICE PPO MCR ADVANT Anticipated DC Date: 01-20-2019 Planned Disposition: Inpatient Rehab External Planned Provider: [facility] INPATIENT REHAB DCP follow-up note: CM SPOKE TO PT REGARDING DISCHARGE PLANNING, INFORMED OF REFERRAL PENDING AT [facility] FOR REHAB. PT AND SPOUSE IN AGREEMENT WITH PLAN IF DENIED INPATIENT REHAB BY INSURANCE. IMPORTANT MESSAGE FROM MEDICARE PROVIDED AND EXPLAINED. CM CALLED KATHY BRITO [facility], , VERIFIED HER RECEIPT OF REFERRAL AND THAT DIALYSIS DAYS [facility] HAS AVAILABLE FOR DIALYSIS ARE TTS, MIDSHIFT (10-1100 AM.) CM WAITING INSURANCE AUTHORIZATION FROM PT'S INSURANCE COMPANY FOR INPATIENT REHAB AT [place]. CM WAITING ADMISSION DETERMINATION FROM [facility]. SHAHBAZ Odell DCP- Discharge Planning Updated by [id number]: Joseph Sanders on 01/24/19 1:[address] Patient Name: JAMIE CORBIN Encounter No: [id number] : 1950 Primary Insurance: HUMANA CHOICE PPO MCR ADVANT Anticipated DC Date: 01-20-2019 Planned Disposition: Inpatient Rehab External Planned Provider: [facility] INPATIENT REHAB DCP follow-up note: CM SPOKE TO PT REGARDING DISCHARGE PLANNING, INFORMED PT OF LIKELY DENIAL FROM HER INSURANCE FOR INPATIENT REHAB. PT WOULD LIKE REFERRAL TO [facility] FOR REHAB PREVIOUSLY DISCUSSED (CHOICE PREVIOUSLY SIGNED FOR [facility]). CM CALLED KATHY BRITO [facility], , INFORMED OF REFERRAL AND THAT DIALYSIS DAYS [facility] HAS AVAILABLE FOR DIALYSIS ARE TTS, MIDSHIFT (10-1100 AM. ) CM FAXED REFERRAL FOR REHAB SERVICES TO [facility] [phone]. CM WAITING INSURANCE AUTHORIZATION FROM PT'S INSURANCE COMPANY FOR INPATIENT REHAB AT [place]. CM WAITING ADMISSION DETERMINATION FROM [facility]. Jsoeph Sanders CASE MANAGEMENT DCP- Discharge Planning Updated by [id number]: Joseph Sanders on 01/20/19 12:[address] Patient Name: JAMIE CORBIN Encounter No: [id number] : 1950 Primary Insurance: HUMANA CHOICE PPO MCR ADVANT Anticipated DC Date: 01-20-2019 Planned Disposition: Inpatient Rehab External Planned Provider: [facility] INPATIENT REHAB DCP follow-up note: CM RECEIVED CALL FROM MAICOL OF [facility], SHE HAS CHECKED AT [facility], THE ONLY DAYS THEY HAVE AVAILABLE FOR DIALYSIS ARE TTS, MIDSHIFT (10-1100 AM.) MAICOL IS NOT GOING FURTHER WITH PLACEMENT PROCESS UNTIL IT IS DETERMINED IF PT IS GOING TO INPATIENT REHAB OR [facility]. ANA M WAITING INSURANCE AUTHORIZATION FROM PT'S INSURANCE COMPANY FOR INPATIENT REHAB AT [place]. Joseph Sanders CASE KEELEY DCP- Discharge Planning Updated by [id number]: Joseph Sanders on 01/19/19 4:[address] Patient Name: JAMIE CORBIN Encounter No: [id number] : 1950 Primary Insurance: HUMANA CHOICE PPO MCR ADVANT Anticipated DC Date: 01-20-2019 Planned Disposition: Inpatient Rehab External Planned Provider: [facility] INPATIENT REHAB DCP follow-up note: CM SPOKE TO RN ANA M FRANZ WHO ADVISED CM THAT LINE INSTALLATION SUPERVISOR INFORMED HER THAT PT IS [facility] APPROPRIATE AND NOT TO WASTE CM'S TIME SUBMITTING FOR INPATIENT REHAB. CM SPOKE TO PT AND SPOUSE IN ROOM. PT AND SPOUSE BOTH WOULD LIKE REHAB AT [facility] IF POSSIBLE. CM DISCUSSED [facility] FOR REHAB. THEY WANTED TO DISCUSS THIS WITHOUT CM THERE. CM LEFT. CM RETURNED IN ABOUT ONE HOUR. PT AND SPOUSE REPORT IF PT CANNOT GET INTO INPATIENT REHAB, THEY WOULD GO TO A DETENTION FACILTY THAT COULD TRANSPORT PT TO AND FROM OUTPATIENT DIALYSIS IN [place]. CHOICE SIGNED FOR [facility]. CM NOTIFIED NANO OF INPATIENT REHAB. CM NOTIFIED DR. TURPIN. CM REVIEWED CHART, OCCUPATIONAL THERAPY EVALUATION DOCUMENTED. CM WAITING INSURANCE AUTHORIZATION FROM PT'S INSURANCE COMPANY FOR INPATIENT REHAB AT [place]. SHAHBAZ Odell DCP- Discharge Planning Updated by [id number]: Joseph Sanders on 01/18/19 4:[address] Patient Name: JAMIE CORBIN Encounter No: [id number] : 1950 Primary Insurance: HUMANA CHOICE PPO MCR ADVANT Anticipated DC Date: Planned Disposition: Inpatient Rehab External Planned Provider: [facility] INPATIENT REHAB DCP follow-up note: CM MET WITH PT IN ROOM TO DISCUSS DISCHARGE NEEDS AND PLANNING. CM DISCUSSED AVAILABILITY OF HOME HEALTH, REHAB SERVICES AND MEDICAL EQUIPMENT. PT REPORTS SHE IS WEAK AND SHOULD PROBABLY GO TO REHAB. CM DISCUSSED REHAB OPTIONS, LOCATIONS AND PROVIDERS. PT WILL CONSIDER REHAB AT [place], PT WOULD LIKE CM TO SPEAK TO HER SPOUSE TO VERIFY THIS IS A PLAN HE WOULD AGREE WITH. CM CALLED SHAWN CORBIN, , THE LINE WAS BUSY, CM CALLED THREE TIMES. PT REPORTS SHE PLANS [facility] DR[facility]SELF [facility] AND IF SHE NEEDS HELP WITH TRANSPORT, HER SPOUSE, SHAWN, WILL ASSIST. PT REPORTS SHAWN, HER SPOUSE, WILL PICK HER UP FOR DISCHARGE HOME. IMPORTANT MESSAGE FROM MEDICARE PROVIDED AND EXPLAINED. CM TO FOLLOW AND ASSIST NEEDED. PT WILL CONSIDER REHAB AT [facility]. CM TO CONTINUE TO ATTEMPT TO CONTACT PT'S SPOUSE, SHAWN, , TO DISCUSS DISCHARGE PLAN. CM TO ASK PHYSICIAN FOR INPATIENT REHAB PRESCREENING ORDER PT'S INSURANCE WILL REQUIRE PRIOR AUTHORIZATION. SHAHBAZ Odell DCP- Discharge Planning Updated by [id number]: Joseph Sanders on 01/09/19 3:[address] Patient Name: JAMIE CORBIN Admission Status: ER Accout number: [id number] Admission Date: 01-08-2019 : 1950 Admission Diagnosis: Attending: JAMISON TURPIN Current LOS: 1 Anticipated DC Date: Planned Disposition: Home Primary Insurance: HU[employer]NA CHOICE PPO MCR ADVANT Discharge Planning Comments: CM MET WITH PT IN ROOM TO DISCUSS DISCHARGE PLANNING AND NEEDS. PT REPORTS LIVING AT HOME INDEPENDENTLY AND ALONE. PT HAS A WALKER WITH NO MEDICAL EQUIPMENT PROVIDER PREFERENCE. PT HAS NO OUTSIDE SERVICES ASSISTING IN THE HOME. CM DISCUSSED AVAILABILITY OF HOME HEALTH, REHAB SERVICES AND MEDICAL EQUIPMENT. PT DENIES DISCHARGE NEEDS, REPORTS HER SPOUSE WILL PICK HER UP FOR DISCHARGE HOME. PT PLANS TO DISCHARGE HOME ALONE, SEPERATED SPOUSE TO ASSIST PT AT HOME IF NECESSARY. SEPERATED SPOUSE TO TRANSPORT HOME AT DISCHARGE. PT HAS NO ANTICIPATED DISCHARGE NEEDS AT THIS TIME. CM TO CONTINUE TO FOLLOW AND ASSIST NEEDED. Computer Security Manager: Joseph Sanders DCPIA - Discharge Planning Initial Assessment Updated by CURT: Joseph Sanders on 01/09/19 4:49 pm * Is the patient Alert and Oriented? Yes * How many steps to enter\\exit or inside your home? * PCP DR. BATRES IN [place] * Pharmacy [facility] IN [place] * Preadmission Environment Home with Family * ADLs Independent * Equipment Walker * Other Equipment NO MEDICAL EQUIPMENT PROVIDER PREFERENCE * List name and contact numbers for known caregivers / representatives who currently or will assist patient after discharge: SHAWN CORBIN, SEPERATED SPOUSE, * Verbal permission to speak to the caregivers and representatives has been obtained from the patient. Yes * Community resources currently utilized None * Please name any agencies selected above. NONE * Additional services required to return to the preadmission environment? No * Can the patient safely return to the preadmission environment? Yes * Has this patient been hospitalized within the prior 30 days at any hospital? No Coverage Notice Reviewer: CURT Sanders Notice Issued Date-Time: 01/18/2019 17:10 Notice Type: IM Discharge Notice Notice Delivered To: Patient Relationship to Patient: Charging Machine Operator Name: Delivery Method: HAND - Hand Delivered Ximena Days: Prior Verbal Notification: Recipient Understood Notice: Yes Recipient Signature: Yes Med Rec Note Co-signed by Attending: Coverage Notice Comment: Reviewer: CURT Sanders Notice Issued Date-Time: 01/19/2019 15:04 Notice Type: Patient Choice Letter Notice Delivered To: Patient Relationship to Patient: Charging Machine Operator Name: Delivery Method: HAND - Hand Delivered Ximena Days: Prior Verbal Notification: Recipient Understood Notice: Yes Recipient Signature: Yes Med Rec Note Co-signed by Attending: Coverage Notice Comment: EVA LOZADA, [facility] [employer] [facility], [facility]. Reviewer: [id number] Sanders Notice Issued Date-Time: 01/25/2019 9:25 Notice Type: IM Discharge Notice Notice Delivered To: Patient Relationship to Patient: Charging Machine Operator Name: Delivery Method: HAND - Hand Delivered Ximena Days: Prior Verbal Notification: Recipient Understood Notice: Yes Recipient Signature: Yes Med Rec Note Co-signed by Attending: Coverage Notice Comment: Reviewer: [id number] - Joseph Sanders Notice Issued Date-Time: 01/31/2019 15:20 Notice Type: IM Discharge Notice Notice Delivered To: Patient Relationship to Patient: Charging Machine Operator Name: Delivery Method: HAND - Hand Delivered Ximena Days: Prior Verbal Notification: Recipient Understood Notice: Yes Recipient Signature: Yes Med Rec Note Co-signed by Attending: Coverage Notice Comment: Last DP export: 01/31/19 2:46 Patient Name: JAMIE CORBIN Page [id number] Electronically Signed by [facility] on 01/31/19 at 1605 All edits/amendments must be made on the electronic document DICTATION DATE: 01/31/191603 RADIO INTERFERENCE EXPERT: ANIBAL 01/31/191603 RPT#: [id number] DC DATE: STATUS: ADM IN [facility] [address] [place] [address] END OF REPORT
--- NOTE | 2019-01-31 16:33 | NUR ---
FSBS 238. 4 UNITS HUMALOG ADMINISTERED PER SLIDING SCALE.
--- NOTE | 2019-01-31 18:40 | NUR ---
RESTING IN BED WITH EYES CLOSED. EASILY AROUSED. NO DISTRESS.
[2019-01-31 20:00] VITALS: BP 131/69
--- NOTE | 2019-01-31 22:57 | NUR ---
PT RESTING IN BED WATCHING TELEVISION. NO SIGNS OR SYMPTOMS OF DISTRESS. RESPIRATIONS EVEN AND UNLABORED. PRN TRAMADOL GIVEN FOR 8/10 PAIN LEVEL. DURING REASSESSMENT FOR PAIN IS 3/10. PT IS ALERT AND ORIENTED TO PERSON AND PLACE. SHE DOES SHOW SOME CONFUSION AT TIMES. LEFT AC IV SALINE LOCKED. RESERVE RIGHT ARM. RIGHT ARM INCESION IS CLEAN, INTACT, HAS REDNESS AND SOME SWELLING. NO DRAINAGE IS PRESENT. PT HAS RED BITES ALL OVER BODY. PT STATES THAT THE RED BITES ARE FROM ANTS THAT IS ON HER PORCH. NO DISCOMFORT NOTED AT THIS TIME. BED IN LOWEST POSITION AND CALL LIGHT IS WITHIN REACH. PT ADVISED TO CALL AND NOT FALL. WILL CONTINUE TO MONITOR.
[2019-02-01 01:21] VITALS: BP 139/50
[2019-02-01 04:00] VITALS: BP 137/57
--- NOTE | 2019-02-01 06:32 | NUR ---
BATH AND BED CHANGE COMPLETE. NO SIGNS OR SYMPTOMS OF DISTRESS. RESPIRATIONS EVEN AND UNLABORED. PRN TRAMADOL GIVEN FOR PAIN 08/24. PAIN REASSESSMENT . BED IN LOWEST POSITION AND CALL LIGHT IS WITHIN REACH. PT ADVISED TO CALL AND NOT FALL. WILL CONTINUE TO MONITOR.
--- NOTE | 2019-02-01 07:53 | NUR ---
RECIEVED REPORT. PATIENT IS ALERT AND AWAKE AT THIS ITME. DENIES ANY NEEDS AT THIS TIME.
[2019-02-01 07:59] VITALS: BP 150/62
--- NOTE | 2019-02-01 09:43 | MORECARE ---
CASE MANAGEMENT DISCHARGE SUMMARY PATIENT: JAMIE CORBIN UNIT: [id number] ADM DATE: 01/08/19 AGE: 68 : 50 SEX: F ROOM/BED: D.4483 AUTHOR: SCOUT,DOC PHYSICIAN: REFERRING PHYSICIAN: JAMISON TURPIN MD DATE OF SERVICE: 02/01/19 Discharge Plan Patient Name: JAMIE CORBIN Facility: [facility]:[place] : 1950 Planned Disposition: [facility] Facility Anticipated Discharge Date: 02/01/19 Discharge Date: Expected LOS: 24 Initial Reviewer: [id number] Initial Review Date: 01/09/2019 Generated: 02/01/19 10:42 am Comments DCP- Discharge Planning Updated by [id number]: Joseph Sanders on 01/31/19 3:[address] Patient Name: JAMIE CORBIN Encounter No: [id number] : 1950 Primary Insurance: HUMANA CHOICE PPO MCR ADVANT Anticipated DC Date: 01-31-2019 Planned Disposition: [facility] Facility External Planned Provider: [facility], MEDICARE REHAB BED DCP follow-up note: CM RECEIVED CALL FROM FAWAD WITH THE [facility] WHO ASKED IF PT WILL CONSIDER THE [facility], THEY WOULD NEED NEW DIALYSIS UNIT IN [place]. CM RECEIVED CALL FROM KEERTHI WHO REPORTS THEY CANNOT TRANSPORT ON TTS DIALYSIS SCHEDULE AND COULD IF PT HAS MWF SCHEDULE. CM SPOKE TO CLARA OF [facility] WHO INFORMED CM THAT [facility] DOES NOT HAVE A MWF CHAIR AVAILABLE. CM SPOKE TO PT IN ROOM, PROVIDED LISTING OF IN NETWORK NURSING FACILITIES PROVIDED BY PT'S INSURANCE PROVIDER; EXPLAINED ISSUES WITH GETTING MWF SHEDULE AT [facility], OFFERED TO LOOK ELSEWHERE FOR SKILLED REHAB WHICH WILL NECCESSITATE CHANGE IN OUTPATIENT DIALYSIS UNIT. PT CALLED HER SPOUSE VIA PHONE AND DISCUSSED ISSUE. PT GOT OFF PHONE AND INFORMED CM THAT SHE WILL TRY [facility] [place] WITH A [facility]IAL[facility] UN[facility] AND THEY WILL "HAVE TO DO WHAEVER THEY HAVE TO". CHOICE SIGNED FOR [facility]. IMPORTANT MESSAGE FROM MEDICARE PROVIDED AND EXPLAINED. CM NOTIFIED CLARA OF [facility]. CM CALLED [facility], , SPOKE TO RAISSA WHO COULD NOT TELL CM IF THEY WILL TRANSPORT TO DIALYSIS IN [place] AND INFORMED CM THAT CM WILL NEED TO FAX REFERRAL FOR REVIEW. CM FAXED REFERRAL TO JOSE R GIPSON OF [facility] AT [phone]. CM WAITING ON ADMISSION DETERMINATION FROM [facility] IN [place]; IF THEY ACCEPT, CM WILL HAVE OUTPATIENT DIALYSIS UNIT CHANGE TO [place]. Joseph Sanders CASE MANAGEMENT DCP- Discharge Planning Updated by [id number]: Joseph Sanders on 01/31/19 11:[address] Patient Name: JAMIE CORBIN Encounter No: [id number] : 1950 Primary Insurance: [employer] PPO [facility] ADVANT Anticipated DC Date: 01-31-2019 Planned Disposition: [facility] Facility External Planned Provider: [facility], MEDICARE REHAB BED DCP follow-up note: CM FAXED REFERRAL UPDATE TO LEENA OF [facility], . CM WAITING ADMISSION DETERMINATION FROM [facility] IN [place] FOR REHAB WELL INSURANCE AUTHORIZATION FROM PT'S INSURANCE COMPANY. Joseph Sanders, CASE MANAGEMENT Appended by Joseph Sanders on 01/31/2019 12:18 WATERPROOF MATERIAL FOLDER: CM RECEIVED CALL FROM [facility] AND [facility] AT ABOUT 1034 HOURS, THEY ARE LOOKING AT PT FOR REHAB ADMISSION AND WILL CALL SOON DECISION IS MADE. CM WAITING ADMISSION DETERMINATION FROM [facility] IN [place] FOR REHAB WELL INSURANCE AUTHORIZATION FROM PT'S INSURANCE COMPANY. Joseph Sanders CASE MANAGEMENT DCP- Discharge Planning Updated by [id number]: Joseph Sanders on 01/30/19 2:[address] Patient Name: JAMIE CORBIN Encounter No: [id number] : 1950 Primary Insurance: [employer] PPO [facility] ADVANT Anticipated DC Date: 01-31-2019 Planned Disposition: [facility] Facility External Planned Provider: [facility], MEDICARE REHAB BED DCP follow-up note: CM RECEIVED CALL FROM FAWAD OF [facility] WHO STATES THAT SHE AND THE FACILITY WERE MISTAKEN, THEY ARE OUT OF NETWORK AND CAN APPLY FOR EXEMPTION ONLY IF DECLINED BY IN NETWORK FACILITIES IN HER AREA, [facility] IN [place], [facility] IN [place] AND [facility] IN [place]. CM RECEIVED CALL FROM [facility] WHO REPORTS RECEIVING REFERRAL, BEING IN NETWORK AND IS LOOKING AT PT FOR ADMISSION. CM WAITING ADMISSION DETERMINATION FROM [facility] IN [place] FOR REHAB WELL INSURANCE AUTHORIZATION FROM PT'S INSURANCE COMPANY. Joseph Sanders CASE MANAGEMENT DCP- Discharge Planning Updated by [id number]: Joseph Sanders on 01/30/19 7:[address] Patient Name: JAMIE CORBIN Encounter No: [id number] : 1950 Primary Insurance: HUMANA CHOICE PPO MCR ADVANT Anticipated DC Date: 01-27-2019 Planned Disposition: [facility] Facility External Planned Provider: [facility] MEDICARE REHAB BED DCP follow-up note: CM FAXED REFERRAL UPDATE TO [facility] AT [phone]. CM FAXED REFERRAL TO [facility] AT [phone], CHOICE PREVIOUSLY SIGNED BY PT. CM WAITING ADMISSION DETERMINATION FROM [facility] FOR [facility], ADMISSION DETERMINATION FROM [facility] IN [place] FOR REHAB WELL INSURANCE AUTHORIZATION FROM PT'S INSURANCE COMPANY. Joseph Sanders CASE MANAGEMENT DCP- Discharge Planning Updated by [id number]: Joseph Sanders on 01/27/19 12:[address] Patient Name: JAMIE CORBIN Admission Status: ER Accout number: [id number] Admission Date: 01-08-2019 : 1950 Admission Diagnosis: Attending: JAMISON TURPIN Current LOS: 19 Anticipated DC Date: 01-27-2019 Planned Disposition: [facility] Facility Primary Insurance: HUMANA CHOICE PPO MCR ADVANT PLANNED EXTERAL PROVIDER: EVA LOZADA MEDICARE REHAB BED DCP follow-up note: CM SPOKE TO ERICKSON OF [facility], THEY HAVE NOT YET RECEIVED INSURANCE AUTHORIZATION, ERICKSON DOES NOT THINK THEY WILL HAVE STAFF TO DO WEEKEND ADMISSION. IF THEY RECEIVE AUTH OVER WEEKEND, IT WILL BE WEDNESDAY TO ACCEPT TO REHAB. WILL ACCEPT PENDING INSURANCE AUTHORATION. CM FAXED UPDATE TO [facility] AT [phone]. CM RECEIVED CALL FROM ERICKSON BRITO [facility], SHE INFORMED CM THAT PT'S INSURANCE CALLED AND INFORMED HER THAT PT HAS HMO, NOT PPO, [facility] NOT IN NETWORK. THE INSURANCE COMPANY WOULD NOT PROVIDE LIST OF IN NETWORK FACILITIES AND REPORTED IT TO BE ON LINE IF NEEDED. CM [facility]., , SPOKE TO RAÚL WHO INFORMED CM THAT DIALYSIS ON TTS IS NOT A PROBLEM AND SHE WILL CHECK TO SEE IF IN NETWORK; SHE WILL SCREEN FOR ADMISSION. CM NOTIFIED PT WHO IS IN AGREEMENT WITH PLAN. CM FAXED REFERRAL TO [facility] AT [phone]. CM WAITING ADMISSION DETERMINATION FROM [facility] IN [place] FOR REHAB WELL INSURANCE AUTHORIZATION FROM PT'S INSURANCE COMPANY. Joseph Sanders CASE MANAGEMENT DCP- Discharge Planning Updated by [id number]: Joseph Sanders on 01/26/19 8:[address] Patient Name: JAMIE CORBIN Encounter No: [id number] : 1950 Primary Insurance: HUMANA CHOICE PPO MCR ADVANT Anticipated DC Date: 01-26-2019 Planned Disposition: [facility] Facility External Planned Provider: [facility], MEDICARE REHAB BED DCP follow-up note: CM SPOKE TO KATHY OF [facility] WHO MET WITH PT IN ROOM YESTERDAY, THEY WILL ACCEPT PENDING INSURANCE AUTHORATION. CM FAXED UPDATE TO [facility] AT [phone]. CM WAITING INSURANCE DETERMINATION FOR REHAB AT [facility]. SHAHBAZ Odell DCP- Discharge Planning Updated by [id number]: Joseph Sanders on 01/25/19 11:[address] Patient Name: JAMIE CORBIN Encounter No: [id number] : 1950 Primary Insurance: HUMANA CHOICE PPO MCR ADVANT Anticipated DC Date: 01-26-2019 Planned Disposition: [facility] Facility External Planned Provider: [facility], MEDICARE REHAB BED DCP follow-up note: CM SPOKE TO MAC OF INPATIENT REHAB AT [facility] TEAM MEETING WHO ADVISED THAT SHE CALLED PT'S INSURANCE COMPANY AND WAS ADVISED REHAB WAS DECLINED BY INSURANCE AND PEER TO PEER INFORMATION WAS SENT TO LULÚ OF CASE MANAGEMENT YESTERDAY. SIMRAN IRIZARRY ASKED THAT [facility] NURSE PRACTITIONER BE ASKED IF SHE WILL DO THE PEER TO PEER. CM SPOKE TO RISHABH OF [facility] WHO ADVISED THAT PEER TO PEER WILL NOT BE DONE, PT CAN GO TO HALF-WAY REHAB. CM NOTIFIED PT IN ROOM. CM RECEIVED MESSAGE FROM KATHY OF [facility] WHO ADVISED THAT THEY WILL ACCEPT PENDING INSURANCE AUTHORATION. CM FAXED UPDATE TO [facility] AT [phone]. CM NOTIFIED CLARA OF [facility] FOR WELCOME LETTER DELIVERY TO PT FOR OUTPATIENT DIALYSIS CLINIC. CM NOTIFIED PT WHO IS IN AGREEMENT WITH DISCHARGE PLAN. CM WAITING INSURANCE DETERMINATION FOR REHAB AT [facility]. SHAHBAZ Odell DCP- Discharge Planning Updated by [id number]: Joseph Sanders on 01/25/19 8:[address] Patient Name: JAMIE CORBIN Encounter No: [id number] : 1950 Primary Insurance: HUMANA CHOICE PPO MCR ADVANT Anticipated DC Date: 01-20-2019 Planned Disposition: Inpatient Rehab External Planned Provider: [facility] INPATIENT REHAB DCP follow-up note: CM SPOKE TO PT REGARDING DISCHARGE PLANNING, INFORMED OF REFERRAL PENDING AT [facility] FOR REHAB. PT AND SPOUSE IN AGREEMENT WITH PLAN IF DENIED INPATIENT REHAB BY INSURANCE. IMPORTANT MESSAGE FROM MEDICARE PROVIDED AND EXPLAINED. CM CALLED KATHY BRITO [facility], , VERIFIED HER RECEIPT OF REFERRAL AND THAT DIALYSIS DAYS [facility] HAS AVAILABLE FOR DIALYSIS ARE TTS, MIDSHIFT (10-1100 AM.) CM WAITING INSURANCE AUTHORIZATION FROM PT'S INSURANCE COMPANY FOR INPATIENT REHAB AT [place]. CM WAITING ADMISSION DETERMINATION FROM [facility]. SHAHBAZ Odell DCP- Discharge Planning Updated by [id number]: Joseph Sanders on 01/24/19 1:[address] Patient Name: JAMIE CORBIN Encounter No: [id number] : 1950 Primary Insurance: HUMANA CHOICE PPO MCR ADVANT Anticipated DC Date: 01-20-2019 Planned Disposition: Inpatient Rehab External Planned Provider: [facility] INPATIENT REHAB DCP follow-up note: CM SPOKE TO PT REGARDING DISCHARGE PLANNING, INFORMED PT OF LIKELY DENIAL FROM HER INSURANCE FOR INPATIENT REHAB. PT WOULD LIKE REFERRAL TO [facility] FOR REHAB PREVIOUSLY DISCUSSED (CHOICE PREVIOUSLY SIGNED FOR [facility]). CM CALLED KATHY BRITO [facility], , INFORMED OF REFERRAL AND THAT DIALYSIS DAYS [facility] HAS AVAILABLE FOR DIALYSIS ARE TTS, MIDSHIFT (10-1100 AM. ) CM FAXED REFERRAL FOR REHAB SERVICES TO [facility] [phone]. CM WAITING INSURANCE AUTHORIZATION FROM PT'S INSURANCE COMPANY FOR INPATIENT REHAB AT [place]. CM WAITING ADMISSION DETERMINATION FROM [facility] HALF-WAY FACILITY. Joseph Sanders CASE MANAGEMENT DCP- Discharge Planning Updated by [id number]: Joseph Sanders on 01/20/19 12:[address] Patient Name: JAMIE CORBIN Encounter No: [id number] : 1950 Primary Insurance: HUMANA CHOICE PPO MCR ADVANT Anticipated DC Date: 01-20-2019 Planned Disposition: Inpatient Rehab External Planned Provider: [facility] INPATIENT REHAB DCP follow-up note: CM RECEIVED CALL FROM MAICOL OF [facility], SHE HAS CHECKED AT [facility], THE ONLY DAYS THEY HAVE AVAILABLE FOR DIALYSIS ARE TTS, MIDSHIFT (10-1100 AM.) MAICOL IS NOT GOING FURTHER WITH PLACEMENT PROCESS UNTIL IT IS DETERMINED IF PT IS GOING TO INPATIENT REHAB OR HALF-WAY FACILITY. ANA M WAITING INSURANCE AUTHORIZATION FROM PT'S INSURANCE COMPANY FOR INPATIENT REHAB AT [facility]. Joseph Sanders CASE KEELEY DCP- Discharge Planning Updated by [id number]: Joseph Sanders on 01/19/19 4:[address] Patient Name: JAMIE CORBIN Encounter No: [id number] : 1950 Primary Insurance: HUMANA CHOICE PPO MCR ADVANT Anticipated DC Date: 01-20-2019 Planned Disposition: Inpatient Rehab External Planned Provider: [facility] INPATIENT REHAB DCP follow-up note: CM SPOKE TO RN ANA M FRANZ WHO ADVISED CM THAT SENIOR ANALYTICAL CHEMIST INFORMED HER THAT PT IS HALF-WAY FACILITY APPROPRIATE AND NOT TO WASTE CM'S TIME SUBMITTING FOR INPATIENT REHAB. CM SPOKE TO PT AND SPOUSE IN ROOM. PT AND SPOUSE BOTH WOULD LIKE REHAB AT [facility] IF POSSIBLE. CM DISCUSSED HALF-WAY FACILITY FOR REHAB. THEY WANTED TO DISCUSS THIS WITHOUT CM THERE. CM LEFT. CM RETURNED IN ABOUT ONE HOUR. PT AND SPOUSE REPORT IF PT CANNOT GET INTO INPATIENT REHAB, THEY WOULD GO TO A HALF-WAY FACILTY THAT COULD TRANSPORT PT TO AND FROM OUTPATIENT DIALYSIS IN [place]. CHOICE SIGNED FOR [facility]. CM NOTIFIED NANO OF INPATIENT REHAB. CM NOTIFIED DR. TURPIN. CM REVIEWED CHART, OCCUPATIONAL THERAPY EVALUATION DOCUMENTED. CM WAITING INSURANCE AUTHORIZATION FROM PT'S INSURANCE COMPANY FOR INPATIENT REHAB AT [facility]. SHAHBAZ Odell DCP- Discharge Planning Updated by : Joseph Sanders on 01/18/19 4:[address] Patient Name: JAMIE CORBIN Encounter No: [id number] : 1950 Primary Insurance: HUMANA CHOICE PPO MCR ADVANT Anticipated DC Date: Planned Disposition: Inpatient Rehab External Planned Provider: [facility] INPATIENT REHAB DCP follow-up note: CM MET WITH PT IN ROOM TO DISCUSS DISCHARGE NEEDS AND PLANNING. CM DISCUSSED AVAILABILITY OF HOME HEALTH, REHAB SERVICES AND MEDICAL EQUIPMENT. PT REPORTS SHE IS WEAK AND SHOULD PROBABLY GO TO REHAB. CM DISCUSSED REHAB OPTIONS, LOCATIONS AND PROVIDERS. PT WILL CONSIDER REHAB AT [facility], PT WOULD LIKE CM TO SPEAK TO HER SPOUSE TO VERIFY THIS IS A PLAN HE WOULD AGREE WITH. CM CALLED SHAWN CORBIN, , THE LINE WAS BUSY, CM CALLED THREE TIMES. PT REPORTS SHE PLANS [facility] DR[facility]SELF [facility] AND IF SHE NEEDS HELP WITH TRANSPORT, HER SPOUSE, SHAWN, WILL ASSIST. PT REPORTS SHAWN, HER SPOUSE, WILL PICK HER UP FOR DISCHARGE HOME. IMPORTANT MESSAGE FROM MEDICARE PROVIDED AND EXPLAINED. CM TO FOLLOW AND ASSIST NEEDED. PT WILL CONSIDER REHAB AT [facility]. CM TO CONTINUE TO ATTEMPT TO CONTACT PT'S SPOUSE, SHAWN, , TO DISCUSS DISCHARGE PLAN. CM TO ASK PHYSICIAN FOR INPATIENT REHAB PRESCREENING ORDER PT'S INSURANCE WILL REQUIRE PRIOR AUTHORIZATION. SHAHBAZ Odell DCP- Discharge Planning Updated by [id number]: Joseph Sanders on 01/09/19 3:[address] Patient Name: JAMIE CORBIN Admission Status: ER Accout number: [id number] Admission Date: 01-08-2019 : 1950 Admission Diagnosis: Attending: JAMISON TURPIN Current LOS: 1 Anticipated DC Date: Planned Disposition: Home Primary Insurance: [employer] CHOICE PPO MCR ADVANT Discharge Planning Comments: CM MET WITH PT IN ROOM TO DISCUSS DISCHARGE PLANNING AND NEEDS. PT REPORTS LIVING AT HOME INDEPENDENTLY AND ALONE. PT HAS A WALKER WITH NO MEDICAL EQUIPMENT PROVIDER PREFERENCE. PT HAS NO OUTSIDE SERVICES ASSISTING IN THE HOME. CM DISCUSSED AVAILABILITY OF HOME HEALTH, REHAB SERVICES AND MEDICAL EQUIPMENT. PT DENIES DISCHARGE NEEDS, REPORTS HER SPOUSE WILL PICK HER UP FOR DISCHARGE HOME. PT PLANS TO DISCHARGE HOME ALONE, SEPERATED SPOUSE TO ASSIST PT AT HOME IF NECESSARY. SEPERATED SPOUSE TO TRANSPORT HOME AT DISCHARGE. PT HAS NO ANTICIPATED DISCHARGE NEEDS AT THIS TIME. CM TO CONTINUE TO FOLLOW AND ASSIST NEEDED. Gluing Crew Leader: Joseph Sanders DCPIA - Discharge Planning Initial Assessment Updated by CURT: Joseph Sanders on 01/09/19 4:49 pm * Is the patient Alert and Oriented? Yes * How many steps to enter\\exit or inside your home? * PCP DR. BATRES IN [place] * Pharmacy [facility] IN [place] * Preadmission Environment Home with Family * ADLs Independent * Equipment Walker * Other Equipment NO MEDICAL EQUIPMENT PROVIDER PREFERENCE * List name and contact numbers for known caregivers / representatives who currently or will assist patient after discharge: SHAWN CORBIN, SEPERATED SPOUSE, * Verbal permission to speak to the caregivers and representatives has been obtained from the patient. Yes * Community resources currently utilized None * Please name any agencies selected above. NONE * Additional services required to return to the preadmission environment? No * Can the patient safely return to the preadmission environment? Yes * Has this patient been hospitalized within the prior 30 days at any hospital? No Coverage Notice Reviewer: CURT Sanders Notice Issued Date-Time: 01/18/2019 17:10 Notice Type: IM Discharge Notice Notice Delivered To: Patient Relationship to Patient: Hat Trimmer Name: Delivery Method: HAND - Hand Delivered Ximena Days: Prior Verbal Notification: Recipient Understood Notice: Yes Recipient Signature: Yes Med Rec Note Co-signed by Attending: Coverage Notice Comment: Reviewer: CURT Sanders Notice Issued Date-Time: 01/19/2019 15:04 Notice Type: Patient Choice Letter Notice Delivered To: Patient Relationship to Patient: Hat Trimmer Name: Delivery Method: HAND - Hand Delivered Ximena Days: Prior Verbal Notification: Recipient Understood Notice: Yes Recipient Signature: Yes Med Rec Note Co-signed by Attending: Coverage Notice Comment: EVA LOZADA, [employer] [facility]. Reviewer: [id number] Sanders Notice Issued Date-Time: 01/25/2019 9:25 Notice Type: IM Discharge Notice Notice Delivered To: Patient Relationship to Patient: Hat Trimmer Name: Delivery Method: HAND - Hand Delivered Ximena Days: Prior Verbal Notification: Recipient Understood Notice: Yes Recipient Signature: Yes Med Rec Note Co-signed by Attending: Coverage Notice Comment: Reviewer: CURT Sanders Notice Issued Date-Time: 01/31/2019 15:20 Notice Type: IM Discharge Notice Notice Delivered To: Patient Relationship to Patient: Hat Trimmer Name: Delivery Method: HAND - Hand Delivered Ximena Days: Prior Verbal Notification: Recipient Understood Notice: Yes Recipient Signature: Yes Med Rec Note Co-signed by Attending: Coverage Notice Comment: Reviewer: CURT Sanders Notice Issued Date-Time: 01/31/2019 15:20 Notice Type: Patient Choice Letter Notice Delivered To: Patient Relationship to Patient: Hat Trimmer Name: Delivery Method: HAND - Hand Delivered Ximena Days: Prior Verbal Notification: Recipient Understood Notice: Yes Recipient Signature: Yes Med Rec Note Co-signed by Attending: Coverage Notice Comment: MINNIE Redd DP export: 01/31/19 3:05 Patient Name: JAMIE CORBIN Page [id number] at 0943 All edits/amendments must be made on the electronic document DICTATION DATE: 02/01/19941 CORRECTIONAL THERAPY DIRECTOR: ANIBAL 02/01/19941 RPT#: [id number] DC DATE: STATUS: ADM IN [facility] [address] [place] [address] END OF REPORT
--- NOTE | 2019-02-01 10:15 | NUR ---
PATIENT IS SITTING UP IN BED READING HER BIBLE. SHE DENIES ANY NEEDS AT THIS TIME.
[2019-02-01 11:23] VITALS: BP 131/50
--- NOTE | 2019-02-01 12:40 | MORECARE ---
CASE MANAGEMENT DISCHARGE SUMMARY PATIENT: JAMIE CORBIN UNIT: [id number] ADM DATE: 01/08/19 AGE: 68 : 50 SEX: F ROOM/BED: D.7794 AUTHOR: SCOUT,DOC PHYSICIAN: REFERRING PHYSICIAN: JAMISON TURPIN MD DATE OF SERVICE: 02/01/19 Discharge Plan Patient Name: JAMIE CORBIN Facility: [facility]:[place] : 1950 Planned Disposition: Nursing Home Facility Anticipated Discharge Date: 02/01/19 Discharge Date: Expected LOS: 24 Initial Reviewer: [id number] Initial Review Date: 01/09/2019 Generated: 02/01/19 1:39 pm Comments DCP- Discharge Planning Updated by [id number]: Joseph Sanders on 02/01/19 11:[address] Patient Name: JAMIE CORBIN Encounter No: [id number] : 1950 Primary Insurance: HUMANA CHOICE PPO MCR ADVANT Anticipated DC Date: 02-01-2019 Planned Disposition: Nursing Home Facility External Planned Provider:[facility], MEDICARE REHAB BED DCP follow-up note: CM FAXED REFERRAL UPDATE TO JOSE R GIPSON OF [facility] AT [phone]. CM CALLED [facility], , SPOKE TO LARRY WHO INFORMED CM THAT JOSE R IS NOT IN TODAY. LARRY REPORTS JOSE R IS ON THE WAY IN FROM HER APPOINTMENT TODAY. LARRY WILL LOCATE AND LOOK AT THE REFERRAL. CM DISCUSSED THERAPY NOTES AND THAT PT/OT SIGNED OFF. LARRY INFORMED CM THAT WITH MANAGED MEDICARE, THEY WILL REQUEST THERAPY NOTES FOR LAST 24 HOURS. CM NOTIFIED SIMRAN TATE OF NEED OF CURRENT PHYSICAL AND OCCUPATIONAL THERAPY EVALUATION/NOTES. ORDERS RECEIVED FOR PT AND OT. CM WAITING ON ADMISSION DETERMINATION FROM [facility] IN [place]; IF THEY ACCEPT, CM WILL HAVE OUTPATIENT DIALYSIS UNIT CHANGE TO [place]. CM TO FAX LATEST PT AND OT EVALUATIONS TO [facility] SOON RECEIVED AT [phone]. Joseph Sanders, CASE MANAGEMENT DCP- Discharge Planning Updated by [id number]: Joseph Sanders on 01/31/19 3:[address] Patient Name: JAMIE CORBIN Encounter No: [id number] : 1950 Primary Insurance: HUMANA CHOICE PPO MCR ADVANT Anticipated DC Date: 01-31-2019 Planned Disposition: Nursing Home Facility External Planned Provider: [facility] MEDICARE REHAB BED DCP follow-up note: CM RECEIVED CALL FROM FAWAD WITH THE [facility] WHO ASKED IF PT WILL CONSIDER THE [facility], THEY WOULD NEED NEW DIALYSIS UNIT IN [place]. CM RECEIVED CALL FROM [facility] [place] WHO REPORTS THEY CANNOT TRANSPORT ON TTS DIALYSIS SCHEDULE AND COULD IF PT HAS MWF SCHEDULE. CM SPOKE TO CLARA OF [facility] WHO INFORMED CM THAT [facility] DOES NOT HAVE A MWF CHAIR AVAILABLE. CM SPOKE TO PT IN ROOM, PROVIDED LISTING OF IN NETWORK NURSING FACILITIES PROVIDED BY PT'S INSURANCE PROVIDER; EXPLAINED ISSUES WITH GETTING MWF SHEDULE AT [facility], OFFERED TO LOOK ELSEWHERE FOR SKILLED REHAB WHICH WILL NECCESSITATE CHANGE IN OUTPATIENT DIALYSIS UNIT. PT CALLED HER SPOUSE VIA PHONE AND DISCUSSED ISSUE. PT GOT OFF PHONE AND INFORMED CM THAT SHE WILL TRY [facility] [place] WITH A [place] DIALYSIS UNIT AND THEY WILL "HAVE TO DO WHAEVER THEY HAVE TO". CHOICE SIGNED FOR [facility]. IMPORTANT MESSAGE FROM MEDICARE PROVIDED AND EXPLAINED. CM NOTIFIED LCARA OF [facility]. CM CALLED [facility], , SPOKE TO RAISSA WHO COULD NOT TELL CM IF THEY WILL TRANSPORT TO DIALYSIS IN [place] AND INFORMED CM THAT CM WILL NEED TO FAX REFERRAL FOR REVIEW. CM FAXED REFERRAL TO JOSE R GIP[facility] AT [phone]. CM WAITING ON ADMISSION DETERMINATION FROM [facility] IN [place]; IF THEY ACCEPT, CM WILL HAVE OUTPATIENT DIALYSIS UNIT CHANGE TO [place]. Joseph Sanders, CASE MANAGEMENT DCP- Discharge Planning Updated by [id number]: Joseph Sanders on 01/31/19 11:[address] Patient Name: JAMIE CORBIN Encounter No: [id number] : 1950 Primary Insurance: HUMANA CHOICE PPO MCR ADVANT Anticipated DC Date: 01-31-2019 Planned Disposition: Nursing Home Facility External Planned Provider: [facility], MEDICARE REHAB BED DCP follow-up note: CM FAXED REFERRAL UPDATE TO LEENA OF [facility], . CM WAITING ADMISSION DETERMINATION FROM [facility] IN [place] FOR REHAB WELL INSURANCE AUTHORIZATION FROM PT'S INSURANCE COMPANY. Joseph Sanders, CASE MANAGEMENT Appended by Joseph Sanders on 01/31/2019 12:18 DAIRY EQUIPMENT REPAIRER: CM RECEIVED CALL FROM [facility] AT ABOUT 1034 HOURS, THEY ARE LOOKING AT PT FOR REHAB ADMISSION AND WILL CALL SOON DECISION IS MADE. CM WAITING ADMISSION DETERMINATION FROM [facility] IN [place] FOR REHAB WELL INSURANCE AUTHORIZATION FROM PT'S INSURANCE COMPANY. Joseph Sanders CASE MANAGEMENT DCP- Discharge Planning Updated by [id number]: Joseph Sanders on 01/30/19 2:[address] Patient Name: JAMIE CORBIN Encounter No: [id number] : 1950 Primary Insurance: HUMANA CHOICE PPO MCR ADVANT Anticipated DC Date: 01-31-2019 Planned Disposition: Nursing Home Facility External Planned Provider: [facility], MEDICARE REHAB BED DCP follow-up note: CM RECEIVED CALL FROM FAWAD OF [facility] WHO STATES THAT SHE AND THE FACILITY WERE MISTAKEN, THEY ARE OUT OF NETWORK AND CAN APPLY FOR EXEMPTION ONLY IF DECLINED BY IN NETWORK FACILITIES IN HER AREA, [facility] IN [place], [facility] IN [place] AND [facility] AND REHAB IN [place]. CM RECEIVED CALL FROM [facility] WHO REPORTS RECEIVING REFERRAL, BEING IN NETWORK AND IS LOOKING AT PT FOR ADMISSION. CM WAITING ADMISSION DETERMINATION FROM [facility] IN [place] FOR REHAB WELL INSURANCE AUTHORIZATION FROM PT'S INSURANCE COMPANY. Joseph Sanders CASE MANAGEMENT DCP- Discharge Planning Updated by [id number]: Joseph Sanders on 01/30/19 7:[address] Patient Name: JAMIE CORBIN Encounter No: [id number] : 1950 Primary Insurance: HUMANA CHOICE PPO MCR ADVANT Anticipated DC Date: 01-27-2019 Planned Disposition: Nursing Home Facility External Planned Provider: [facility], MEDICARE REHAB BED DCP follow-up note: CM FAXED REFERRAL UPDATE TO [facility] AT [phone]. CM FAXED REFERRAL TO [facility] AT [phone], CHOICE PREVIOUSLY SIGNED BY PT. CM WAITING ADMISSION DETERMINATION FROM [facility] FOR [facility], ADMISSION DETERMINATION FROM [facility] [place] FOR REHAB WELL INSURANCE AUTHORIZATION FROM PT'S INSURANCE COMPANY. SHAHBAZ Odell MANAGEMENT DCP- Discharge Planning Updated by [id number]: Joseph Sanders on 01/27/19 12:[address] Patient Name: JAMIE CORBIN Admission Status: ER Accout number: [id number] Admission Date: 01-08-2019 : 1950 Admission Diagnosis: Attending: JAMISON TURPIN Current LOS: 19 Anticipated DC Date: 01-27-2019 Planned Disposition: Nursing Home Facility Primary Insurance: HUMANA CHOICE PPO MCR ADVANT PLANNED EXTERAL PROVIDER: [facility], MEDICARE REHAB BED DCP follow-up note: CM SPOKE TO [facility] [employer], THEY HAVE NOT YET RECEIVED INSURANCE AUTHORIZATION, [facility] DOES NOT THINK THEY WILL HAVE STAFF TO DO WEEKEND ADMISSION. IF THEY RECEIVE AUTH OVER WEEKEND, IT WILL BE WEDNESDAY TO ACCEPT TO REHAB. WILL ACCEPT PENDING INSURANCE AUTHORATION. CM FAXED UPDATE TO [employer] AT [phone]. CM RECEIVED CALL FROM [facility] [employer], SHE INFORMED CM THAT PT'S INSURANCE CALLED AND INFORMED HER THAT PT HAS HMO, NOT PPO, [facility] NOT IN NETWORK. THE INSURANCE COMPANY WOULD NOT PROVIDE LIST OF IN NETWORK FACILITIES AND REPORTED IT TO BE ON LINE IF NEEDED. CM CALLED [facility]., , SPOKE TO RAÚL WHO INFORMED CM THAT DIALYSIS ON TTS IS NOT A PROBLEM AND SHE WILL CHECK TO SEE IF IN NETWORK; SHE WILL SCREEN FOR ADMISSION. CM NOTIFIED PT WHO IS IN AGREEMENT WITH PLAN. CM FAXED REFERRAL TO [facility] AT [phone]. CM WAITING ADMISSION DETERMINATION FROM [facility] FOR REHAB WELL INSURANCE AUTHORIZATION FROM PT'S INSURANCE COMPANY. SHAHBAZ Odell DCP- Discharge Planning Updated by [id number]: Joseph Sanders on 01/26/19 8:[address] Patient Name: JAMIE CORBIN Encounter No: [id number] : 1950 Primary Insurance: HUMANA CHOICE PPO MCR ADVANT Anticipated DC Date: 01-26-2019 Planned Disposition: Nursing Home Facility External Planned Provider: [facility] [place], MEDICARE REHAB BED DCP follow-up note: CM SPOKE TO KATHY [facility] WHO MET WITH PT IN ROOM YESTERDAY, THEY WILL ACCEPT PENDING INSURANCE AUTHORATION. CM FAXED UPDATE TO [facility] AT [phone]. CM WAITING INSURANCE DETERMINATION FOR REHAB AT [facility]. SHAHBAZ Odell DCP- Discharge Planning Updated by [id number]: Joseph Sanders on 01/25/19 11:[address] Patient Name: JAMIE CORBIN Encounter No: [id number] : 1950 Primary Insurance: HUMANA CHOICE PPO MCR ADVANT Anticipated DC Date: 01-26-2019 Planned Disposition: Nursing Home Facility External Planned Provider: [facility] [place] AND REHAB, MEDICARE REHAB BED DCP follow-up note: CM SPOKE TO MAC OF INPATIENT REHAB AT [facility] TEAM MEETING WHO ADVISED THAT SHE CALLED PT'S INSURANCE COMPANY AND WAS ADVISED REHAB WAS DECLINED BY INSURANCE AND PEER TO PEER INFORMATION WAS SENT TO LULÚ OF CASE MANAGEMENT YESTERDAY. SIMRAN IRIZARRY ASKED THAT RENAL NURSE PRACTITIONER BE ASKED IF SHE WILL DO THE PEER TO PEER. CM SPOKE TO RISHABH OF RENAL WHO ADVISED THAT PEER TO PEER WILL NOT BE DONE, PT CAN GO TO [facility]. CM NOTIFIED PT IN ROOM. CM RECEIVED MESSAGE FROM KATHY [facility] WHO ADVISED THAT THEY WILL ACCEPT PENDING INSURANCE AUTHORATION. CM FAXED UPDATE TO [facility] AT [phone]. CM NOTIFIED CLARA OF [facility] FOR WELCOME LETTER DELIVERY TO PT FOR OUTPATIENT DIALYSIS CLINIC. CM NOTIFIED PT WHO IS IN AGREEMENT WITH DISCHARGE PLAN. CM WAITING INSURANCE DETERMINATION FOR REHAB AT [facility]. SHAHBAZ Odell DCP- Discharge Planning Updated by [id number]: Joseph Sanders on 01/25/19 8:[address] Patient Name: JAMIE CORBIN Encounter No: [id number] : 1950 Primary Insurance: HUMANA CHOICE PPO MCR ADVANT Anticipated DC Date: 01-20-2019 Planned Disposition: Inpatient Rehab External Planned Provider: [facility] INPATIENT REHAB DCP follow-up note: CM SPOKE TO PT REGARDING DISCHARGE PLANNING, INFORMED OF REFERRAL PENDING AT [facility] FOR REHAB. PT AND SPOUSE IN AGREEMENT WITH PLAN IF DENIED INPATIENT REHAB BY INSURANCE. IMPORTANT MESSAGE FROM MEDICARE PROVIDED AND EXPLAINED. CM CALLED KATHY [facility], , VERIFIED HER RECEIPT OF REFERRAL AND THAT DIALYSIS DAYS [facility] HAS AVAILABLE FOR DIALYSIS ARE TTS, MIDSHIFT (10-1100 AM.) CM WAITING INSURANCE AUTHORIZATION FROM PT'S INSURANCE COMPANY FOR INPATIENT REHAB AT [place]. CM WAITING ADMISSION DETERMINATION FROM [facility]. SHAHBAZ Odell DCP- Discharge Planning Updated by [id number]: Joseph Sanders on 01/24/19 1:[address] Patient Name: JAMIE CORBIN Encounter No: [id number] : 1950 Primary Insurance: HUMANA CHOICE PPO [facility] ADVANT Anticipated DC Date: 01-20-2019 Planned Disposition: Inpatient Rehab External Planned Provider: [facility] INPATIENT REHAB DCP follow-up note: CM SPOKE TO PT REGARDING DISCHARGE PLANNING, INFORMED PT OF LIKELY DENIAL FROM HER INSURANCE FOR INPATIENT REHAB. PT WOULD LIKE REFERRAL TO [facility] FOR REHAB PREVIOUSLY DISCUSSED (CHOICE PREVIOUSLY SIGNED FOR [facility]). CM CALLED KATHY OF [facility], , INFORMED OF REFERRAL AND THAT DIALYSIS DAYS [facility] HAS AVAILABLE FOR DIALYSIS ARE TTS, MIDSHIFT (10-1100 AM. ) CM FAXED REFERRAL FOR REHAB SERVICES TO [facility] [phone]. CM WAITING INSURANCE AUTHORIZATION FROM PT'S INSURANCE COMPANY FOR INPATIENT REHAB AT [place]. CM WAITING ADMISSION DETERMINATION FROM [facility]. SHAHBAZ Odell DCP- Discharge Planning Updated by [id number]: Joseph Sanders on 01/20/19 12:[address] Patient Name: JAMIE CORBIN Encounter No: [id number] : 1950 Primary Insurance: HUMANA CHOICE PPO MCR ADVANT Anticipated DC Date: 01-20-2019 Planned Disposition: Inpatient Rehab External Planned Provider: [facility] INPATIENT REHAB DCP follow-up note: CM RECEIVED CALL FROM MAICOL OF [facility], SHE HAS CHECKED AT [facility], THE ONLY DAYS THEY HAVE AVAILABLE FOR DIALYSIS ARE TTS, MIDSHIFT (10-1100 AM.) MAICOL IS NOT GOING FURTHER WITH PLACEMENT PROCESS UNTIL IT IS DETERMINED IF PT IS GOING TO INPATIENT REHAB OR [facility]. CM WAITING INSURANCE AUTHORIZATION FROM PT'S INSURANCE COMPANY FOR INPATIENT REHAB AT [place]. SHAHBAZ Odell DCP- Discharge Planning Updated by [id number]: Joseph Sanders on 01/19/19 4:[address] Patient Name: JAMIE CORBIN Encounter No: [id number] : 1950 Primary Insurance: HUMANA CHOICE PPO MCR ADVANT Anticipated DC Date: 01-20-2019 Planned Disposition: Inpatient Rehab External Planned Provider: [facility] INPATIENT REHAB DCP follow-up note: CM SPOKE TO RN ANA M FRANZ WHO ADVISED CM THAT DIRECTOR PHONE INFORMED HER THAT PT IS [facility] APPROPRIATE AND NOT TO WASTE CM'S TIME SUBMITTING FOR INPATIENT REHAB. CM SPOKE TO PT AND SPOUSE IN ROOM. PT AND SPOUSE BOTH WOULD LIKE REHAB AT [place] IF POSSIBLE. CM DISCUSSED [facility] FOR REHAB. THEY WANTED TO DISCUSS THIS WITHOUT CM THERE. CM LEFT. CM RETURNED IN ABOUT ONE HOUR. PT AND SPOUSE REPORT IF PT CANNOT GET INTO INPATIENT REHAB, THEY WOULD GO TO A [facility] FACILTY THAT COULD TRANSPORT PT TO AND FROM OUTPATIENT DIALYSIS IN [place]. CHOICE SIGNED FOR [facility]. CM NOTIFIED NANO OF INPATIENT REHAB. CM NOTIFIED DR. TURPIN. CM REVIEWED CHART, OCCUPATIONAL THERAPY EVALUATION DOCUMENTED. CM WAITING INSURANCE AUTHORIZATION FROM PT'S INSURANCE COMPANY FOR INPATIENT REHAB AT [place]. SHAHBAZ Odell DCP- Discharge Planning Updated by [id number]: Joseph Sanders on 01/18/19 4:[address] Patient Name: JAMIE CORBIN Encounter No: [id number] : 1950 Primary Insurance: HUMANA CHOICE PPO MCR ADVANT Anticipated DC Date: Planned Disposition: Inpatient Rehab External Planned Provider: [facility] INPATIENT REHAB DCP follow-up note: CM MET WITH PT IN ROOM TO DISCUSS DISCHARGE NEEDS AND PLANNING. CM DISCUSSED AVAILABILITY OF HOME HEALTH, REHAB SERVICES AND MEDICAL EQUIPMENT. PT REPORTS SHE IS WEAK AND SHOULD PROBABLY GO TO REHAB. CM DISCUSSED REHAB OPTIONS, LOCATIONS AND PROVIDERS. PT WILL CONSIDER REHAB AT [place], PT WOULD LIKE CM TO SPEAK TO HER SPOUSE TO VERIFY THIS IS A PLAN HE WOULD AGREE WITH. CM CALLED SHAWN CORBIN, , THE LINE WAS BUSY, CM CALLED THREE TIMES. PT REPORTS SHE PLANS TO DRIVE HERSELF TO [facility] AND IF SHE NEEDS HELP WITH TRANSPORT, HER SPOUSE, SHAWN, WILL ASSIST. PT REPORTS SHAWN, HER SPOUSE, WILL PICK HER UP FOR DISCHARGE HOME. IMPORTANT MESSAGE FROM MEDICARE PROVIDED AND EXPLAINED. CM TO FOLLOW AND ASSIST NEEDED. PT WILL CONSIDER REHAB AT [facility]. CM TO CONTINUE TO ATTEMPT TO CONTACT PT'S SPOUSE, SHAWN, , TO DISCUSS DISCHARGE PLAN. CM TO ASK PHYSICIAN FOR INPATIENT REHAB PRESCREENING ORDER PT'S INSURANCE WILL REQUIRE PRIOR AUTHORIZATION. Joseph Sanders, CASE MANAGEMENT DCP- Discharge Planning Updated by [id number]: Joseph Sanders on 01/09/19 3:[address] Patient Name: JAMIE CORBIN Admission Status: ER Accout number: [id number] Admission Date: 01-08-2019 : 1950 Admission Diagnosis: Attending: JAMISON TURPIN Current LOS: 1 Anticipated DC Date: Planned Disposition: Home Primary Insurance: HUMANA CHOICE PPO MCR ADVANT Discharge Planning Comments: CM MET WITH PT IN ROOM TO DISCUSS DISCHARGE PLANNING AND NEEDS. PT REPORTS LIVING AT HOME INDEPENDENTLY AND ALONE. PT HAS A WALKER WITH NO MEDICAL EQUIPMENT PROVIDER PREFERENCE. PT HAS NO OUTSIDE SERVICES ASSISTING IN THE HOME. CM DISCUSSED AVAILABILITY OF HOME HEALTH, REHAB SERVICES AND MEDICAL EQUIPMENT. PT DENIES DISCHARGE NEEDS, REPORTS HER SPOUSE WILL PICK HER UP FOR DISCHARGE HOME. PT PLANS TO DISCHARGE HOME ALONE, SEPERATED SPOUSE TO ASSIST PT AT HOME IF NECESSARY. SEPERATED SPOUSE TO TRANSPORT HOME AT DISCHARGE. PT HAS NO ANTICIPATED DISCHARGE NEEDS AT THIS TIME. CM TO CONTINUE TO FOLLOW AND ASSIST NEEDED. Trichologist: Joseph Sanders DCPIA - Discharge Planning Initial Assessment Updated by [id number]: Joseph Sanders on 01/09/19 4:49 pm * Is the patient Alert and Oriented? Yes * How many steps to enter\\exit or inside your home? * PCP DR. BATRES [place] * Pharmacy [facility] IN [place] * Preadmission Environment Home with Family * ADLs Independent * Equipment Walker * Other Equipment NO MEDICAL EQUIPMENT PROVIDER PREFERENCE * List name and contact numbers for known caregivers / representatives who currently or will assist patient after discharge: SHAWN CORBIN, SEPERATED SPOUSE, * Verbal permission to speak to the caregivers and representatives has been obtained from the patient. Yes * Community resources currently utilized None * Please name any agencies selected above. NONE * Additional services required to return to the preadmission environment? No * Can the patient safely return to the preadmission environment? Yes * Has this patient been hospitalized within the prior 30 days at any hospital? No Coverage Notice Reviewer: CURT Sanders Notice Issued Date-Time: 01/18/2019 17:10 Notice Type: IM Discharge Notice Notice Delivered To: Patient Relationship to Patient: Squad Leader Name: Delivery Method: HAND - Hand Delivered Ximena Days: Prior Verbal Notification: Recipient Understood Notice: Yes Recipient Signature: Yes Med Rec Note Co-signed by Attending: Coverage Notice Comment: Reviewer: CURT Sanders Notice Issued Date-Time: 01/19/2019 15:04 Notice Type: Patient Choice Letter Notice Delivered To: Patient Relationship to Patient: Squad Leader Name: Delivery Method: HAND - Hand Delivered Ximena Days: Prior Verbal Notification: Recipient Understood Notice: Yes Recipient Signature: Yes Med Rec Note Co-signed by Attending: Coverage Notice Comment: [facility]. Reviewer: CURT Sanders Notice Issued Date-Time: 01/25/2019 9:25 Notice Type: IM Discharge Notice Notice Delivered To: Patient Relationship to Patient: Squad Leader Name: Delivery Method: HAND - Hand Delivered Ximena Days: Prior Verbal Notification: Recipient Understood Notice: Yes Recipient Signature: Yes Med Rec Note Co-signed by Attending: Coverage Notice Comment: Reviewer: CURT Sanders Notice Issued Date-Time: 01/31/2019 15:20 Notice Type: IM Discharge Notice Notice Delivered To: Patient Relationship to Patient: Squad Leader Name: Delivery Method: HAND - Hand Delivered Ximena Days: Prior Verbal Notification: Recipient Understood Notice: Yes Recipient Signature: Yes Med Rec Note Co-signed by Attending: Coverage Notice Comment: Reviewer: CURT Sanders Notice Issued Date-Time: 01/31/2019 15:20 Notice Type: Patient Choice Letter Notice Delivered To: Patient Relationship to Patient: Squad Leader Name: Delivery Method: HAND - Hand Delivered Ximena Days: Prior Verbal Notification: Recipient Understood Notice: Yes Recipient Signature: Yes Med Rec Note Co-signed by Attending: Coverage Notice Comment: [facility] PADILLA export: 02/01/19 8:43 Patient Name: JAMIE CORBIN Page [id number] at 1240 All edits/amendments must be made on the electronic document DICTATION DATE: 02/01/19 1239 RN CARDIAC CATH: ANIBAL 02/01/19 1239 RPT#: [id number] DC DATE: STATUS: ADM IN [facility] [address] [place] [address] END OF REPORT
--- NOTE | 2019-02-01 12:51 | NUR ---
Nutrition Follow-up: Eating well. Still awaiting placement. Diet: Renal ADA PO intake: 83% avg x 6 meals Wt: 210.9# (stable; 210# on 01/27) Last BM: 4 days ago per pt; states normally 1x/wk) Labs reviewed Meds noted: Bumex, Humalog -Continue current diet as tolerated. -RD following.
--- NOTE | 2019-02-01 13:34 | NUR ---
OT NOTE: PT REPORTING PAIN IN R UE AROUND SURGICAL AREA, HOWEVER, BRUISING AND EDEMA HAVE IMPROVE GREATLY. BED MOB WITH MIN ASSIST; PT REPORTING THAT SHE JUST HAD BATH; HAD PT AMB TO SINK WITH WALKER AND SHE WAS ABLE TO DEMONSTRATE SINK HYGIENE WITH CGA AND USE OF WALKER. AMB INTO HALLWAY TO IMPROVE STRENGTH AND ENUDRANCE, HOWEVER, PT ONLY ABLE TO AMBULATE 100 FT TODAY.. SHE EXHIBITED DECREASED BALANCE WITH USE OF WALKER.. ALSO STATED THAT SHE FELT WEAK AND DIZZY..RETURNED TO ROOM; TRANSFERRED BACK TO BED WITH MIN ASSIST. REMAINS SLIGHTLY CONFUSED ALEIDA CABRERA, OTR/L
[2019-02-01 15:47] VITALS: BP 134/53
[2019-02-01 20:00] VITALS: BP 124/73
--- NOTE | 2019-02-01 20:30 | NUR ---
PT LAYING IN BED WATCHING TV. VSS. SHE DENIES PAIN OR NEEDS. HER BED IS LOW AND CALL LIGHT WITHIN REACH.
[2019-02-02 01:08] VITALS: BP 138/57
[2019-02-02 05:32] VITALS: BP 158/61
--- NOTE | 2019-02-02 08:43 | MORECARE ---
CASE MANAGEMENT DISCHARGE SUMMARY PATIENT: JAMIE CORBIN UNIT: [id number] ADM DATE: 01/08/19 AGE: 68 : 50 SEX: F ROOM/BED: D.1928 AUTHOR: SCOUT,DOC PHYSICIAN: REFERRING PHYSICIAN: JAMISON TURPIN MD DATE OF SERVICE: 02/02/19 Discharge Plan Patient Name: JAMIE CORBIN Facility: [facility]:[place] : 1950 Planned Disposition: Mcc Facility Anticipated Discharge Date: 02/01/19 Discharge Date: Expected LOS: 24 Initial Reviewer: [id number] Initial Review Date: 01/09/2019 Generated: 02/02/19 9:43 am Comments DCP- Discharge Planning Updated by [id number]: Joseph Sanders on 02/02/19 7:[address] Patient Name: JAMIE CORBIN Encounter No: [id number] : 1950 Primary Insurance: HUMANA CHOICE PPO MCR ADVANT Anticipated DC Date: 02-01-2019 Planned Disposition: Mcc Facility External Planned Provider: [facility], MEDICARE REHAB BED DCP follow-up note: CM FAXED REFERRAL UPDATE TO JOSE R GIPSON OF [facility] AT [phone]. CM WAITING ON ADMISSION DETERMINATION FROM [facility] IN [place]; IF THEY ACCEPT, CM WILL HAVE OUTPATIENT DIALYSIS UNIT CHANGE TO [place]. . Joseph Sanders, CASE MANAGEMENT DCP- Discharge Planning Updated by [id number]: Joseph Sanders on 02/01/19 11:[address] Patient Name: JAMIE CORBIN Encounter No: [id number] : 1950 Primary Insurance: HUMANA CHOICE PPO MCR ADVANT Anticipated DC Date: 02-01-2019 Planned Disposition: Mcc Facility External Planned Provider:[facility] MEDICARE REHAB BED DCP follow-up note: CM FAXED REFERRAL UPDATE TO JOSE R [facility] AT [phone]. CM CALLED [facility], , SPOKE TO LARRY WHO INFORMED CM THAT JOSE R IS NOT IN TODAY. LARRY REPORTS JOSE R IS ON THE WAY IN FROM HER APPOINTMENT TODAY. LARRY WILL LOCATE AND LOOK AT THE REFERRAL. CM DISCUSSED THERAPY NOTES AND THAT PT/OT SIGNED OFF. LARRY INFORMED CM THAT WITH MANAGED MEDICARE, THEY WILL REQUEST THERAPY NOTES FOR LAST 24 HOURS. CM NOTIFIED SIMRAN TATE OF NEED OF CURRENT PHYSICAL AND OCCUPATIONAL THERAPY EVALUATION/NOTES. ORDERS RECEIVED FOR PT AND OT. CM WAITING ON ADMISSION DETERMINATION FROM [facility] IN [place]; IF THEY ACCEPT, CM WILL HAVE OUTPATIENT DIALYSIS UNIT CHANGE TO [place]. CM TO FAX LATEST PT AND OT EVALUATIONS TO [facility] SOON RECEIVED AT [phone]. Joseph Sanders, CASE MANAGEMENT DCP- Discharge Planning Updated by [id number]: Joseph Sanders on 01/31/19 3:[address] Patient Name: JAMIE CORBIN Encounter No: [id number] : 1950 Primary Insurance: [employer] PPO MCR ADVANT Anticipated DC Date: 01-31-2019 Planned Disposition: Mcc Facility External Planned Provider: [facility], MEDICARE REHAB BED DCP follow-up note: CM RECEIVED CALL FROM FAWAD WITH THE [facility] WHO ASKED IF PT WILL CONSIDER THE [facility], THEY WOULD NEED NEW DIALYSIS UNIT IN [place]. CM RECEIVED CALL FROM KEERTHI WHO REPORTS THEY CANNOT TRANSPORT ON TTS DIALYSIS SCHEDULE AND COULD IF PT HAS MWF SCHEDULE. CM SPOKE TO CLARA OF [facility] WHO INFORMED CM THAT [facility] DOES NOT HAVE A MWF CHAIR AVAILABLE. CM SPOKE TO PT IN ROOM, PROVIDED LISTING OF IN NETWORK NURSING FACILITIES PROVIDED BY PT'S INSURANCE PROVIDER; EXPLAINED ISSUES WITH GETTING MWF SHEDULE AT [facility], OFFERED TO LOOK ELSEWHERE FOR SKILLED REHAB WHICH WILL NECCESSITATE CHANGE IN OUTPATIENT DIALYSIS UNIT. PT CALLED HER SPOUSE VIA PHONE AND DISCUSSED ISSUE. PT GOT OFF PHONE AND INFORMED CM THAT SHE WILL TRY [facility] IN [place] WITH A [place] DIALYSIS UNIT AND THEY WILL "HAVE TO DO WHAEVER THEY HAVE TO". CHOICE SIGNED FOR [facility]. IMPORTANT MESSAGE FROM MEDICARE PROVIDED AND EXPLAINED. CM NOTIFIED CLARA OF [facility]. CM CALLED [facility], , SPOKE TO RAISSA WHO COULD NOT TELL CM IF THEY WILL TRANSPORT TO DIALYSIS IN [place] AND INFORMED CM THAT CM WILL NEED TO FAX REFERRAL FOR REVIEW. CM FAXED REFERRAL TO JOSE R GIPSON OF [facility] AT [phone]. CM WAITING ON ADMISSION DETERMINATION FROM [facility] IN [place]; IF THEY ACCEPT, CM WILL HAVE OUTPATIENT DIALYSIS UNIT CHANGE TO [place]. Joseph Sanders CASE MANAGEMENT DCP- Discharge Planning Updated by [id number]: Joseph Sanders on 01/31/19 11:[address] Patient Name: JAMIE CORBIN Encounter No: [id number] : 1950 Primary Insurance: HUMANA CHOICE PPO [facility] ADVANT Anticipated DC Date: 01-31-2019 Planned Disposition: Mcc Facility External Planned Provider: [facility], MEDICARE REHAB BED DCP follow-up note: CM FAXED REFERRAL UPDATE TO [facility], . CM WAITING ADMISSION DETERMINATION FROM [facility] IN [place] FOR REHAB WELL INSURANCE AUTHORIZATION FROM PT'S INSURANCE COMPANY. Joseph Sanders, CASE MANAGEMENT Appended by Joseph Sanders on 01/31/2019 12:18 PUBLICITY PERSON: CM RECEIVED CALL FROM [facility] AT ABOUT 1034 HOURS, THEY ARE LOOKING AT PT FOR REHAB ADMISSION AND WILL CALL SOON DECISION IS MADE. CM WAITING ADMISSION DETERMINATION FROM [facility] IN [place] FOR REHAB WELL INSURANCE AUTHORIZATION FROM PT'S INSURANCE COMPANY. SHAHBAZ Odell DCP- Discharge Planning Updated by [id number]: Joseph Sanders on 01/30/19 2:[address] Patient Name: JAMIE CORBIN Encounter No: [id number] : 1950 Primary Insurance: HUMANA CHOICE PPO [facility] ADVANT Anticipated DC Date: 01-31-2019 Planned Disposition: Mcc Facility External Planned Provider: [facility], MEDICARE REHAB BED DCP follow-up note: CM RECEIVED CALL FROM JACK CENTENO WHO STATES THAT SHE AND THE FACILITY WERE MISTAKEN, THEY ARE OUT OF NETWORK AND CAN APPLY FOR EXEMPTION ONLY IF DECLINED BY IN NETWORK FACILITIES IN HER AREA, [facility] IN [place], [facility] IN [place] AND [facility] IN [place]. CM RECEIVED CALL FROM [facility] WHO REPORTS RECEIVING REFERRAL, BEING IN NETWORK AND IS LOOKING AT PT FOR ADMISSION. CM WAITING ADMISSION DETERMINATION FROM [facility] IN [place] FOR REHAB WELL INSURANCE AUTHORIZATION FROM PT'S INSURANCE COMPANY. Joseph Sanders, CASE MANAGEMENT DCP- Discharge Planning Updated by [id number]: Joseph Sanders on 01/30/19 7:[address] Patient Name: JAMIE CORBIN Encounter No: [id number] : 1950 Primary Insurance: HUMANA CHOICE PPO MCR ADVANT Anticipated DC Date: 01-27-2019 Planned Disposition: Mcc Facility External Planned Provider: [facility], MEDICARE REHAB BED DCP follow-up note: CM FAXED REFERRAL UPDATE TO [facility] AT [phone]. CM FAXED REFERRAL TO [facility] AT [phone], CHOICE PREVIOUSLY SIGNED BY PT. CM WAITING ADMISSION DETERMINATION FROM [facility] IN [place] FOR REHAB, ADMISSION DETERMINATION FROM [facility] IN [place] FOR REHAB WELL INSURANCE AUTHORIZATION FROM PT'S INSURANCE COMPANY. Joseph Sanders CASE MANAGEMENT DCP- Discharge Planning Updated by [id number]: Joseph Sanders on 01/27/19 12:[address] Patient Name: JAMIE CORBIN Admission Status: ER Accout number: [id number] Admission Date: 01-08-2019 : 1950 Admission Diagnosis: Attending: JAMISON TURPIN Current LOS: 19 Anticipated DC Date: 01-27-2019 Planned Disposition: Mcc Facility Primary Insurance: HUMANA CHOICE PPO MCR [employer]VANT PLANNED EXTERAL PROVIDER: [facility], MEDICARE REHAB BED DCP follow-up note: CM SPOKE TO [employer], THEY HAVE NOT YET RECEIVED INSURANCE AUTHORIZATION, [facility] DOES NOT THINK THEY WILL HAVE STAFF TO DO WEEKEND ADMISSION. IF THEY RECEIVE AUTH OVER WEEKEND, IT WILL BE WEDNESDAY TO ACCEPT TO REHAB. WILL ACCEPT PENDING INSURANCE AUTHORATION. ANA M FAXED UPDATE TO [employer] AT [phone]. CM RECEIVED CALL FROM [employer], SHE INFORMED CM THAT PT'S INSURANCE CALLED AND INFORMED HER THAT PT HAS HMO, NOT PPO, [employer] NOT IN NETWORK. THE INSURANCE COMPANY WOULD NOT PROVIDE LIST OF IN NETWORK FACILITIES AND REPORTED IT TO BE ON LINE IF NEEDED. CM CALLED [employer] , SPOKE TO RAÚL WHO INFORMED CM THAT DIALYSIS ON TTS IS NOT A PROBLEM AND SHE WILL CHECK TO SEE IF IN NETWORK; SHE WILL SCREEN FOR ADMISSION. CM NOTIFIED PT WHO IS IN AGREEMENT WITH PLAN. CM FAXED REFERRAL TO [facility] AT [phone]. CM WAITING ADMISSION DETERMINATION FROM [facility] IN [place] FOR REHAB WELL INSURANCE AUTHORIZATION FROM PT'S INSURANCE COMPANY. Joseph Sanders CASE MANAGEMENT DCP- Discharge Planning Updated by [id number]: Joseph Sanders on 01/26/19 8:[address] Patient Name: JAMIE CORBIN Encounter No: [id number] : 1950 Primary Insurance: HUMANA CHOICE PPO MCR ADVANT Anticipated DC Date: 01-26-2019 Planned Disposition: Mcc Facility External Planned Provider: [facility], MEDICARE REHAB BED DCP follow-up note: CM SPOKE TO KATHY [facility] WHO MET WITH PT IN ROOM YESTERDAY, THEY WILL ACCEPT PENDING INSURANCE AUTHORATION. CM FAXED UPDATE TO [facility] AT [phone]. CM WAITING INSURANCE DETERMINATION FOR REHAB AT [facility]. Joseph Sanders CASE MANAGEMENT DCP- Discharge Planning Updated by [id number]: Joseph Sanders on 01/25/19 11:[address] Patient Name: JAMIE CORBIN Encounter No: [id number] : 1950 Primary Insurance: HUMANA CHOICE PPO MCR ADVANT Anticipated DC Date: 01-26-2019 Planned Disposition: Mcc Facility External Planned Provider: [facility], MEDICARE REHAB BED DCP follow-up note: CM SPOKE TO MAC OF INPATIENT REHAB AT [facility] TEAM MEETING WHO ADVISED THAT SHE CALLED PT'S INSURANCE COMPANY AND WAS ADVISED REHAB WAS DECLINED BY INSURANCE AND PEER TO PEER INFORMATION WAS SENT TO LULÚ OF CASE MANAGEMENT YESTERDAY. SIMRAN IRIZARRY ASKED THAT RENAL NURSE PRACTITIONER BE ASKED IF SHE WILL DO THE PEER TO PEER. CM SPOKE TO RISHABH OF RENAL WHO ADVISED THAT PEER TO PEER WILL NOT BE DONE, PT CAN GO TO [facility]. CM NOTIFIED PT IN ROOM. CM RECEIVED MESSAGE FROM KATHY [facility] WHO ADVISED THAT THEY WILL ACCEPT PENDING INSURANCE AUTHORATION. CM FAXED UPDATE TO [employer] AT [phone]. CM NOTIFIED CLARA OF [facility] FOR WELCOME LETTER DELIVERY TO PT FOR OUTPATIENT DIALYSIS CLINIC. CM NOTIFIED PT WHO IS IN AGREEMENT WITH DISCHARGE PLAN. CM WAITING INSURANCE DETERMINATION FOR REHAB AT [facility]. Joseph Sanders CASE MANAGEMENT DCP- Discharge Planning Updated by [id number]: Joseph Sanders on 01/25/19 8:[address] Patient Name: JAMIE CORBIN Encounter No: [id number] : 1950 Primary Insurance: HU[employer]NA CHOICE PPO MCR ADVANT Anticipated DC Date: 01-20-2019 Planned Disposition: Inpatient Rehab External Planned Provider: [facility] INPATIENT REHAB DCP follow-up note: CM SPOKE TO PT REGARDING DISCHARGE PLANNING, INFORMED OF REFERRAL PENDING AT [facility] FOR REHAB. PT AND SPOUSE IN AGREEMENT WITH PLAN IF DENIED INPATIENT REHAB BY INSURANCE. IMPORTANT MESSAGE FROM MEDICARE PROVIDED AND EXPLAINED. CM CALLED KATHY BRITO [facility], , VERIFIED HER RECEIPT OF REFERRAL AND THAT DIALYSIS DAYS [facility] HAS AVAILABLE FOR DIALYSIS ARE TTS, MIDSHIFT (10-1100 AM.) CM WAITING INSURANCE AUTHORIZATION FROM PT'S INSURANCE COMPANY FOR INPATIENT REHAB AT [place]. CM WAITING ADMISSION DETERMINATION FROM [facility]. Joseph Sanders CASE [place] DCP- Discharge Planning Updated by [id number]: Joseph Sanders on 01/24/19 1:[address] Patient Name: JAMIE CORBIN Encounter No: [id number] : 1950 Primary Insurance: HU[employer]NA CHOICE PPO MCR ADVANT Anticipated DC Date: 01-20-2019 Planned Disposition: Inpatient Rehab External Planned Provider: [facility] INPATIENT REHAB DCP follow-up note: CM SPOKE TO PT REGARDING DISCHARGE PLANNING, INFORMED PT OF LIKELY DENIAL FROM HER INSURANCE FOR INPATIENT REHAB. PT WOULD LIKE REFERRAL TO [facility] FOR REHAB PREVIOUSLY DISCUSSED (CHOICE PREVIOUSLY SIGNED FOR [facility]). CM CALLED KATHY BRITO [facility], , INFORMED OF REFERRAL AND THAT DIALYSIS DAYS [facility] HAS AVAILABLE FOR DIALYSIS ARE TTS, MIDSHIFT (10-1100 AM. ) CM FAXED REFERRAL FOR REHAB SERVICES TO [facility] [phone]. CM WAITING INSURANCE AUTHORIZATION FROM PT'S INSURANCE COMPANY FOR INPATIENT REHAB AT [place]. CM WAITING ADMISSION DETERMINATION FROM [facility]. Joseph Sanders CASE MANAGEMENT DCP- Discharge Planning Updated by [id number]: Joseph Sanders on 01/20/19 12:[address] Patient Name: JAMIE CORBIN Encounter No: [id number] : 1950 Primary Insurance: HUMANA CHOICE PPO MCR ADVANT Anticipated DC Date: 01-20-2019 Planned Disposition: Inpatient Rehab External Planned Provider: [facility] INPATIENT REHAB DCP follow-up note: CM RECEIVED CALL FROM MAICOL OF [facility], SHE HAS CHECKED AT [facility], THE ONLY DAYS THEY HAVE AVAILABLE FOR DIALYSIS ARE TTS, MIDSHIFT (10-1100 AM.) MAICOL IS NOT GOING FURTHER WITH PLACEMENT PROCESS UNTIL IT IS DETERMINED IF PT IS GOING TO INPATIENT REHAB OR [facility]ENIOR LIVING FACILITY. CM WAITING INSURANCE AUTHORIZATION FROM PT'S INSURANCE COMPANY FOR INPATIENT REHAB AT [facility]. SHAHBAZ Odell DCP- Discharge Planning Updated by [id number]: Joseph Sanders on 01/19/19 4:[address] Patient Name: JAMIE CORBIN Encounter No: [id number] : 1950 Primary Insurance: HU[employer]NA CHOICE PPO MCR ADVANT Anticipated DC Date: 01-20-2019 Planned Disposition: Inpatient Rehab External Planned Provider: [facility] INPATIENT REHAB DCP follow-up note: CM SPOKE TO KAMRYN FRANZ WHO ADVISED CM THAT PATCHER HELPER INFORMED HER THAT PT IS SENIOR LIVING FACILITY APPROPRIATE AND NOT TO WASTE CM'S TIME SUBMITTING FOR INPATIENT REHAB. CM SPOKE TO PT AND SPOUSE IN ROOM. PT AND SPOUSE BOTH WOULD LIKE REHAB AT [facility] IF POSSIBLE. CM DISCUSSED [facility]ACILITY FOR REHAB. THEY WANTED TO DISCUSS THIS WITHOUT CM THERE. CM LEFT. CM RETURNED IN ABOUT ONE HOUR. PT AND SPOUSE REPORT IF PT CANNOT GET INTO INPATIENT REHAB, THEY WOULD GO TO A SENIOR LIVING FACILTY THAT COULD TRANSPORT PT TO AND FROM OUTPATIENT DIALYSIS IN [place]. CHOICE SIGNED FOR [facility]. CM NOTIFIED NANO OF INPATIENT REHAB. CM NOTIFIED DR. TURPIN. CM REVIEWED CHART, OCCUPATIONAL THERAPY EVALUATION DOCUMENTED. CM WAITING INSURANCE AUTHORIZATION FROM PT'S INSURANCE COMPANY FOR INPATIENT REHAB AT [place]. Joseph Sanders CASE MANAGEMENT DCP- Discharge Planning Updated by [id number]: Joseph Sanders on 01/18/19 4:[address] Patient Name: JAMIE CORBIN Encounter No: [id number] : 1950 Primary Insurance: [employer]NA CHOICE PPO MCR ADVANT Anticipated DC Date: Planned Disposition: Inpatient Rehab External Planned Provider: [facility] INPATIENT REHAB DCP follow-up note: CM MET WITH PT IN ROOM TO DISCUSS DISCHARGE NEEDS AND PLANNING. CM DISCUSSED AVAILABILITY OF HOME HEALTH, REHAB SERVICES AND MEDICAL EQUIPMENT. PT REPORTS SHE IS WEAK AND SHOULD PROBABLY GO TO REHAB. CM DISCUSSED REHAB OPTIONS, LOCATIONS AND PROVIDERS. PT WILL CONSIDER REHAB AT [facility], PT WOULD LIKE CM TO SPEAK TO HER SPOUSE TO VERIFY THIS IS A PLAN HE WOULD AGREE WITH. CM CALLED SHAWN CORBIN, , THE LINE WAS BUSY, CM CALLED THREE TIMES. PT REPORTS SHE PLANS TO DRIVE HERSELF TO THE [facility] AND IF SHE NEEDS HELP WITH TRANSPORT, HER SPOUSE, SHAWN, WILL ASSIST. PT REPORTS SHAWN, HER SPOUSE, WILL PICK HER UP FOR DISCHARGE HOME. IMPORTANT MESSAGE FROM MEDICARE PROVIDED AND EXPLAINED. CM TO FOLLOW AND ASSIST NEEDED. PT WILL CONSIDER REHAB AT [facility]. CM TO CONTINUE TO ATTEMPT TO CONTACT PT'S SPOUSE, SHAWN, , TO DISCUSS DISCHARGE PLAN. CM TO ASK PHYSICIAN FOR INPATIENT REHAB PRESCREENING ORDER PT'S INSURANCE WILL REQUIRE PRIOR AUTHORIZATION. Joseph Sanders, CASE MANAGEMENT DCP- Discharge Planning Updated by [id number]: Joseph Sanders on 01/09/19 3:[address] Patient Name: JAMIE CORBIN Admission Status: ER Accout number: [id number] Admission Date: 01-08-2019 : 1950 Admission Diagnosis: Attending: JAMISON TURPIN Current LOS: 1 Anticipated DC Date: Planned Disposition: Home Primary Insurance: [employer] CHOICE PPO MCR ADVANT Discharge Planning Comments: CM MET WITH PT IN ROOM TO DISCUSS DISCHARGE PLANNING AND NEEDS. PT REPORTS LIVING AT HOME INDEPENDENTLY AND ALONE. PT HAS A WALKER WITH NO MEDICAL EQUIPMENT PROVIDER PREFERENCE. PT HAS NO OUTSIDE SERVICES ASSISTING IN THE HOME. CM DISCUSSED AVAILABILITY OF HOME HEALTH, REHAB SERVICES AND MEDICAL EQUIPMENT. PT DENIES DISCHARGE NEEDS, REPORTS HER SPOUSE WILL PICK HER UP FOR DISCHARGE HOME. PT PLANS TO DISCHARGE HOME ALONE, SEPERATED SPOUSE TO ASSIST PT AT HOME IF NECESSARY. SEPERATED SPOUSE TO TRANSPORT HOME AT DISCHARGE. PT HAS NO ANTICIPATED DISCHARGE NEEDS AT THIS TIME. CM TO CONTINUE TO FOLLOW AND ASSIST NEEDED. Manager Body: Joseph Sanders DCPIA - Discharge Planning Initial Assessment Updated by CURT: Joseph Sanders on 01/09/19 4:49 pm * Is the patient Alert and Oriented? Yes * How many steps to enter\\exit or inside your home? * PCP DR. BATRES IN [place] * Pharmacy [facility] IN [place] * Preadmission Environment Home with Family * ADLs Independent * Equipment Walker * Other Equipment NO MEDICAL EQUIPMENT PROVIDER PREFERENCE * List name and contact numbers for known caregivers / representatives who currently or will assist patient after discharge: SHAWN CORBIN, SEPERATED SPOUSE, * Verbal permission to speak to the caregivers and representatives has been obtained from the patient. Yes * Community resources currently utilized None * Please name any agencies selected above. NONE * Additional services required to return to the preadmission environment? No * Can the patient safely return to the preadmission environment? Yes * Has this patient been hospitalized within the prior 30 days at any hospital? No External Providers External Provider: OTHER-OTHER Next Contact Date: 01/31/2019 Service Request Date: Service Type: Resolution: Reviewer: Comments: Coverage Notice Reviewer: [id number] Darion Sanders Notice Issued Date-Time: 01/18/2019 17:10 Notice Type: IM Discharge Notice Notice Delivered To: Patient Relationship to Patient: Stamp Pad Finisher Name: Delivery Method: HAND - Hand Delivered Ximena Days: Prior Verbal Notification: Recipient Understood Notice: Yes Recipient Signature: Yes Med Rec Note Co-signed by Attending: Coverage Notice Comment: Reviewer: [id number] Sanders Notice Issued Date-Time: 01/19/2019 15:04 Notice Type: Patient Choice Letter Notice Delivered To: Patient Relationship to Patient: Stamp Pad Finisher Name: Delivery Method: HAND - Hand Delivered Ximena Days: Prior Verbal Notification: Recipient Understood Notice: Yes Recipient Signature: Yes Med Rec Note Co-signed by Attending: Coverage Notice Comment[facility]. Reviewer: [email or web address] Darion Sanders Notice Issued Date-Time: 01/25/2019 9:25 Notice Type: IM Discharge Notice Notice Delivered To: Patient Relationship to Patient: Stamp Pad Finisher Name: Delivery Method: HAND - Hand Delivered Ximena Days: Prior Verbal Notification: Recipient Understood Notice: Yes Recipient Signature: Yes Med Rec Note Co-signed by Attending: Coverage Notice Comment: Reviewer: CURT Sanders Notice Issued Date-Time: 01/31/2019 15:20 Notice Type: IM Discharge Notice Notice Delivered To: Patient Relationship to Patient: Stamp Pad Finisher Name: Delivery Method: HAND - Hand Delivered Ximena Days: Prior Verbal Notification: Recipient Understood Notice: Yes Recipient Signature: Yes Med Rec Note Co-signed by Attending: Coverage Notice Comment: Reviewer: CURT Sanders Notice Issued Date-Time: 01/31/2019 15:20 Notice Type: Patient Choice Letter Notice Delivered To: Patient Relationship to Patient: Stamp Pad Finisher Name: Delivery Method: HAND - Hand Delivered Ximena Days: Prior Verbal Notification: Recipient Understood Notice: Yes Recipient Signature: Yes Med Rec Note Co-signed by Attending: Coverage Notice Comment: MINNIE PADILLA export: 02/01/19 11:39 Patient Name: JAMIE CORBIN Page [id number] at 0843 All edits/amendments must be made on the electronic document DICTATION DATE: 02/02/19841 PREPARED FOODS ASSOCIATE: ANIBAL 02/02/19841 RPT#: [id number] DC DATE: STATUS: ADM IN [facility] [address] [place] [address] END OF REPORT
[2019-02-02 10:39] VITALS: BP 143/58
--- NOTE | 2019-02-02 10:46 | NUR ---
PATIENT IS IN DIALYSIS AT THIS TIME.
--- NOTE | 2019-02-02 14:58 | MORECARE ---
CASE MANAGEMENT DISCHARGE SUMMARY PATIENT: JAMIE CORBIN UNIT: [id number] ADM DATE: 01/08/19 AGE: 68 : 50 SEX: F ROOM/BED: D.4921 AUTHOR: SCOUT,DOC PHYSICIAN: REFERRING PHYSICIAN: JAMISON TURPIN MD DATE OF SERVICE: 02/02/19 Discharge Plan Patient Name: JAMIE CORBIN Facility: [facility]:[place] : 1950 Planned Disposition: Jail Facility Anticipated Discharge Date: 02/01/19 Discharge Date: Expected LOS: 24 Initial Reviewer: [id number] Initial Review Date: 01/09/2019 Generated: 02/02/19 3:57 pm Comments DCP- Discharge Planning Updated by [id number]: Joseph Sanders on 02/02/19 1:[address] Patient Name: JAMIE CORBIN Encounter No: [id number] : 1950 Primary Insurance: HUMANA CHOICE PPO MCR [facility]VANT Anticipated DC Date: 02-01-2019 Planned Disposition: Jail Facility External Planned Provider: [facility], MEDICARE REHAB BED DCP follow-up note: CM FAXED REFERRAL UPDATE TO JOSE R GIPSON OF [facility] AT [phone]. CM WAITING ON ADMISSION DETERMINATION FROM [facility] IN [place]; IF THEY ACCEPT, CM WILL HAVE OUTPATIENT DIALYSIS UNIT CHANGE TO [place]. . Joseph Sanders, CASE MANAGEMENT Appended by Joseph Sanders on 02/02/2019 14:55 INSPECTOR SCALES: CM FAXED REFERRAL UPDATE WITH [facility] PHYS[facility] THERAPY NOTE AND DR NOTE TO JOSE R G[facility] OF [facility] AT [phone]. CM FAXED SAME UPDATE TO KATHY AT [facility] FOR POSSIBLE RECONSIDERATION FOR REHAB SERVICES. CM CALLED [facility], , LEFT MESSAGE FRO JOSE R GIPSON ASKING FOR ADMISSION DETERMINATION. CM WAITING ON ADMISSION DETERMINATION FROM [facility] IN [place]; IF THEY ACCEPT, CM WILL HAVE OUTPATIENT DIALYSIS UNIT CHANGE TO [place]. . Joseph Sanders, CASE MANAGEMENT DCP- Discharge Planning Updated by [id number]: Joseph Sanders on 02/01/19 11:[address] Patient Name: JAMIE CORBIN Encounter No: [id number] : 1950 Primary Insurance: HUMANA CHOICE PPO MCR [employer]ANT Anticipated DC Date: 02-01-2019 Planned Disposition: Jail Facility External Planned Provider:[facility] MED[facility]ARE REHAB BED DCP follow-up note: CM FAXED REFERRAL UPDATE TO JOSE R GIPSON OF [facility] AT [phone]. CM CALLED [facility], , SPOKE TO LARRY WHO INFORMED CM THAT JOSE R IS NOT IN TODAY. LARRY REPORTS JOSE R IS ON THE WAY IN FROM HER APPOINTMENT TODAY. LARRY WILL LOCATE AND LOOK AT THE REFERRAL. CM DISCUSSED THERAPY NOTES AND THAT PT/OT SIGNED OFF. LARRY INFORMED CM THAT WITH MANAGED MEDICARE, THEY WILL REQUEST THERAPY NOTES FOR LAST 24 HOURS. CM NOTIFIED SIMRAN TATE OF NEED OF CURRENT PHYSICAL AND OCCUPATIONAL THERAPY EVALUATION/NOTES. ORDERS RECEIVED FOR PT AND OT. CM WAITING ON ADMISSION DETERMINATION FROM [facility] IN [place]; IF THEY ACCEPT, CM WILL HAVE OUTPATIENT DIALYSIS UNIT CHANGE TO [place]. CM TO FAX LATEST PT AND OT EVALUATIONS TO [facility] SOON RECEIVED AT [phone]. Joseph Sanders, CASE MANAGEMENT DCP- Discharge Planning Updated by [id number]: Joseph Sanders on 01/31/19 3:[address] Patient Name: JAMIE CORBIN Encounter No: [id number] : 1950 Primary Insurance: HUMANA CHOICE PPO MCR ADVANT Anticipated DC Date: 01-31-2019 Planned Disposition: Jail Facility External Planned Provider: [facility] MED[facility] REHAB BED DCP follow-up note: CM RECEIVED CALL FROM FAWAD WITH THE [facility] WHO ASKED IF PT WILL CONSIDER THE [facility], THEY WOULD NEED NEW DIALYSIS UNIT IN [place]. CM RECEIVED CALL FROM KE[facility] WHO REPORTS THEY CANNOT TRANSPORT ON TTS DIALYSIS SCHEDULE AND COULD IF PT HAS MWF SCHEDULE. CM SPOKE TO CLARA OF [facility] WHO INFORMED CM THAT [facility] DOES NOT HAVE A MWF CHAIR AVAILABLE. CM SPOKE TO PT IN ROOM, PROVIDED LISTING OF IN NETWORK NURSING FACILITIES PROVIDED BY PT'S INSURANCE PROVIDER; EXPLAINED ISSUES WITH GETTING MWF SHEDULE AT [facility], OFFERED TO LOOK ELSEWHERE FOR SKILLED REHAB WHICH WILL NECCESSITATE CHANGE IN OUTPATIENT DIALYSIS UNIT. PT CALLED HER SPOUSE VIA PHONE AND DISCUSSED ISSUE. PT GOT OFF PHONE AND INFORMED CM THAT SHE WILL TRY [facility] IN [place] WITH A [place] DIALYSIS UNIT AND THEY WILL "HAVE TO DO WHAEVER THEY HAVE TO". CHOICE SIGNED FOR [facility]. IMPORTANT MESSAGE FROM MEDICARE PROVIDED AND EXPLAINED. CM NOTIFIED CLARA OF [facility]. CM CALLED [facility], , SPOKE TO RAISSA WHO COULD NOT TELL CM IF THEY WILL TRANSPORT TO DIALYSIS IN [place] AND INFORMED CM THAT CM WILL NEED TO FAX REFERRAL FOR REVIEW. CM FAXED REFERRAL TO JOSE R GIPSON OF [facility] AT [phone]. CM WAITING ON ADMISSION DETERMINATION FROM [facility] IN [place]; IF THEY ACCEPT, CM WILL HAVE OUTPATIENT DIALYSIS UNIT CHANGE TO [place]. SHAHBAZ Odell MANAGEMENT DCP- Discharge Planning Updated by [id number]: Joseph Sanders on 01/31/19 11:[address] Patient Name: JAMIE CORBIN Encounter No: [id number] : 1950 Primary Insurance: HUMANA CHOICE PPO [facility] ADVANT Anticipated DC Date: 01-31-2019 Planned Disposition: Jail Facility External Planned Provider: [facility], MEDICARE REHAB BED DCP follow-up note: CM FAXED REFERRAL UPDATE TO LEENA OF [facility], . CM WAITING ADMISSION DETERMINATION FROM [facility] [place] FOR REHAB WELL INSURANCE AUTHORIZATION FROM PT'S INSURANCE COMPANY. Joseph Sanders CASE MANAGEMENT Appended by Joseph Sanders on 01/31/2019 12:18 INSPECTOR SCALES: CM RECEIVED CALL FROM [facility] AT ABOUT 1034 HOURS, THEY ARE LOOKING AT PT FOR REHAB ADMISSION AND WILL CALL SOON DECISION IS MADE. CM WAITING ADMISSION DETERMINATION FROM [facility] IN [place] FOR REHAB WELL INSURANCE AUTHORIZATION FROM PT'S INSURANCE COMPANY. SHAHBAZ Odell DCP- Discharge Planning Updated by [id number]: Joseph Sanders on 01/30/19 2:[address] Patient Name: JAMIE CORBIN Encounter No: [id number] : 1950 Primary Insurance: HUMANA CHOICE PPO MCR [employer] Anticipated DC Date: 01-31-2019 Planned Disposition: Jail Facility External Planned Provider: [facility], MEDICARE REHAB BED DCP follow-up note: CM RECEIVED CALL FROM FAWAD OF [facility] WHO STATES THAT SHE AND THE FACILITY WERE MISTAKEN, THEY ARE OUT OF NETWORK AND CAN APPLY FOR EXEMPTION ONLY IF DECLINED BY IN NETWORK FACILITIES IN HER AREA, [facility] IN [place], [facility] IN [place] AND [facility] IN [place]. CM RECEIVED CALL FROM [facility]EENA [facility] WHO REPORTS RECEIVING REFERRAL, BEING IN NETWORK AND IS LOOKING AT PT FOR ADMISSION. CM WAITING ADMISSION DETERMINATION FROM [facility] [place] FOR REHAB WELL INSURANCE AUTHORIZATION FROM PT'S INSURANCE COMPANY. Joseph Sanders, CASE MANAGEMENT DCP- Discharge Planning Updated by [id number]: Joseph Sanders on 01/30/19 7:[address] Patient Name: JAMIE CORBIN Encounter No: [id number] : 1950 Primary Insurance: HUMANA CHOICE PPO MCR [employer] Anticipated DC Date: 01-27-2019 Planned Disposition: Jail Facility External Planned Provider: [facility] MEDICARE REHAB BED DCP follow-up note: CM FAXED REFERRAL UPDATE TO [facility] AT [phone]. CM FAXED REFERRAL TO [facility] AT [phone], CHOICE PREVIOUSLY SIGNED BY PT. CM WAITING ADMISSION DETERMINATION FROM [facility] IN [place] FOR REHAB, ADMISSION DETERMINATION FROM [facility] IN [place] FOR REHAB WELL INSURANCE AUTHORIZATION FROM PT'S INSURANCE COMPANY. Joseph Sanders CASE MANAGEMENT DCP- Discharge Planning Updated by [id number]: Joseph Sanders on 01/27/19 12:[address] Patient Name: JAMIE CORBIN Admission Status: ER Accout number: [id number] Admission Date: 01-08-2019 : 1950 Admission Diagnosis: Attending: JAMISON TURPIN Current LOS: 19 Anticipated DC Date: 01-27-2019 Planned Disposition: Jail Facility Primary Insurance: HUMANA CHOICE PPO MCR [employer] PLANNED EXTERAL PROVIDER: [facility] MEDICARE REHAB BED DCP follow-up note: CM SPOKE TO ERICKSON OF [employer] [facility], THEY HAVE NOT YET RECEIVED INSURANCE AUTHORIZATION, ERICKSON DOES NOT THINK THEY WILL HAVE STAFF TO DO WEEKEND ADMISSION. IF THEY RECEIVE AUTH OVER WEEKEND, IT WILL BE WEDNESDAY TO ACCEPT TO REHAB. WILL ACCEPT PENDING INSURANCE AUTHORATION. CM FAXED UPDATE TO [facility] AT [phone]. CM RECEIVED CALL FROM ERICKSON OF [facility], SHE INFORMED CM THAT PT'S INSURANCE CALLED AND INFORMED HER THAT PT HAS HMO, NOT PPO, [facility] NOT IN NETWORK. THE INSURANCE COMPANY WOULD NOT PROVIDE LIST OF IN NETWORK FACILITIES AND REPORTED IT TO BE ON LINE IF NEEDED. CM [facility]ED [facility] , SPOKE TO RAÚL WHO INFORMED CM THAT DIALYSIS ON TTS IS NOT A PROBLEM AND SHE WILL CHECK TO SEE IF IN NETWORK; SHE WILL SCREEN FOR ADMISSION. CM NOTIFIED PT WHO IS IN AGREEMENT WITH PLAN. CM FAXED REFERRAL TO [facility] AT [phone]. CM WAITING ADMISSION DETERMINATION FROM [facility] [place] FOR REHAB WELL INSURANCE AUTHORIZATION FROM PT'S INSURANCE COMPANY. Joseph Sanders CASE MANAGEMENT DCP- Discharge Planning Updated by [id number]: Joseph Sanders on 01/26/19 8:[address] Patient Name: JAMIE CORBIN Encounter No: [id number] : 1950 Primary Insurance: HUMANA CHOICE PPO MCR [employer]VANT Anticipated DC Date: 01-26-2019 Planned Disposition: Jail Facility External Planned Provider: [facility], MEDICARE REHAB BED DCP follow-up note: CM SPOKE TO KATHY [facility] WHO MET WITH PT IN ROOM YESTERDAY, THEY WILL ACCEPT PENDING INSURANCE AUTHORATION. CM FAXED UPDATE TO [facility] AT [phone]. CM WAITING INSURANCE DETERMINATION FOR REHAB AT [facility]. Joseph Sanders CASE MANAGEMENT DCP- Discharge Planning Updated by [id number]: Joseph Sanders on 01/25/19 11:[address] Patient Name: JAMIE CORBIN Encounter No: [id number] : 1950 Primary Insurance: HUMANA CHOICE PPO MCR ADVANT Anticipated DC Date: 01-26-2019 Planned Disposition: Jail Facility External Planned Provider: [facility], MEDICARE REHAB BED DCP follow-up note: CM SPOKE TO MAC OF INPATIENT REHAB AT [facility] TEAM MEETING WHO ADVISED THAT SHE CALLED PT'S INSURANCE COMPANY AND WAS ADVISED REHAB WAS DECLINED BY INSURANCE AND PEER TO PEER INFORMATION WAS SENT TO LULÚ OF CASE MANAGEMENT YESTERDAY. SIMRAN IRIZARRY ASKED THAT RENAL NURSE PRACTITIONER BE ASKED IF SHE WILL DO THE PEER TO PEER. CM SPOKE TO RISHABH OF [facility] WHO ADVISED THAT PEER TO PEER WILL NOT BE DONE, PT CAN GO TO [facility]. CM NOTIFIED PT IN ROOM. CM RECEIVED MESSAGE FROM KATHY OF [facility] WHO ADVISED THAT THEY WILL ACCEPT PENDING INSURANCE AUTHORATION. CM FAXED UPDATE TO [facility] AT [phone]. CM NOTIFIED CLARA OF [facility] FOR WELCOME LETTER DELIVERY TO PT FOR OUTPATIENT DIALYSIS CLINIC. CM NOTIFIED PT WHO IS IN AGREEMENT WITH DISCHARGE PLAN. CM WAITING INSURANCE DETERMINATION FOR REHAB AT [facility]. SHAHBAZ Odell DCP- Discharge Planning Updated by [id number]: Joseph Sanders on 01/25/19 8:[address] Patient Name: JAMIE CORBIN Encounter No: [id number] : 1950 Primary Insurance: HUMANA CHOICE PPO MCR ADVANT Anticipated DC Date: 01-20-2019 Planned Disposition: Inpatient Rehab External Planned Provider: [facility] INPATIENT REHAB DCP follow-up note: CM SPOKE TO PT REGARDING DISCHARGE PLANNING, INFORMED OF REFERRAL PENDING AT [facility] FOR REHAB. PT AND SPOUSE IN AGREEMENT WITH PLAN IF DENIED INPATIENT REHAB BY INSURANCE. IMPORTANT MESSAGE FROM MEDICARE PROVIDED AND EXPLAINED. CM CALLED KATHY OF [facility], , VERIFIED HER RECEIPT OF REFERRAL AND THAT DIALYSIS DAYS [facility] HAS AVAILABLE FOR DIALYSIS ARE TTS, MIDSHIFT (10-1100 AM.) CM WAITING INSURANCE AUTHORIZATION FROM PT'S INSURANCE COMPANY FOR INPATIENT REHAB AT [place]. CM WAITING ADMISSION DETERMINATION FROM [facility]. Joseph Sanders CASE KEELEY DCP- Discharge Planning Updated by [id number]: Joseph Sanders on 01/24/19 1:[address] Patient Name: JAMIE COBRIN Encounter No: [id number] : 1950 Primary Insurance: HUMANA CHOICE PPO MCR ADVANT Anticipated DC Date: 01-20-2019 Planned Disposition: Inpatient Rehab External Planned Provider: [facility] INPATIENT REHAB DCP follow-up note: CM SPOKE TO PT REGARDING DISCHARGE PLANNING, INFORMED PT OF LIKELY DENIAL FROM HER INSURANCE FOR INPATIENT REHAB. PT WOULD LIKE REFERRAL TO [facility] FOR REHAB PREVIOUSLY DISCUSSED (CHOICE PREVIOUSLY SIGNED FOR [facility] CM CALLED KATHY OF [facility], , INFORMED OF REFERRAL AND THAT DIALYSIS DAYS [facility] HAS AVAILABLE FOR DIALYSIS ARE TTS, MIDSHIFT (10-1100 AM. ) CM FAXED REFERRAL FOR REHAB SERVICES TO [facility] [phone]. CM WAITING INSURANCE AUTHORIZATION FROM PT'S INSURANCE COMPANY FOR INPATIENT REHAB AT [place]. CM WAITING ADMISSION DETERMINATION FROM [facility]. SHAHBAZ Odell DCP- Discharge Planning Updated by [id number]: Joseph Sanders on 01/20/19 12:[address] Patient Name: JAMIE CORBIN Encounter No: [id number] : 1950 Primary Insurance: HUMANA CHOICE PPO MCR ADVANT Anticipated DC Date: 01-20-2019 Planned Disposition: Inpatient Rehab External Planned Provider: [facility] INPATIENT REHAB DCP follow-up note: CM RECEIVED CALL FROM MAICOL OF [facility], SHE HAS CHECKED AT [facility], THE ONLY DAYS THEY HAVE AVAILABLE FOR DIALYSIS ARE TTS, MIDSHIFT (10-1100 AM.) MAICOL IS NOT GOING FURTHER WITH PLACEMENT PROCESS UNTIL IT IS DETERMINED IF PT IS GOING TO INPATIENT REHAB OR [facility]. CM WAITING INSURANCE AUTHORIZATION FROM PT'S INSURANCE COMPANY FOR INPATIENT REHAB AT [place]. SHAHBAZ Odell DCP- Discharge Planning Updated by [id number]: Joseph Sanders on 01/19/19 4:[address] Patient Name: JAMIE CORBIN Encounter No: [id number] : 1950 Primary Insurance: HUMANA CHOICE PPO MCR ADVANT Anticipated DC Date: 01-20-2019 Planned Disposition: Inpatient Rehab External Planned Provider: [facility] INPATIENT REHAB DCP follow-up note: CM SPOKE TO RN ANA M FRANZ WHO ADVISED CM THAT EMERGENCY MEDICINE INFORMED HER THAT PT IS [facility] APPROPRIATE AND NOT TO WASTE CM'S TIME SUBMITTING FOR INPATIENT REHAB. CM SPOKE TO PT AND SPOUSE IN ROOM. PT AND SPOUSE BOTH WOULD LIKE REHAB AT [place] IF POSSIBLE. CM DISCUSSED [facility] FOR REHAB. THEY WANTED TO DISCUSS THIS WITHOUT CM THERE. CM LEFT. CM RETURNED IN ABOUT ONE HOUR. PT AND SPOUSE REPORT IF PT CANNOT GET INTO INPATIENT REHAB, THEY WOULD GO TO A [facility] FACILTY THAT COULD TRANSPORT PT TO AND FROM OUTPATIENT DIALYSIS IN [place]. CHOICE SIGNED FOR [facility]. CM NOTIFIED KOURTNEY AND [facility] OF INPATIENT REHAB. CM NOTIFIED DR. TURPIN. CM REVIEWED CHART, OCCUPATIONAL THERAPY EVALUATION DOCUMENTED. CM WAITING INSURANCE AUTHORIZATION FROM PT'S INSURANCE COMPANY FOR INPATIENT REHAB AT [place]. SHAHBAZ Odell DCP- Discharge Planning Updated by [id number]: Joseph Sanders on 01/18/19 4:[address] Patient Name: JAMIE CORBIN Encounter No: [id number] : 1950 Primary Insurance: [employer] PPO MCR ADVANT Anticipated DC Date: Planned Disposition: Inpatient Rehab External Planned Provider: [facility] INPATIENT REHAB DCP follow-up note: CM MET WITH PT IN ROOM TO DISCUSS DISCHARGE NEEDS AND PLANNING. CM DISCUSSED AVAILABILITY OF HOME HEALTH, REHAB SERVICES AND MEDICAL EQUIPMENT. PT REPORTS SHE IS WEAK AND SHOULD PROBABLY GO TO REHAB. CM DISCUSSED REHAB OPTIONS, LOCATIONS AND PROVIDERS. PT WILL CONSIDER REHAB AT [place], PT WOULD LIKE CM TO SPEAK TO HER SPOUSE TO VERIFY THIS IS A PLAN HE WOULD AGREE WITH. CM CALLED SHAWN CORBIN, , THE LINE WAS BUSY, CM CALLED THREE TIMES. PT REPORTS SHE PLANS TO DRIVE HERSELF TO THE [place] [facility] AND IF SHE NEEDS HELP WITH TRANSPORT, HER SPOUSE, SHAWN, WILL ASSIST. PT REPORTS SHAWN, HER SPOUSE, WILL PICK HER UP FOR DISCHARGE HOME. IMPORTANT MESSAGE FROM MEDICARE PROVIDED AND EXPLAINED. CM TO FOLLOW AND ASSIST NEEDED. PT WILL CONSIDER REHAB AT [facility]. CM TO CONTINUE TO ATTEMPT TO CONTACT PT'S SPOUSE, SHAWN, , TO DISCUSS DISCHARGE PLAN. CM TO ASK PHYSICIAN FOR INPATIENT REHAB PRESCREENING ORDER PT'S INSURANCE WILL REQUIRE PRIOR AUTHORIZATION. SHAHBAZ Odell DCP- Discharge Planning Updated by [id number]: Joseph Sanders on 01/09/19 3:[address] Patient Name: JAMIE CORBIN Admission Status: ER Accout number: [id number] Admission Date: 01-08-2019 : 1950 Admission Diagnosis: Attending: JAMISON TURPIN Current LOS: 1 Anticipated DC Date: Planned Disposition: Home Primary Insurance: HUMANA CHOICE PPO [facility] Discharge Planning Comments: CM MET WITH PT IN ROOM TO DISCUSS DISCHARGE PLANNING AND NEEDS. PT REPORTS LIVING AT HOME INDEPENDENTLY AND ALONE. PT HAS A WALKER WITH NO MEDICAL EQUIPMENT PROVIDER PREFERENCE. PT HAS NO OUTSIDE SERVICES ASSISTING IN THE HOME. CM DISCUSSED AVAILABILITY OF HOME HEALTH, REHAB SERVICES AND MEDICAL EQUIPMENT. PT DENIES DISCHARGE NEEDS, REPORTS HER SPOUSE WILL PICK HER UP FOR DISCHARGE HOME. PT PLANS TO DISCHARGE HOME ALONE, SEPERATED SPOUSE TO ASSIST PT AT HOME IF NECESSARY. SEPERATED SPOUSE TO TRANSPORT HOME AT DISCHARGE. PT HAS NO ANTICIPATED DISCHARGE NEEDS AT THIS TIME. CM TO CONTINUE TO FOLLOW AND ASSIST NEEDED. Biztalk Architect: Joseph Sanders DCPIA - Discharge Planning Initial Assessment Updated by [id number]: Joseph Sanders on 01/09/19 4:49 pm * Is the patient Alert and Oriented? Yes * How many steps to enter\\exit or inside your home? * PCP DR. BATRES IN [place] * Pharmacy [facility] IN [place] * Preadmission Environment Home with Family * ADLs Independent * Equipment Walker * Other Equipment NO MEDICAL EQUIPMENT PROVIDER PREFERENCE * List name and contact numbers for known caregivers / representatives who currently or will assist patient after discharge: SHAWN CORBIN, SEPERATED SPOUSE, * Verbal permission to speak to the caregivers and representatives has been obtained from the patient. Yes * Community resources currently utilized None * Please name any agencies selected above. NONE * Additional services required to return to the preadmission environment? No * Can the patient safely return to the preadmission environment? Yes * Has this patient been hospitalized within the prior 30 days at any hospital? No Coverage Notice Reviewer: [id number] Darion Sanders Notice Issued Date-Time: 01/31/2019 15:20 Notice Type: Patient Choice Letter Notice Delivered To: Patient Relationship to Patient: Cooperative Education Coordinator Name: Delivery Method: HAND - Hand Delivered Ximena Days: Prior Verbal Notification: Recipient Understood Notice: Yes Recipient Signature: Yes Med Rec Note Co-signed by Attending: Coverage Notice Comment: [facility] Reviewer: [id number] Darion Sanders Notice Issued Date-Time: 01/19/2019 15:04 Notice Type: Patient Choice Letter Notice Delivered To: Patient Relationship to Patient: Cooperative Education Coordinator Name: Delivery Method: HAND - Hand Delivered Ximena Days: Prior Verbal Notification: Recipient Understood Notice: Yes Recipient Signature: Yes Med Rec Note Co-signed by Attending: Coverage Notice Comment: E[facility], [facility]. Reviewer: [id number] Sanders Notice Issued Date-Time: 01/31/2019 15:20 Notice Type: IM Discharge Notice Notice Delivered To: Patient Relationship to Patient: Cooperative Education Coordinator Name: Delivery Method: HAND - Hand Delivered Ximena Days: Prior Verbal Notification: Recipient Understood Notice: Yes Recipient Signature: Yes Med Rec Note Co-signed by Attending: Coverage Notice Comment: Reviewer: CURT Sanders Notice Issued Date-Time: 01/25/2019 9:25 Notice Type: IM Discharge Notice Notice Delivered To: Patient Relationship to Patient: Cooperative Education Coordinator Name: Delivery Method: HAND - Hand Delivered Ximena Days: Prior Verbal Notification: Recipient Understood Notice: Yes Recipient Signature: Yes Med Rec Note Co-signed by Attending: Coverage Notice Comment: Reviewer: CRUT Sanders Notice Issued Date-Time: 01/18/2019 17:10 Notice Type: IM Discharge Notice Notice Delivered To: Patient Relationship to Patient: Cooperative Education Coordinator Name: Delivery Method: HAND - Hand Delivered Ximena Days: Prior Verbal Notification: Recipient Understood Notice: Yes Recipient Signature: Yes Med Rec Note Co-signed by Attending: Coverage Notice Comment: Last DP export: 02/02/19 7:43 Patient Name: JAMIE CORBIN Page [id number] at 1458 All edits/amendments must be made on the electronic document DICTATION DATE: 02/02/191456 THEATRICAL VARIETY AGENT: ANIBAL 02/02/191456 RPT#: [id number] DC DATE: STATUS: ADM IN [facility] [address] [place] [address] END OF REPORT
--- NOTE | 2019-02-02 15:01 | NUR ---
OT NOTE: DOS 02/01/19 PT COMPLETED ADL MOB WITH RW. PT EXHIBITED CONFUSION. NURISNG NOTIFIED. PT COMPLETED TOILETING WITH MIN A. PT COMPLETED UE AROM. THANK YOU,LORRAINE FONTANA
[2019-02-02 18:10] VITALS: BP 128/67
--- NOTE | 2019-02-02 19:45 | NUR ---
NIGHTIME MEDS GIVEN. PT C/O RIGHT ARM PAIN 09/24 WHERE THE NEW FISTULA IS. THERE IS GENERALIZED BRUISING TO THE RIGHT ARM. TRAMADOL GIVEN ORDERED. PT REPORTS HAVING A BOWEL MOVEMENT TODAY AFTER NOT HAVING 1 FOR A WEEK. SHE STATES THIS IS NORMAL FOR HER TO GO ONCE EVERY 5-7 DAYS. SHE DENIES FURTHER NEEDS. SHE IS SITTING UP IN BED WATCHING TV. HER BED IS LOW AND CALL LIGHT WITHIN REACH.
[2019-02-02 21:28] VITALS: BP 152/53
[2019-02-03] VITALS: BP 129/52
[2019-02-03 04:00] VITALS: BP 124/62
[2019-02-03 04:43] LABS: BASOPHILS 0.9 % (0-2); EOSINOPHILS 5.9 % (0-7); HEMOGLOBIN 10.3 g/dL (12-16); IMMATURE GRANULOCYTES 0.2 % (0-5); LYMPHOCYTES 31.8 % (15-50); MCH 28.6 pg (26.0-34.0); MCHC 31.2 g/dL (31.0-37.0); MCV 91.7 fL (80.0-100.0); MEAN PLATELET VOLUME 10.5 fL (7.4-10.4); MONOCYTES 9.2 % (2-11); PLATELET COUNT 233 10x3/uL (130-400); WBC 5.6 10x3/uL (4.8-10.8)
[2019-02-03 04:56] LABS: ANION GAP 13.8 mmol/L (8-16); CALCIUM 8.5 mg/dL (8.5-10.1); CARBON DIOXIDE 26.4 mmol/L (21.0-32.0); CREATININE - SERUM 4.9 mg/dL (0.6-1.3); POTASSIUM - SERUM 4.2 mmol/L (3.5-5.1)
--- NOTE | 2019-02-03 07:18 | NUR ---
OT NOTE: DOS 02/02/19 PT IS CONTINUE TO EXHIBIT SLIGHT CONFUSION. NURSING STATED IT MAYBE MEDICINE RELATED. NURSING IN ROOM WITH PT AND NOTED CONFUSION. PT REQUIRED LESS ASSISTANCE THAN PREVIOUS DAY WITH DYNAMIC STANDING AND MOBILITY. PT REQUIRED CGA TODAY. PT COMPLETED UE AROM. HOWEVER, PT IS STILL CONCERNED ABOUT RUE INCISION SITE. NURSING NOTIFIED. PT COMPLETED TOILETING TASKS WITH CGA TO MIN A. THANK YOU, LORRAINE FONTANA
--- NOTE | 2019-02-03 07:29 | NUR ---
REPORT RECIEVED. PT RESTING QUIETLY, RISE AND FALL OF CHEST NOTED. RR EVEN AND UNLABORED. NO DISTRESS NOTED. PT HAS A L AC PIV THAT IS SL, SHE ALSO HAS A R CHEST HEMO SPLIT AND A R ARM FISTULA. BED LOCKED AND IN LOWEST POSITION,CALL LIGHT WITHIN REACH. WILL CTM
[2019-02-03] MEDS ORDERED: COREG12.5 MG PO (08:21)
[2019-02-03] MEDS ORDERED: CATAPRES0.3 MG PO (08:21)
[2019-02-03] MEDS ORDERED: COZAAR50 MG PO (08:22)
[2019-02-03] MEDS ORDERED: HYDRALAZINE HCL50 MG PO (08:22)
[2019-02-03] MEDS ORDERED: CARDURA2 MG PO (08:22)
[2019-02-03] MEDS ORDERED: FLUTICASONE PRO16 GM NASAL (08:23)
[2019-02-03] MEDS ORDERED: BUMEX2 MG PO (08:23)
[2019-02-03] MEDS ORDERED: LEVOTHYROXINE75 MCG PO (08:23)
[2019-02-03] MEDS ORDERED: MELATONIN 3 MG1 TAB PO (08:24)
[2019-02-03] MEDS ORDERED: ULORIC40 MG PO (08:24)
--- NOTE | 2019-02-03 08:36 | MORECARE ---
CASE MANAGEMENT DISCHARGE SUMMARY PATIENT: JAMIE CORBIN UNIT: [id number] ADM DATE: 01/08/19 AGE: 68 : 50 SEX: F ROOM/BED: D.0451 AUTHOR: SCOUT,DOC PHYSICIAN: REFERRING PHYSICIAN: JAMISON TURPIN MD DATE OF SERVICE: 02/03/19 Discharge Plan Patient Name: JAMIE CORBIN Facility: [facility]:[place] : 1950 Planned Disposition: Senior Care Facility Anticipated Discharge Date: 02/03/19 Discharge Date: Expected LOS: 26 Initial Reviewer: [id number] Initial Review Date: 01/09/2019 Generated: 02/03/19 9:35 am Comments DCP- Discharge Planning Updated by [id number]: Joseph Sanders on 02/02/19 1:[address] Patient Name: JAMIE CORBIN Encounter No: [id number] : 1950 Primary Insurance: HUMANA CHOICE PPO MCR [facility] Anticipated DC Date: 02-01-2019 Planned Disposition: Senior Care Facility External Planned Provider: [facility], MEDICARE REHAB BED DCP follow-up note: CM FAXED REFERRAL UPDATE TO JOSE R GIPSON OF [facility] AT [phone]. CM WAITING ON ADMISSION DETERMINATION FROM [facility] IN [place]; IF THEY ACCEPT, CM WILL HAVE OUTPATIENT DIALYSIS UNIT CHANGE TO [place]. . Joseph Sanders, CASE MANAGEMENT Appended by Joseph Sanders on 02/02/2019 14:55 IMMIGRATION ATTORNEY: CM FAXED REFERRAL UPDATE WITH TODAYS PHYSICAL THERAPY NOTE AND DR NOTE TO JOSE R GIPSON OF [facility] AT [phone]. CM FAXED SAME UPDATE TO KATHY AT [facility] FOR POSSIBLE RECONSIDERATION FOR REHAB SERVICES. CM CALLED [facility], , LEFT MESSAGE FRO JOSE R GIPSON ASKING FOR ADMISSION DETERMINATION. CM WAITING ON ADMISSION DETERMINATION FROM [facility] IN [place]; IF THEY ACCEPT, CM WILL HAVE OUTPATIENT DIALYSIS UNIT CHANGE TO [place]. . Joseph Sanders, CASE MANAGEMENT DCP- Discharge Planning Updated by [id number]: Joseph Sanders on 02/01/19 11:[address] Patient Name: JAMIE CORBIN Encounter No: [id number] : 1950 Primary Insurance: HUMANA CHOICE PPO MCR [facility] Anticipated DC Date: 02-01-2019 Planned Disposition: Senior Care Facility External Planned Provider:[facility] MEDICARE REHAB BED DCP follow-up note: CM FAXED REFERRAL UPDATE TO JOSE R GIPSON OF [facility] AT [phone]. CM CALLED [facility], , SPOKE TO LARRY WHO INFORMED CM THAT JOSE R IS NOT IN TODAY. LARRY REPORTS JOSE R IS ON THE WAY IN FROM HER APPOINTMENT TODAY. LARRY WILL LOCATE AND LOOK AT THE REFERRAL. CM DISCUSSED THERAPY NOTES AND THAT PT/OT SIGNED OFF. LARRY INFORMED CM THAT WITH MANAGED MEDICARE, THEY WILL REQUEST THERAPY NOTES FOR LAST 24 HOURS. CM NOTIFIED SIMRAN TATE OF NEED OF CURRENT PHYSICAL AND OCCUPATIONAL THERAPY EVALUATION/NOTES. ORDERS RECEIVED FOR PT AND OT. CM WAITING ON ADMISSION DETERMINATION FROM [facility] IN [place]; IF THEY ACCEPT, CM WILL HAVE OUTPATIENT DIALYSIS UNIT CHANGE TO [place]. CM TO FAX LATEST PT AND OT EVALUATIONS TO [facility] SOON RECEIVED AT [phone]. Joseph Sanders, CASE MANAGEMENT DCP- Discharge Planning Updated by [id number]: Joseph Sanders on 01/31/19 3:[address] Patient Name: JAMIE CORBIN Encounter No: [id number] : 1950 Primary Insurance: HUMANA CHOICE PPO MCR [facility] Anticipated DC Date: 01-31-2019 Planned Disposition: Senior Care Facility External Planned Provider: [facility] MED[facility]ARE REHAB BED DCP follow-up note: CM RECEIVED CALL FROM FAWAD WITH THE [facility] WHO ASKED IF PT WILL CONSIDER THE [facility], THEY WOULD NEED NEW DIALYSIS UNIT IN [place]. CM RECEIVED CALL FROM KEER[facility]I WHO REPORTS THEY CANNOT TRANSPORT ON TTS DIALYSIS SCHEDULE AND COULD IF PT HAS MWF SCHEDULE. CM SPOKE TO CLARA OF [facility] WHO INFORMED CM THAT [facility] DOES NOT HAVE A MWF CHAIR AVAILABLE. CM SPOKE TO PT IN ROOM, PROVIDED LISTING OF IN NETWORK NURSING FACILITIES PROVIDED BY PT'S INSURANCE PROVIDER; EXPLAINED ISSUES WITH GETTING MWF SHEDULE AT [facility], OFFERED TO LOOK ELSEWHERE FOR SKILLED REHAB WHICH WILL NECCESSITATE CHANGE IN OUTPATIENT DIALYSIS UNIT. PT CALLED HER SPOUSE VIA PHONE AND DISCUSSED ISSUE. PT GOT OFF PHONE AND INFORMED CM THAT SHE WILL TRY [facility] IN [place] WITH A [place] DIALYSIS UNIT AND THEY WILL "HAVE TO DO WHAEVER THEY HAVE TO". CHOICE SIGNED FOR [facility]. IMPORTANT MESSAGE FROM MEDICARE PROVIDED AND EXPLAINED. CM NOTIFIED CLARA OF [facility]. CM CALLED [facility], , SPOKE TO RAISSA WHO COULD NOT TELL CM IF THEY WILL TRANSPORT TO DIALYSIS IN [place] AND INFORMED CM THAT CM WILL NEED TO FAX REFERRAL FOR REVIEW. CM FAXED REFERRAL TO JOSE R GIPSON OF [facility] AT [phone]. CM WAITING ON ADMISSION DETERMINATION FROM [facility] IN [place]; IF THEY ACCEPT, CM WILL HAVE OUTPATIENT DIALYSIS UNIT CHANGE TO [place]. SHAHBAZ Odell MANAGEMENT DCP- Discharge Planning Updated by [id number]: Joseph Sanders on 01/31/19 11:[address] Patient Name: JAMIE CORBIN Encounter No: [id number] : 1950 Primary Insurance: HUMANA CHOICE PPO [facility] ADVANT Anticipated DC Date: 01-31-2019 Planned Disposition: Senior Care Facility External Planned Provider: [facility], MEDICARE REHAB BED DCP follow-up note: CM FAXED REFERRAL UPDATE TO LEENA OF [facility], . CM WAITING ADMISSION DETERMINATION FROM [facility] IN [place] FOR REHAB WELL INSURANCE AUTHORIZATION FROM PT'S INSURANCE COMPANY. Joseph Sanders CASE MANAGEMENT Appended by Joseph Sanders on 01/31/2019 12:18 IMMIGRATION ATTORNEY: CM RECEIVED CALL FROM [facility] AT ABOUT 1034 HOURS, THEY ARE LOOKING AT PT FOR REHAB ADMISSION AND WILL CALL SOON DECISION IS MADE. CM WAITING ADMISSION DETERMINATION FROM [facility] IN [place] FOR REHAB WELL INSURANCE AUTHORIZATION FROM PT'S INSURANCE COMPANY. SHAHBAZ Odell DCP- Discharge Planning Updated by [id number]: Joseph Sanders on 01/30/19 2:[address] Patient Name: JAMIE CORBIN Encounter No: [id number] : 1950 Primary Insurance: HUMANA CHOICE PPO MCR [facility] Anticipated DC Date: 01-31-2019 Planned Disposition: Senior Care Facility External Planned Provider: [facility], MEDICARE REHAB BED DCP follow-up note: CM RECEIVED CALL FROM FAWAD OF [facility] WHO STATES THAT SHE AND THE FACILITY WERE MISTAKEN, THEY ARE OUT OF NETWORK AND CAN APPLY FOR EXEMPTION ONLY IF DECLINED BY IN NETWORK FACILITIES IN HER AREA, [facility] IN [place], [facility] IN [place] AND [facility] IN [place]. CM RECEIVED CALL FROM LEENA [facility] WHO REPORTS RECEIVING REFERRAL, BEING IN NETWORK AND IS LOOKING AT PT FOR ADMISSION. CM WAITING ADMISSION DETERMINATION FROM [facility] IN [place] FOR REHAB WELL INSURANCE AUTHORIZATION FROM PT'S INSURANCE COMPANY. Joseph Sanders, CASE MANAGEMENT DCP- Discharge Planning Updated by [id number]: Joseph Sanders on 01/30/19 7:[address] Patient Name: JAMIE CORBIN Encounter No: [id number] : 1950 Primary Insurance: HUMANA CHOICE PPO MCR [employer] Anticipated DC Date: 01-27-2019 Planned Disposition: Senior Care Facility External Planned Provider: [facility] MEDICARE REHAB BED DCP follow-up note: CM FAXED REFERRAL UPDATE TO [facility] AT [phone]. CM FAXED REFERRAL TO [facility] AT [phone], CHOICE PREVIOUSLY SIGNED BY PT. CM WAITING ADMISSION DETERMINATION FROM [facility] IN [place] FOR REHAB, ADMISSION DETERMINATION FROM [facility] IN [place] FOR REHAB WELL INSURANCE AUTHORIZATION FROM PT'S INSURANCE COMPANY. Joseph Sanders CASE MANAGEMENT DCP- Discharge Planning Updated by [id number]: Joseph Sanders on 01/27/19 12:[address] Patient Name: JAMIE CORBIN Admission Status: ER Accout number: [id number] Admission Date: 01-08-2019 : 1950 Admission Diagnosis: Attending: JAMISON TURPIN Current LOS: 19 Anticipated DC Date: 01-27-2019 Planned Disposition: Senior Care Facility Primary Insurance: HUMANA CHOICE PPO MCR [facility] PLANNED EXTERAL PROVIDER: [facility] MEDICARE REHAB BED DCP follow-up note: CM SPOKE TO ERICKSON OF [facility] [employer], THEY HAVE NOT YET RECEIVED INSURANCE AUTHORIZATION, ERICKSON DOES NOT THINK THEY WILL HAVE STAFF TO DO WEEKEND ADMISSION. IF THEY RECEIVE AUTH OVER WEEKEND, IT WILL BE WEDNESDAY TO ACCEPT TO REHAB. WILL ACCEPT PENDING INSURANCE AUTHORATION. CM FAXED UPDATE TO [facility] AT [phone]. CM RECEIVED CALL FROM ERICKSON OF [facility], SHE INFORMED CM THAT PT'S INSURANCE CALLED AND INFORMED HER THAT PT HAS HMO, NOT PPO, [facility] NOT IN NETWORK. THE INSURANCE COMPANY WOULD NOT PROVIDE LIST OF IN NETWORK FACILITIES AND REPORTED IT TO BE ON LINE IF NEEDED. [facility] , SPOKE TO RAÚL WHO INFORMED CM THAT DIALYSIS ON TTS IS NOT A PROBLEM AND SHE WILL CHECK TO SEE IF IN NETWORK; SHE WILL SCREEN FOR ADMISSION. CM NOTIFIED PT WHO IS IN AGREEMENT WITH PLAN. CM FAXED REFERRAL TO [facility] AT [phone]. CM WAITING ADMISSION DETERMINATION FROM [facility] IN [place] FOR REHAB WELL INSURANCE AUTHORIZATION FROM PT'S INSURANCE COMPANY. Joseph Sanders CASE MANAGEMENT DCP- Discharge Planning Updated by [id number]: Joseph Sanders on 01/26/19 8:[address] Patient Name: JAMIE CORBIN Encounter No: [id number] : 1950 Primary Insurance: HUMANA CHOICE PPO MCR [employer] Anticipated DC Date: 01-26-2019 Planned Disposition: Senior Care Facility External Planned Provider: [facility], MEDICARE REHAB BED DCP follow-up note: CM SPOKE TO [facility] WHO MET WITH PT IN ROOM YESTERDAY, THEY WILL ACCEPT PENDING INSURANCE AUTHORATION. CM FAXED UPDATE TO [facility] AT [phone]. CM WAITING INSURANCE DETERMINATION FOR REHAB AT [facility]. Joseph Sanders CASE MANAGEMENT DCP- Discharge Planning Updated by [id number]: Joseph Sanders on 01/25/19 11:[address] Patient Name: JAMIE CORBIN Encounter No: [id number] : 1950 Primary Insurance: HUMANA CHOICE PPO MCR [facility] Anticipated DC Date: 01-26-2019 Planned Disposition: Senior Care Facility External Planned Provider: [facility], MEDICARE REHAB BED DCP follow-up note: CM SPOKE TO MAC OF INPATIENT REHAB AT [facility] TEAM MEETING WHO ADVISED THAT SHE CALLED PT'S INSURANCE COMPANY AND WAS ADVISED REHAB WAS DECLINED BY INSURANCE AND PEER TO PEER INFORMATION WAS SENT TO LULÚ OF CASE MANAGEMENT YESTERDAY. SIMRAN IRIZARRY ASKED THAT [facility]NAL NURSE PRACTITIONER BE ASKED IF SHE WILL DO THE PEER TO PEER. CM SPOKE TO RISHABH OF [facility] WHO ADVISED THAT PEER TO PEER WILL NOT BE DONE, PT CAN GO TO [facility]. CM NOTIFIED PT IN ROOM. CM RECEIVED MESSAGE FROM KATHY OF [facility] WHO ADVISED THAT THEY WILL ACCEPT PENDING INSURANCE AUTHORATION. CM FAXED UPDATE TO [facility] AT [phone]. CM NOTIFIED CLARA OF [facility] FOR WELCOME LETTER DELIVERY TO PT FOR OUTPATIENT DIALYSIS CLINIC. CM NOTIFIED PT WHO IS IN AGREEMENT WITH DISCHARGE PLAN. CM WAITING INSURANCE DETERMINATION FOR REHAB AT [facility]. SHAHBAZ Odell DCP- Discharge Planning Updated by [id number]: Joseph Sanders on 01/25/19 8:[address] Patient Name: JAMIE CORBIN Encounter No: [id number] : 1950 Primary Insurance: HUMANA CHOICE PPO MCR ADVANT Anticipated DC Date: 01-20-2019 Planned Disposition: Inpatient Rehab External Planned Provider: [facility] INPATIENT REHAB DCP follow-up note: CM SPOKE TO PT REGARDING DISCHARGE PLANNING, INFORMED OF REFERRAL PENDING AT [facility] FOR REHAB. PT AND SPOUSE IN AGREEMENT WITH PLAN IF DENIED INPATIENT REHAB BY INSURANCE. IMPORTANT MESSAGE FROM MEDICARE PROVIDED AND EXPLAINED. CM CALLED KATHY OF [facility], , VERIFIED HER RECEIPT OF REFERRAL AND THAT DIALYSIS DAYS [facility] HAS AVAILABLE FOR DIALYSIS ARE TTS, MIDSHIFT (10-1100 AM.) CM WAITING INSURANCE AUTHORIZATION FROM PT'S INSURANCE COMPANY FOR INPATIENT REHAB AT [place]. CM WAITING ADMISSION DETERMINATION FROM [facility]. Joseph Sanders CASE KEELEY DCP- Discharge Planning Updated by [id number]: Joseph Sanders on 01/24/19 1:[address] Patient Name: JAMIE CORBIN Encounter No: [id number] : 1950 Primary Insurance: HUMANA CHOICE PPO MCR AD[facility]ANT Anticipated DC Date: 01-20-2019 Planned Disposition: Inpatient Rehab External Planned Provider: [facility] INPATIENT REHAB DCP follow-up note: CM SPOKE TO PT REGARDING DISCHARGE PLANNING, INFORMED PT OF LIKELY DENIAL FROM HER INSURANCE FOR INPATIENT REHAB. PT WOULD LIKE REFERRAL TO [facility] FOR REHAB PREVIOUSLY DISCUSSED (CHOICE PREVIOUSLY SIGNED FOR [facility], [facility]). CM CALLED KATHY OF [facility], , INFORMED OF REFERRAL AND THAT DIALYSIS DAYS [facility] HAS AVAILABLE FOR DIALYSIS ARE TTS, MIDSHIFT (10-1100 AM. ) CM FAXED REFERRAL FOR REHAB SERVICES TO [facility] [phone]. CM WAITING INSURANCE AUTHORIZATION FROM PT'S INSURANCE COMPANY FOR INPATIENT REHAB AT [place]. CM WAITING ADMISSION DETERMINATION FROM [facility]. SHAHBAZ Odell DCP- Discharge Planning Updated by [id number]: Joseph Sanders on 01/20/19 12:[address] Patient Name: JAMIE CORBIN Encounter No: [id number] : 1950 Primary Insurance: HUMANA CHOICE PPO MCR ADVANT Anticipated DC Date: 01-20-2019 Planned Disposition: Inpatient Rehab External Planned Provider: [facility] INPATIENT REHAB DCP follow-up note: CM RECEIVED CALL FROM MAICOL OF [facility], SHE HAS CHECKED AT [facility], THE ONLY DAYS THEY HAVE AVAILABLE FOR DIALYSIS ARE TTS, MIDSHIFT (10-1100 AM.) MAICOL IS NOT GOING FURTHER WITH PLACEMENT PROCESS UNTIL IT IS DETERMINED IF PT IS GOING TO INPATIENT REHAB OR [facility]. CM WAITING INSURANCE AUTHORIZATION FROM PT'S INSURANCE COMPANY FOR INPATIENT REHAB AT [facility]. SHAHBAZ Odell DCP- Discharge Planning Updated by [id number]: Joseph Sanders on 01/19/19 4:[address] Patient Name: JAMIE CORBIN Encounter No: [id number] : 1950 Primary Insurance: HUMANA CHOICE PPO MCR ADVANT Anticipated DC Date: 01-20-2019 Planned Disposition: Inpatient Rehab External Planned Provider: [facility] INPATIENT REHAB DCP follow-up note: CM SPOKE TO RN ANA M FRANZ WHO ADVISED CM THAT FACILITIES TECHNICIAN INFORMED HER THAT PT IS [facility] APPROPRIATE AND NOT TO WASTE CM'S TIME SUBMITTING FOR INPATIENT REHAB. CM SPOKE TO PT AND SPOUSE IN ROOM. PT AND SPOUSE BOTH WOULD LIKE REHAB AT [facility] IF POSSIBLE. CM DISCUSSED [facility] FOR REHAB. THEY WANTED TO DISCUSS THIS WITHOUT CM THERE. CM LEFT. CM RETURNED IN ABOUT ONE HOUR. PT AND SPOUSE REPORT IF PT CANNOT GET INTO INPATIENT REHAB, THEY WOULD GO TO A [facility] FACILTY THAT COULD TRANSPORT PT TO AND FROM OUTPATIENT DIALYSIS IN [place]. CHOICE SIGNED FOR [facility] AND [facility]. CM NOTIFIED KOURTNEY AND [facility] OF INPATIENT REHAB. CM NOTIFIED DR. TURPIN. CM REVIEWED CHART, OCCUPATIONAL THERAPY EVALUATION DOCUMENTED. CM WAITING INSURANCE AUTHORIZATION FROM PT'S INSURANCE COMPANY FOR INPATIENT REHAB AT [facility]. SHAHBAZ Odell DCP- Discharge Planning Updated by [id number]: Joseph Sanders on 01/18/19 4:[address] Patient Name: JAMIE CORBIN Encounter No: [id number] : 1950 Primary Insurance: [employer] PPO MCR ADVANT Anticipated DC Date: Planned Disposition: Inpatient Rehab External Planned Provider: [facility] INPATIENT REHAB DCP follow-up note: CM MET WITH PT IN ROOM TO DISCUSS DISCHARGE NEEDS AND PLANNING. CM DISCUSSED AVAILABILITY OF HOME HEALTH, REHAB SERVICES AND MEDICAL EQUIPMENT. PT REPORTS SHE IS WEAK AND SHOULD PROBABLY GO TO REHAB. CM DISCUSSED REHAB OPTIONS, LOCATIONS AND PROVIDERS. PT WILL CONSIDER REHAB AT [facility], PT WOULD LIKE CM TO SPEAK TO HER SPOUSE TO VERIFY THIS IS A PLAN HE WOULD AGREE WITH. CM CALLED SHAWN CORBIN, , THE LINE WAS BUSY, CM CALLED THREE TIMES. PT REPORTS SHE PLANS TO DRIVE HERSELF TO [facility] [place] [facility] AND IF SHE NEEDS HELP WITH TRANSPORT, HER SPOUSE, SHAWN, WILL ASSIST. PT REPORTS SHAWN, HER SPOUSE, WILL PICK HER UP FOR DISCHARGE HOME. IMPORTANT MESSAGE FROM MEDICARE PROVIDED AND EXPLAINED. CM TO FOLLOW AND ASSIST NEEDED. PT WILL CONSIDER REHAB AT [facility]. CM TO CONTINUE TO ATTEMPT TO CONTACT PT'S SPOUSE, SHAWN, , TO DISCUSS DISCHARGE PLAN. CM TO ASK PHYSICIAN FOR INPATIENT REHAB PRESCREENING ORDER PT'S INSURANCE WILL REQUIRE PRIOR AUTHORIZATION. SHAHBAZ Odell DCP- Discharge Planning Updated by [id number]: Joseph Sanders on 01/09/19 3:[address] Patient Name: JAMIE CORBIN Admission Status: ER Accout number: [id number] Admission Date: 01-08-2019 : 1950 Admission Diagnosis: Attending: JAMISON TURPIN Current LOS: 1 Anticipated DC Date: Planned Disposition: Home Primary Insurance: HUMANA CHOICE PPO [facility] Discharge Planning Comments: CM MET WITH PT IN ROOM TO DISCUSS DISCHARGE PLANNING AND NEEDS. PT REPORTS LIVING AT HOME INDEPENDENTLY AND ALONE. PT HAS A WALKER WITH NO MEDICAL EQUIPMENT PROVIDER PREFERENCE. PT HAS NO OUTSIDE SERVICES ASSISTING IN THE HOME. CM DISCUSSED AVAILABILITY OF HOME HEALTH, REHAB SERVICES AND MEDICAL EQUIPMENT. PT DENIES DISCHARGE NEEDS, REPORTS HER SPOUSE WILL PICK HER UP FOR DISCHARGE HOME. PT PLANS TO DISCHARGE HOME ALONE, SEPERATED SPOUSE TO ASSIST PT AT HOME IF NECESSARY. SEPERATED SPOUSE TO TRANSPORT HOME AT DISCHARGE. PT HAS NO ANTICIPATED DISCHARGE NEEDS AT THIS TIME. CM TO CONTINUE TO FOLLOW AND ASSIST NEEDED. Jack Strip Assembler: Joseph Sanders DCPIA - Discharge Planning Initial Assessment Updated by [id number]: Joseph Sanders on 01/09/19 4:49 pm * Is the patient Alert and Oriented? Yes * How many steps to enter\\exit or inside your home? * PCP DR. BATRES IN [place] * Pharmacy [facility] IN [place] * Preadmission Environment Home with Family * ADLs Independent * Equipment Walker * Other Equipment NO MEDICAL EQUIPMENT PROVIDER PREFERENCE * List name and contact numbers for known caregivers / representatives who currently or will assist patient after discharge: SHAWN CORBIN, SEPERATED SPOUSE, * Verbal permission to speak to the caregivers and representatives has been obtained from the patient. Yes * Community resources currently utilized None * Please name any agencies selected above. NONE * Additional services required to return to the preadmission environment? No * Can the patient safely return to the preadmission environment? Yes * Has this patient been hospitalized within the prior 30 days at any hospital? No Coverage Notice Reviewer: [id number] Draion Sanders Notice Issued Date-Time: 01/31/2019 15:20 Notice Type: Patient Choice Letter Notice Delivered To: Patient Relationship to Patient: Family Partner Name: Delivery Method: HAND - Hand Delivered Ximena Days: Prior Verbal Notification: Recipient Understood Notice: Yes Recipient Signature: Yes Med Rec Note Co-signed by Attending: Coverage Notice Comment: [facility] Reviewer: [id number] Darion Sanders Notice Issued Date-Time: 01/19/2019 15:04 Notice Type: Patient Choice Letter Notice Delivered To: Patient Relationship to Patient: Family Partner Name: Delivery Method: HAND - Hand Delivered Ximena Days: Prior Verbal Notification: Recipient Understood Notice: Yes Recipient Signature: Yes Med Rec Note Co-signed by Attending: Coverage Notice Comment: E[facility]IRARD, [facility]. Reviewer: [id number] Sanders Notice Issued Date-Time: 01/31/2019 15:20 Notice Type: IM Discharge Notice Notice Delivered To: Patient Relationship to Patient: Family Partner Name: Delivery Method: HAND - Hand Delivered Ximena Days: Prior Verbal Notification: Recipient Understood Notice: Yes Recipient Signature: Yes Med Rec Note Co-signed by Attending: Coverage Notice Comment: Reviewer: CURT Sanders Notice Issued Date-Time: 01/25/2019 9:25 Notice Type: IM Discharge Notice Notice Delivered To: Patient Relationship to Patient: Family Partner Name: Delivery Method: HAND - Hand Delivered Ximena Days: Prior Verbal Notification: Recipient Understood Notice: Yes Recipient Signature: Yes Med Rec Note Co-signed by Attending: Coverage Notice Comment: Reviewer: CURT Sanders Notice Issued Date-Time: 01/18/2019 17:10 Notice Type: IM Discharge Notice Notice Delivered To: Patient Relationship to Patient: Family Partner Name: Delivery Method: HAND - Hand Delivered Ximena Days: Prior Verbal Notification: Recipient Understood Notice: Yes Recipient Signature: Yes Med Rec Note Co-signed by Attending: Coverage Notice Comment: Last DP export: 02/02/19 1:58 Patient Name: JAMIE CORBIN Page [id number] at 0836 All edits/amendments must be made on the electronic document DICTATION DATE: 02/03/19834 ACUTE CARE PHYSICAL THERAPIST: ANIBAL 02/03/19 0835 RPT#: [id number] DC DATE: STATUS: ADM IN [facility] [address] [place] [address] END OF REPORT
--- NOTE | 2019-02-03 08:49 | MORECARE ---
CASE MANAGEMENT DISCHARGE SUMMARY PATIENT: JAMIE CORBIN UNIT: [id number] ADM DATE: 01/08/19 AGE: 68 : 50 SEX: F ROOM/BED: D.7830 AUTHOR: SCOUT,DOC PHYSICIAN: REFERRING PHYSICIAN: JAMISON TURPIN MD DATE OF SERVICE: 02/03/19 Discharge Plan Patient Name: JAMIE CORBIN Facility: [facility]:[place] : 1950 Planned Disposition: Correction Facility Anticipated Discharge Date: 02/03/19 Discharge Date: Expected LOS: 26 Initial Reviewer: [id number] Initial Review Date: 01/09/2019 Generated: 02/03/19 9:48 am Comments DCP- Discharge Planning Updated by [id number]: Joseph Sanders on 02/03/19 7:[address] Patient Name: JAMIE CORBIN Encounter No: [id number] : 1950 Primary Insurance: HU[employer]NA CHOICE PPO MCR ADVANT Anticipated DC Date: 02-03-2019 Planned Disposition: Correction Facility External Planned Provider: EVA LOZADA MEDICARE REHAB BED DCP follow-up note: CM RECEIVED CALL FROM INGRID OF [facility], THEY WILL ACCEPT TODAY AND HAVE RECEIVED AUTHORIZATION YESTERDAY FROM PT'S INSURANCE. 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 CM NOTIFIED PT WHO IS IN AGREEMENT, IMPORTANT MESSAGE FROM MEDICARE PROVIDED AND EXPLAINED. PT WILL CALL HER SPOUSE TO NOTIFY HIM. CM NOTIFIED SIMRAN TATE. CM NOTIFED SIMRAN RILEY. CM FAXED DISCHARGE INFORMATION TO [phone]. NURSE REPORT TO BE CALLED TO EVA LOZADA AT [phone]. EVA LOZADA TO ARRANGE VAN TRANSPORTATION. Joseph Sanders DCP- Discharge Planning Updated by [id number]: Joseph Sanders on 02/02/19 1:[address] Patient Name: JAMIE CORBIN Encounter No: [id number] : 1950 Primary Insurance: HUMANA CHOICE PPO MCR ADVANT Anticipated DC Date: 02-01-2019 Planned Disposition: Correction Facility External Planned Provider: [facility] MEDICARE REHAB BED DCP follow-up note: CM FAXED REFERRAL UPDATE TO JOSE R GIPSON OF [facility] AT [phone]. CM WAITING ON ADMISSION DETERMINATION FROM [facility] IN [place]; IF THEY ACCEPT, CM WILL HAVE OUTPATIENT DIALYSIS UNIT CHANGE TO [place]. . Joseph Sanders, CASE MANAGEMENT Appended by Joseph Sanders on 02/02/2019 14:55 PREPARATION OPERATOR: CM FAXED REFERRAL UPDATE WITH [facility] PHYSICAL THERAPY NOTE AND DR NOTE TO JOSE R GIPSON OF [facility] AT [phone]. CM FAXED SAME UPDATE TO KATHY AT [facility] FOR POSSIBLE RECONSIDERATION FOR REHAB SERVICES. CM CALLED [facility], , LEFT MESSAGE FRO JOSE R GIPSON ASKING FOR ADMISSION DETERMINATION. CM WAITING ON ADMISSION DETERMINATION FROM [facility] IN [place]; IF THEY ACCEPT, CM WILL HAVE OUTPATIENT DIALYSIS UNIT CHANGE TO [place]. . Joseph Sanders, CASE MANAGEMENT DCP- Discharge Planning Updated by [id number]: Joseph Sanders on 02/01/19 11:[address] Patient Name: JAMIE CORBIN Encounter No: [id number] : 1950 Primary Insurance: [employer] [facility] MCR ADVANT Anticipated DC Date: 02-01-2019 Planned Disposition: Correction Facility External Planned Provider:[facility], MEDICARE REHAB BED DCP follow-up note: CM FAXED REFERRAL UPDATE TO JOSE R GIPSON OF [facility] AT [phone]. CM CALLED [facility], , SPOKE TO LARRY WHO INFORMED CM THAT JOSE R IS NOT IN TODAY. LARRY REPORTS JOSE R IS ON THE WAY IN FROM HER APPOINTMENT TODAY. LARRY WILL LOCATE AND LOOK AT THE REFERRAL. CM DISCUSSED THERAPY NOTES AND THAT PT/OT SIGNED OFF. LARRY INFORMED CM THAT WITH MANAGED MEDICARE, THEY WILL REQUEST THERAPY NOTES FOR LAST 24 HOURS. CM NOTIFIED SIMRAN TATE OF NEED OF CURRENT PHYSICAL AND OCCUPATIONAL THERAPY EVALUATION/NOTES. ORDERS RECEIVED FOR PT AND OT. CM WAITING ON ADMISSION DETERMINATION FROM [facility] IN [place]; IF THEY ACCEPT, CM WILL HAVE OUTPATIENT DIALYSIS UNIT CHANGE TO [place]. CM TO FAX LATEST PT AND OT EVALUATIONS TO [facility] SOON RECEIVED AT [phone]. Joseph Sanders CASE MANAGEMENT DCP- Discharge Planning Updated by [id number]: Joseph Sanders on 01/31/19 3:[address] Patient Name: JAMIE CORBIN Encounter No: [id number] : 1950 Primary Insurance: HUMANA CHOICE PPO MCR ADVANT Anticipated DC Date: 01-31-2019 Planned Disposition: Correction Facility External Planned Provider: [facility] MEDICARE REHAB BED DCP follow-up note: CM RECEIVED CALL FROM FAWAD WITH THE [facility] WHO ASKED IF PT WILL CONSIDER THE [facility], THEY WOULD NEED NEW DIALYSIS UNIT IN [place]. CM RECEIVED CALL FROM REINALDO [facility] [place] WHO REPORTS THEY CANNOT TRANSPORT ON TTS DIALYSIS SCHEDULE AND COULD IF PT HAS MWF SCHEDULE. CM SPOKE TO CLARA OF [facility] WHO INFORMED CM THAT [facility] DOES NOT HAVE A MWF CHAIR AVAILABLE. CM SPOKE TO PT IN ROOM, PROVIDED LISTING OF IN NETWORK NURSING FACILITIES PROVIDED BY PT'S INSURANCE PROVIDER; EXPLAINED ISSUES WITH GETTING MWF SHEDULE AT [facility], OFFERED TO LOOK ELSEWHERE FOR SKILLED REHAB WHICH WILL NECCESSITATE CHANGE IN OUTPATIENT DIALYSIS UNIT. PT CALLED HER SPOUSE VIA PHONE AND DISCUSSED ISSUE. PT GOT OFF PHONE AND INFORMED CM THAT SHE WILL TRY [facility] IN [place] WITH A [place] DIALYSIS UNIT AND THEY WILL "HAVE TO DO WHAEVER THEY HAVE TO". CHOICE SIGNED FOR [facility]. IMPORTANT MESSAGE FROM MEDICARE PROVIDED AND EXPLAINED. CM NOTIFIED CLARA OF [facility]. CM CALLED [facility], , SPOKE TO RAISSA WHO COULD NOT TELL CM IF THEY WILL TRANSPORT TO DIALYSIS IN [place] AND INFORMED CM THAT CM WILL NEED TO FAX REFERRAL FOR REVIEW. CM FAXED REFERRAL TO JOSE R GIPSON OF [facility] AT [phone]. CM WAITING ON ADMISSION DETERMINATION FROM [facility] IN [place]; IF THEY ACCEPT, CM WILL HAVE OUTPATIENT DIALYSIS UNIT CHANGE TO [place]. Joseph Sanders CASE MANAGEMENT DCP- Discharge Planning Updated by [id number]: Joseph Sanders on 01/31/19 11:[address] Patient Name: JAMIE CORBIN Encounter No: [id number] : 1950 Primary Insurance: HUMANA CHOICE PPO MCR ADVANT Anticipated DC Date: 01-31-2019 Planned Disposition: Correction Facility External Planned Provider: [facility], MEDICARE REHAB BED DCP follow-up note: CM FAXED REFERRAL UPDATE TO LEENA [facility], . CM WAITING ADMISSION DETERMINATION FROM [facility] [place] FOR REHAB WELL INSURANCE AUTHORIZATION FROM PT'S INSURANCE COMPANY. Joseph Sanders, CASE MANAGEMENT Appended by Joseph Sanders on 01/31/2019 12:18 PREPARATION OPERATOR: CM RECEIVED CALL FROM [facility] AT ABOUT 1034 HOURS, THEY ARE LOOKING AT PT FOR REHAB ADMISSION AND WILL CALL SOON DECISION IS MADE. CM WAITING ADMISSION DETERMINATION FROM [facility] IN [place] FOR REHAB WELL INSURANCE AUTHORIZATION FROM PT'S INSURANCE COMPANY. Joseph Sanders CASE MANAGEMENT DCP- Discharge Planning Updated by [id number]: Joseph Sanders on 01/30/19 2:[address] Patient Name: JAMIE CORBIN Encounter No: [id number] : 1950 Primary Insurance: HUMANA CHOICE PPO MCR ADVANT Anticipated DC Date: 01-31-2019 Planned Disposition: Correction Facility External Planned Provider: [facility], [facility] REHAB BED DCP follow-up note: CM RECEIVED CALL FROM FAWAD BRITO [facility] WHO STATES THAT SHE AND THE FACILITY WERE MISTAKEN, THEY ARE OUT OF NETWORK AND CAN APPLY FOR EXEMPTION ONLY IF DECLINED BY IN NETWORK FACILITIES IN HER AREA, [facility] IN [place], [facility] IN [place] AND [facility] IN [place]. CM RECEIVED CALL FROM [facility] WHO REPORTS RECEIVING REFERRAL, BEING IN NETWORK AND IS LOOKING AT PT FOR ADMISSION. CM WAITING ADMISSION DETERMINATION FROM [facility] [place] FOR REHAB WELL INSURANCE AUTHORIZATION FROM PT'S INSURANCE COMPANY. Joseph Sanders CASE MANAGEMENT DCP- Discharge Planning Updated by [id number]: Joseph Sanders on 01/30/19 7:[address] Patient Name: JAMIE CORBIN Encounter No: [id number] : 1950 Primary Insurance: HUMANA CHOICE PPO MCR ADVANT Anticipated DC Date: 01-27-2019 Planned Disposition: Correction Facility External Planned Provider: [facility], MEDICARE REHAB BED DCP follow-up note: CM FAXED REFERRAL UPDATE TO [facility] AT [phone]. CM FAXED REFERRAL TO [facility] AT [phone], CHOICE PREVIOUSLY SIGNED BY PT. CM WAITING ADMISSION DETERMINATION FROM [facility] FOR [facility], ADMISSION DETERMINATION FROM [facility] [place] FOR REHAB WELL INSURANCE AUTHORIZATION FROM PT'S INSURANCE COMPANY. SHAHBAZ Odell MANAGEMENT DCP- Discharge Planning Updated by [id number]: Joseph Sanders on 01/27/19 12:[address] Patient Name: JAMIE CORBIN Admission Status: ER Accout number: [id number] Admission Date: 01-08-2019 : 1950 Admission Diagnosis: Attending: JAMISON TURPIN Current LOS: 19 Anticipated DC Date: 01-27-2019 Planned Disposition: Correction Facility Primary Insurance: [employer] PPO MCR ADVANT PLANNED EXTERAL PROVIDER: [employer] MEDICARE REHAB BED DCP follow-up note: CM SPOKE TO [facility] [employer], THEY HAVE NOT YET RECEIVED INSURANCE AUTHORIZATION, [facility] NOT THINK THEY WILL HAVE STAFF TO DO WEEKEND ADMISSION. IF THEY RECEIVE AUTH OVER WEEKEND, IT WILL BE WEDNESDAY TO ACCEPT TO REHAB. WILL ACCEPT PENDING INSURANCE AUTHORATION. CM FAXED UPDATE TO [employer] AT [phone]. CM RECEIVED CALL FROM ERICKSON OF [employer], SHE INFORMED CM THAT PT'S INSURANCE CALLED AND INFORMED HER THAT PT HAS HMO, NOT PPO, [facility] NOT IN NETWORK. THE INSURANCE COMPANY WOULD NOT PROVIDE LIST OF IN NETWORK FACILITIES AND REPORTED IT TO BE ON LINE IF NEEDED. CM CALLED [facility]., , SPOKE TO RAÚL WHO INFORMED CM THAT DIALYSIS ON TTS IS NOT A PROBLEM AND SHE WILL CHECK TO SEE IF IN NETWORK; SHE WILL SCREEN FOR ADMISSION. CM NOTIFIED PT WHO IS IN AGREEMENT WITH PLAN. CM FAXED REFERRAL TO [facility] AT [phone]. CM WAITING ADMISSION DETERMINATION FROM [facility] FOR REHAB WELL INSURANCE AUTHORIZATION FROM PT'S INSURANCE COMPANY. SHAHBAZ Odell DCP- Discharge Planning Updated by [id number]: Joseph Sanders on 01/26/19 8:[address] Patient Name: JAMIE CROBIN Encounter No: [id number] : 1950 Primary Insurance: HU[employer] CHOICE PPO MCR ADVANT Anticipated DC Date: 01-26-2019 Planned Disposition: Correction Facility External Planned Provider: [facility], MEDICARE REHAB BED DCP follow-up note: CM SPOKE TO KATHY [facility] WHO MET WITH PT IN ROOM YESTERDAY, THEY WILL ACCEPT PENDING INSURANCE AUTHORATION. CM FAXED UPDATE TO [facility] AT [phone]. CM WAITING INSURANCE DETERMINATION FOR REHAB AT [facility]. SHAHBAZ Odell DCP- Discharge Planning Updated by [id number]: Joseph Sanders on 01/25/19 11:[address] Patient Name: JAMIE CORBIN Encounter No: [id number] : 1950 Primary Insurance: [employer] CHOICE PPO MCR ADVANT Anticipated DC Date: 01-26-2019 Planned Disposition: Correction Facility External Planned Provider: [facility], MEDICARE REHAB BED DCP follow-up note: CM SPOKE TO MAC OF INPATIENT REHAB AT [facility] TEAM MEETING WHO ADVISED THAT SHE CALLED PT'S INSURANCE COMPANY AND WAS ADVISED REHAB WAS DECLINED BY INSURANCE AND PEER TO PEER INFORMATION WAS SENT TO LULÚ OF CASE MANAGEMENT YESTERDAY. SIMRAN IRIZARRY ASKED THAT RENAL NURSE PRACTITIONER BE ASKED IF SHE WILL DO THE PEER TO PEER. CM SPOKE TO RISHABH OF RENAL WHO ADVISED THAT PEER TO PEER WILL NOT BE DONE, PT CAN GO TO HALFWAY REHAB. CM NOTIFIED PT IN ROOM. CM RECEIVED MESSAGE FROM KATHY [facility] WHO ADVISED THAT THEY WILL ACCEPT PENDING INSURANCE AUTHORATION. CM FAXED UPDATE TO [facility] AT [phone]. CM NOTIFIED CLARA OF [facility] FOR WELCOME LETTER DELIVERY TO PT FOR OUTPATIENT DIALYSIS CLINIC. CM NOTIFIED PT WHO IS IN AGREEMENT WITH DISCHARGE PLAN. CM WAITING INSURANCE DETERMINATION FOR REHAB AT [facility]. Joseph Sanders CASE MANAGEMENT DCP- Discharge Planning Updated by [id number]: Joseph Sanders on 01/25/19 8:[address] Patient Name: JAMIE CORBIN Encounter No: [id number] : 1950 Primary Insurance: HUMANA CHOICE PPO MCR ADVANT Anticipated DC Date: 01-20-2019 Planned Disposition: Inpatient Rehab External Planned Provider: [facility] DCP follow-up note: CM SPOKE TO PT REGARDING DISCHARGE PLANNING, INFORMED OF REFERRAL PENDING AT [facility] FOR REHAB. PT AND SPOUSE IN AGREEMENT WITH PLAN IF DENIED INPATIENT REHAB BY INSURANCE. IMPORTANT MESSAGE FROM MEDICARE PROVIDED AND EXPLAINED. CM CALLED KATHY BRITO [facility], , VERIFIED HER RECEIPT OF REFERRAL AND THAT DIALYSIS DAYS [facility] HAS AVAILABLE FOR DIALYSIS ARE TTS, MIDSHIFT (10-1100 AM.) CM WAITING INSURANCE AUTHORIZATION FROM PT'S INSURANCE COMPANY FOR INPATIENT REHAB AT [place]. CM WAITING ADMISSION DETERMINATION FROM [facility]. SHAHBAZ Odell DCP- Discharge Planning Updated by [id number]: Joseph Sanders on 01/24/19 1:[address] Patient Name: JAMIE CORBIN Encounter No: [id number] : 1950 Primary Insurance: [employer] CHOICE PPO MCR ADVANT Anticipated DC Date: 01-20-2019 Planned Disposition: Inpatient Rehab External Planned Provider: [facility]IENT REH[facility] DCP follow-up note: CM SPOKE TO PT REGARDING DISCHARGE PLANNING, INFORMED PT OF LIKELY DENIAL FROM HER INSURANCE FOR INPATIENT REHAB. PT WOULD LIKE REFERRAL TO [facility] FOR REHAB PREVIOUSLY DISCUSSED (CHOICE PREVIOUSLY SIGNED FOR [facility]). CM CALLED KATHY BRITO [facility], , INFORMED OF REFERRAL AND THAT DIALYSIS DAYS [facility] HAS AVAILABLE FOR DIALYSIS ARE TTS, MIDSHIFT (10-1100 AM. ) CM FAXED REFERRAL FOR REHAB SERVICES TO [facility] [phone]. CM WAITING INSURANCE AUTHORIZATION FROM PT'S INSURANCE COMPANY FOR INPATIENT REHAB AT [place]. CM WAITING ADMISSION DETERMINATION FROM [facility]. SHAHBAZ Odell DCP- Discharge Planning Updated by [id number]: Joseph Sanders on 01/20/19 12:[address] Patient Name: JAMIE CORBIN Encounter No: [id number] : 1950 Primary Insurance: [employer] CHOICE PPO MCR ADVANT Anticipated DC Date: 01-20-2019 Planned Disposition: Inpatient Rehab External Planned Provider: [facility] INPATIENT REH[facility] DCP follow-up note: CM RECEIVED CALL FROM MAICOL OF [facility], SHE HAS CHECKED AT [facility], THE ONLY DAYS THEY HAVE AVAILABLE FOR DIALYSIS ARE TTS, MIDSHIFT (10-1100 AM.) MAICOL IS NOT GOING FURTHER WITH PLACEMENT PROCESS UNTIL IT IS DETERMINED IF PT IS GOING TO INPATIENT REHAB OR HALFWAY FACILITY. CM WAITING INSURANCE AUTHORIZATION FROM PT'S INSURANCE COMPANY FOR INPATIENT REHAB AT [place]. Joseph Sanders CASE MANAGEMENT DCP- Discharge Planning Updated by [id number]: Joseph Sanders on 01/19/19 4:[address] Patient Name: JAMIE CORBIN Encounter No: [id number] : 1950 Primary Insurance: [employer] CHOICE PPO MCR ADVANT Anticipated DC Date: 01-20-2019 Planned Disposition: Inpatient Rehab External Planned Provider: [facility] DCP follow-up note: CM SPOKE TO RN ANA M FRANZ WHO ADVISED CM THAT SLOT FLOOR SUPERVISOR INFORMED HER THAT PT IS HALFWAY FACILITY APPROPRIATE AND NOT TO WASTE CM'S TIME SUBMITTING FOR INPATIENT REHAB. CM SPOKE TO PT AND SPOUSE IN ROOM. PT AND SPOUSE BOTH WOULD LIKE REHAB AT [place] IF POSSIBLE. CM DISCUSSED HALFWAY FACILITY FOR REHAB. THEY WANTED TO DISCUSS THIS WITHOUT CM THERE. CM LEFT. CM RETURNED IN ABOUT ONE HOUR. PT AND SPOUSE REPORT IF PT CANNOT GET INTO INPATIENT REHAB, THEY WOULD GO TO A HALFWAY FACILTY THAT COULD TRANSPORT PT TO AND FROM OUTPATIENT DIALYSIS IN [place]. CHOICE SIGNED FOR [facility]. CM NOTIFIED NANO OF INPATIENT REHAB. CM NOTIFIED DR. TURPIN. CM REVIEWED CHART, OCCUPATIONAL THERAPY EVALUATION DOCUMENTED. CM WAITING INSURANCE AUTHORIZATION FROM PT'S INSURANCE COMPANY FOR INPATIENT REHAB AT [place]. Joseph Sanders CASE MANAGEMENT DCP- Discharge Planning Updated by [id number]: Joseph Sanders on 01/18/19 4:[address] Patient Name: JAMIE CORBIN Encounter No: [id number] : 1950 Primary Insurance: [employer] CHOICE PPO MCR ADVANT Anticipated DC Date: Planned Disposition: Inpatient Rehab External Planned Provider: [facility] DCP follow-up note: CM MET WITH PT IN ROOM TO DISCUSS DISCHARGE NEEDS AND PLANNING. CM DISCUSSED AVAILABILITY OF HOME HEALTH, REHAB SERVICES AND MEDICAL EQUIPMENT. PT REPORTS SHE IS WEAK AND SHOULD PROBABLY GO TO REHAB. CM DISCUSSED REHAB OPTIONS, LOCATIONS AND PROVIDERS. PT WILL CONSIDER REHAB AT [place], PT WOULD LIKE CM TO SPEAK TO HER SPOUSE TO VERIFY THIS IS A PLAN HE WOULD AGREE WITH. CM CALLED SHAWN CORBIN, , THE LINE WAS BUSY, CM CALLED THREE TIMES. PT REPORTS SHE PLANS TO DR[facility] HERSELF TO [facility] AND IF SHE NEEDS HELP WITH TRANSPORT, HER SPOUSE, SHAWN, WILL ASSIST. PT REPORTS SHAWN, HER SPOUSE, WILL PICK HER UP FOR DISCHARGE HOME. IMPORTANT MESSAGE FROM MEDICARE PROVIDED AND EXPLAINED. CM TO FOLLOW AND ASSIST NEEDED. PT WILL CONSIDER REHAB AT [facility]. CM TO CONTINUE TO ATTEMPT TO CONTACT PT'S SPOUSE, SHAWN, , TO DISCUSS DISCHARGE PLAN. CM TO ASK PHYSICIAN FOR INPATIENT REHAB PRESCREENING ORDER PT'S INSURANCE WILL REQUIRE PRIOR AUTHORIZATION. Joseph Sanders, CASE MANAGEMENT DCP- Discharge Planning Updated by [id number]: Joseph Sanders on 01/09/19 3:[address] Patient Name: JAMIE CORBIN Admission Status: ER Accout number: [id number] Admission Date: 01-08-2019 : 1950 Admission Diagnosis: Attending: JAMISON TURPIN Current LOS: 1 Anticipated DC Date: Planned Disposition: Home Primary Insurance: HUMANA CHOICE PPO [facility] Discharge Planning Comments: CM MET WITH PT IN ROOM TO DISCUSS DISCHARGE PLANNING AND NEEDS. PT REPORTS LIVING AT HOME INDEPENDENTLY AND ALONE. PT HAS A WALKER WITH NO MEDICAL EQUIPMENT PROVIDER PREFERENCE. PT HAS NO OUTSIDE SERVICES ASSISTING IN THE HOME. CM DISCUSSED AVAILABILITY OF HOME HEALTH, REHAB SERVICES AND MEDICAL EQUIPMENT. PT DENIES DISCHARGE NEEDS, REPORTS HER SPOUSE WILL PICK HER UP FOR DISCHARGE HOME. PT PLANS TO DISCHARGE HOME ALONE, SEPERATED SPOUSE TO ASSIST PT AT HOME IF NECESSARY. SEPERATED SPOUSE TO TRANSPORT HOME AT DISCHARGE. PT HAS NO ANTICIPATED DISCHARGE NEEDS AT THIS TIME. CM TO CONTINUE TO FOLLOW AND ASSIST NEEDED. Retort Cooler: Joseph Sanders DCPIA - Discharge Planning Initial Assessment Updated by [id number]: Joseph Sanders on 01/09/19 4:49 pm * Is the patient Alert and Oriented? Yes * How many steps to enter\\exit or inside your home? * PCP DR. BATRES IN [place] * Pharmacy [facility] IN [place] * Preadmission Environment Home with Family * ADLs Independent * Equipment Walker * Other Equipment NO MEDICAL EQUIPMENT PROVIDER PREFERENCE * List name and contact numbers for known caregivers / representatives who currently or will assist patient after discharge: SHAWN CORBIN, SEPERATED SPOUSE, * Verbal permission to speak to the caregivers and representatives has been obtained from the patient. Yes * Community resources currently utilized None * Please name any agencies selected above. NONE * Additional services required to return to the preadmission environment? No * Can the patient safely return to the preadmission environment? Yes * Has this patient been hospitalized within the prior 30 days at any hospital? No Coverage Notice Reviewer: CURT Sanders Notice Issued Date-Time: 01/31/2019 15:20 Notice Type: Patient Choice Letter Notice Delivered To: Patient Relationship to Patient: Transportation Engineering Technician Name: Delivery Method: HAND - Hand Delivered Ximena Days: Prior Verbal Notification: Recipient Understood Notice: Yes Recipient Signature: Yes Med Rec Note Co-signed by Attending: Coverage Notice Comment: [facility] Reviewer: CURT Sanders Notice Issued Date-Time: 01/19/2019 15:04 Notice Type: Patient Choice Letter Notice Delivered To: Patient Relationship to Patient: Transportation Engineering Technician Name: Delivery Method: HAND - Hand Delivered Ximena Days: Prior Verbal Notification: Recipient Understood Notice: Yes Recipient Signature: Yes Med Rec Note Co-signed by Attending: Coverage Notice Comment: [facility]. Reviewer: CURT Sanders Notice Issued Date-Time: 02/03/2019 8:25 Notice Type: IM Discharge Notice Notice Delivered To: Patient Relationship to Patient: Transportation Engineering Technician Name: Delivery Method: HAND - Hand Delivered Ximena Days: Prior Verbal Notification: Recipient Understood Notice: Yes Recipient Signature: Yes Med Rec Note Co-signed by Attending: Coverage Notice Comment: Reviewer: CURT Sanders Notice Issued Date-Time: 01/31/2019 15:20 Notice Type: IM Discharge Notice Notice Delivered To: Patient Relationship to Patient: Transportation Engineering Technician Name: Delivery Method: HAND - Hand Delivered Ximena Days: Prior Verbal Notification: Recipient Understood Notice: Yes Recipient Signature: Yes Med Rec Note Co-signed by Attending: Coverage Notice Comment: Reviewer: CURT Sanders Notice Issued Date-Time: 01/25/2019 9:25 Notice Type: IM Discharge Notice Notice Delivered To: Patient Relationship to Patient: Transportation Engineering Technician Name: Delivery Method: HAND - Hand Delivered Ximena Days: Prior Verbal Notification: Recipient Understood Notice: Yes Recipient Signature: Yes Med Rec Note Co-signed by Attending: Coverage Notice Comment: Reviewer: [id number] - Joseph Sanders Notice Issued Date-Time: 01/18/2019 17:10 Notice Type: IM Discharge Notice Notice Delivered To: Patient Relationship to Patient: Transportation Engineering Technician Name: Delivery Method: HAND - Hand Delivered Ximena Days: Prior Verbal Notification: Recipient Understood Notice: Yes Recipient Signature: Yes Med Rec Note Co-signed by Attending: Coverage Notice Comment: Last DP export: 02/03/19 7:36 Patient Name: JAMIE CORBIN Page [id number] at 0849 All edits/amendments must be made on the electronic document DICTATION DATE: 02/03/19847 SPONSORSHIP MANAGER: ANIBAL 02/03/19847 RPT#: [id number] DC DATE: STATUS: ADM IN [facility] [address] [place] [address] END OF REPORT
--- NOTE | 2019-02-03 09:16 | MORECARE ---
CASE MANAGEMENT DISCHARGE SUMMARY PATIENT: JAMIE CORBIN UNIT: [id number] ADM DATE: 01/08/19 AGE: 68 : 50 SEX: F ROOM/BED: D.3172 AUTHOR: SCOUT,DOC PHYSICIAN: REFERRING PHYSICIAN: JAMISON TURPIN MD DATE OF SERVICE: 02/03/19 Discharge Plan Patient Name: JAMIE CORBIN Facility: [facility]:Mobile : 1950 Planned Disposition: [facility] Facility Anticipated Discharge Date: 02/03/19 Discharge Date: Expected LOS: 26 Initial Reviewer: [id number] Initial Review Date: 01/09/2019 Generated: 02/03/19 10:16 am Comments DCP- Discharge Planning Updated by [id number]: Joseph Sanders on 02/03/19 7:[address] Patient Name: JAMIE CORBIN Encounter No: [id number] : 1950 Primary Insurance: HU[employer]NA CHOICE PPO MCR ADVANT Anticipated DC Date: 02-03-2019 Planned Disposition: Mcfp Facility External Planned Provider: EVA LOZADA MEDICARE REHAB BED DCP follow-up note: CM RECEIVED CALL FROM INGRID OF [facility], THEY WILL ACCEPT TODAY AND HAVE RECEIVED AUTHORIZATION YESTERDAY FROM PT'S INSURANCE. EVA LOZADA HAS MADE ARRANGEMENTS TO TAKE PT TO [facility] TODAY TO DO ADMISSION PAPERWORK AND START DIALYSIS ON TOMORROW, THEY NEED TO EARLY CHILDHOOD COORDINATOR PT EARLY THIS MORNING. CM NOTIFIED PT WHO IS IN AGREEMENT, IMPORTANT MESSAGE FROM MEDICARE PROVIDED AND EXPLAINED. PT WILL CALL HER SPOUSE TO NOTIFY HIM. CM NOTIFIED SIMRAN TATE. CM NOTIFED SIMRAN RILEY. CM FAXED DISCHARGE INFORMATION TO [phone]. NURSE REPORT TO BE CALLED TO EVA LOZADA AT [phone]. EVA LOZADA TO ARRANGE VAN TRANSPORTATION. Joseph Sanders DCP- Discharge Planning Updated by [id number]: Joseph Sanders on 02/02/19 1:[address] Patient Name: JAMIE CORBIN Encounter No: [id number] : 1950 Primary Insurance: HUMANA CHOICE PPO MCR ADVANT Anticipated DC Date: 02-01-2019 Planned Disposition: Mcfp Facility External Planned Provider: [facility] MED[facility] REHAB BED DCP follow-up note: CM FAXED REFERRAL UPDATE TO JOSE R GIPSON OF [facility] AT [phone]. CM WAITING ON ADMISSION DETERMINATION FROM [facility] IN [place]; IF THEY ACCEPT, CM WILL HAVE OUTPATIENT DIALYSIS UNIT CHANGE TO [place]. . Joseph Sanders, CASE MANAGEMENT Appended by Joseph Sanders on 02/02/2019 14:55 AUTO CARE CENTER MANAGER: CM FAXED REFERRAL UPDATE WITH TODAYS PHYSICAL THERAPY NOTE AND DR NOTE TO JOSE R GIPSON OF [facility] AT [phone]. CM FAXED SAME UPDATE TO KATHY AT [facility] FOR POSSIBLE RECONSIDERATION FOR REHAB SERVICES. CM CALLED [facility], , LEFT MESSAGE FRO JOSE R GIPSON ASKING FOR ADMISSION DETERMINATION. CM WAITING ON ADMISSION DETERMINATION FROM [facility] IN [place]; IF THEY ACCEPT, CM WILL HAVE OUTPATIENT DIALYSIS UNIT CHANGE TO [place]. . Joseph Sanders, CASE MANAGEMENT DCP- Discharge Planning Updated by [id number]: Joseph Sanders on 02/01/19 11:[address] Patient Name: JAMIE CORBIN Encounter No: [id number] : 1950 Primary Insurance: [place] [facility] MCR ADVANT Anticipated DC Date: 02-01-2019 Planned Disposition: Mcfp Facility External Planned Provider:[facility], MEDICARE REHAB BED DCP follow-up note: CM FAXED REFERRAL UPDATE TO JOSE R GIPSON OF [facility] AT [phone]. CM CALLED [facility], , SPOKE TO LARRY WHO INFORMED CM THAT JOSE R IS NOT IN TODAY. LARRY REPORTS JOSE R IS ON THE WAY IN FROM HER APPOINTMENT TODAY. LARRY WILL LOCATE AND LOOK AT THE REFERRAL. CM DISCUSSED THERAPY NOTES AND THAT PT/OT SIGNED OFF. LARRY INFORMED CM THAT WITH MANAGED MEDICARE, THEY WILL REQUEST THERAPY NOTES FOR LAST 24 HOURS. CM NOTIFIED SIMRAN TATE OF NEED OF CURRENT PHYSICAL AND OCCUPATIONAL THERAPY EVALUATION/NOTES. ORDERS RECEIVED FOR PT AND OT. CM WAITING ON ADMISSION DETERMINATION FROM [facility] IN [place]; IF THEY ACCEPT, CM WILL HAVE OUTPATIENT DIALYSIS UNIT CHANGE TO [place]. CM TO FAX LATEST PT AND OT EVALUATIONS TO [facility] SOON RECEIVED AT [phone]. Joseph Sanders CASE MANAGEMENT DCP- Discharge Planning Updated by [id number]: Joseph Sanders on 01/31/19 3:[address] Patient Name: JAMIE CORBIN Encounter No: [id number] : 1950 Primary Insurance: HUMANA CHOICE PPO MCR ADVANT Anticipated DC Date: 01-31-2019 Planned Disposition: Mcfp Facility External Planned Provider: [facility] MEDICARE REHAB BED DCP follow-up note: CM RECEIVED CALL FROM FAWAD WITH THE [facility] WHO ASKED IF PT WILL CONSIDER THE [facility], THEY WOULD NEED NEW DIALYSIS UNIT IN [place]. CM RECEIVED CALL FROM REINALDO BRITO [place] WHO REPORTS THEY CANNOT TRANSPORT ON TTS DIALYSIS SCHEDULE AND COULD IF PT HAS MWF SCHEDULE. CM SPOKE TO CLARA OF [facility] WHO INFORMED CM THAT [facility] DOES NOT HAVE A MWF CHAIR AVAILABLE. CM SPOKE TO PT IN ROOM, PROVIDED LISTING OF IN NETWORK NURSING FACILITIES PROVIDED BY PT'S INSURANCE PROVIDER; EXPLAINED ISSUES WITH GETTING MWF SHEDULE AT [facility], OFFERED TO LOOK ELSEWHERE FOR SKILLED REHAB WHICH WILL NECCESSITATE CHANGE IN OUTPATIENT DIALYSIS UNIT. PT CALLED HER SPOUSE VIA PHONE AND DISCUSSED ISSUE. PT GOT OFF PHONE AND INFORMED CM THAT SHE WILL TRY [facility] IN [place] WITH A [place] DIALYSIS UNIT AND THEY WILL "HAVE TO DO WHAEVER THEY HAVE TO". CHOICE SIGNED FOR [facility]. IMPORTANT MESSAGE FROM MEDICARE PROVIDED AND EXPLAINED. CM NOTIFIED CLARA OF [facility]. CM CALLED [facility], , SPOKE TO RAISSA WHO COULD NOT TELL CM IF THEY WILL TRANSPORT TO DIALYSIS IN [place] AND INFORMED CM THAT CM WILL NEED TO FAX REFERRAL FOR REVIEW. CM FAXED REFERRAL TO JOSE R GIPSON OF [facility] AT [phone]. CM WAITING ON ADMISSION DETERMINATION FROM [facility] IN [place]; IF THEY ACCEPT, CM WILL HAVE OUTPATIENT DIALYSIS UNIT CHANGE TO [place]. Joseph Sanders CASE MANAGEMENT DCP- Discharge Planning Updated by [id number]: Joseph Sanders on 01/31/19 11:[address] Patient Name: JAMEI CORBIN Encounter No: [id number] : 1950 Primary Insurance: HUMANA CHOICE PPO MCR ADVANT Anticipated DC Date: 01-31-2019 Planned Disposition: Mcfp Facility External Planned Provider: [facility], MEDICARE REHAB BED DCP follow-up note: CM FAXED REFERRAL UPDATE TO LEENA [facility], . CM WAITING ADMISSION DETERMINATION FROM [facility] IN [place] FOR REHAB WELL INSURANCE AUTHORIZATION FROM PT'S INSURANCE COMPANY. Joseph Sanders, CASE MANAGEMENT Appended by Joseph Sanders on 01/31/2019 12:18 AUTO CARE CENTER MANAGER: CM RECEIVED CALL FROM [facility] AT ABOUT 1034 HOURS, THEY ARE LOOKING AT PT FOR REHAB ADMISSION AND WILL CALL SOON DECISION IS MADE. CM WAITING ADMISSION DETERMINATION FROM [facility] IN [place] FOR REHAB WELL INSURANCE AUTHORIZATION FROM PT'S INSURANCE COMPANY. Joseph Sanders CASE MANAGEMENT DCP- Discharge Planning Updated by [id number]: Joseph Sanders on 01/30/19 2:[address] Patient Name: JAMIE CORBIN Encounter No: [id number] : 1950 Primary Insurance: HUMANA CHOICE PPO MCR ADVANT Anticipated DC Date: 01-31-2019 Planned Disposition: Mcfp Facility External Planned Provider[facility], [facility] REHAB BED DCP follow-up note: CM RECEIVED CALL FROM FAWAD BRITO [facility] WHO STATES THAT SHE AND THE FACILITY WERE MISTAKEN, THEY ARE OUT OF NETWORK AND CAN APPLY FOR EXEMPTION ONLY IF DECLINED BY IN NETWORK FACILITIES IN HER AREA, [facility] IN [place], [facility] IN [place] AND [facility] IN [place]. CM RECEIVED CALL FROM LEENA [facility] WHO REPORTS RECEIVING REFERRAL, BEING IN NETWORK AND IS LOOKING AT PT FOR ADMISSION. CM WAITING ADMISSION DETERMINATION FROM [facility] [place] FOR REHAB WELL INSURANCE AUTHORIZATION FROM PT'S INSURANCE COMPANY. Joseph Sanders CASE MANAGEMENT DCP- Discharge Planning Updated by [id number]: Joseph Sanders on 01/30/19 7:[address] Patient Name: JAMIE CORBIN Encounter No: [id number] : 1950 Primary Insurance: HUMANA CHOICE PPO MCR ADVANT Anticipated DC Date: 01-27-2019 Planned Disposition: Mcfp Facility External Planned Provider: [facility], MEDICARE REHAB BED DCP follow-up note: CM FAXED REFERRAL UPDATE TO [facility] AT [phone]. CM FAXED REFERRAL TO [facility] AT [phone], CHOICE PREVIOUSLY SIGNED BY PT. CM WAITING ADMISSION DETERMINATION FROM [facility], ADMISSION DETERMINATION FROM [facility] [place] FOR REHAB WELL INSURANCE AUTHORIZATION FROM PT'S INSURANCE COMPANY. SHAHBAZ Odell MANAGEMENT DCP- Discharge Planning Updated by [id number]: Joseph Sanders on 01/27/19 12:[address] Patient Name: JAMIE CORBIN Admission Status: ER Accout number: [id number] Admission Date: 01-08-2019 : 1950 Admission Diagnosis: Attending: JAMISON TURPIN Current LOS: 19 Anticipated DC Date: 01-27-2019 Planned Disposition: Mcfp Facility Primary Insurance: [employer] PPO MCR ADVANT PLANNED EXTERAL PROVIDER: [employer] MEDICARE REHAB BED DCP follow-up note: CM SPOKE TO [facility] [employer], THEY HAVE NOT YET RECEIVED INSURANCE AUTHORIZATION, [facility] DOES NOT THINK THEY WILL HAVE STAFF TO DO WEEKEND ADMISSION. IF THEY RECEIVE AUTH OVER WEEKEND, IT WILL BE WEDNESDAY TO ACCEPT TO REHAB. WILL ACCEPT PENDING INSURANCE AUTHORATION. CM FAXED UPDATE TO [employer] AT [phone]. CM RECEIVED CALL FROM ERICKSON OF [employer], SHE INFORMED CM THAT PT'S INSURANCE CALLED AND INFORMED HER THAT PT HAS HMO, NOT PPO, [facility] NOT IN NETWORK. THE INSURANCE COMPANY WOULD NOT PROVIDE LIST OF IN NETWORK FACILITIES AND REPORTED IT TO BE ON LINE IF NEEDED. CM CALLED [facility]., , SPOKE TO RAÚL WHO INFORMED CM THAT DIALYSIS ON TTS IS NOT A PROBLEM AND SHE WILL CHECK TO SEE IF IN NETWORK; SHE WILL SCREEN FOR ADMISSION. CM NOTIFIED PT WHO IS IN AGREEMENT WITH PLAN. CM FAXED REFERRAL TO [facility] AT [phone]. CM WAITING ADMISSION DETERMINATION FROM [facility] FOR [facility] WELL INSURANCE AUTHORIZATION FROM PT'S INSURANCE COMPANY. SHAHBAZ Odell DCP- Discharge Planning Updated by [id number]: Joseph Sanders on 01/26/19 8:[address] Patient Name: JAMIE CORBIN Encounter No: [id number] : 1950 Primary Insurance: HUMANA CHOICE PPO MCR ADVANT Anticipated DC Date: 01-26-2019 Planned Disposition: Mcfp Facility External Planned Provider: [facility], MEDICARE REHAB BED DCP follow-up note: CM SPOKE TO KATHY [facility] WHO MET WITH PT IN ROOM YESTERDAY, THEY WILL ACCEPT PENDING INSURANCE AUTHORATION. CM FAXED UPDATE TO [facility] AT [phone]. CM WAITING INSURANCE DETERMINATION FOR REHAB AT [facility]. SHAHBAZ Odell DCP- Discharge Planning Updated by [id number]: Joseph Sanders on 01/25/19 11:[address] Patient Name: JAMIE CORBIN Encounter No: [id number] : 1950 Primary Insurance: HUMANA CHOICE PPO MCR ADVANT Anticipated DC Date: 01-26-2019 Planned Disposition: Mcfp Facility External Planned Provider: [facility], MEDICARE REHAB BED DCP follow-up note: CM SPOKE TO MAC OF INPATIENT REHAB AT [facility] TEAM MEETING WHO ADVISED THAT SHE CALLED PT'S INSURANCE COMPANY AND WAS ADVISED REHAB WAS DECLINED BY INSURANCE AND PEER TO PEER INFORMATION WAS SENT TO LULÚ OF CASE MANAGEMENT YESTERDAY. SIMRAN IRIZARRY ASKED THAT RENAL NURSE PRACTITIONER BE ASKED IF SHE WILL DO THE PEER TO PEER. CM SPOKE TO RISHABH OF [facility] WHO ADVISED THAT PEER TO PEER WILL NOT BE DONE, PT CAN GO TO [facility]. CM NOTIFIED PT IN ROOM. CM RECEIVED MESSAGE FROM KATHY [facility] WHO ADVISED THAT THEY WILL ACCEPT PENDING INSURANCE AUTHORATION. CM FAXED UPDATE TO [facility] AT [phone]. CM NOTIFIED CLARA OF [facility] FOR WELCOME LETTER DELIVERY TO PT FOR OUTPATIENT DIALYSIS CLINIC. CM NOTIFIED PT WHO IS IN AGREEMENT WITH DISCHARGE PLAN. CM WAITING INSURANCE DETERMINATION FOR REHAB AT [facility]. Joseph Sanders CASE MANAGEMENT DCP- Discharge Planning Updated by [id number]: Joseph Sanders on 01/25/19 8:[address] Patient Name: JAMIE CORBIN Encounter No: [id number] : 1950 Primary Insurance: HUMANA CHOICE PPO MCR ADVANT Anticipated DC Date: 01-20-2019 Planned Disposition: Inpatient Rehab External Planned Provider: [facility] INPATIENT REHAB DCP follow-up note: CM SPOKE TO PT REGARDING DISCHARGE PLANNING, INFORMED OF REFERRAL PENDING AT [facility] FOR REHAB. PT AND SPOUSE IN AGREEMENT WITH PLAN IF DENIED INPATIENT REHAB BY INSURANCE. IMPORTANT MESSAGE FROM MEDICARE PROVIDED AND EXPLAINED. CM CALLED KATHY BRITO [facility], , VERIFIED HER RECEIPT OF REFERRAL AND THAT DIALYSIS DAYS [facility] HAS AVAILABLE FOR DIALYSIS ARE TTS, MIDSHIFT (10-1100 AM.) CM WAITING INSURANCE AUTHORIZATION FROM PT'S INSURANCE COMPANY FOR INPATIENT REHAB AT [facility]. CM WAITING ADMISSION DETERMINATION FROM [facility]. SHAHBAZ Odell DCP- Discharge Planning Updated by [id number]: Joseph Sanders on 01/24/19 1:[address] Patient Name: JAMIE CORBIN Encounter No: [id number] : 1950 Primary Insurance: HUMANA CHOICE PPO MCR ADVANT Anticipated DC Date: 01-20-2019 Planned Disposition: Inpatient Rehab External Planned Provider: [facility] INPATIENT REHAB DCP follow-up note: CM SPOKE TO PT REGARDING DISCHARGE PLANNING, INFORMED PT OF LIKELY DENIAL FROM HER INSURANCE FOR INPATIENT REHAB. PT WOULD LIKE REFERRAL TO [facility] FOR REHAB PREVIOUSLY DISCUSSED (CHOICE PREVIOUSLY SIGNED FOR [facility]). CM CALLED KATHY BRITO [facility], , INFORMED OF REFERRAL AND THAT DIALYSIS DAYS [facility] HAS AVAILABLE FOR DIALYSIS ARE TTS, MIDSHIFT (10-1100 AM. ) CM FAXED REFERRAL FOR REHAB SERVICES TO [facility] [phone]. CM WAITING INSURANCE AUTHORIZATION FROM PT'S INSURANCE COMPANY FOR INPATIENT REHAB AT [facility]. CM WAITING ADMISSION DETERMINATION FROM [facility]. SHAHBAZ Odell DCP- Discharge Planning Updated by [id number]: Joseph Sanders on 01/20/19 12:[address] Patient Name: JAMIE CORBIN Encounter No: [id number] : 1950 Primary Insurance: [employer] CHOICE PPO MCR ADVANT Anticipated DC Date: 01-20-2019 Planned Disposition: Inpatient Rehab External Planned Provider: [facility] INPATIENT REHAB DCP follow-up note: CM RECEIVED CALL FROM MAICOL OF [facility], SHE HAS CHECKED AT [facility], THE ONLY DAYS THEY HAVE AVAILABLE FOR DIALYSIS ARE TTS, MIDSHIFT (10-1100 AM.) MAICOL IS NOT GOING FURTHER WITH PLACEMENT PROCESS UNTIL IT IS DETERMINED IF PT IS GOING TO INPATIENT REHAB OR [facility]. CM WAITING INSURANCE AUTHORIZATION FROM PT'S INSURANCE COMPANY FOR INPATIENT REHAB AT [facility]. Joseph Sanders CASE MANAGEMENT DCP- Discharge Planning Updated by [id number]: Joseph Sanders on 01/19/19 4:[address] Patient Name: JAMIE CORBIN Encounter No: [id number] : 1950 Primary Insurance: [employer] CHOICE PPO MCR ADVANT Anticipated DC Date: 01-20-2019 Planned Disposition: Inpatient Rehab External Planned Provider: [facility] INPATIENT REHAB DCP follow-up note: CM SPOKE TO RN ANA M FRANZ WHO ADVISED CM THAT RIBBING MACHINE OPERATOR INFORMED HER THAT PT IS [facility]ILITY APPROPRIATE AND NOT TO WASTE CM'S TIME SUBMITTING FOR INPATIENT REHAB. CM SPOKE TO PT AND SPOUSE IN ROOM. PT AND SPOUSE BOTH WOULD LIKE REHAB AT [facility] IF POSSIBLE. CM DISCUSSED [facility] FOR REHAB. THEY WANTED TO DISCUSS THIS WITHOUT CM THERE. CM LEFT. CM RETURNED IN ABOUT ONE HOUR. PT AND SPOUSE REPORT IF PT CANNOT GET INTO INPATIENT REHAB, THEY WOULD GO TO A [facility] FACILTY THAT COULD TRANSPORT PT TO AND FROM OUTPATIENT DIALYSIS IN [place]. CHOICE SIGNED FOR [facility]. CM NOTIFIED NANO OF INPATIENT REHAB. CM NOTIFIED DR. TURPIN. CM REVIEWED CHART, OCCUPATIONAL THERAPY EVALUATION DOCUMENTED. CM WAITING INSURANCE AUTHORIZATION FROM PT'S INSURANCE COMPANY FOR INPATIENT REHAB AT [facility]. Joseph Sanders CASE MANAGEMENT DCP- Discharge Planning Updated by [id number]: Joseph Sanders on 01/18/19 4:[address] Patient Name: JAMIE CORBIN Encounter No: [id number] : 1950 Primary Insurance: [employer] CHOICE PPO MCR ADVANT Anticipated DC Date: Planned Disposition: Inpatient Rehab External Planned Provider: [facility] INPATIENT REHAB DCP follow-up note: CM MET WITH PT IN ROOM TO DISCUSS DISCHARGE NEEDS AND PLANNING. CM DISCUSSED AVAILABILITY OF HOME HEALTH, REHAB SERVICES AND MEDICAL EQUIPMENT. PT REPORTS SHE IS WEAK AND SHOULD PROBABLY GO TO REHAB. CM DISCUSSED REHAB OPTIONS, LOCATIONS AND PROVIDERS. PT WILL CONSIDER REHAB AT [facility], PT WOULD LIKE CM TO SPEAK TO HER SPOUSE TO VERIFY THIS IS A PLAN HE WOULD AGREE WITH. CM CALLED SHAWN CORBIN, , THE LINE WAS BUSY, CM CALLED THREE TIMES. PT REPORTS SHE PLANS TO DRIVE HERSELF TO [facility] AND IF SHE NEEDS HELP WITH TRANSPORT, HER SPOUSE, SHAWN, WILL ASSIST. PT REPORTS SHAWN, HER SPOUSE, WILL PICK HER UP FOR DISCHARGE HOME. IMPORTANT MESSAGE FROM MEDICARE PROVIDED AND EXPLAINED. CM TO FOLLOW AND ASSIST NEEDED. PT WILL CONSIDER REHAB AT [facility]. CM TO CONTINUE TO ATTEMPT TO CONTACT PT'S SPOUSE, SHAWN, , TO DISCUSS DISCHARGE PLAN. CM TO ASK PHYSICIAN FOR INPATIENT REHAB PRESCREENING ORDER PT'S INSURANCE WILL REQUIRE PRIOR AUTHORIZATION. Joseph Sanders, CASE MANAGEMENT DCP- Discharge Planning Updated by [id number]: Joseph Sanders on 01/09/19 3:[address] Patient Name: JAMIE CORBIN Admission Status: ER Accout number: [id number] Admission Date: 01-08-2019 : 1950 Admission Diagnosis: Attending: JAMISON TURPIN Current LOS: 1 Anticipated DC Date: Planned Disposition: Home Primary Insurance: HUMANA CHOICE PPO [facility] Discharge Planning Comments: CM MET WITH PT IN ROOM TO DISCUSS DISCHARGE PLANNING AND NEEDS. PT REPORTS LIVING AT HOME INDEPENDENTLY AND ALONE. PT HAS A WALKER WITH NO MEDICAL EQUIPMENT PROVIDER PREFERENCE. PT HAS NO OUTSIDE SERVICES ASSISTING IN THE HOME. CM DISCUSSED AVAILABILITY OF HOME HEALTH, REHAB SERVICES AND MEDICAL EQUIPMENT. PT DENIES DISCHARGE NEEDS, REPORTS HER SPOUSE WILL PICK HER UP FOR DISCHARGE HOME. PT PLANS TO DISCHARGE HOME ALONE, SEPERATED SPOUSE TO ASSIST PT AT HOME IF NECESSARY. SEPERATED SPOUSE TO TRANSPORT HOME AT DISCHARGE. PT HAS NO ANTICIPATED DISCHARGE NEEDS AT THIS TIME. CM TO CONTINUE TO FOLLOW AND ASSIST NEEDED. Health Information Systems Technician: Joseph Sanders DCPIA - Discharge Planning Initial Assessment Updated by [id number]: Joseph Sanders on 01/09/19 4:49 pm * Is the patient Alert and Oriented? Yes * How many steps to enter\\exit or inside your home? * PCP DR. BATRES IN [place] * Pharmacy [facility] IN [place] * Preadmission Environment Home with Family * ADLs Independent * Equipment Walker * Other Equipment NO MEDICAL EQUIPMENT PROVIDER PREFERENCE * List name and contact numbers for known caregivers / representatives who currently or will assist patient after discharge: SHAWN CORBIN, SEPERATED SPOUSE, * Verbal permission to speak to the caregivers and representatives has been obtained from the patient. Yes * Community resources currently utilized None * Please name any agencies selected above. NONE * Additional services required to return to the preadmission environment? No * Can the patient safely return to the preadmission environment? Yes * Has this patient been hospitalized within the prior 30 days at any hospital? No Coverage Notice Reviewer: CURT Sanders Notice Issued Date-Time: 01/31/2019 15:20 Notice Type: Patient Choice Letter Notice Delivered To: Patient Relationship to Patient: Photogrammetric Technician Name: Delivery Method: HAND - Hand Delivered Ximena Days: Prior Verbal Notification: Recipient Understood Notice: Yes Recipient Signature: Yes Med Rec Note Co-signed by Attending: Coverage Notice Comment: [facility] Reviewer: CURT Sanders Notice Issued Date-Time: 01/19/2019 15:04 Notice Type: Patient Choice Letter Notice Delivered To: Patient Relationship to Patient: Photogrammetric Technician Name: Delivery Method: HAND - Hand Delivered Ximena Days: Prior Verbal Notification: Recipient Understood Notice: Yes Recipient Signature: Yes Med Rec Note Co-signed by Attending: Coverage Notice Comment: [facility]. Reviewer: CURT Sanders Notice Issued Date-Time: 02/03/2019 8:25 Notice Type: IM Discharge Notice Notice Delivered To: Patient Relationship to Patient: Photogrammetric Technician Name: Delivery Method: HAND - Hand Delivered Ximena Days: Prior Verbal Notification: Recipient Understood Notice: Yes Recipient Signature: Yes Med Rec Note Co-signed by Attending: Coverage Notice Comment: Reviewer: CURT Sanders Notice Issued Date-Time: 01/31/2019 15:20 Notice Type: IM Discharge Notice Notice Delivered To: Patient Relationship to Patient: Photogrammetric Technician Name: Delivery Method: HAND - Hand Delivered Ximena Days: Prior Verbal Notification: Recipient Understood Notice: Yes Recipient Signature: Yes Med Rec Note Co-signed by Attending: Coverage Notice Comment: Reviewer: CURT Sanders Notice Issued Date-Time: 01/25/2019 9:25 Notice Type: IM Discharge Notice Notice Delivered To: Patient Relationship to Patient: Photogrammetric Technician Name: Delivery Method: HAND - Hand Delivered Ximena Days: Prior Verbal Notification: Recipient Understood Notice: Yes Recipient Signature: Yes Med Rec Note Co-signed by Attending: Coverage Notice Comment: Reviewer: [id number] - Joseph Sanders Notice Issued Date-Time: 01/18/2019 17:10 Notice Type: IM Discharge Notice Notice Delivered To: Patient Relationship to Patient: Photogrammetric Technician Name: Delivery Method: HAND - Hand Delivered Ximena Days: Prior Verbal Notification: Recipient Understood Notice: Yes Recipient Signature: Yes Med Rec Note Co-signed by Attending: Coverage Notice Comment: Last DP export: 02/03/19 7:48 Patient Name: JAMIE CORBIN Page [id number] at 0916 All edits/amendments must be made on the electronic document DICTATION DATE: 02/03/19915 HOME CARE SPECIALIST: ANIBAL 02/03/19915 RPT#: [id number] DC DATE: STATUS: ADM IN [facility] [address] [place] [address] END OF REPORT
--- NOTE | 2019-02-03 10:43 | NUR ---
DC PAPERWORK GONE OVER AND SIGNED WITH PT. ALL QUESTIONS ANSWERED. ALL VALUBLES PACKED UP AND SENT WITH PT. PIV REMOVED CATH TIP FULLY INTACT. REPORT CALLED TO FELECIA AT [facility]. TRANSPORT HERE TO CASH APPLICATIONS ASSOCIATE PT TO TAKE TO FACILITY.
--- NOTE | 2019-02-03 13:14 | NUR ---
OT NOTE: PT COMPLETED BED MOB TASKS WITH SBA. PT COMPLETED SIT TO STANDS WITH CGA. PT COMPLETED BUE AROM EXS AT [facility]. PT IS CONFUSED. NURSING NOTIFIED. PT IS GOING TO [facility] FOR REHAB TODAY. [phone] THANK YOU, LORRAINE FONTANA
--- NOTE | 2019-02-10 08:49 | OP ---
PATIENT NAME: JAMIE CORBIN MEDICAL RECORD: [id number] :50 LOCATION:D.M2 D.2111 ADMISSION DATE:01/08/19 SURGEON: STEPHEN PICHARDO MD DATE OF OPERATION: 01/23/2019 PREOPERATIVE DIAGNOSIS: End-stage renal disease without chronic access for hemodialysis. POSTOPERATIVE DIAGNOSIS: End-stage renal disease without chronic access for hemodialysis, with one side branch off the cephalic vein which was significant. PROCEDURES: 1. Placement of right brachiocephalic arteriovenous fistula for hemodialysis access. 2. Placement of right 19 cm HemoSplit catheter (tunneled cuffed dual-lumen hemodialysis catheter) under fluoroscopic guidance. 3. Immediate surgeon interpretation of the fluoroscopic images. SURGEON: Stephen Pichardo MD SPECIALTY DEVELOPMENT CONSULTANT: None. BLOOD LOSS: Minimal. ANESTHESIA: General. COMPLICATIONS: None. The risks, possible complications and alternatives to the procedure were explained to the patient. She elects to proceed. The discussion specifically included, but was not limited to, bleeding requiring emergency reoperation, infection, pneumothorax, great vessel injury. The patient already has a left-sided dialysis catheter in place. I have been asked to place a cuffed catheter. OPERATIVE COURSE: The patient was conveyed to the operating room electively on 01/23/2019. General anesthesia was induced by the anesthesia staff. The right upper extremity was abducted at 90 degrees to the patient's trunk. The right upper extremity was sterilely prepped and draped. Utilizing a handheld ultrasound, I interrogated the right upper extremity and identified that our best target vessels were going to be the brachial artery and the cephalic vein in the cubital fossa. A transverse incision was accomplished in the cubital fossa. I dissected down to a brachial artery, which was moderately sized and of good quality. Vessel loops were placed around the artery. I then dissected down to the cephalic vein, which was of moderate quality and moderately sized. I dissected up along the cephalic vein into the arm. Some side branches were ligated doubly and divided between ligatures. I then ligated a deep tributary off of the cephalic vein. This was ligated doubly and divided between ligatures. I ligated the antebrachial veins distally. I then transected the cephalic vein proximally. OPERATIVE REPORT [id number] JAMIE CORBIN Intravenous heparin was then given. I then swung the cephalic vein around to the brachial artery. Proximal and distal control on the brachial artery was obtained with vessel loops. A longitudinal arteriotomy was accomplished. I punched out some ovals in the artery with an aortic punch. A side-to-end arterial to venous anastomosis was then accomplished with a running 7-0 Prolene suture. I then flushed out through the fistula. Fibrillar was added around the anastomosis for additional hemostasis. In examining the cephalic vein, I identified one significant side branch in the mid arm. A transverse incision was accomplished over the side branch. I dissected down to it and ligated it with a silk suture. The subdermis at both sites were approximated with interrupted 3-0 Vicryls. The skin at both sites was approximated with a running intracuticular 3-0 Vicryl. Benzoin and Steri-Strips were applied. Attention was then turned to placement of the HemoSplit catheter. The patient was positioned in the Trendelenburg position. The right neck and right chest were sterilely prepped and draped. The ultrasound was brought onto the field and I identified a compressible large right internal jugular vein. This was percutaneously accessed in an antegrade fashion. No radiologist was present for this procedure. Static fluoroscopic images were obtained and are kept in the PACS system. The surgeon interpretation of these radiographic images follows. After accessing the right internal jugular vein in an antegrade fashion a guidewire advanced easily. This was visualized under fluoroscopy. A skin incision was accomplished around the guidewire. A counterincision was accomplished in the right anterior-superior infraclavicular chest. I tunneled the HemoSplit catheter from the chest incision to the neck incision. Over the wire, I dilated with vascular dilators and this was visualized under fluoroscopy. A dilator sheath was then advanced. The dilator and wire were removed. I then advanced both lumens of the HemoSplit catheter down the Peel-Away sheath. The Peel-Away sheath was then removed. I then pulled back on the HemoSplit catheter in order to seat the cuff in the subcutaneous tissues. An image over the mediastinum and over the right lung apex revealed no radiographic evidence of complication. There was no evidence of a pneumothorax, kinking or twisting of the catheter. The neck incision was closed with interrupted intracuticular 3-0 Vicryls. The flange of the HemoSplit catheter was sutured to the underlying skin with 2-0 nylons. Both lumens flushed easily and aspirated dark, nonpulsatile blood. I then topped off both lumens of the Hemosplit catheter with the appropriate amount of concentrated heparin. Sterile dressings were applied. The patient was then extubated and conveyed to post-anesthesia care unit where she was in stable condition. TRANSINT:[id number] Voice Confirmation ID: [id number] DOCUMENT ID: [id number] OPERATIVE REPORT [id number] JAMIE CORBIN ROBERT MD at 0849 CC: MARTY SEQUEIRA MD and JAMISON TURPIN MD [id number] DICTATION DATE: 02/03/19 184 PRESS CLIPPER: 02/04/19 0132 DIS IN 02/03/[address] [facility] [address] [place] [address]
== END 2019-02-03 10:49 | DRG 640 ==
LOC: D.ER 18:51 → D.M2 19:46
PROVIDERS: Emergency Medicine; Family Medicine; General Practice; Internal Medicine Nephrology; Radiology Diagnostic Radiology; Specialist; Surgery; ADMIT Internal Medicine Nephrology; ATTEND Internal Medicine Nephrology
PROC: 0TB03ZX Excision of Right Kidney, Percutaneous Approach, Diagnostic (ICD-10-PCS; principal; 2019-01-16 10:35)
PROC: B51M1ZA Fluoroscopy of Right Upper Extremity Veins using Low Osmolar Contrast, Guidance (ICD-10-PCS; 2019-01-23)
PROC: 05HB33Z Insertion of Infusion Device into Right Basilic Vein, Percutaneous Approach (ICD-10-PCS; 2019-01-23 08:00)
DX: E87.70 Fluid overload, unspecified (principal); N18.6 End stage renal disease; G92 Toxic encephalopathy; N17.9 Acute kidney failure, unspecified; N39.0 Urinary tract infection, site not specified; I12.0 Hypertensive chronic kidney disease with stage 5 chronic kidney disease or end stage renal disease; N25.81 Secondary hyperparathyroidism of renal origin; E11.65 Type 2 diabetes mellitus with hyperglycemia; E03.9 Hypothyroidism, unspecified; E11.21 Type 2 diabetes mellitus with diabetic nephropathy; E11.22 Type 2 diabetes mellitus with diabetic chronic kidney disease; D63.1 Anemia in chronic kidney disease; E66.9 Obesity, unspecified; Z68.34 Body mass index [BMI] 34.0-34.9, adult; Z99.2 Dependence on renal dialysis

== ENCOUNTER 2019-09-08 05:57 | Day surgery (SDC) | payer MEDICARE ==
[~2019-09-08] VITALS: Ht 170.2 cm; Wt 88.0 kg
[~2019-09-08 05:57] MED LIST: BUMEX2 MG PO; CARDURA2 MG PO; CATAPRES0.2 MG PO; CATAPRES0.3 MG PO; COREG12.5 MG PO; COZAAR50 MG PO; DETROL LA4 MG PO; FLUTICASONE PRO16 GM NASAL; FUROSEMIDE20 MG PO; HYDRALAZINE HCL50 MG PO; IBUPROFEN800 MG PO; INFLUENZA VACCINE; LEVOTHYROXINE50 MCG PO; LEVOTHYROXINE75 MCG PO; MELATONIN 3 MG1 TAB PO; NEURONTIN 300300 MG PO; NORVASC10 MG PO; SHINGRIX; ULORIC40 MG PO; ZOLOFT100 MG PO; [UNRECOGNIZED DRUG - OTHER]; [UNRECOGNIZED DRUG - SUPPLY]
[2019-09-08 06:29] LABS: BASOPHILS 1.3 % (0-2); EOSINOPHILS 6.6 % (0-7); HEMATOCRIT 40.4 % (36.0-48.0); HEMOGLOBIN 12.5 g/dL (12-16); IMMATURE GRANULOCYTES 0.2 % (0-5); LYMPHOCYTES 35.8 % (15-50); MCH 28.2 pg (26.0-34.0); MCHC 30.9 g/dL (31.0-37.0); MEAN PLATELET VOLUME 10.1 fL (7.4-10.4); MONOCYTES 9.1 % (2-11); PLATELET COUNT 207 10x3/uL (130-400); RBC 4.44 10x6/uL (4.00-5.40); RDW 14.1 % (11.5-14.5)
[2019-09-08 06:34] LABS: ANION GAP 11.3 mmol/L (8-16); CARBON DIOXIDE 28.9 mmol/L (21.0-32.0); CREATININE - SERUM 5.3 mg/dL (0.6-1.3); POTASSIUM - SERUM 5.2 mmol/L (3.5-5.1)
[2019-09-08 06:42] LABS: INR 1.07 (0.85-1.17); PROTIME 13.8 SECONDS (11.6-15.0)
[2019-09-08 07:11] VITALS: BP 152/72; Ht 170.2 cm; Wt 88.0 kg
[2019-09-08] MEDS ORDERED: LEVEMIR FL100 UNIT/1 SC (07:28)
[2019-09-08] MEDS ORDERED: NOVOLOG100 UNIT/1 SC (07:29)
--- NOTE | 2019-09-08 12:11 | NUR ---
1057 IV DC'D. CATHETER TIP INTACT. NO BLEEDING AT SITE. BANDAID APPLIED. PT VOICES UNDERSTANDING OF DISCHARGE INSTRUCTIONS. 1120 PT READY FOR DISCHARGE. SHE FELT LIKE HER BS IS RUNNING LOW EVEN THOUGH SHE DRANK SOME APPLE JUICE EARLIER. BS CHECKED AND RESULTS ARE 150. EXPLAINED TO PT THAT IT COULD BE THE AFFECTS OF ANESTHESIA STILL ON BOARD.
--- NOTE | 2019-09-26 09:27 | OP ---
PATIENT NAME: JAMIE CORBIN MEDICAL RECORD: [id number] :50 LOCATION:[facility] ADMISSION DATE: SURGEON: TEDDY MOROCHO MD DATE OF OPERATION: 09/08/2019 She was an outpatient when she was operated, gosh way back on 09/08/2019. REFERRING PHYSICIAN: Dr. Monroe of [place]. 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 OPERATION PERFORMED: Fistulogram with selective right brachial artery arteriogram and open CAMPBELL banding with two 2-0 Prolene ligatures tied over an endovascular 4 mm balloon within the lumen of the juxta-anastomotic segment of the fistula. SURGEON: Teddy Morocho MD ANESTHESIA: General with LMA per DIRECTOR OF LEADERSHIP DEVELOPMENT. PREOPERATIVE NOTE: Ms. Corbin is a 69-year-old female with end-stage renal disease on chronic hemodialysis. Her home is in [place], [place]. Her floral department specialist is Dr. Monroe of [place]. Her primary care physician is Dr. Tony Rodrigues. She has a right arm brachiocephalic arterial venous fistula and rather severe steal symptoms or ischemic symptoms in the right hand. She is brought to the operating room at this time for a fistulogram with arteriogram and open CAMPBELL banding procedure. DESCRIPTION OF PROCEDURE: With the patient under general anesthesia in supine position, the arm was prepped and draped in a sterile manner. The fistula was cannulated in a retrograde distally directed manner using ultrasound guidance and a micropuncture needle and catheter inserted. A fistulogram was performed, which revealed no evidence of lesion of the fistula or its venous runoff all the way to the right atrium. Retrograde imaging obtained by occluding the fistula proximally demonstrated no arterial stenosis. I then advanced a 7-Yoruba introducer over a guidewire and then passed a 0.035 angled Glidewire and glide catheter across the arterial anastomosis and proximally up into the broad proximal brachial artery. Contrast injection or arteriogram then revealed no lesion of the proximal brachial artery and almost no flow into the forearm. With occlusion of the fistula, there was excellent flow into the proximal radial and ulnar arteries confirming the clinical diagnosis of steal syndrome. I then made an oblique incision along the lateral edge of the juxta-anastomotic segment of her fistula. I exposed the cephalic vein and encircled it by blunt dissection and then passed two 2-0 Prolene ligatures around to the vein. I inserted a 4-mm diameter angioplasty balloon into that segment of the vein and inflated it and then tied the two 2-0 Prolene ligatures about a centimeter apart over the fully inflated balloon to assure then an intraluminal diameter of 4 mm at completion. The balloon was deflated and removed and repeat contrast injection without occlusion of the fistula this time demonstrated much improved flow into the distal brachial artery beyond the anastomosis and into the radial and ulnar arteries. The patient was awakened and taken to the recovery room in stable condition. Blood loss during the operation was essentially none. Sponges, instruments, and OPERATIVE REPORT [id number] SHAQUILLE,DAMETRA needles were accounted for. No drain was used and no surgical specimen submitted for histopathology. The patient will be discharged to home today and follow up in my office in about 2 weeks. No new prescriptions are written today. If the patient's fistula clots, then she will likely need a bridging catheter along with open or percutaneous mechanical thrombectomy and dilation of the banded segment which could be dilated up to 5 mm in diameter expecting the 2-0 Prolene ligatures to stretch by that amount. If the patient suffers an early thrombosis then further open revision by proximalization of the arterial inflow may be necessary. TRANSINT:[id number] Voice Confirmation ID: [id number] DOCUMENT ID: [id number] TEDDY MOROCHO MD at 0927 CC: LILIAN MONROE MD and TONY RODRIGUES MD [id number] DICTATION DATE: 09/25/19 0953 SOFTWARE DEVELOPMENT LEADER: 09/25/19 1129 [facility] 09/08/19 [facility] [address] [place] [address]
== END 2019-09-08 11:20 | disposition home or self-care (01) ==
LOC: D.OPS 05:57
PROVIDERS: Surgery; ATTEND Internal Medicine Nephrology
DX: E11.22 Type 2 diabetes mellitus with diabetic chronic kidney disease (principal); N18.6 End stage renal disease; Z99.2 Dependence on renal dialysis; T82.898A Other specified complication of vascular prosthetic devices, implants and grafts, initial encounter